=== PATIENT | male | born 1965 | race Caucasian/White ===

== ENCOUNTER → 2018-09-27 09:39 | Outpatient (CLI) | payer MEDICAID, SELFPAY ==
--- NOTE | 2018-09-27 | DI.MRI.S_ITS ---
PROCEDURE: MR LUMBAR SPINE WO CON INDICATIONS: Radiculopathy, cervical region lumbar region TECHNIQUE: Noncontrast sagittal T1 spin echo and T2 fast echo, sagittal STIR, axial T1 and T2 fast spin echo through the lumbar spine. In cases with scoliosis, additional coronal T2 fast spin echo may be performed. COMPARISON: [facility], MR, MR CERVICAL SPINE WO CON, 09/27/2018, 10:03. FINDINGS: Image quality: Diagnostic, with note made of motion artifact. Alignment and Curvature: Mild dextroconvex scoliotic curvature is seen. No focal AP alignment abnormality is seen. Bone Marrow: Marrow is of normal overall signal. No acute vertebral body compression fractures. Spinal Cord: Conus medullaris terminates at the L1-L2 level. Visualized cord demonstrates normal signal and size. Paraspinous Soft Tissues: No paravertebral masses. T12-L1: Normal appearance. L1-L2: Normal appearance. L2-L3: The disc height and disk signal are well-preserved. Mild disc bulge is seen, which is eccentric to the right. There is mild right-sided and no left-sided neural foraminal narrowing seen. No central canal narrowing is seen. L3-L4: Moderate loss of disc height is seen. Loss of disc signal is seen. There is a nonacute Schmorl's node seen at the superior endplate of L4. Moderate disc bulge is seen, which is eccentric to the right. There is a superimposed left-sided disc extrusion seen. Moderate bilateral neural foraminal narrowing is seen, left worse than right. Moderate central canal narrowing is seen. L4-L5: The disc height is well-preserved. Loss of disc signal is seen at this level. Mild to moderate disc bulge is seen, which is eccentric to the left. There is mild central disc protrusion seen. [id number] facet hypertrophy is seen. Moderate to severe bilateral neural foraminal narrowing is seen. There is a minimal degree of compression seen upon the exiting L4 nerve roots. Mild central canal narrowing is seen. L5-S1: Moderate loss of disc height is seen. Loss of disc signal is seen. Moderate disc bulge is seen, which is eccentric to the right side. There is moderate right-sided and mild left-sided facet hypertrophy seen. There is moderate to severe left-sided and severe right-sided neural foraminal narrowing seen. Compression can be seen upon the exiting L5 nerve roots, right worse than left. No significant central canal narrowing is seen. IMPRESSION: At L3-L4, there is a left-sided disc extrusion seen, with moderate bilateral neural foraminal narrowing and moderate central canal narrowing. Moderate bilateral neural foraminal narrowing is seen at L4-L5, with minimal compression upon the exiting L4 nerve roots. At L5-S1, there is moderate to severe left-sided nerve narrowing and severe right-sided neural foraminal narrowing. There is associated bilateral L5 nerve root compression. Mild dextroconvex scoliotic curvature. Dictated by: Johny Rick M.D. on 09/27/2018 at 10:53 Approved by: Johny Rick M.D. on 09/27/2018 at 11:02
--- NOTE | 2018-09-27 | DI.MRI.S_ITS ---
PROCEDURE: MR CERVICAL SPINE WO CON INDICATIONS: Radiculopathy, cervical region lumbar region TECHNIQUE: Noncontrast sagittal T1 spin echo and T2 fast spin echo, sagittal STIR, foraminal oblique sagittal T2 fast spin echo, and axial gradient echo or T2 fast spin echo through the cervical spine. COMPARISON: [facility], MR, MR LUMBAR SPINE WO CON, 09/27/2018, 10:27. FINDINGS: Image quality: Diagnostic, with note made of motion artifact. Alignment and Curvature: There is straightening of the normal cervical lordosis. Bone Marrow: Marrow demonstrates normal overall signal. Spinal Cord: Visualized spinal cord has normal size and signal. No cerebellar tonsillar herniation. Paraspinous Soft Tissues: No paravertebral masses. Prevertebral soft tissues are normal in thickness. C2-C3: The disc height is well-preserved. Loss of disc signal is seen at this level. A mild degree of generalized disc osteophyte complex is seen. There is a central disc osteophyte protrusion. No significant neural foraminal or central canal narrowing can be seen. C3-C4: The disc height is well-preserved. Loss of disc signal is seen at this level. A mild degree of generalized disc osteophyte complex is seen. There is a mild central disc osteophyte protrusion present at this level. Mild facet joint hypertrophy is seen. Mild bilateral neural foraminal narrowing is seen. Mild to moderate central canal narrowing is seen, with a mild degree of mass effect upon the ventral spinal cord. C4-C5: Moderate loss of disc height is seen. Loss of disc signal is seen. Moderate disc osteophyte complex is seen, which is eccentric to the right. Uncovertebral joint hypertrophy is seen at this level. There is mild to moderate right-sided and mild left-sided neural foraminal narrowing seen. Moderate to severe bilateral neural foraminal narrowing is seen, right worse than left. Moderate to severe central canal narrowing is seen, associated mass effect upon the ventral spinal cord, as on series 5 image 24. C5-C6: Moderate loss of disc height is seen. Loss of disc signal is seen. Moderate to severe disc osteophyte complex is seen, which is slightly eccentric to the right. Uncovertebral joint hypertrophy is seen at this level. There is moderate to severe bilateral neural foraminal narrowing seen, right worse than left. Moderate to severe central canal narrowing is seen at this level, with mass effect upon the ventral spinal cord, as on series 5 image 29. C6-C7: Mild loss of disc height is seen. Loss of disc signal is seen. Mild to moderate disc osteophyte complex is seen at this level. Uncovertebral joint hypertrophy is seen, which is more prominent on the left than on the right. Mild facet joint hypertrophy is seen. There is moderate right-sided and moderate to severe left-sided neural foraminal narrowing seen. At least moderate central canal narrowing is seen, with associated mass effect upon the ventral spinal cord, as on series 5 image 33. C7-T1: The disc height is well-preserved. Loss of disc signal is seen at this level. Moderate disc osteophyte complex is seen, which is slightly eccentric to the right. Mild facet joint hypertrophy is seen. There is mild right-sided and no left-sided neural foraminal narrowing seen. Mild central canal narrowing is seen. IMPRESSION: Cervical spine degenerative changes are seen, which are most prominent at C4-C5 and C5-C6. At these levels, there is moderate to severe bilateral neural foraminal narrowing and moderate to severe central canal narrowing present. Dictated by: Johny Rick M.D. on 09/27/2018 at 10:48 Approved by: Johny Rick M.D. on 09/27/2018 at 10:53
== END ==
PROVIDERS: PCP Family Medicine; Visit Provider Family Medicine
DX: M47.22 Other spondylosis with radiculopathy, cervical region (principal); M48.02 Spinal stenosis, cervical region; M51.16 Intervertebral disc disorders with radiculopathy, lumbar region; M48.061 Spinal stenosis, lumbar region without neurogenic claudication; M48.07 Spinal stenosis, lumbosacral region; M41.9 Scoliosis, unspecified
CPT/HCPCS: 72141; 72148

== ENCOUNTER → 2020-08-17 14:08 | Outpatient (CLI) | payer MEDICAID, SELFPAY ==
--- NOTE | 2020-08-17 | DI.RAD.S_ITS ---
PROCEDURE: XR FOOT RT MIN 3V INDICATIONS: Stiffness On Rt Ankle Joint TECHNIQUE: 3 views of the foot were acquired. COMPARISON: [facility], CR, XR ANKLE RT MIN 3V, 08/17/2020, 14:17. FINDINGS: Bones: No definite acute fracture although limited sensitivity due to advanced arthritic changes. There is severe 1st MTP joint degeneration, and marginal lucencies projecting at the 1st MTP joint. Severe hindfoot degenerative changes better appreciated on the comparison right ankle radiographs dated same day. Soft tissues: Vascular calcifications noted. 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 Scattered juxta-articular lucencies at the 1st MTP joint raising the possibility of erosions. Severe hindfoot joint degeneration and deformity. Dictated by: Deshawn Sumner M.D. on 08/17/2020 at 15:49 Approved by: Deshawn Sumner M.D. on 08/17/2020 at 15:51
--- NOTE | 2020-08-17 | DI.RAD.S_ITS ---
PROCEDURE: XR ANKLE RT MIN 3V INDICATIONS: Stiffness On Rt Ankle Joint TECHNIQUE: 3 views of the ankle were acquired. COMPARISON: None. FINDINGS: Bones: No definite acute fracture. Chronic appearing fracture of the distal anterior tibia with corticated margins. There is severe tibiotalar joint degeneration with advanced, chronic deformity. Subtalar and diffuse midfoot joint degeneration is present. There is bulky osteophyte formation at the dorsal talonavicular joint. Soft tissues: Scattered vascular calcifications. 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 Linear lucency projecting in the anterior tibial plafond presumably remote fracture sequela given the chronic radiographic appearance. Recommend correlation to point tenderness. Dictated by: Deshawn Sumner M.D. on 08/17/2020 at 15:45 Approved by: Deshawn Sumner M.D. on 08/17/2020 at 15:48
== END ==
PROVIDERS: PCP Family Medicine; Referring Provider Family Medicine; Visit Provider Family Medicine
DX: M25.671 Stiffness of right ankle, not elsewhere classified (principal); M19.071 Primary osteoarthritis, right ankle and foot
CPT/HCPCS: 73610; 73630

== ENCOUNTER → 2020-08-27 09:42 | Outpatient (CLI) | payer MEDICAID, SELFPAY ==
--- NOTE | 2020-08-27 09:44 | DI.US.S_ITS ---
PROCEDURE: US ABDOMEN COMPLETE INDICATIONS: Right upper quadrant pain TECHNIQUE: Real-time scanning was performed of the abdominal and retroperitoneal organs, with image documentation. COMPARISON: None. FINDINGS: Liver: Liver is enlarged measuring 17.4 cm. There is diffuse increased echogenicity. Gallbladder: Gallbladder has been removed. Biliary ducts: Intrahepatic bile ducts are non-dilated. Extrahepatic bile duct caliber measures 2.5 mm. Normal is 6-7 mm or less in diameter, or 10 mm or less post-cholecystectomy. Pancreas: Visualized portions of the pancreas are sonographically normal. Spleen: Spleen is normal in size and homogeneous in echotexture. Kidneys: Kidneys are normal in size and echotexture. Right kidney measures 13.2 cm long. No hydronephrosis or nephrolithiasis. No solid masses. Aorta: Visualized aorta is normal in caliber at less than 3 cm. Iliacs: Proximal common iliac arteries are normal in caliber at less than 2.5 cm. IVC: Intrahepatic inferior vena cava is patent. IMPRESSION: Hepatomegaly with steatosis. Dictated by: Sonia Spivey M.D. on 08/27/2020 at 14:07 Approved by: Sonia Spivey M.D. on 08/27/2020 at 14:10
== END ==
PROVIDERS: PCP Family Medicine; Referring Provider Family Medicine; Visit Provider Family Medicine
DX: R10.11 Right upper quadrant pain (principal); K76.0 Fatty (change of) liver, not elsewhere classified; Z90.49 Acquired absence of other specified parts of digestive tract
CPT/HCPCS: 76700

== ENCOUNTER 2020-09-09 14:13 | Inpatient (IN) | payer MEDICAID, SELFPAY ==
[2020-09-09] VITALS (22 sets, daily range): BP systolic 87–137; BP diastolic 53–75; PULSE 104–126; RESP 10–19; TEMP 36.9–38.7; O2SAT 92–98; BMI 21.7; BMI 20.6
--- NOTE | 2020-09-09 14:24 | DI.RAD.S_ITS ---
PROCEDURE: XR CHEST 1V INDICATIONS: suspected sepsis TECHNIQUE: One view of the chest was acquired. COMPARISON: [facility], , CHEST 1VW (PORTABLE), 09/12/2013, 6:20. FINDINGS: Surgical changes and devices: None. Lungs and pleura: Lungs are clear. No pleural effusions or pneumothorax. Mediastinum: Mediastinal contours appear normal. Heart size is normal. Bones and chest wall: Old right clavicle fracture which is healed in deformity stable in appearance. No suspicious bony lesions. Overlying soft tissues appear unremarkable. IMPRESSION: No acute cardiopulmonary disease process. Dictated by: Trice Childress MD, PhD on 09/09/2020 at 14:48 Approved by: Trice Childress MD, PhD on 09/09/2020 at 14:48
--- NOTE | 2020-09-09 14:47 | ED.WOUNDLAC ---
HPI - Wound/Laceration General Chief Complaint: Wound/Laceration Stated Complaint: states ulcer on right foot, thinks infection,swell Time Seen by Provider: 09/09/20 14:24 Source: patient Mode of arrival: Wheelchair History of Present Illness HPI narrative: 55-year-old poorly-controlled type 2 diabetic presents with right small toe infection with erythema and redness spreading over the dorsum of the foot getting worse over the last 3 days. Complains of significant calf pain, chills, fevers general malaise. He notes that there has been some mild irritation to that foot for almost a month but it did not begin to truly get bad until 3 days ago. He describes no chest pain, shortness of breath or cough. He does note that he has had recurrent diarrhea/constipation since April. He also notes that he has had constant right upper quadrant pain with outpatient workup so far unremarkable including a normal ultrasound. Related Data Allergies Allergy/AdvReac Type Severity Reaction Status Date / Time No Known Drug Allergies Allergy Verified 09/09/20 14:23 Review of Systems Review of Systems Narrative: Positive chills but denies fevers Remainder review is negative other than that discussed in the HPI Patient History Medical History Diabetes Social History Smoking Status: Never smoker Smoking Status: Never smoker Substance Use Type: does not use Exam Narrative Exam Narrative: General: Very thin and pale but in no acute distress. Able to give a complete and coherent history. Well-nourished well-developed HEENT: Moist mucous membranes, normal sclera with reactive pupils, Neck: No JVD, supple Respiratory: Lungs are clear to auscultation, no wheezing no rales no rhonchi. Full and symmetrical air movement Cardiac: Mildly tachycardic but otherwise Regular rate and rhythm no murmurs no bruits Abdomen: Soft, mild tenderness in the right upper quadrant that seems to be more in the abdominal wall with no rebound or guarding, good bowel tones, no flank pain Skin: Pale, no rashes Neurologic: Globally weak but Grossly neurologically intact with no obvious asymmetries or abnormalities Extremities: right calf more swollen than the left minor skin breakdown over the anterior garcia that appears chronic. Right small toe erythematous with developing necrosis and erythema over the dorsum of the foot with significant swelling over the dorsum of the foot. Reasonable capillary refill but no palpable pulses. Tender mid gastroc muscle Hands with intraosseous muscle wasting bilaterally Psych: Cooperative, appropriate insight and affect Initial Vital Signs Initial Vital Signs: Vital Signs Temperature 99.2 F 09/09/20 14:20 Pulse Rate 118 H 09/09/20 14:20 Respiratory Rate 18 09/09/20 14:20 Blood Pressure 115/71 09/09/20 14:20 Pulse Oximetry 97 09/09/20 14:20 Course Orders Ordered: ED Orders 09/09/20 14:24 XR chest 1V Stat EKG-12 Lead Stat 09/09/20 14:40 Complete Blood Count AUTO DIFF Stat Comprehensive Metabolic Panel Stat Lactate (Lactic Acid) Stat Lipase Stat Partial Thromboplastin Time Stat Procalcitonin Stat Prothrombin Time INR Stat 09/09/20 15:10 XR foot RT min 3V Stat Blood Culture Stat 09/09/20 15:28 US periph venous low extrem rt Stat 09/09/20 15:40 COVID19 - ADMIT ([employer] swab/PCR) Stat 09/09/20 18:10 Urine Microscopic Stat Discontinued Medications Acetaminophen (Acetaminophen 325 Mg Tablet) 650 mg PO NOW ONE Stop: 09/09/20 15:13 Last Admin: 09/09/20 15:33 Dose: 650 mg Documented by: KELECHI Sodium Chloride (Normal Saline 0.9%) 1,000 mls @ 1,000 mls/hr IV BOLUS ONE Stop: 09/09/20 15:23 Last Infusion: 09/09/20 16:04 Dose: 0 mls/hr Documented by: Admin: 09/09/20 14:51 Dose: 1,000 mls/hr Documented by: KELECHI Vancomycin HCl/Dextrose (Vancomycin) 1,500 mg in 300 mls @ 200 mls/hr IV NOW ONE Stop: 09/09/20 16:39 Last Infusion: 09/09/20 17:57 Dose: 0 mls/hr Documented by: Admin: 09/09/20 16:25 Dose: 200 mls/hr Documented by: KELECHI Piperacillin Sod/Tazobactam (Sod 4.5 gm/ Sodium Chloride) 100 mls @ 200 mls/hr IV NOW ONE Stop: 09/09/20 15:11 Last Infusion: 09/09/20 16:04 Dose: 0 mls/hr Documented by: Admin: 09/09/20 15:33 Dose: 200 mls/hr Documented by: KELECHI Sodium Chloride (Normal Saline 0.9%) 1,000 mls @ 1,000 mls/hr IV BOLUS ONE Stop: 09/09/20 16:11 Last Infusion: 09/09/20 17:45 Dose: 0 mls/hr Documented by: Admin: 09/09/20 16:25 Dose: 1,000 mls/hr Documented by: KELECHI Vital Signs Vital signs: Vital Signs - 8 hr 09/09/20 14:20 09/09/20 14:32 09/09/20 15:00 Temperature 99.2 F Pulse Rate 118 H 112 H 119 H Respiratory Rate 18 Blood Pressure 115/71 Pulse Oximetry 97 98 95 09/09/20 15:24 09/09/20 15:30 09/09/20 16:00 Temperature Pulse Rate 116 H 116 H Respiratory Rate Blood Pressure 125/69 130/71 112/61 Pulse Oximetry 92 96 96 09/09/20 16:30 09/09/20 17:00 09/09/20 17:30 Temperature Pulse Rate 110 H 108 H 107 H Respiratory Rate Blood Pressure 110/60 115/62 123/64 Pulse Oximetry 95 95 95 MDM - Wound/Laceration Medical Records Attestation: I reviewed the patient's medical records. Lab Data Attestation: I reviewed the patient's lab results. Result diagrams: 09/09/20 14:40 09/09/20 14:40 Labs: Lab Results 09/09/20 09/09/20 09/09/20 Range/Units 14:40 14:40 14:40 WBC 20.8 H (4.5-11.0) X10^3/uL RBC 3.79 L (4.5-5.9) X10^6/uL Hgb 10.9 L (13.5-17.5) g/dL Hct 31.7 L (41-53) % MCV 83.5 (80-100) fL MCH 28.7 (26-34) PG MCHC 34.4 (30-36) % RDW 11.6 (11.6-14.8) % Plt Count 263 (150-400) X10^3/uL Neut % (Auto) 84.5 H (50-75) % Lymph % (Auto) 7.1 L (25-40) % [place] % (Auto) 7.8 (3-14) % Eos % (Auto) 0.1 L (2-4) % Baso % (Auto) 0.5 (0-2) % Neut # (Auto) 78642 H (8724-4606) /uL Lymph # (Auto) 1500 (7788-8882) /uL [place] # (Auto) 1600 H (0-900) /uL Eos # (Auto) 0 (0-450) /uL Baso # (Auto) 100 (0-100) /uL PT 14.6 H (10.1-12.7) SECONDS INR 1.3 (0.9-1.3) APTT 30 (26.4-36.2) SECONDS Sodium 125 L (137-145) mmol/L Potassium 4.1 (3.4-5.1) mmol/L Chloride 89 L (98-107) mmol/L Carbon Dioxide 26 (22-32) mmol/L BUN 25 H (9-20) mg/dL Creatinine 0.57 L (0.66-1.25) mg/dL Estimated GFR > 60.0 (>60) mL/min BUN/Creatinine Ratio 43.9 H (6-22) Glucose 396 H (70-100) mg/dL Lactate (0.7-2.1) mmol/L Calcium 9.4 (8.4-10.2) mg/dL Total Bilirubin 0.5 (0.2-1.3) mg/dL AST 23 (17-59) IU/L ALT 20 (<50) IU/L Alkaline Phosphatase 98 (38-126) U/L Total Protein 7.0 (6.3-8.2) g/dL Albumin 3.5 (3.5-5.0) g/dL Globulin 3.5 (1.7-4.1) g/dL Albumin/Globulin Ratio 1.0 (1.0-2.8) Lipase < 10 L (23-300) U/L Procalcitonin 0.50 (<0.5) ng/mL SARS-CoV-2 (PCR) (Negative) 09/09/20 09/09/20 Range/Units 14:40 15:40 WBC (4.5-11.0) X10^3/uL RBC (4.5-5.9) X10^6/uL Hgb (13.5-17.5) g/dL Hct (41-53) % MCV (80-100) fL MCH (26-34) PG MCHC (30-36) % RDW (11.6-14.8) % Plt Count (150-400) X10^3/uL Neut % (Auto) (50-75) % Lymph % (Auto) (25-40) % [place] % (Auto) (3-14) % Eos % (Auto) (2-4) % Baso % (Auto) (0-2) % Neut # (Auto) (8222-1726) /uL Lymph # (Auto) (3978-4393) /uL [place] # (Auto) (0-900) /uL Eos # (Auto) (0-450) /uL Baso # (Auto) (0-100) /uL PT (10.1-12.7) SECONDS INR (0.9-1.3) APTT (26.4-36.2) SECONDS Sodium (137-145) mmol/L Potassium (3.4-5.1) mmol/L Chloride (98-107) mmol/L Carbon Dioxide (22-32) mmol/L BUN (9-20) mg/dL Creatinine (0.66-1.25) mg/dL Estimated GFR (>60) mL/min BUN/Creatinine Ratio (6-22) Glucose (70-100) mg/dL Lactate 1.1 (0.7-2.1) mmol/L Calcium (8.4-10.2) mg/dL Total Bilirubin (0.2-1.3) mg/dL AST (17-59) IU/L ALT (<50) IU/L Alkaline Phosphatase (38-126) U/L Total Protein (6.3-8.2) g/dL Albumin (3.5-5.0) g/dL Globulin (1.7-4.1) g/dL Albumin/Globulin Ratio (1.0-2.8) Lipase (23-300) U/L Procalcitonin (<0.5) ng/mL SARS-CoV-2 (PCR) Negative (Negative) Imaging Data XR foot: Radiologist's Impression: FINDINGS: Bones: No acute fractures or dislocations. No suspicious bony lesions. Degenerative changes are seen at the 1st metatarsophalangeal joint, medial tarsometatarsal joints, and dorsal talonavicular joint. Severe degenerative changes are seen at the mortise joint. There is generalized osteopenia. No definite cortical destruction is seen. Soft tissues: Soft tissue gas is seen in the lateral and dorsal aspect of the foot, which may be secondary to communication with the skin surface through a soft tissue ulcer versus secondary to infection with a gas-forming organism. IMPRESSION: 1. Prominent soft tissue gas is seen at the lateral and dorsal aspect of the forefoot, which may be secondary to communication with the skin surface through a soft tissue ulcer and/or infection with a gas-forming organism. 2. No definite signs of osteomyelitis, although radiographs are relatively insensitive and may lag behind clinical findings. MRI may be obtained for further evaluation if clinically indicated. Dictated by: Fab Bennett M.D. on 09/09/2020 at 14:43 Chest x-ray: Radiologist's Impression: FINDINGS: Surgical changes and devices: None. Lungs and pleura: Lungs are clear. No pleural effusions or pneumothorax. Mediastinum: Mediastinal contours appear normal. Heart size is normal. Bones and chest wall: Old right clavicle fracture which is healed in deformity stable in appearance. No suspicious bony lesions. Overlying soft tissues appear unremarkable. IMPRESSION: No acute cardiopulmonary disease process. Dictated by: Trice Childress MD, PhD on 09/09/2020 at 14:48 Ultrasound right calf: Radiologist's Impression: FINDINGS: The common femoral, femoral and popliteal veins are normally compressible, and free of intraluminal thrombus. Color and pulse Doppler demonstrate normal phasic intraluminal flow. There is normal augmentation response to distal compression maneuver. Subcutaneous soft tissue edema is seen at the right ankle through the right calf. Multiple mildly enlarged lymph nodes are seen in the right inguinal region, the largest of which measures up to 1.6 cm in short axis diameter. IMPRESSION: 1. No sonographic evidence of deep venous thrombosis in the right lower extremity. 2. Mildly enlarged right inguinal lymph nodes are nonspecific and may be reactive. Dictated by: Fab Bennett M.D. on 09/09/2020 at 15:29 ECG Data Attestation: I personally reviewed and interpreted this ECG as follows: Interpretation: Sinus tachycardia at 118 PVCs noted Normal intervals and normal axis No acute ischemic changes MDM Narrative Medical decision making narrative: 55-year-old gentleman with diabetic foot infection involving the 5th digit at least. Concern for developing sepsis with tachycardia however lactic acid is unremarkable as is blood pressure. Vancomycin and Zosyn her started fluids are started. X-ray is obtained. Will obtain Podiatry consult. Will anticipate need for hospital admission and possible debridement if not complete amputation. 545pm Dr De Los Santos in an apartment to examine the patient. X-rays are exam and he does have quite a bit of subcutaneous air. Her recommendation was small toe amputation and distal 5th metatarsal. Patient would prefer to keep as much as possible and understands that a multistep complex process with probably very poor healing is likely. His last meal was 1:00 p.m. today He will be admitted to the hospitalist service for diabetic foot wound with cellulitis and podiatry consult with Dr. De Los Santos with surgery anticipated later this evening. 615pm Reviewed with Dr Amado. Will admit. The all findings and concerns are reviewed with patient. Discharge Plan Departure Patient Disposition: Admitted As Inpatient Clinical Impression: Diabetic foot ulcer Qualifiers: Diabetic foot ulcer location: toe Diabetes mellitus type: type 2 Laterality: right Non-pressure ulcer stage: unspecified non-pressure ulcer stage Qualified Code(s): E11.621 - Type 2 diabetes mellitus with foot ulcer Cellulitis Qualifiers: Site of cellulitis: extremity Site of cellulitis of extremity: toe Laterality: right Qualified Code(s): L03.031 - Cellulitis of right toe
[2020-09-09 14:48] LABS: Add Manual Diff / Slide Review NO; Basophils Absolute Auto 100 /uL (0-100); Basophils Percent Auto 0.5 % (0-2); Eosinophils Absolute Auto 0 /uL (0-450); Eosinophils Percent Auto 0.1 % (2-4); Hematocrit 31.7 % (41-53); Hemoglobin 10.9 g/dL (13.5-17.5); Lymphocytes Absolute Auto 1500 /uL (1100-4500); Lymphocytes Percent Auto 7.1 % (25-40); Mean Corpuscular HGB Conc 34.4 % (30-36); Mean Corpuscular Hemoglobin 28.7 PG (26-34); Mean Corpuscular Volume 83.5 fL (80-100); Monocytes Absolute Auto 1600 /uL (0-900); Monocytes Percent Auto 7.8 % (3-14); Neutrophils Absolute Auto 17600 /uL (1500-7000); Neutrophils Percent Auto 84.5 % (50-75); Platelet Count 263 X10^3/uL (150-400); Red Blood Cell Count 3.79 X10^6/uL (4.5-5.9); Red Cell Distribution Width 11.6 % (11.6-14.8); White Blood Cell Count 20.8 X10^3/uL (4.5-11.0)
[2020-09-09] MEDS: SODIUM CHLORIDE 0.9% 1,000 ML 1000 ML IV ×2 (14:51→16:25)
[2020-09-09 14:58] LABS: INR 1.3 (0.9-1.3); Prothrombin Time 14.6 SECONDS (10.1-12.7)
[2020-09-09 15:01] LABS: PTT Partial Thromboplastin Tim 30 SECONDS (26.4-36.2)
[2020-09-09 15:07] LABS: Lactate (Lactic Acid) 1.1 mmol/L (0.7-2.1)
[2020-09-09 15:08] LABS: Alanine Aminotransferase 20 IU/L (<50); Albumin 3.5 g/dL (3.5-5.0); Alkaline Phosphatase 98 U/L (38-126); Aspartate Aminotransferase 23 IU/L (17-59); BUN Creatinine Ratio 43.9 (6-22); Bilirubin Total 0.5 mg/dL (0.2-1.3); Blood Urea Nitrogen 25 mg/dL (9-20); Calcium 9.4 mg/dL (8.4-10.2); Carbon Dioxide 26 mmol/L (22-32); Chloride 89 mmol/L (98-107); Estimated Glomerular Filt Rate > 60.0 mL/min (>60); Globulin 3.5 g/dL (1.7-4.1); Glucose 396 mg/dL (70-100); HEMOLYSIS < 15 (0-50); Potassium 4.1 mmol/L (3.4-5.1); Sodium 125 mmol/L (137-145)
--- NOTE | 2020-09-09 15:10 | DI.RAD.S_ITS ---
PROCEDURE: XR FOOT RT MIN 3V INDICATIONS: small toe infection, diabetic TECHNIQUE: 3 views of the foot were acquired. COMPARISON: [facility], CR, XR FOOT RT MIN 3V, 08/17/2020, 14:17. FINDINGS: Bones: No acute fractures or dislocations. No suspicious bony lesions. Degenerative changes are seen at the 1st metatarsophalangeal joint, medial tarsometatarsal joints, and dorsal talonavicular joint. Severe degenerative changes are seen at the mortise joint. There is generalized osteopenia. No definite cortical destruction is seen. Soft tissues: Soft tissue gas is seen in the lateral and dorsal aspect of the foot, which may be secondary to communication with the skin surface through a soft tissue ulcer versus secondary to infection with a gas-forming organism. IMPRESSION: 1. Prominent soft tissue gas is seen at the lateral and dorsal aspect of the forefoot, which may be secondary to communication with the skin surface through a soft tissue ulcer and/or infection with a gas-forming organism. 2. No definite signs of osteomyelitis, although radiographs are relatively insensitive and may lag behind clinical findings. MRI may be obtained for further evaluation if clinically indicated. Dictated by: Fab Bennett M.D. on 09/09/2020 at 14:43 Approved by: Fab Bennett M.D. on 09/09/2020 at 14:47
[2020-09-09 15:20] LABS: Lipase < 10 U/L (23-300)
--- NOTE | 2020-09-09 15:28 | DI.US.S_ITS ---
PROCEDURE: US PERIPH VENOUS LOW EXTREM RT INDICATIONS: RIGHT CALF PAIN WITH EDEMA TECHNIQUE: Real-time imaging, as well as color and pulse Doppler interrogation, were performed of the lower extremity deep veins from the inguinal ligament to the popliteal fossa. COMPARISON: None. FINDINGS: The common femoral, femoral and popliteal veins are normally compressible, and free of intraluminal thrombus. Color and pulse Doppler demonstrate normal phasic intraluminal flow. There is normal augmentation response to distal compression maneuver. Subcutaneous soft tissue edema is seen at the right ankle through the right calf. Multiple mildly enlarged lymph nodes are seen in the right inguinal region, the largest of which measures up to 1.6 cm in short axis diameter. IMPRESSION: 1. No sonographic evidence of deep venous thrombosis in the right lower extremity. 2. Mildly enlarged right inguinal lymph nodes are nonspecific and may be reactive. Dictated by: Fab Bennett M.D. on 09/09/2020 at 15:29 Approved by: Fab Bennett M.D. on 09/09/2020 at 15:31
[2020-09-09] MEDS: PIPERACILLIN/TAZO 4.5 GM in SODIUM CHLORIDE 0.9% 100 ML 200 ML IV (15:33)
[2020-09-09] MEDS: ACETAMINOPHEN 325 MG TABLET 650 MG PO (15:33)
[2020-09-09] MEDS: VANCOMYCIN 1,500 MG/300 ML PIGGYBACK 200 MG IV (16:25)
[2020-09-09 16:57] LABS: COVID19 - ADMIT (NP swab/PCR) Negative (Negative)
[2020-09-09 18:16] LABS: Bacteria Urine None Seen
[2020-09-09 18:26] LABS: Culture Indicated Urine Cult Not Indicated; RBC Urine 0-1/HPF (0-5/HPF); WBC Urine 0-1/HPF (0-5/HPF)
--- NOTE | 2020-09-09 18:30 | PM.CN ---
History of Present Illness Consult details Date Patient Seen: 09/09/20 Time Patient Seen: 17:00 Chief complaint: states ulcer on right foot, thinks infection,swell Reason for consult: Right foot wound, cellulitis, possible toe/foot infection Requesting provider: Anai Crawley Narrative: 55-year-old poorly controlled diabetic presented to the emergency room this morning with concerning redness and increased swelling to the foot and calf. I was contacted when he was at the emergency room by Dr. Crawley as there was increasing concern that there may be a need for surgical intervention on the right fifth toe and ball of foot. He relates no feeling in the foot but a tightness and some calf pain. He also relates some chills and possible fever over the last few days. He has seen a callus on the bottom of the foot and usually it just comes off but got worse when he was bending down repeatedly to help his cat who was ill and in a carrier. He relates otherwise no injury to the foot. 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 Meds Home Medications and Allergies Allergies Allergy/AdvReac Type Severity Reaction Status Date / Time No Known Drug Allergies Allergy Verified 09/09/20 14:23 Review of Systems Constitutional Constitutional: Reports chills Integumentary/Breasts Skin/Breast: Reports wounds (On right foot as reported.) Exam Vital Signs (past 8 hours): - 09/09/20 14:20 09/09/20 14:32 09/09/20 15:00 Temperature 99.2 F Pulse Rate 118 H 112 H 119 H Respiratory Rate 18 Blood Pressure 115/71 Pulse Oximetry 97 98 95 09/09/20 15:24 09/09/20 15:30 09/09/20 16:00 Temperature Pulse Rate 116 H 116 H Respiratory Rate Blood Pressure 125/69 130/71 112/61 Pulse Oximetry 92 96 96 09/09/20 16:30 09/09/20 17:00 09/09/20 17:30 Temperature Pulse Rate 110 H 108 H 107 H Respiratory Rate Blood Pressure 110/60 115/62 123/64 Pulse Oximetry 95 95 95 Oxygen Delivery Method Room Air Const General: cooperative Orientation: alert, awake and oriented x3 Resp Effort & Inspection: normal respiratory effort Cardio Pulses: posterior tibial pulses present on the right (Edema to the foot/ankle.) diminished and dorsalis pedis present (Weakly palpable, however there is much edema.) on the right Extrem Right lower extremity: foot Details: normal capillary refill, warmth, edema (1+ pitting foot/ankle, reduced edema at the calf. ), crepitus (None to the foot) and motor-sensory exam Details: light-touch abnormal Location: in all toes (and foot are insensate on light touch.) Other: Wound plantar fifth metatarsal head has dark eschar over it and is about the size of a quarter. There is no exposed bone or tendon, no purulence, but the skin changes around the wound show chronicity of pressure. Fifth toe is enlarged with edema, redness, and some wetness c/w recent edema and cellulitus. There is redness dorsolateral distal foot and skin is a little tight with underlying edema, no crepitus on gentle pressure. Some areas of possible serous weeping are noted on the skin in this area. He is able to DF and PF the foot on the ankle. Objective Imaging foot x-ray: Radiologist's impression: 3V Right foot NWB taken 09/09/20: IMPRESSION: 1. Prominent soft tissue gas is seen at the lateral and dorsal aspect of the forefoot, which may be secondary to communication with the skin surface through a soft tissue ulcer and/or infection with a gas-forming organism. 2. No definite signs of osteomyelitis, although radiographs are relatively insensitive and may lag behind clinical findings. MRI may be obtained for further evaluation if clinically indicated. Venous US: Radiologist's impression: Right lower ext venous U/S 09/09/2020: IMPRESSION: 1. No sonographic evidence of deep venous thrombosis in the right lower extremity. 2. Mildly enlarged right inguinal lymph nodes are nonspecific and may be reactive. Labs Result Diagrams: 09/09/20 14:40 09/09/20 14:40 Labs: Laboratory Results - last 24 hr 09/09/20 09/09/20 09/09/20 14:40 14:40 14:40 WBC 20.8 H RBC 3.79 L Hgb 10.9 L Hct 31.7 L MCV 83.5 MCH 28.7 MCHC 34.4 RDW 11.6 Plt Count 263 Neut % (Auto) 84.5 H Lymph % (Auto) 7.1 L [place] % (Auto) 7.8 Eos % (Auto) 0.1 L Baso % (Auto) 0.5 Neut # (Auto) 39748 H Lymph # (Auto) 1500 [place] # (Auto) 1600 H Eos # (Auto) 0 Baso # (Auto) 100 PT 14.6 H INR 1.3 APTT 30 Sodium 125 L Potassium 4.1 Chloride 89 L Carbon Dioxide 26 BUN 25 H Creatinine 0.57 L Estimated GFR > 60.0 BUN/Creatinine Ratio 43.9 H Glucose 396 H Lactate Calcium 9.4 Total Bilirubin 0.5 AST 23 ALT 20 Alkaline Phosphatase 98 Total Protein 7.0 Albumin 3.5 Globulin 3.5 Albumin/Globulin Ratio 1.0 Lipase < 10 L Procalcitonin 0.50 Urine RBC Urine WBC Urine Bacteria Ur Culture Indicated? SARS-CoV-2 (PCR) 09/09/20 09/09/20 09/09/20 14:40 15:40 17:57 WBC RBC Hgb Hct MCV MCH MCHC RDW Plt Count Neut % (Auto) Lymph % (Auto) [place] % (Auto) Eos % (Auto) Baso % (Auto) Neut # (Auto) Lymph # (Auto) [place] # (Auto) Eos # (Auto) Baso # (Auto) PT INR APTT Sodium Potassium Chloride Carbon Dioxide BUN Creatinine Estimated GFR BUN/Creatinine Ratio Glucose Lactate 1.1 Calcium Total Bilirubin AST ALT Alkaline Phosphatase Total Protein Albumin Globulin Albumin/Globulin Ratio Lipase Procalcitonin Urine RBC 0-1/hpf Urine WBC 0-1/hpf Urine Bacteria None seen Ur Culture Indicated? Cult not indicated SARS-CoV-2 (PCR) Negative Assessment & Plan Assessment & Plan narrative: 55-year-old diabetic male with cellulitis and diabetic neuropathic ulcer on the 5th metatarsal head with question of possible gas in the tissues and underlying osteomyelitis on the foot. He and I discussed the concern I have in regards to the possible gas in his tissues which could be significantly a problem if left unattended without surgical intervention. He voiced understanding and is in a mind set to undergo an incision with irrigation and debrided in as well as draining on the foot tonight. Also, we discussed the potential fitness for viability on his 5th toe and skin as well as bone along the 5th metatarsal. My suspicion is that there is potentially a going to be a significant difficulty in recovering that skin and did discuss with him the possibility that it may be an improvement and quicker healing time to perform a partial 5th ray amputation. He does not want to undergo any removal of the toe or portion of the foot excepting in a circumstance where it is a little further down the road in terms of his recovery or if it is an absolute necessity. My suggestion is that we perform the irrigation with cultures of the soft tissues as well as bone if possible tonight and then allow him to begin to stabilize with the possible infection as well as undergoing further medical management of his diabetes while an inpatient. We can observe how the foot attempts healing following the I and D, and he may be recovering via wound care with the wound care team or a return to the operating room as necessary. He is going to be admitted on the hospitalist medicine team and I will provide consultation. While we continue to observe for updated cultures, I spoke with his attending in the emergency room and she is going to keep him on the IV vancomycin and Zosyn until further information is known. Thank you for the referral and consultation. COVID-19 COVID-19 status: Negative Result date/Date tested (Pos, Neg/Pending): 09/09/20 Time Spent With Patient Time with patient: 25 - 35 minutes
[2020-09-09] MEDS: SODIUM CHLORIDE 0.9% 1,000 ML 100 ML IV (19:25)
[2020-09-09] MEDS: METOCLOPRAMIDE 10 MG in SODIUM CHLORIDE 0.9% 50 ML 208 ML IV (19:25)
--- NOTE | 2020-09-09 19:28 | PC.NURSE ---
Home med list: Does not know dosing or timing of these meds Lisinopril Simvastatin Famotadine Lantus - 45u at bedtime - not currently taking Humalog - base is 20U - not currently taking Carbamazapine Cialis Multivitamin Fiber Aspirin Tylenol Tumeric
--- NOTE | 2020-09-09 19:44 | PC.NURSE ---
Addendum entered by Caitlyn Ferrer R.N. 09/09/20 22:50: Pt returned to floor at 2227. Bulky dressing to right foot. 5th toe is dusky but warm, all other toes with good color and cap refill. Original Note: Admission/shift note: Patient off floor at 1940. Arrived via wheelchair, AxOx3, hx of multiple recent falls. Does not use insulins at home and stated he resides in [place] and further explained hx of denial about health. confidently let this RN know patient isn't always of sound mind and decision making and will not always let staff known his needs. Only home med patient knew dosing and schedule was gabapentin, all other meds documented in a nursing note. Weeping wound to right foot, small toe to bottom of foot. Going down for surgery for amputation. High fall risk, call light education given. Will need reinforcement.
--- NOTE | 2020-09-09 20:01 | PM.PREOP ---
Pre-operative Note COVID-19 COVID-19 status: Negative Result date/Date tested (Pos, Neg/Pending): 09/09/20 Interval Note History & Physical reviewed/Exam performed by Physician: Yes Changes to H&P: No
--- NOTE | 2020-09-09 20:02 | PM.OP.1 ---
Operative Date/Time/Diagnoses Date of procedure: 09/09/20 Time of procedure: 20:02 Pre-op diagnosis: Right foot cellulitus with diabetic foot ulceration, possible abscess, osteomyelitis Post-op diagnosis: same Procedure & Clinicians Procedure: Right foot incision and drainage, debridement, biopsy bone, tissue cultures Same procedure as scheduled: Yes Indications: Wound with cellulitis and suspected abscess right foot. Gas in tissues on x-ray gave noticeable concern and urgent incision and drainage indicated. Patient consented to this but did not want me to remove any toe or major portion of bone with this procedure today. No contraindication to the procedure at this time. Surgeon: Laura De Los Santos Click Yes if Unassisted: Yes Anesthesia Type: General Operative Notes Closure Type: not applicable Specimen(s): other (1) Deep fourth interspace culture swab, 2) Fifth metatarsal lateral head bone culture) Estimated Blood Loss (mL): 75 Blood products transfused: none Procedure in detail: Patient was brought to the operating room and placed on the operating table in the supine position. After induction of general anesthesia the foot and ankle were prepped and draped in the usual aseptic manner. Local anesthesia was obtained to the foot. After a check of anesthesia, an incision was made over the dorsal 4th interspace from distal to proximal. This immediately smelled of gas and purulent discharge was noted. This was able to be traced in a tissue plane over to the 3rd and almost into the 2nd interspace distally. Proximally this mostly followed the 4th interspace and then just along the plane dorsally of the midfoot but did not show purulence in that direction. The next incision was made on the lateral 5th metatarsal head and metatarsophalangeal joint. This was brought down under the ulceration which was removed from the 5th metatarsal head and once again purulent discharge was noted. This also had a plane going medially to around the 3rd metatarsal neck and this did not show purulence. There was a communication between the 4th interspace plantarly and dorsally. Pressure was placed into the instep and no purulent discharge was noted plantarly. There was significant necrosis of the tissues along the 5th metatarsophalangeal joint although the metatarsal head was soft but intact. Deep tissue cultures were performed from the 4th interspace and the bone biopsy was taken from the lateral 5th metatarsal head. Proximal extension along 5th metatarsal and 4th interspace was checked and after further debridement of necrotic tissues no further purulent discharge was noted. The area was irrigated with extensive amount of normal saline in each of the locations. Bleeders were cauterized and ligated as necessary. Vascularity remained to the 5th toe and the other digits as well. Half-inch Nu Gauze packing was placed in each of the areas and then a lightly compressive dressing of Adaptic 4x4s ABD pad Kerlix and Jaime wrap were placed on the foot. He was transferred to the PACU with vital signs stable and vascular status intact. Complications: none Post-operative Condition: stable Disposition: Acute Care Plan for aftercare: He is transferred following his stay in PACU to the acute care floor for admission to the hospitalist medical service and I will continue to support as consult. Dressing to be changed tomorrow and packing as well. We will review the details of the surgery and watch for declaration of the skin and hopefully some reduction of the cellulitic appearance. We will review more declared of options together and determine further surgical and local care once we have a little better understanding of the response that his foot will be able to make from this initial procedure. He is to be nonweightbearing on the right foot at this time.
[2020-09-09] MEDS: LIDOCAINE 2% INJ MDV 20 ML INJ (20:49)
[2020-09-09] MEDS: BUPIVACAINE 0.5% (PF) VIAL 30 ML INJ (20:51)
[2020-09-09 21:05] LABS: Magnesium 1.8 mg/dL (1.6-2.3)
[2020-09-09 21:10] LABS: Hemoglobin A1C% w Est Avg Glu 12.1 % (4.0-6.0)
[2020-09-09] MEDS: OXYCODONE/ACETAMINOPHEN 5/325 TABLET 1 TAB PO (21:52)
[2020-09-09] MEDS: ACETAMINOPHEN 325 MG TABLET 975 MG PO (22:10)
--- NOTE | 2020-09-09 22:36 | SUR.PHASEI ---
Late entry: Pt arrived with oral airway, nasal cannula 02 added, airway out, nasal cannula continued. CBG checked 2138 resulted at 241, 2units regular insulin IV given by Dr. Shaikh. Neuro check to l foot revealed poor sensation- pt stated he had this preop as he has neuropathy to both feet. Capillary refill good on all digets except for 5th diget- which is slightly blue in color. Pt medicated with percocet and 350mg of tylenol
[2020-09-09] MEDS: SODIUM CHLORIDE 0.45% 1,000 ML 100 ML IV (22:38)
[2020-09-09] MEDS: CEFEPIME 2 GM in SODIUM CHLORIDE 0.9% 100 ML 200 ML IV (22:38)
[2020-09-09] MEDS: FAMOTIDINE 20 MG TABLET PO (22:39)
[2020-09-09] MEDS: SIMVASTATIN 20 MG TABLET PO (22:39)
--- NOTE | 2020-09-09 22:47 | SUR.PHASEI ---
Pt transported up to rrom 223 and left in stable condition. Bed down, locked and call [facility] in had, pt aware to use.
[2020-09-09] MEDS: INSULIN ASPART 100 UNIT/ML INSULN PEN SUBCUT (23:28)
[2020-09-09] MEDS: INSULIN GLARGINE 100 UNIT/ML 3ML PEN 20 UNIT SUBCUT (23:28)
[2020-09-10] VITALS (17 sets, daily range): BP systolic 91–111; BP diastolic 56–63; PULSE 90–103; RESP 16–18; TEMP 36.3–37.9; O2SAT 93–100
[2020-09-10] MEDS: VANCOMYCIN 1,000 MG/200 ML PIGGYBACK 200 MG IV ×4 (00:11→23:07)
--- NOTE | 2020-09-10 01:13 | PM.HP.1 ---
History of Present Illness History of Present Illness Date Patient Seen: 09/09/20 Time Patient Seen: 23:41 Chief complaint: states ulcer on right foot, thinks infection,angela Narrative: Mr. Cyrus Sierra is a 55-year-old male patient who appears older than his stated age with a past medical history poorly controlled diabetes, hypertension and hyperlipidemia who presents to the ER with complaints of foot ulcer for 1 month. The patient states he had an ulcer on the outside is foot which has become progressively worse over the last month. He was treated at the [facility] where the wound was debrided 1 week ago. Patient states since that time he has had increasing pain and swelling and drainage. He distally reports he has had callus on the ball of his foot which she manipulated and removed. States over the last 3 days pain became much worse with swelling extending into the dorsum of the foot with associated calf pain and malaise. He reports having having systemic symptoms of shaking chills for 1 week. The patient states that he ?[place]? and has not been taking his insulin for some time. He additionally reports taking lisinopril, simvastatin famotidine and carbamazepine of which he cannot recall the dosages as well as aspirin on a ?hit and miss basis?. The patient denies fevers or headaches, has not experienced vision changes, nasal congestion or sore throat. Denies complaints of chest pain or palpitations, shortness of breath cough or wheezing. He endorses right upper quadrant abdominal pain which has been investigated on outpatient evaluation with ultrasound finding hepatomegaly with hepatic steatosis. He reports no nausea vomiting and has had intermittent diarrhea. Reports no difficulty with urination, no urgency frequency or burning. Upon arrival to the ER the patient has a temperature 99.2?, tachycardic at 118, blood pressure 115/71, respirations of 18 and saturating 97% on room air. A chest x-ray is obtained which finds no acute cardiopulmonary abnormalities. A venous ultrasound of the right lower extremity finds no sonographic evidence for DVT and a mildly enlarged right inguinal lymph node. X-ray of the right foot identifies prominent soft tissue gas at the lateral and dorsal aspect of the forefoot, no definitive signs of osteomyelitis. Twelve lead EKG is obtained finding sinus tachycardia at 118 with occasional PVCs, no evidence of ST or T-wave changes. On laboratory analysis the patient has white count of 20.8 with neutrophilia of 17,600 and elevated monocytes of 1600, hemoglobin of 10.9, hematocrit of 31.7 and platelets of 263. He has a PT of 14.6 and INR of 1.3 and a PTT of 30. He is hyponatremic with a sodium of 125 and a BUN of 25 with a creatinine 0.57. His bilirubin is 0.5, AST 23, ALT 20 and alkaline phosphatase of 98. His lactic acid of 1.1 and procalcitonin 0.5. His COVID screening is negative. is contacted through the ED and agrees to consult. Following her evaluation the patient is taken to the OR for incision and drainage. Discussion was held with the patient regarding possible amputation which the patient states his wish to preserve his foot as much as possible avoiding amputation. In the ER the patient is started on vancomycin 1500 mg as well as Zosyn 4.5 g IV and received 2 L of normal saline. The patient is admitted to the hospitalist service with podiatry consult for infected right lateral foot with cellulitis. Patient History Medical History Diabetes Hyperlipidemia Hypertension Surgical History History of cholecystectomy Family & Social History Family History (Updated 09/10/20 @ 06:43 by ERIN Narvaez) Father Diabetes mellitus Cancer Mother Cancer Social History: household members spouse Prior Living Arrangements House Safety & Behavioral: Feels Safe in Current Yes Environment Been Physically Hurt or No Threatened By a Person Suicidal Ideation Description None Suicide Plan Description No Plan Tobacco & Substance use: Smoking Status Never smoker alcohol intake current alcohol intake frequency holiday/special occasion Substance Use Type does not use Meds Home Medications and Allergies Home Medications Medication Instructions Recorded Confirmed Type gabapentin 1,200 mg PO TID 09/09/20 09/09/20 History Allergies Allergy/AdvReac Type Severity Reaction Status Date / Time No Known Drug Allergies Allergy Verified 09/09/20 14:23 Review of Systems Review of Systems ROS: Yes All systems reviewed with the patient and are negative except as otherwise documented Exam Vital Signs (past 8 hours): - 09/09/20 17:30 09/09/20 18:00 09/09/20 18:30 Temperature Pulse Rate 107 H 104 H 104 H Respiratory Rate Blood Pressure 123/64 110/64 111/58 L Pulse Oximetry 95 96 95 09/09/20 18:58 09/09/20 21:35 09/09/20 21:37 Temperature 98.7 F 98.5 F Pulse Rate 109 H 105 H 108 H Respiratory Rate 18 16 10 L Blood Pressure 126/70 87/53 L 104/64 Pulse Oximetry 96 95 95 09/09/20 21:40 09/09/20 21:45 09/09/20 22:00 Temperature 99.1 F Pulse Rate 109 H 110 H 120 H Respiratory Rate 16 17 16 Blood Pressure 105/65 127/75 137/75 Pulse Oximetry 96 98 95 09/09/20 22:10 09/09/20 22:15 09/09/20 22:27 Temperature 99.6 F 101.6 F H Pulse Rate 117 H 126 H Respiratory Rate 19 18 Blood Pressure 126/69 120/68 Pulse Oximetry 95 96 09/09/20 22:40 09/09/20 22:54 Temperature 100.3 F H Pulse Rate 115 H Respiratory Rate 16 Blood Pressure 103/59 L Pulse Oximetry 97 97 Oxygen Delivery Method Nasal Cannula Oxygen Flow Rate 2 Narrative Exam Narrative: GENERAL APPEARANCE: well developed, protein malnourished male with a BMI of 20.7, in no acute distress. HEENT: Normocephalic, PERRLA, conjunctiva clear, EOMs intact without nystagmus, no sinus tenderness to percussion, no rhinorrhea, mucous membranes are pink and dry. NECK/THYROID: neck supple, no JVD, no thyromegaly, trachea midline. LYMPH NODES: no cervical or supraclavicular lymphadenopathy. SKIN: [place], warm and dry, no visible rashes. HEART: regular rate and rhythm, S1-S2, no murmur, no rubs or gallops, brisk capillary refill, no edema LUNGS: clear to auscultation bilaterally, no coarseness crackles or wheezing, no cough present CHEST: Symmetrical movement, no accessory muscle use, good tidal volume no pain to AP and lateral compression. ABDOMEN: Scaphoid, palpable liver right upper, tender to palpation, no guarding or peritoneal signs, no flank or suprapubic tenderness, active bowel tones. EXTREMITIES: Bulky postoperative dressing to right foot, wounds not visualized, moves all extremities, strength is 5/5 and symmetrical, no clubbing or cyanosis NEUROLOGIC: AAO x4, no focal neurologic deficits, cranial nerves II-XII grossly intact, neuropathy to mid lower leg, bilateral feet insensate, hearing grossly normal to speech. PSYCH: Quiet spoken, acknowledges denial of illness, cooperative, stable behavior Objective Labs Result Diagrams: 09/09/20 14:40 09/09/20 14:40 Labs: Laboratory Results - last 24 hr 09/09/20 09/09/20 09/09/20 14:40 14:40 14:40 WBC 20.8 H RBC 3.79 L Hgb 10.9 L Hct 31.7 L MCV 83.5 MCH 28.7 MCHC 34.4 RDW 11.6 Plt Count 263 Neut % (Auto) 84.5 H Lymph % (Auto) 7.1 L Menard % (Auto) 7.8 Eos % (Auto) 0.1 L Baso % (Auto) 0.5 Neut # (Auto) 73231 H Lymph # (Auto) 1500 Menard # (Auto) 1600 H Eos # (Auto) 0 Baso # (Auto) 100 PT 14.6 H INR 1.3 APTT 30 Sodium 125 L Potassium 4.1 Chloride 89 L Carbon Dioxide 26 BUN 25 H Creatinine 0.57 L Estimated GFR > 60.0 BUN/Creatinine Ratio 43.9 H Glucose 396 H Hemoglobin A1c Lactate Calcium 9.4 Magnesium Total Bilirubin 0.5 AST 23 ALT 20 Alkaline Phosphatase 98 Total Protein 7.0 Albumin 3.5 Globulin 3.5 Albumin/Globulin Ratio 1.0 Lipase < 10 L Procalcitonin 0.50 Urine RBC Urine WBC Urine Bacteria Ur Culture Indicated? SARS-CoV-2 (PCR) 09/09/20 09/09/20 09/09/20 14:40 14:40 14:40 WBC RBC Hgb Hct MCV MCH MCHC RDW Plt Count Neut % (Auto) Lymph % (Auto) [place] % (Auto) Eos % (Auto) Baso % (Auto) Neut # (Auto) Lymph # (Auto) [place] # (Auto) Eos # (Auto) Baso # (Auto) PT INR APTT Sodium Potassium Chloride Carbon Dioxide BUN Creatinine Estimated GFR BUN/Creatinine Ratio Glucose Hemoglobin A1c 12.1 H Lactate 1.1 Calcium Magnesium 1.8 Total Bilirubin AST ALT Alkaline Phosphatase Total Protein Albumin Globulin Albumin/Globulin Ratio Lipase Procalcitonin Urine RBC Urine WBC Urine Bacteria Ur Culture Indicated? SARS-CoV-2 (PCR) 09/09/20 09/09/20 15:40 17:57 WBC RBC Hgb Hct MCV MCH MCHC RDW Plt Count Neut % (Auto) Lymph % (Auto) [place] % (Auto) Eos % (Auto) Baso % (Auto) Neut # (Auto) Lymph # (Auto) Menard # (Auto) Eos # (Auto) Baso # (Auto) PT INR APTT Sodium Potassium Chloride Carbon Dioxide BUN Creatinine Estimated GFR BUN/Creatinine Ratio Glucose Hemoglobin A1c Lactate Calcium Magnesium Total Bilirubin AST ALT Alkaline Phosphatase Total Protein Albumin Globulin Albumin/Globulin Ratio Lipase Procalcitonin Urine RBC 0-1/hpf Urine WBC 0-1/hpf Urine Bacteria None seen Ur Culture Indicated? Cult not indicated SARS-CoV-2 (PCR) Negative Assessment & Plan Assessment & Plan narrative: This is a 55-year-old male patient who appears older than his stated age with poorly controlled diabetes hypertension hyperlipidemia who presents to the ER with an infected diabetic foot ulcer with cellulitis. 1. Nonhealing diabetic foot ulcer right lateral foot, with cellulitis, present on admission, active. -complaints of ulcer x1 month debrided 1 week ago with worsening pain swelling and redness in the last 3 days. -imaging of the right foot finds prominent soft tissue gas surrounding the lateral and dorsal foot, no definitive evidence of osteomyelitis. WBCs are 20.8 with neutrophils of 17,600 and monocytes 1600, lactic acid is 1.1, procalcitonin is 0.5. -the patient is taken from the ER to the OR for incision and drainage with wound debridement by Dr. De Los Santos for urgent inches urine drainage, please refer to Dr. De Los Santos's notes. -post postoperative care per Dr. De Los Santos. -ordered vancomycin per pharmacy received initial dose of vancomycin 1500 mg IV in the emergency department. -ordered cefepime 2 g IV every 8 hours receiving 1st dose in the emergency department. -recheck CBC in the morning. 2. Uncontrolled diabetes type 2 with hyperglycemia, present on admission, active. -the patient endorses not using his insulin and on initial labs drawn in the ER the patient has a blood sugar of 396. -ordered hemoglobin A1c which returns at 12.1. -patient reports taking insulin on a ?hit or miss basis, reports should be taking Lantus 45 mg and checking his blood sugars before meals with Humalog correctional insulin. -the patient received 5 units of insulin in the ER and 2 units in the OR. -ordered Lantus 20 units subQ x1 tonight, will recheck glucose upon return to the floor for cover with daytime sliding scale insulin. Will recheck insulin at 1:00 a.m. -ordered fingerstick blood sugars a.c. and HS, coverage with low-dose correctional insulin. -requested dietitian consult. 3. Hyponatremia, presumed acute, present on admission, active. -hyponatremia believed to be related to dehydration secondary to hyperglycemia -initial labs reveal serum sodium of 125. Patient received 2 L of normal saline in the ER will continue rehydration with normal saline at 100 cc/hour. -recheck chemistries in the morning. 4. Hypertension, chronic, stable. -patient reports taking lisinopril daily though he cannot remember the dose. Upon arrival to the ER the patient's blood pressure is 115/71. -hold antihypertensives and follow blood pressure trends and add lisinopril as indicated. 5. Hyperlipidemia, chronic, stable -patient takes simvastatin but does not recall the dosage. -ordered simvastatin 20 mg daily. -will obtain a lipid panel and adjust dosage accordingly. VTE prophylaxis: SCD left leg IV fluid: Normal saline 100 cc/hour. Diet: Small consistent carbohydrate, heart healthy Code status: Full code, the patient designates his to be his surrogate decision maker. The patient is admitted to the hospital due to the severity of his infection requiring urgent surgery, IV antibiotics and management of his comorbid conditions. The patient is admitted as an inpatient with expected length of stay to be greater than 2 midnights. COVID-19 COVID-19 status: Negative Result date/Date tested (Pos, Neg/Pending): 09/09/20 Scores GCS [place] coma scale eye opening: Spontaneous [place] coma scale verbal response: Orientated [place] coma scale motor response: Obey commands [place] coma scale total score: 15 Quality VTE Deep Vein Thrombosis/Pulmonary Embolism Present on Admission: No
[2020-09-10] MEDS: ACETAMINOPHEN 325 MG TABLET 975 MG PO ×3 (04:18→20:22)
[2020-09-10] MEDS: SODIUM CHLORIDE 0.9% 1,000 ML 100 ML IV (05:15)
[2020-09-10] MEDS: OXYCODONE IR 5 MG TABLET PO ×2 (05:53→16:41)
[2020-09-10] MEDS: CEFEPIME 2 GM in SODIUM CHLORIDE 0.9% 100 ML 200 ML IV ×2 (05:54→22:18)
[2020-09-10 05:56] LABS: Add Manual Diff / Slide Review NO; Basophils Absolute Auto 0 /uL (0-100); Basophils Percent Auto 0.2 % (0-2); Eosinophils Absolute Auto 100 /uL (0-450); Eosinophils Percent Auto 0.5 % (2-4); Hematocrit 28.3 % (41-53); Hemoglobin 9.5 g/dL (13.5-17.5); Lymphocytes Absolute Auto 1300 /uL (1100-4500); Lymphocytes Percent Auto 7.7 % (25-40); Mean Corpuscular HGB Conc 33.6 % (30-36); Mean Corpuscular Hemoglobin 28.3 PG (26-34); Mean Corpuscular Volume 84.1 fL (80-100); Monocytes Absolute Auto 1400 /uL (0-900); Monocytes Percent Auto 8.4 % (3-14); Neutrophils Absolute Auto 14100 /uL (1500-7000); Neutrophils Percent Auto 83.2 % (50-75); Platelet Count 222 X10^3/uL (150-400); Red Blood Cell Count 3.36 X10^6/uL (4.5-5.9); Red Cell Distribution Width 11.6 % (11.6-14.8)
[2020-09-10 06:01] LABS: BUN Creatinine Ratio 26.8 (6-22); Blood Urea Nitrogen 15 mg/dL (9-20); Calcium 8.4 mg/dL (8.4-10.2); Carbon Dioxide 28 mmol/L (22-32); Chloride 95 mmol/L (98-107); Cholesterol 71 mg/dL (140-199); Estimated Glomerular Filt Rate > 60.0 mL/min (>60); Glucose 194 mg/dL (70-100); HDL Cholesterol 17 mg/dL (40-60); HEMOLYSIS < 15 (0-50); LDL Cholesterol Calculated 38 mg/dL (<100); Potassium 3.8 mmol/L (3.4-5.1); Sodium 129 mmol/L (137-145); Triglycerides 80 mg/dL (35-150)
--- NOTE | 2020-09-10 06:51 | PC.NURSE ---
Pt running 1/2NS, order changed to NS @ 0515. Pt urinated x1, bladder scanned, retaining ~800 mL. Provider made aware, provider discussed options with pt, pt agreed to attempt to urinate again before being cath'd. Provider ordered bladder scan and straight cath PRN. Pt voided another 250 mL at 0650 and is making another attempt.
[2020-09-10] MEDS: INSULIN ASPART 100 UNIT/ML INSULN PEN SUBCUT ×4 (09:09→20:28)
[2020-09-10] MEDS: SODIUM CHLORIDE 0.9% FLUSH 10 ML IV ×2 (09:11→20:22)
[2020-09-10] MEDS: GABAPENTIN 600 MG TABLET 1200 MG PO ×3 (09:11→20:22)
--- NOTE | 2020-09-10 12:04 | CM.IDA ---
Initial DCP Assessment Note Pt is a 55 yo male, resident of [place], arrives stating he had an ulcer on his right foot, thinking it was infected, swelling. Patient w/ PMH to include poorly controlled diabetes, hypertension and hyperlipidemia PCP: Irasema Frias Payer: [facility] Patient now POD#1 from I+D of infected foot ulcer (by [employer]), bone biopsy pending, question of oseto (?). According to Dr Amado in rounds, Patient will likely require at least 6 weeks of IV abx, culture results, bone biopsy results are pending. Met w/patient, introduced role. Dr Amado had just reviewed above so patient aware that ongoing IV abx are likely upon DC. Patient lives with his and 23 yo son, patient drives since spouse does not. Patient indp at baseline. Son works, has his own vehicle. Patient would like to drive his car home upon DC, this EXAM PROCTOR suggested someone drive him home and patient resistant. Patient requests that facilities staff be aware his 2008 Pontiac is parked in the [employer] parking spot; [employer] has kindly let engineering staff know Patient's medical care is established through the [facility]; patient is [place] so [place]. Patient admits to a long standing h/o being in denial and if it is out of sight it is definitely out of mind. Patient denies alcohol or drug abuse. 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 Patient intends to take his insulin as prescribed upon DC. Patient agreeable to home w/ home infusion (if [facility] covers) or coming into get his infusion daily if it is two doses or less. 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 Will discuss DCP options more thoroughly w/patient when medical POC is clearer. Patient appreciative, EXAM PROCTOR contact left on white board. MIGUEL Navarro Discharge Planning/Care Management CM Discharge Assessment Start: 09/10/20 11:50 Freq: Status: Active Protocol: Document 09/10/20 11:50 REKHA (Rec: 09/10/20 12:03 REKHA [id number]) Discharge Planning Assessment Assigned Supervisor Sawmill MIGUEL German DPOA/Assigned Designee Name Bernadette Sierra, spouse Contact Information [phone] Advance Directives? No History Provided By Patient Prior Living Arrangements House Household Members spouse,children Type of transporation used prior to Drives own vehicle admit Independent with ADL's Yes Is patient alert and oriented? Yes Patient/Family Preference Home with Home Health Barriers to Discharge Yes Comment Likely needs ongoing IV abx, states he might be able to come in for daily infusion depending on how many times daily (?) Discharge Plan Home Transportation Arrangement Self Additional Comment Pending Whiteboard Updated in Patient Room with Yes name and ext. # of Supervisor Sawmill
[2020-09-10] MEDS: CEFEPIME 2 GM in SODIUM CHLORIDE 0.9% 100 ML 150 ML IV (13:02)
--- NOTE | 2020-09-10 15:24 | DIET.PN ---
Dietary Progress Note Assessment: 55y M admitted for probable osteomyelitis in R foot s/p I&D c cultures pending referred to nutrition for poorly managed DM2. HT: 185.4cm WT: 71kg UBW: 86kg 6y ago BMI: 20.7 Labs: A1c 12.1 H, admit BG 396 H, HDL 17 L MNA: 7 malnourished Jaskaran: 20 Pt reports DM management non-compliance and would like to change this to avoid amputation. Pt has not seen his doctor at [facility] for 5-6y, does see PCP at [facility]. During conversation, we explored possible barriers to good DM management and found: food insecurity, his tendencies to snack throughout the day and not knowing how to dose insulin for that, and avoidance of BG checks because he is upset he cannot get the number low enough. Food Insecurity: Pt gets between $99 and $299 in EBT benefits per month for his household. He lives between [place] and [place] so does not find it easy to attend either Food [employer] and doesn't feel the food would support his health condition. We discussed [facility] in [place] as possible addition and he is amenable. Grazing Habits: Pt is willing to adjust this to a more routine structure. Encouraged pt to f/u c his DM doctor to adjust insulin or help him work out better strategy to ensure insulin is being delivered in appropriate amount and timing. BG check avoidance: Pt doesn't like checking BG and seeing big numbers. Pt reported to RD his routine was 45U long acting at night and humalog 20U plus 1U for every 50-100 over goal. Pt stated this is what he thinks he remembers but has a card in his glucometer c directions. Pt reports having test strips, lancets, and a working battery in glucometer (last time he checked). Pt reports only drinking water. He avoids etoh because it makes him mean, avoids soda because it makes him gassy, and avoids juice because it raises his BG. Pt has low intake F/V secondary to cost, he likes all fruit. Usual Day: B: 2 granola bars and a beef stick (currently RxBars, does look at sugar content of granola bars, avoids chewy) D: big meal right before bed Pt was set to get partial from dentist prior to covid but this is on hold for now, might need more teeth pulled. Pt prefers not to eat soft diet because he likes chewing on food. Nutrition Diagnosis: altered nutrition related laboratory values (A1c, BG) r/t poor management of DM2 aeb pt A1c 12 c admit BG 396, pt is s/p I&D for cellulitis and probable osteomyelitis of R foot, pt reports not checking BG or taking insulin secondary to being in denial, pt is food insecure. Interventions: 1. Counseled pt on chronic disease management fatigue and importance of re-establishing with supportive care providers to retain all digits and avoid future complications. 2. Problem solved c pt more structured meal plan and ways to procure supportive foods c fixed income. Diet Order: CCD3 Monitoring/Evaluations: recc pt f/u c PCP for close monitoring of DM status to get A1c 7-8 range as quickly as safely possible.
[2020-09-10 16:19] LABS: Vancomycin Trough 8.9 ug/mL (10-20)
--- NOTE | 2020-09-10 16:38 | P.PN_ITS ---
Subjective Subjective Date Patient Seen: 09/10/20 Time Patient Seen: 16:39 Interval history: 55-year-old male diabetic seen bedside status post 1 day right foot incision and drainage. He is not feeling any significant pain to the foot although he has some soreness on the heel. He has been eating and drinking and voiding. His came to visit with him and they discussed his current situation. Exam Vital Signs (past 8 hours): - 09/10/20 10:15 09/10/20 11:45 09/10/20 13:40 Temperature 97.3 F L Pulse Rate 102 H Respiratory Rate 18 Blood Pressure 111/63 Pulse Oximetry 98 97 98 09/10/20 15:35 Temperature 99.7 F H Pulse Rate 100 H Respiratory Rate 17 Blood Pressure 98/60 Pulse Oximetry 94 Oxygen Delivery Method Nasal Cannula Oxygen Flow Rate 1.5 Const Orientation: alert, awake and oriented x3 Resp Effort & Inspection: normal respiratory effort (Nasal cannula present.) Tactile Fremitus: other Extrem Other: Right foot: Packing is removed from the multiple incisional areas on the right foot dorsal lateral and plantar. There is no purulent discharge noted and no significant malodor. The 5th toe is somewhat cyanotic compared to the others but does have delayed capillary refill. There is no pain on palpation to the fo ot or the ankle. There is only a small amount of strike through on the bandages on the foot and no new crepitus is noted to the foot on pressure. No pain on calf squeeze. Tissue from the tendons over the 4th and 5th metatarsal areas show atrophy and some discoloration with mild necrosis with what is still present. No new erythema is noted and in fact appears to be reduced from prior. Objective Labs Result Diagrams: 09/10/20 05:17 09/10/20 05:17 Labs: Laboratory Results - last 24 hr 09/09/20 09/09/20 09/09/20 14:40 14:40 15:40 WBC RBC Hgb Hct MCV MCH MCHC RDW Plt Count Neut % (Auto) Lymph % (Auto) [place] % (Auto) Eos % (Auto) Baso % (Auto) Neut # (Auto) Lymph # (Auto) [place] # (Auto) Eos # (Auto) Baso # (Auto) Sodium Potassium Chloride Carbon Dioxide BUN Creatinine Estimated GFR BUN/Creatinine Ratio Glucose Hemoglobin A1c 12.1 H Calcium Magnesium 1.8 Triglycerides Cholesterol LDL Cholesterol, Calc HDL Cholesterol Urine RBC Urine WBC Urine Bacteria Ur Culture Indicated? Vancomycin Trough SARS-CoV-2 (PCR) Negative 09/09/20 09/10/20 09/10/20 17:57 05:17 05:17 WBC 17.0 H RBC 3.36 L Hgb 9.5 L Hct 28.3 L MCV 84.1 MCH 28.3 MCHC 33.6 RDW 11.6 Plt Count 222 Neut % (Auto) 83.2 H Lymph % (Auto) 7.7 L [place] % (Auto) 8.4 Eos % (Auto) 0.5 L Baso % (Auto) 0.2 Neut # (Auto) 53795 H Lymph # (Auto) 1300 [place] # (Auto) 1400 H Eos # (Auto) 100 Baso # (Auto) 0 Sodium 129 L Potassium 3.8 Chloride 95 L Carbon Dioxide 28 BUN 15 Creatinine 0.56 L Estimated GFR > 60.0 BUN/Creatinine Ratio 26.8 H Glucose 194 H D Hemoglobin A1c Calcium 8.4 Magnesium Triglycerides 80 Cholesterol 71 L LDL Cholesterol, Calc 38 HDL Cholesterol 17 L Urine RBC 0-1/hpf Urine WBC 0-1/hpf Urine Bacteria None seen Ur Culture Indicated? Cult not indicated Vancomycin Trough SARS-CoV-2 (PCR) 09/10/20 15:45 WBC RBC Hgb Hct MCV MCH MCHC RDW Plt Count Neut % (Auto) Lymph % (Auto) [place] % (Auto) Eos % (Auto) Baso % (Auto) Neut # (Auto) Lymph # (Auto) [place] # (Auto) Eos # (Auto) Baso # (Auto) Sodium Potassium Chloride Carbon Dioxide BUN Creatinine Estimated GFR BUN/Creatinine Ratio Glucose Hemoglobin A1c Calcium Magnesium Triglycerides Cholesterol LDL Cholesterol, Calc HDL Cholesterol Urine RBC Urine WBC Urine Bacteria Ur Culture Indicated? Vancomycin Trough 8.9 L SARS-CoV-2 (PCR) Surgical culture: Right 5th metatarsal bone biopsy for C&S,gram stain Procedure Result Verified Site Gram Stain Final 09/09/202241 White blood cells Occasional WBC seen Gram Positive Cocci Scant Aerobic Culture for wounds Preliminary 09/10/20- 926 Very Early Growth Very Early Growth: Culture too young for work-up reincubated Anaerobic Culture Pending COMMENTS: Comment fourth interspace, C&S,gram stain,aerobic/anaerobic Procedure Result Verified Site Gram Stain Final 09/09/20- 2239 White blood cells Moderate WBCs Gram Positive Cocci 3+ Gram Negative Rods 1+ Gram Neg Coccobacilli 1+ Aerobic Culture for wounds Preliminary 09/10/20- 925 Very Early Growth Very Early Growth: Culture too young for work-up reincubated Anaerobic Culture Pending [facility] Medical History Diabetes Hyperlipidemia Hypertension Surgical History History of cholecystectomy Family History (Updated 09/10/20 @ 06:43 by ERIN Narvaez) Father Diabetes mellitus Cancer Mother Cancer Social History marital status: household members: spouse and children pets and animals: Yes Smoking Status: Never smoker alcohol intake: current Assessment & Plan Post-op Postoperative Procedures: Procedures Operation Date: 09/09/20 20:30 Actual Procedures Side Surgeon p right foot incision and drainage, extensive debridement, bone biopsy Right Laura De Los Santos DPM Operation Date: 09/11/20 10:45 <No data on this case meets the specified criteria> Postoperative day: 1 Postoperative status: doing well Postoperative status narrative: Poorly controlled diabetic male with right foot fifth metatarsal ulcer, cellulitis, and abscesses of foot possible osteomyelitis recovering well, improving from last night, and awaiting next step in recovery on foot. Postoperative plan narrative: Discussed findings of surgery with patient with nurse present. [place] of the situation regarding his multiple sites of infection found last night surgically is reviewed, as is the culture initial results for the bone biopsy. Due to this and the dysvascularity of the fifth toe, suggest we move ahead tomorrow with at minimum a partial fifth ray resection and then possible bone biopsy of 4th metatarsal. He discussed this with his by phone and he had ample time to ask questions. Medicine gave consent for procedure as well and will continue to manage his other medical concerns, including perioperative diabetic management as he will be NPO at midnight tonight. Longer term, it's possible we will go direction of further resection such as TMA but at the moment too early to tell if this is necessary, or if wound care may be a good resource, but at the moment we don't have viable tissue coverage to use for the lateral foot as I anticipate our options. I also discussed the potential for an MRI of the foot to determine additional metatarsal or space involvement if needed, and also ABIs/arterial study if find he is demonstrating difficulty healing. Will rx for NWB right foot, or at maximum, a walker for flat foot touchdown to transfer. Will order egg crate heel protector. Based on his surgical situation we do not have him on enoxaparin at this time and instead are using mechanical means. Continue use of Vancomycin and Cefipime until further culture information is known. Dressing changed after saline rinse, packing placed. Time Spent With Patient Time with patient: 25 - 35 minutes Quality VTE Deep Vein Thrombosis/Pulmonary Embolism Present on Admission: No
--- NOTE | 2020-09-10 18:01 | PM.PN.1 ---
Subjective Subjective Date Patient Seen: 09/10/20 Time Patient Seen: 18:01 Interval history: This is a 55-year-old male patient with poorly controlled diabetes, hypertension, hyperlipidemia who is admitted with a diabetic foot ulcer found to have osteomyelitis. Initially the patient was refusing partial amputation, however he agreed to this at bedside today after Bone cultures Are starting to Grow gram-positive cocci. His wound cultures are growing many organisms. No species has yet been identified. Patient denies any chest pain, shortness of breath, nausea, vomiting. He has no pain from his ulcer but does have some calf tenderness on the right. Ultrasound was performed yesterday which did not reveal a DVT. Current plan with Podiatry is to perform partial amputation of the 5th toe tomorrow morning, with other possible bone biopsies or procedures needed. Exam Vital Signs (past 8 hours): - 09/10/20 10:15 09/10/20 11:45 09/10/20 13:40 Temperature 97.3 F L Pulse Rate 102 H Respiratory Rate 18 Blood Pressure 111/63 Pulse Oximetry 98 97 98 09/10/20 15:35 09/10/20 17:00 Temperature 99.7 F H Pulse Rate 100 H Respiratory Rate 17 Blood Pressure 98/60 Pulse Oximetry 94 94 Oxygen Delivery Method Nasal Cannula Oxygen Flow Rate 1.5 Narrative Exam Narrative: GENERAL APPEARANCE: well developed, protein malnourished male with a BMI of 20.7, in no acute distress. HEENT: Normocephalic, PERRLA, conjunctiva clear, EOMs intact without nystagmus, no sinus tenderness to percussion, no rhinorrhea, mucous membranes are pink and dry. NECK/THYROID: neck supple, no JVD, no thyromegaly, trachea midline. LYMPH NODES: no cervical or supraclavicular lymphadenopathy. SKIN: [place], warm and dry, no visible rashes. HEART: regular rate and rhythm, S1-S2, no murmur, no rubs or gallops, brisk capillary refill, no edema LUNGS: clear to auscultation bilaterally, no coarseness crackles or wheezing, no cough present CHEST: Symmetrical movement, no accessory muscle use, good tidal volume no pain to AP and lateral compression. ABDOMEN: Scaphoid, palpable liver right upper, tender to palpation, no guarding or peritoneal signs, no flank or suprapubic tenderness, active bowel tones. EXTREMITIES: Bulky postoperative dressing to right foot, wounds not visualized, moves all extremities, strength is 5/5 and symmetrical, no clubbing or cyanosis NEUROLOGIC: AAO x4, no focal neurologic deficits, cranial nerves II-XII grossly intact, neuropathy to mid lower leg, bilateral feet insensate, hearing grossly normal to speech. PSYCH: Quiet spoken, cooperative, stable behavior Objective Labs Result Diagrams: 09/10/20 05:17 09/10/20 05:17 Labs: Laboratory Results - last 24 hr 09/09/20 09/09/20 09/09/20 14:40 14:40 15:40 WBC RBC Hgb Hct MCV MCH MCHC RDW Plt Count Neut % (Auto) Lymph % (Auto) [place] % (Auto) Eos % (Auto) Baso % (Auto) Neut # (Auto) Lymph # (Auto) [place] # (Auto) Eos # (Auto) Baso # (Auto) Sodium Potassium Chloride Carbon Dioxide BUN Creatinine Estimated GFR BUN/Creatinine Ratio Glucose Hemoglobin A1c 12.1 H Calcium Magnesium 1.8 Triglycerides Cholesterol LDL Cholesterol, Calc HDL Cholesterol Urine RBC Urine WBC Urine Bacteria Ur Culture Indicated? Vancomycin Trough SARS-CoV-2 (PCR) Negative 09/09/20 09/10/20 09/10/20 17:57 05:17 05:17 WBC 17.0 H RBC 3.36 L Hgb 9.5 L Hct 28.3 L MCV 84.1 MCH 28.3 MCHC 33.6 RDW 11.6 Plt Count 222 Neut % (Auto) 83.2 H Lymph % (Auto) 7.7 L [place] % (Auto) 8.4 Eos % (Auto) 0.5 L Baso % (Auto) 0.2 Neut # (Auto) 51796 H Lymph # (Auto) 1300 [place] # (Auto) 1400 H Eos # (Auto) 100 Baso # (Auto) 0 Sodium 129 L Potassium 3.8 Chloride 95 L Carbon Dioxide 28 BUN 15 Creatinine 0.56 L Estimated GFR > 60.0 BUN/Creatinine Ratio 26.8 H Glucose 194 H D Hemoglobin A1c Calcium 8.4 Magnesium Triglycerides 80 Cholesterol 71 L LDL Cholesterol, Calc 38 HDL Cholesterol 17 L Urine RBC 0-1/hpf Urine WBC 0-1/hpf Urine Bacteria None seen Ur Culture Indicated? Cult not indicated Vancomycin Trough SARS-CoV-2 (PCR) 09/10/20 15:45 WBC RBC Hgb Hct MCV MCH MCHC RDW Plt Count Neut % (Auto) Lymph % (Auto) [place] % (Auto) Eos % (Auto) Baso % (Auto) Neut # (Auto) Lymph # (Auto) [place] # (Auto) Eos # (Auto) Baso # (Auto) Sodium Potassium Chloride Carbon Dioxide BUN Creatinine Estimated GFR BUN/Creatinine Ratio Glucose Hemoglobin A1c Calcium Magnesium Triglycerides Cholesterol LDL Cholesterol, Calc HDL Cholesterol Urine RBC Urine WBC Urine Bacteria Ur Culture Indicated? Vancomycin Trough 8.9 L SARS-CoV-2 (PCR) [facility] Medical History Diabetes Hyperlipidemia Hypertension Surgical History History of cholecystectomy Family History (Updated 09/10/20 @ 06:43 by ERIN Narvaez) Father Diabetes mellitus Cancer Mother Cancer Social History marital status: household members: spouse and children pets and animals: Yes Smoking Status: Never smoker alcohol intake: current Assessment & Plan Assessment & Plan narrative: This is a 55-year-old male patient with poorly controlled diabetes hypertension hyperlipidemia who is admitted with a diabetic foot ulcer found to have osteomyelitis. 1. Nonhealing diabetic foot ulcer right lateral foot, with cellulitis and 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 -the patient was taken from the ER to the OR for incision and drainage with wound debridement by Dr. De Los Santos on 09/09 and bone biopsy of the 5th metatarsal, culture with GPC from bone biopsy. Planned for partial resection tomorrow with anticipation of possible additional debridement in the days following. -continue cefepime 2g q8 hours for anti-pseudomonal activity and vancomycin per pharmacy. Leukocytosis improved this AM from 20 to 17. Febrile after the OR improved so far today. -appreciate management by podiatry. 2. Uncontrolled diabetes type 2 with hyperglycemia, present on admission, active. -the patient endorses not using his insulin and on initial labs drawn in the ER the patient has a blood sugar of 396. -A1c 12.1%. -patient reports taking insulin on a ?hit or miss basis, reports should be taking Lantus 45 mg and checking his blood sugars before meals with Humalog correctional insulin. -continue lantus 20 U BID, given one dose yesterday evening, with adequate control this AM but fading with meal intake today. -ordered fingerstick blood sugars a.c. and HS, coverage with high-dose correctional scale. -requested dietitian consult. 3. Hyponatremia, presumed acute, present on admission, active, improving -hyponatremia believed to be related to dehydration secondary to hyperglycemia -initial labs reveal serum sodium of 125. Patient received 2 L of normal saline in the ER continued rehydration with normal saline at 100 cc/hour with improvement to 129. He is asmpyomtatic at this time. Will hold fluids while eating. Given NPO status resume normal saline preferentially for fluids. 4. Hypertension, chronic, stable. -patient reports taking lisinopril daily though he cannot remember the dose. Upon arrival to the ER the patient's blood pressure is 115/71. -hold antihypertensives and follow blood pressure trends and add lisinopril as indicated. Although ideally would hold this or select alternative agent given need for possibly multiple proceudres in the coming days. 5. Hyperlipidemia, chronic, stable -patient takes simvastatin but does not recall the dosage. -ordered simvastatin 20 mg daily, will continue. LDL is controlled at 38 on admission. VTE prophylaxis: SCD left leg, continue to hold pharmacological prophylaxis given need for possible multiple surgical interventions. Diet: Small consistent carbohydrate, heart healthy Code status: Full code, the patient designates his to be his surrogate decision maker. The patient is admitted as an inpatient with expected length of stay to be greater than 2 midnights. Disposition and timing is not clear at this time. Quality VTE Deep Vein Thrombosis/Pulmonary Embolism Present on Admission: No
[2020-09-10] MEDS: FAMOTIDINE 20 MG TABLET PO (20:22)
[2020-09-10] MEDS: SIMVASTATIN 20 MG TABLET PO (20:22)
[2020-09-10] MEDS: INSULIN GLARGINE 100 UNIT/ML 3ML PEN 20 UNIT SUBCUT (20:28)
[2020-09-11] VITALS (23 sets, daily range): BP systolic 99–137; BP diastolic 51–79; PULSE 94–112; RESP 12–18; TEMP 35.8–38.5; O2SAT 90–98; BMI 20.5
--- NOTE | 2020-09-11 | PATH_ITS ---
[facility] Accession Number: [id number] . 01 Material submitted: . foot - RIGHT 5TH METATARSAL SHAFT . 01 Diagnosis: Right Fifth Metatarsal Shaft, Excision: Osteocartilaginous tissue with evidence of bony remodeling, marrow fibrosis, and mixed chronic and neutrophilic inflammation with hemorrhage, suggestive of acute osteomyelitis. Surrounding fibroconnective tissue with fibrosis and mixed neutrophilic and chronic inflammation. Inflammatory findings are focally present within the en face bone margin. . Note: Clinical and radiographic correlation is recommended. MRV 09/16/2020 1031 Local . 01 Electronically signed: . Kyle Holbrook MD, Dermatopathologist NPI- [id number] . 01 Gross description: . The specimen is received in formalin, labeled right fifth metatarsal shaft and consists of a 4.0 x 2.0 x 1.5 cm clemons portion of bone with one smooth resection margin and one convex smooth clemons articular surface. There is minimal attached clemons-pink soft tissue. The soft tissue is inked blue. The specimen is sectioned to reveal clemons trabeculated cut surfaces. Tracer Lathe Set Up Operator sections are submitted. . A1: margin, en face (following decalcification). A2: cross-section, following decalcification. ([id number]) /MRV 09/15/2020 1403 Local . 01 Pathologist provided ICD-10: M86.10 . 01 CPT . 318648, [id number] Performed at: [address] [id number] MD Gab Garcia MD Phone: [phone]
[2020-09-11] MEDS: INSULIN ASPART 100 UNIT/ML INSULN PEN SUBCUT ×5 (00:24→20:49)
[2020-09-11] MEDS: ACETAMINOPHEN 325 MG TABLET 975 MG PO ×3 (04:27→20:31)
[2020-09-11] MEDS: VANCOMYCIN 1,000 MG/200 ML PIGGYBACK 200 MG IV ×3 (04:27→20:32)
[2020-09-11] MEDS: CEFEPIME 2 GM in SODIUM CHLORIDE 0.9% 100 ML 200 ML IV (05:50)
[2020-09-11] MEDS: SODIUM CHLORIDE 0.9% FLUSH 10 ML IV ×3 (05:58→20:34)
--- NOTE | 2020-09-11 09:52 | PC.NURSE ---
Day shift: Pt off unit for procedure at approx ([id number]). Primary RN Mae is aware.
[2020-09-11] MEDS: LACTATED RINGERS 1,000 ML 42 ML IV (10:18)
--- NOTE | 2020-09-11 10:39 | PM.PREOP ---
Pre-operative Note COVID-19 COVID-19 status: Negative Interval Note History & Physical reviewed/Exam performed by Physician: Yes Changes to H&P: No
--- NOTE | 2020-09-11 10:40 | PM.PNPO.1 ---
Subjective Subjective Date Patient Seen: 09/11/20 Time Patient Seen: 10:43 Interval history: Patient seen at bedside in preoperative holding area, anticiapting right foot surgery. States he's been doing ok, no new concerns, just minor nerve twinges between the toes 4,5 and some calf tightness. He has been able to eat and void, has experienced a little diarrhea. Exam Vital Signs (past 8 hours): - 09/11/20 03:00 09/11/20 03:57 09/11/20 04:51 Temperature 99.0 F 99.0 F Pulse Rate 104 H 104 H Respiratory Rate 16 16 Blood Pressure 103/59 L 103/59 L Pulse Oximetry 98 98 97 09/11/20 07:43 09/11/20 08:00 09/11/20 10:13 Temperature 98.1 F 99.1 F Pulse Rate 94 H 94 H Respiratory Rate 16 12 Blood Pressure 110/66 112/61 Pulse Oximetry 94 94 95 Oxygen Delivery Method Room Air Oxygen Flow Rate 0 Const Orientation: alert, awake and oriented x3 Resp Effort & Inspection: normal respiratory effort Extrem Other: Right fifth toe still some cft but worsening cyanosis and associated local skin around the 5th MTPJ becoming further demarcated with pink vascularity proximal and local area less so. No purulence and no strikethough on the gazue. No crepitus. Faintly palpable DP. Objective Labs Result Diagrams: 09/10/20 05:17 09/10/20 05:17 Labs: Laboratory Results - last 24 hr 09/10/20 15:45 Vancomycin Trough 8.9 L PFSH Medical History Diabetes Hyperlipidemia Hypertension Surgical History History of cholecystectomy Family History (Updated 09/10/20 @ 06:43 by ERIN Narvaez) Father Diabetes mellitus Cancer Mother Cancer Social History marital status: household members: spouse and children pets and animals: Yes Smoking Status: Never smoker alcohol intake: current Assessment & Plan Post-op Postoperative Procedures: Procedures Operation Date: 09/09/20 20:30 Actual Procedures Side Surgeon p right foot incision and drainage, extensive debridement, bone biopsy Right Laura De Los Santos DPM Operation Date: 09/11/20 10:45 <No data on this case meets the specified criteria> Postoperative day: 3 Postoperative status narrative: s/p right foot I&D, pending second surgery today for further bone and tissue debridement/excision. Postoperative plan narrative: We discussed his care up to this point on the foot and then after observation of the foot today, I suggested we proceed with the fifth toe amputation and partial fifth ray resection, with fourth metatarsal bone biopsy culture and to include further excision of necrotic tissues. Risks, potential complications, alternatives, and expected outcomes are reviewed. Consent was signed and there are no contraindications to the procedure at this time. We discussed that this would probably still be a step toward a more declared of procedure, but in order to get to that point we need to be able to do this. He voiced understanding. I will see him tomorrow for a postoperative follow-up when he returns to the hospital floor for management. Time Spent With Patient Time with patient: 15-24 minutes Quality VTE Deep Vein Thrombosis/Pulmonary Embolism Present on Admission: No
--- NOTE | 2020-09-11 10:50 | PM.OP.1 ---
Operative Date/Time/Diagnoses Date of procedure: 09/11/20 Time of procedure: 10:50 Pre-op diagnosis: Right foot wound with dysvascular fifth toe and suspected osteomyelitis Post-op diagnosis: same Procedure & Clinicians Procedure: Right fifth toe amputation and partial fifth ray resection Right fourth metatarsal head bone biopsy Same procedure as scheduled: Yes Indications: Right foot abscesses with diabetic foot wound, cellulitis, and suspected osteomyelitis to the fifth toe, metatarsal. Further surgical excision of bone and tissue necrosis needed as well as biopsy for further treatment modalities warrented. Consent signed, no contraindication to the procedure at this time. Surgeon: Laura De Los Santos Click Yes if Unassisted: Yes Anesthesia Type: General Operative Notes Closure Type: not applicable Specimen(s): other (1) Culture right 5th metatarsal remaining edge of shaft, 2) Culture lateral 4th metatarsal head bone, 3) Fifth metatarsal head and midshaft to pathology) Applied: other (Iodonated Nu-Gauze) Estimated Blood Loss (mL): 60 Blood products transfused: none Procedure in detail: The patient was brought to the operating room and placed on the operating table in the supine position. After induction of general anesthesia the foot and ankle were prepped and draped in the usual aseptic manner. After a check of anesthesia a saw full-thickness circumferential incision was made around the 5th toe which was disarticulated and passed from the field. Next the 5th metatarsal was isolated and using a saw, it was transected and a slightly angulated manner just at the edge of the proximal shaft. This bone was passed off the field and sent to pathology for review of possible osteomyelitis. Next the leading edge of the remaining shaft was sampled of bone which was sent for culture. The 4th metatarsal head was dissected free of its soft tissue on the lateral aspect and at this point a bony biopsy was taken of it using a rongeur; this was then sent to culture. Further reduction of necrotic deep tissue as well as skin was excised, including tendon and other subcutaneous tissues. The area still showed some tracking toward the 1st metatarsal head dorsally and some lingering malodor was noted here. The extensor retinaculum was released at its most distal point on the bridge of the foot and this allowed for further ability to mobilize and excise additional necrotic soft tissue. Plantarly, the incision was also cleared of further necrotic tissues and I did not see any purulence here. The openings of the foot were irrigated with copious amounts of normal sterile saline. Bleeders were cauterized and ligated as necessary. Half-inch Nu Gauze, iodinated, was placed on the open areas of the foot gently as packing. Adaptic 4x4s ABD pad Kerlix and an Jaime wrap were placed on the foot along with stockinette. Complications: none Post-operative Condition: stable Disposition: Acute Care Plan for aftercare: Following a period of postoperative monitoring, the patient will be discharged from the operating room and transferred to the surgical floor for continued postoperative monitoring as well as medical management.
--- NOTE | 2020-09-11 10:56 | PT-IP ANOTE ---
Received PT eval order. Reviewed EMR and pt is scheduled to have surgery today. will hold PT and f/u after sx.
--- NOTE | 2020-09-11 11:14 | SUR.OPER ---
Supine on padded OR bed, head on pillow, arms secured on padded arm boards at <90 degrees abduction, legs uncrossed, safety belt at thigh, tape over blanket over lower left leg , gel bump under right hip, right leg draped free.
[2020-09-11] MEDS: BUPIVACAINE 0.5% (PF) VIAL 30 ML INJ (11:19)
[2020-09-11] MEDS: LIDOCAINE 2% INJ SDV 5 ML INJ (11:23)
--- NOTE | 2020-09-11 11:37 | P.PN_ITS ---
Subjective Subjective Date Patient Seen: 09/11/20 Time Patient Seen: 11:38 Interval history: This is a 55-year-old male patient with poorly controlled diabetes, hypertension, hyperlipidemia who is admitted with a diabetic foot ulcer found to have osteomyelitis. He is undergoing partial amputation of his 5th toe today. Other procedures in the near future are certainly possible. He was afebrile overnight. Still complains of R calf pain and achilles pain. Denies fever, chills, nausea, vomiting, abdominal pain. Reports diarrhea however overnight stool charted as soft and brown. If diarrhea is noted will check C. diff PCR. Exam Vital Signs (past 8 hours): - 09/11/20 03:57 09/11/20 04:51 09/11/20 07:43 Temperature 99.0 F 98.1 F Pulse Rate 104 H 94 H Respiratory Rate 16 16 Blood Pressure 103/59 L 110/66 Pulse Oximetry 98 97 94 09/11/20 08:00 09/11/20 10:13 Temperature 99.1 F Pulse Rate 94 H Respiratory Rate 12 Blood Pressure 112/61 Pulse Oximetry 94 95 Oxygen Delivery Method Room Air Oxygen Flow Rate 0 Narrative Exam Narrative: GENERAL APPEARANCE: well developed male appears slightly older than stated age, in no acute distress. HEENT: Normocephalic, PERRL, conjunctiva clear, EOMs intact without nystagmus, no rhinorrhea, mucous membranes are pink and moist. SKIN: [place], warm and dry, no visible rashes. HEART: regular rate and rhythm, S1-S2, no murmur, no rubs or gallops, brisk capillary refill, no edema LUNGS: clear to auscultation bilaterally, no coarseness crackles or wheezing, no cough present CHEST: Symmetrical movement, no accessory muscle use, good tidal volume no pain to AP and lateral compression. ABDOMEN: Soft, non-tender, non-distended with hepatomegaly. EXTREMITIES: Bulky postoperative dressing to right foot, wounds not visualized, moves all extremities, strength is 5/5 and symmetrical, no clubbing or cyanosis NEUROLOGIC: AAO x4, no focal neurologic deficits, cranial nerves II-XII grossly intact, neuropathy to mid lower leg, bilateral feet insensate, hearing grossly normal to speech. PSYCH: Quiet spoken, cooperative, stable behavior Objective Labs Result Diagrams: 09/10/20 05:17 09/10/20 05:17 Labs: Laboratory Results - last 24 hr 09/10/20 15:45 Vancomycin Trough 8.9 L PFSH Medical History Diabetes Hyperlipidemia Hypertension Surgical History History of cholecystectomy Family History (Updated 09/10/20 @ 06:43 by ERIN Narvaez) Father Diabetes mellitus Cancer Mother Cancer Social History marital status: household members: spouse and children pets and animals: Yes Smoking Status: Never smoker alcohol intake: current Assessment & Plan Assessment & Plan narrative: This is a 55-year-old male patient with poorly controlled diabetes hypertension hyperlipidemia who is admitted with a diabetic foot ulcer found to have osteomyelitis. 1. Nonhealing diabetic foot ulcer right lateral foot, with cellulitis and 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 -the patient was taken from the ER to the OR for incision and drainage with wound debridement by Dr. De Los Santos on 09/09 and bone biopsy of the 5th metatarsal, cultures currently growing staph aureus (sens. pending) and strep viridans. Planned for partial resection today with anticipation of possible additional debridement in the days following. -continued cefepime 2g q8 hours for anti-pseudomonal activity initally and vancomycin per pharmacy. Leukocytosis improved this AM from 20 to 17 yesterday. Will narrow to ceftriaxone from cefepime given cultures today, remain on vancomycin pending staph sensitivites. -appreciate management by podiatry. 2. Uncontrolled diabetes type 2 with hyperglycemia, present on admission, active. -the patient endorses not using his insulin and on initial labs drawn in the ER the patient has a blood sugar of 396. -A1c 12.1%. -patient reports taking insulin on a ?hit or miss basis, reports should be taking Lantus 45 mg and checking his blood sugars before meals with Humalog correctional insulin. -continue lantus 20 U BID. Sugars are improving, however he has been NPO off and on for procedures. Will need to continue to adjust depending on his diet. -ordered fingerstick blood sugars a.c. and HS, coverage with high-dose cor rectional scale. -requested dietitian consult. 3. Hyponatremia, presumed acute, present on admission, active, improving -hyponatremia believed to be related to dehydration secondary to hyperglycemia -initial labs reveal serum sodium of 125. Patient received 2 L of normal saline in the ER continued rehydration with normal saline at 100 cc/hour with improvement to 129. He is asmpyomtatic at this time. Will hold fluids while eating. Given NPO status resume normal saline preferentially for fluids. Will repeat BMP tomorrow. 4. Hypertension, chronic, stable. -patient reports taking lisinopril daily though he cannot remember the dose. Upon arrival to the ER the patient's blood pressure is 115/71. -hold antihypertensives and follow blood pressure trends and add lisinopril as indicated. Although ideally would hold this or select alternative agent given need for possibly multiple proceudres in the coming days. 5. Hyperlipidemia, chronic, stable -patient takes simvastatin but does not recall the dosage. -ordered simvastatin 20 mg daily, will continue. LDL is controlled at 38 on admission. VTE prophylaxis: SCD left leg, continue to hold pharmacological prophylaxis given need for possible multiple surgical interventions. Diet: Small consistent carbohydrate, heart healthy Code status: Full code, the patient designates his to be his surrogate decision maker. The patient is admitted as an inpatient with expected length of stay to be greater than 2 midnights. Disposition and timing is not clear at this time. Quality VTE Deep Vein Thrombosis/Pulmonary Embolism Present on Admission: No
--- NOTE | 2020-09-11 12:37 | CM.DPNOTE ---
DCP Cont Dr De Los Santos has taken patient back to the OR today for amputation of his right 5th toe. Dr Amado anticipates patient will be here over the weekend and might need additional surgery. Will continue to follow closely as medical POC unfolds. JW
[2020-09-11] MEDS: INSULIN GLARGINE 100 UNIT/ML 3ML PEN 20 UNIT SUBCUT ×2 (13:20→20:51)
[2020-09-11] MEDS: CEFTRIAXONE 2 GM/50 ML FROZ.PIGGY IV (13:42)
[2020-09-11] MEDS: GABAPENTIN 600 MG TABLET 1200 MG PO ×2 (14:01→20:33)
--- NOTE | 2020-09-11 14:57 | PC.NURSE ---
Patient back from PACU at approximately 1225. BG 168, eating lunch ok to give A.m. Glargine 20 units. LS CTA, abdomen SNT<+BS.Multiple x4 soft small stools this shift. Reports due to IBS. Tolerating IV antibiotics well. A&Ox4. Dressing to R lower extremity C/D/I. Positive CMS, to garcia above dressing. reports pain 3/10 and tolerable.
[2020-09-11] MEDS: FAMOTIDINE 20 MG TABLET PO (20:33)
[2020-09-11] MEDS: SIMVASTATIN 20 MG TABLET PO (20:34)
[2020-09-11] MEDS: OXYCODONE IR 5 MG TABLET PO (20:49)
--- NOTE | 2020-09-11 22:29 | PC.NURSE ---
Addendum entered by Savanah Leong R.N. 09/11/20 22:54: called and stated concerns for after discharge. States pt is non-compliant with insulin and other healthcare needs. Trans to CM office to discuss d/c planning. Original Note: Assumed care of pt at 1500. Pt sleeping during bedside hand-off. R. Foot wrapped in Jaime wrap and stockinette. Able to wiggle toes. T-max 101.3. Provider notified. Tylenol and blood culture order placed by provider. Temp decreased to 99.8 post administration. Pt calling appropriately for needs. Bed alarm on. Contact Iso remains in effect.
[2020-09-12] VITALS (9 sets, daily range): BP systolic 104–148; BP diastolic 55–77; PULSE 85–103; RESP 16–19; TEMP 36.8–37.4; O2SAT 91–98
[2020-09-12] MEDS: SODIUM CHLORIDE 0.9% FLUSH 10 ML IV ×4 (02:07→23:37)
[2020-09-12] MEDS: VANCOMYCIN 1,000 MG/200 ML PIGGYBACK 200 MG IV (02:08)
[2020-09-12] MEDS: ACETAMINOPHEN 325 MG TABLET 975 MG PO ×3 (04:50→21:11)
[2020-09-12 05:43] LABS: Add Manual Diff / Slide Review NO; Basophils Absolute Auto 100 /uL (0-100); Basophils Percent Auto 0.5 % (0-2); Eosinophils Absolute Auto 200 /uL (0-450); Eosinophils Percent Auto 1.1 % (2-4); Hematocrit 29.2 % (41-53); Hemoglobin 10.1 g/dL (13.5-17.5); Lymphocytes Absolute Auto 1500 /uL (1100-4500); Lymphocytes Percent Auto 10.7 % (25-40); Mean Corpuscular HGB Conc 34.5 % (30-36); Monocytes Absolute Auto 1400 /uL (0-900); Neutrophils Absolute Auto 11000 /uL (1500-7000); Neutrophils Percent Auto 77.7 % (50-75); Platelet Count 285 X10^3/uL (150-400); Red Blood Cell Count 3.48 X10^6/uL (4.5-5.9); Red Cell Distribution Width 12.1 % (11.6-14.8); White Blood Cell Count 14.1 X10^3/uL (4.5-11.0)
[2020-09-12 05:54] LABS: BUN Creatinine Ratio 23.1 (6-22); Blood Urea Nitrogen 12 mg/dL (9-20); Calcium 8.4 mg/dL (8.4-10.2); Carbon Dioxide 28 mmol/L (22-32); Chloride 99 mmol/L (98-107); Estimated Glomerular Filt Rate > 60.0 mL/min (>60); Glucose 212 mg/dL (70-100); HEMOLYSIS < 15 (0-50); Magnesium 1.8 mg/dL (1.6-2.3); Potassium 3.2 mmol/L (3.4-5.1); Sodium 133 mmol/L (137-145)
[2020-09-12] MEDS: POTASSIUM CHLORIDE 20 MEQ TAB 40 MEQ PO ×2 (06:31→15:53)
[2020-09-12] MEDS: VANCOMYCIN TROUGH 1 REQUEST MISC (08:45)
[2020-09-12] MEDS: GABAPENTIN 600 MG TABLET 1200 MG PO ×3 (08:46→21:12)
[2020-09-12] MEDS: INSULIN ASPART 100 UNIT/ML INSULN PEN SUBCUT ×4 (08:47→21:09)
[2020-09-12] MEDS: INSULIN GLARGINE 100 UNIT/ML 3ML PEN 25 UNIT SUBCUT ×2 (08:49→21:10)
--- NOTE | 2020-09-12 09:08 | P.PN_ITS ---
Subjective Subjective Date Patient Seen: 09/12/20 Time Patient Seen: 09:09 Interval history: 55 yo DM male s/p partial fifth ray amputation yesterday right foot. He had an incident where he felt very warm last night but otherwise felt pretty good. Still some soreness right calf and outside of right ankle, and feels like a healing ache. He has been able to eat and void. Still feeling some twinges in his space between the fourth and former fifth toe. Exam Vital Signs (past 8 hours): - 09/12/20 05:00 09/12/20 08:00 Temperature 98.4 F 98.6 F Pulse Rate 103 H 88 Respiratory Rate 16 19 Blood Pressure 143/77 H 109/58 L Pulse Oximetry 93 93 Oxygen Delivery Method Room Air Oxygen Flow Rate 0 Const Orientation: alert, awake and oriented x3 Resp Effort & Inspection: normal respiratory effort Extrem Left lower extremity: foot Details: normal capillary refill, no edema (to the toes or calf) and crepitus (none to the ankle or foot) Other: right toes pink and perfused well, insensate. No strike through on the dressing to the foot which is in place. No pain on calf squeeze. Objective Labs Result Diagrams: 09/12/20 05:15 09/12/20 05:15 Labs: Laboratory Results - last 24 hr 09/12/20 09/12/20 05:15 05:15 WBC 14.1 H RBC 3.48 L Hgb 10.1 L Hct 29.2 L MCV 84.0 MCH 29.0 MCHC 34.5 RDW 12.1 Plt Count 285 Neut % (Auto) 77.7 H Lymph % (Auto) 10.7 L [place] % (Auto) 10.0 Eos % (Auto) 1.1 L Baso % (Auto) 0.5 Neut # (Auto) 79832 H Lymph # (Auto) 1500 [place] # (Auto) 1400 H Eos # (Auto) 200 Baso # (Auto) 100 Sodium 133 L Potassium 3.2 L Chloride 99 Carbon Dioxide 28 BUN 12 Creatinine 0.52 L Estimated GFR > 60.0 BUN/Creatinine Ratio 23.1 H Glucose 212 H Calcium 8.4 Magnesium 1.8 1. Right fifth metatarsal bone biopsy 09/09/20 Gram Stain Final 09/09/20-2241 White blood cells Occasional WBC seen Gram Positive Cocci Scant Aerobic Culture for wounds Final 09/12/20- 15 Organism 1 Staphylococcus aureus Growth MODERATE Organism 2 Streptococcus viridans group Growth HEAVY Action to follow Refer to Previous Culture for Susceptibility Report 1. Staphylococcus aureus M.I.C. RX --------- --- * Daptomycin 0.25 S * Vancomycin 1 S * Ciprofloxacin <=0.5 S * Clindamycin 0.25 S * Doxycycline <=0.5 S * Erythromycin 0.5 S * Gentamicin <=0.5 S * Levofloxacin <=0.12 S * Linezolid 2 S * Moxifloxacin <=0.25 S * Oxacillin Cedric <=0.25 S * Rifampin <=0.5 S * Tetracycline <=1 S * Trimethoprim/Sulfamethoxazole <=10 S Anaerobic Culture Preliminary 09/11/20- 841 2. COMMENTS: right fourth interspace, C&S,gram stain,aerobic/anaerobic 09/09/20 Procedure Result Verified Site Gram Stain Final 09/09/20- 2239 White blood cells Moderate WBCs Gram Positive Cocci 3+ Gram Negative Rods 1+ Gram Neg Coccobacilli 1+ Aerobic Culture for wounds Preliminary 09/11/20- 838 Organism 1 Staphylococcus aureus Growth MODERATE Action to follow Sensitivity to Follow Organism 2 Streptococcus viridans group Growth HEAVY Action to follow Identification and Sensitivity to Follow Anaerobic Culture Preliminary 09/11/20- 839 <No reportable results for this procedure> Still awaiting 09/11/20 cultures from remaining MT5 shaft, fourth metatarsal head (prelim gram stain neg for orgs). [facility] Medical History Diabetes Hyperlipidemia Hypertension Surgical History History of cholecystectomy Family History (Updated 09/10/20 @ 06:43 by ERIN Narvaez) Father Diabetes mellitus Cancer Mother Cancer Social History marital status: household members: spouse and children pets and animals: Yes Smoking Status: Never smoker alcohol intake: current Assessment & Plan Post-op Postoperative Procedures: Procedures Operation Date: 09/09/20 20:30 Actual Procedures Side Surgeon p right foot incision and drainage, extensive debridement, bone biopsy Right Laura De Los Santos DPM Operation Date: 09/11/20 10:45 Actual Procedures Side Surgeon p Toe Amputation partial right fifth toe Laura De Los Santos DPM Postoperative day: 1 Postoperative status: doing well Postoperative status narrative: s/p right partial fifth ray amputation with necrotic tissue excision, further debridement of the foot wound, and fourth metatarsal head biopsy. Postoperative plan narrative: -Improving on WBC and in general he's feeling better -Until further cultures determined from last night, Vancomycin was d/c'd and cephalosporin continues via iv -Dressing not changed today, will change tomorrow and repack. Looks clean and toes perfused well. -Reviewed the surgery yesterday and that at this point the information back so far from the fragments taken yesterday for culture have not shown organisms, which will be helpful for longer term surgical planning. It's still possible we will go direction of further resection such as TMA especially if skin coverage allows for it but at the moment too early to tell if this is necessary, or if wound care may be a good resource, but at the moment we still don't have viable tissue coverage to use for the lateral foot as I anticipate our options. -I have not yet ordered an MRI as I'd like to see further what the intervention from yesterday brings to the healing tissues along the lateral foot. Also same with ABIs/arterial study if find he is demonstrating difficulty healing. -Continue NWB right foot, or maximum a walker for flat foot touchdown to transfer (walker in room for his use). -Now using egg crate heel protectors. -Based on his surgical situation we do not have him on enoxaparin at this time and instead are using mechanical means. -Medicine mgmt of his diabetic control has been appreciated and continues. Disposition in expected continued stay as inpatient until further control of infection of foot, medical optimization, and in or outpatient further surgical intervention of the foot/ankle. Time Spent With Patient Time with patient: 15-24 minutes Quality VTE Deep Vein Thrombosis/Pulmonary Embolism Present on Admission: No
[2020-09-12 09:31] LABS: Vancomycin Trough 12.9 ug/mL (10-20)
--- NOTE | 2020-09-12 13:19 | PC.NURSE ---
Addendum entered by Rashmi Blandon R.N. 09/12/20 14:54: Patient had some complaints of pain after being up with physical therapy and patient said that pain was 7/10. 10mg of Oxycodone given, pain 4/10 achieved. Original Note: Patient has BLE neuropathy as baseline, but does report pain in right foot 5/10 aching. Scheduled tylenol given, patient declines narcotic pain medication. Lung sounds are clear, VSS, CMS intact, pulses are palpable, cap refill >2. Patient will have dressing change tomorrow by Dr. De Los Santos. Incentive spiromenter has been encouraged and SCD's are placed on both legs.
--- NOTE | 2020-09-12 13:30 | PT.IIE ---
Current Diagnoses Type 2 diabetes mellitus with foot ulcer (09/09/20) Surgery Performed Operation Date: 09/09/20 20:30 Actual Procedures p right foot incision and drainage, extensive debridement, bone biopsy(Right) - Laura De Los Santos DPM Operation Date: 09/11/20 10:45 Actual Procedures p Toe Amputation partial right fifth toe - Laura De Los Santos DPM Surgical History (Last Reviewed 09/10/20 @ 16:44 by Laura De Los Santos DPM) History of cholecystectomy Medical History (Last Reviewed 09/10/20 @ 16:44 by Laura De Los Santos DPM) Diabetes Hyperlipidemia Hypertension Physical Therapy Inpatient Evaluation/Re-Eval M1 PT/OT-IP Prior Functional Status Start: 09/12/20 14:51 Freq: NEEDED Status: Active Protocol: Document 09/12/20 13:30 AB (Rec: 09/12/20 15:17 AB [email or web address]) Medical Review Prior Functional Status Medical History Reviewed Yes Communication able to make needs known Mobility and Gait pt stated that he is independent with all mobilities and ambulation without AD Social History Household Members spouse,children Living Arrangements House Number of Floors (Floors) One Floor Number of Stairs To Enter/Railing? 7 steps to enter with B rails Home Environment Standard Height Toilet,Tub/ Shower Home Equipment Hand Held Shower Additional Social History Comment pt stated that he sleeps on a cot pt stated that spouse works 8 hours a day and he is mostly by himself M2 PT-IP Current Condition Start: 09/12/20 14:51 Freq: NEEDED Status: Active Protocol: Document 09/12/20 13:30 AB (Rec: 09/12/20 15:17 AB [email or web address]) Physical Therapy Current Condition Current Condition Evaluation Date 09/12/20 Treatment Diagnosis R foot abscess s/p 5th toe amput/partial 5th ray resection; diff in walking Onset Date 09/09/20 Weight Bearing Status Weight Bearing Status Non-Weight Bearing Allowed Weight Bearing Amount (enter % per doctor's order: RLE NWB; or #) (%) ok walker and TDWB for transfers M3 PT-IP Subjective Start: 09/12/20 14:51 Freq: NEEDED Status: Active Protocol: Document 09/12/20 13:30 AB (Rec: 09/12/20 15:17 AB [email or web address]) Subjective Physical Therapy Visit Type Type Initial Evaluation Visit Start Time 13:30 Visit Stop Time 14:06 Total Visit Minutes 36 Number of CUSTOMER SERVICE DRIVER Visits 0 Physical Therapy Visit Comments Patient Comments pt is agreeable to do PT Therapy Pain Assessment Pain When Pain Assessed At Rest Pain Present Pain Present Pain Reported Location Right Calf Scale Used pain scale not stated Pain Management Techniques Distraction,Elevation, Modification of Treatment,Re- positioning,Timing of Activity with Medications right foot Intensity 5 Scale Used Numeric (0 - 10) Pain Management Techniques Distraction,Modification of Treatment,Re-positioning, Timing of Activity with Medications M4 PT-IP Mobility and Gait Start: 09/12/20 14:51 Freq: NEEDED Status: Active Protocol: Document 09/12/20 13:30 AB (Rec: 09/12/20 15:17 AB [id number]) PT-Bed Mobility Assessment Supine to Sit Supine to Sit Contact Guard Assistance, Bedrails Sit to Supine Sit to Supine Contact Guard Assistance, Bedrails PT-Transfer Assessment Sit to and From Stand Sit to and from Stand Maximum Assistance,1 Person Assistance,2 Person Assistance ,Use of Upper Extremities Equipment Transfer Assistive Device Gait Belt,Front Wheeled Walker Orthotic/Prosthetic Devices or Brace: Yes Comments Mobility Comments educated pt on weight bearing restriction and on techniques on how to get up and maintain standing while maintain NWB on RLE. pt completed supine to sit CGA and cues. pt used bed rail to assist. required increase time to move. completed sit to stand from EOB max A x 1-2 and max cues. pt with increase lateral side lean to the R. attempted ambulation using FWW but unable. instructed to sit back and required max A for controlled descent. educated pt on sit to stand technique and how to stand and decrease lateral leaning to the L. pt also needs a brief change. NAC in room. assisted with brief change. pt does not want to transfer on to the chair but agreed to get up again from the bed. completed sit to stand max A x 1-2. was able to maintain standing mod A and NAc assisted with brief management. instructed pt to do side stepping towards HOB and completed ~ 3 ft max A x 1-2 and cues. pt requires cues to maintain NWB on RLE pt completed sit to supine CGA. positioned pt in bed. call light and table placed within reach. BP at end of tx session: 163/83 Gait Assessment Gait Gait Assistance Required: Maximum Assistance,1 Person Assist,2 Person Assist Distance (Feet) 3 Able to Maintain Weight Bearing Status No During Gait Assistive Devices Assistive Device Gait Belt,Front Wheeled Walker Orthotic/Prosthetic Devices or Brace: Yes Gait Deviations General Gait Pattern Decreased Stride Length, Decreased Feet Clearance Comments Gait Comments able to take side steps towards HOB using FWW max A and max x 1-2 cues PT-Balance Assessment Sitting Balance and Reactions Static Sitting Balance Ability Good Dynamic Sitting Balance Ability Good Standing Balance and Reactions Static Standing Balance Ability Poor Dynamic Standing Balance Ability Poor Device Used FWW M5 PT-IP Objective Assessments Start: 09/12/20 14:51 Freq: NEEDED Status: Active Protocol: Document 09/12/20 13:30 AB (Rec: 09/12/20 15:17 AB [id number]) Orientation Orientation/Cognition Level of Alertness Alert Orientation Name,Place,Situation Language Function Ability No Deficits Noted Safety Awareness Decreased Safety Awareness Gross Range of Motion Lower Extremity ROM Assessment Within Functional Limits Strength Lower Extremity Strength Assessment Right Impaired Hip 4-/5 Knee 3+/5 Ankle n/t Sensation Assessment Sensation Gross Sensation Right LE Impaired,Left LE Impaired Sensation Description Numbness Comments Sensation Comments chronic bilateral lower leg/ feet numbness Muscle Tone Muscle Tone WNL Yes M6 PT-IP Treatment Start: 09/12/20 14:51 Freq: NEEDED Status: Active Protocol: Document 09/12/20 13:30 AB (Rec: 09/12/20 15:[email or web address] Therapy Treatment Education Education Provided Precautions,Weight Bearing Status,Safety M7 PT-IP Assessment and Plan Start: 09/12/20 14:51 Freq: NEEDED Status: Active Protocol: Document 09/12/20 13:30 AB (Rec: 09/12/20 15:17 AB [email or web address]) PT Summary Assessment and Plan Potential Rehabilitation Potential Fair Status of Condition at Evaluation Evolving Summary Impairments Pain,ROM,Strength,Balance, Coordination,Sensation,Tone, Cognition,Bed Mobility, Transfers,Gait,Activity Tolerance Assessment Summary pt requiring max A x 1-2 with mobility and unable to ambulate much with pain and weight bearing restriction limiting mobility. pt has limited assistance at home with spouse working 8 hours a day. pt is NWB on RLE and is not appropriate to do stairs at this time. informed pt regarding equipement need ( FWW and w/c). At this time, pt will need SNF rehab. will continue to assess progress. Goals Bed Mobility Goal Independent Transfer Goal Standby Assistance,Front Wheeled Walker Gait Goal Standby Assistance,Front Wheel Walker Gait Distance 25 Other Goals up/down 7 steps R rails min a Days to Meet Goals 10 Frequency of Treatment Frequency Of Treatment Once a Day Treatment Plan Physical Therapy Treatment Plan Bed Mobility Training,Transfer Training,Gait Training, Therapeutic Exercise,Balance Retraining,Post Op Education, Discharge Planning,Hot or Cold Pack,Neuromuscular Re-ed, Coordination Retraining,Manual Therapy Precautions Other Precautions RLE NWB; ok walker and TDWB for transfers Recommendations To Nursing Amount of Assist Needed 2 Person Assist Discharge Recommendations PT Discharge Recommendations SNF Rehab Transportation Needs at Discharge Wheelchair/Cabulance,Stretcher /Ambulance
[2020-09-12] MEDS: OXYCODONE IR 10 MG TABLET PO (14:08)
[2020-09-12] MEDS: CEFTRIAXONE 2 GM/50 ML FROZ.PIGGY IV (14:08)
--- NOTE | 2020-09-12 14:57 | PM.PN.1 ---
Subjective Subjective Date Patient Seen: 09/12/20 Time Patient Seen: 09:00 Interval history: He went to the OR yesterday. Today he feels good, he has some mild pain in his foot, but thinks it is well controlled. Otherwise no other complaints. Exam Vital Signs (past 8 hours): - 09/12/20 07:00 09/12/20 08:00 09/12/20 11:00 Temperature 98.6 F Pulse Rate 88 Respiratory Rate 19 Blood Pressure 109/58 L Pulse Oximetry 93 93 98 09/12/20 12:00 Temperature 99.1 F Pulse Rate 91 H Respiratory Rate 17 Blood Pressure 104/55 L Pulse Oximetry 93 Oxygen Delivery Method Room Air Oxygen Flow Rate 0 Narrative Exam Narrative: GENERAL APPEARANCE: well developed male appears slightly older than stated age, in no acute distress. HEENT: Normocephalic, PERRL, conjunctiva clear, EOMs intact without nystagmus, no rhinorrhea, mucous membranes are pink and moist. SKIN: [place], warm and dry, no visible rashes. HEART: regular rate and rhythm, S1-S2, no murmur, no rubs or gallops, brisk capillary refill, no edema LUNGS: clear to auscultation bilaterally, no coarseness crackles or wheezing, no cough present CHEST: Symmetrical movement, no accessory muscle use, good tidal volume no pain to AP and lateral compression. ABDOMEN: Soft, non-tender, non-distended with hepatomegaly. EXTREMITIES: Bulky postoperative dressing to right foot, wounds not visualized, moves all extremities, strength is 5/5 and symmetrical, no clubbing or cyanosis NEUROLOGIC: AAO x4, no focal neurologic deficits, cranial nerves II-XII grossly intact, neuropathy to mid lower leg, bilateral feet insensate, hearing grossly normal to speech. PSYCH: Quiet spoken, cooperative, stable behavior Objective Labs Result Diagrams: 09/12/20 05:15 09/12/20 05:15 Labs: Laboratory Results - last 24 hr 09/12/20 09/12/20 09/12/20 05:15 05:15 08:25 WBC 14.1 H RBC 3.48 L Hgb 10.1 L Hct 29.2 L MCV 84.0 MCH 29.0 MCHC 34.5 RDW 12.1 Plt Count 285 Neut % (Auto) 77.7 H Lymph % (Auto) 10.7 L [place] % (Auto) 10.0 Eos % (Auto) 1.1 L Baso % (Auto) 0.5 Neut # (Auto) 83869 H Lymph # (Auto) 1500 [place] # (Auto) 1400 H Eos # (Auto) 200 Baso # (Auto) 100 Sodium 133 L Potassium 3.2 L Chloride 99 Carbon Dioxide 28 BUN 12 Creatinine 0.52 L Estimated GFR > 60.0 BUN/Creatinine Ratio 23.1 H Glucose 212 H Calcium 8.4 Magnesium 1.8 Vancomycin Trough 12.9 PFSH Medical History Diabetes Hyperlipidemia Hypertension Surgical History History of cholecystectomy Family History (Updated 09/10/20 @ 06:43 by ERIN Narvaez) Father Diabetes mellitus Cancer Mother Cancer Social History marital status: household members: spouse and children pets and animals: Yes Smoking Status: Never smoker alcohol intake: current Assessment & Plan Assessment & Plan narrative: 55-year-old male patient with poorly controlled diabetes hypertension hyperlipidemia who is admitted with a diabetic foot ulcer found to have osteomyelitis. 1. Nonhealing diabetic foot ulcer right lateral foot, with cellulitis and 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 -the patient was taken from the ER to the OR for incision and drainage with wound debridement by Dr. De Los Santos on 09/09 and bone biopsy of the 5th metatarsal, cultures currently growing staph aureus with pansensitivity resulting, and also strep viridans. Went to OR 09/11 as well for right partial fifth ray amputation, further debridement of foot, and fourth metatarsal head biopsy -given MSSA and strep viridans will narrow antibiotics to ceftriaxone 2gm q24, dc vancomycin -appreciate management by podiatry, will be NWB on R foot, may need a return to OR or MRI of foot pending response to surgery. 2. Uncontrolled diabetes type 2 with hyperglycemia, present on admission, active. -the patient endorses not using his insulin and on initial labs drawn in the ER the patient has a blood sugar of 396. -A1c 12.1%. -patient reports taking insulin on a ?hit or miss basis, reports should be taking Lantus 45 mg and checking his blood sugars before meals with Humalog correctional insulin. -was on lantus 20 U BID, but now increased to 25U BID for hyperglycemia. Sugars are improving, however he has been NPO off and on for procedures. Will need to continue to adjust depending on his diet. -ordered fingerstick blood sugars a.c. and HS, coverage with high-dose correctional scale. -requested dietitian consult. 3. Hyponatremia, presumed acute, present on admission, active, improving -hyponatremia believed to be related to dehydration secondary to hyperglycemia -initial labs reveal serum sodium of 125. Patient received 2 L of normal saline in the ER continued rehydration with normal saline at 100 cc/hour with improvement to 133. He is asmpyomtatic at this time. Will hold fluids while eating. 4. Hypertension, chronic, stable. -patient reports taking lisinopril daily though he cannot remember the dose. Upon arrival to the ER the patient's blood pressure is 115/71. -hold antihypertensives and follow blood pressure trends and add lisinopril as indicated. Although ideally would hold this or select alternative agent given need for possibly multiple proceudres in the coming days. 5. Hyperlipidemia, chronic, stable -patient takes simvastatin but does not recall the dosage. -ordered simvastatin 20 mg daily, will continue. LDL is controlled at 38 on admission. VTE prophylaxis: SCD left leg, continue to hold pharmacological prophylaxis given need for possible multiple surgical interventions. Diet: Small consistent carbohydrate, heart healthy Code status: Full code, the patient designates his to be his surrogate decision maker. The patient is admitted as an inpatient with expected length of stay to be greater than 2 midnights. Disposition and timing is not clear at this time. Quality VTE Deep Vein Thrombosis/Pulmonary Embolism Present on Admission: No
--- NOTE | 2020-09-12 15:56 | CM.DPNOTE ---
DCP Cont Medical POC still unfolding as need for additional surgery remains unknown. Received VM from patient's spouse Bernadette who states I have some concerns P# [phone]. Reviewed VM w/patient and he said he would call his , then states you can tell her anything This [employer] unable to place this call today d/t other caseload demands. Reviewed chart, SNF recommended by PT. This might be a good outcome for patient depending on if patient agreeable and a SNF bed can be secured w/patient's ABDULAZIZ coverage (this is not a managed ABDULAZIZ plan). Printed Provider One card and insurance verification from admitting in case needed for SNF referral. Following closely, need to f/u w/patient (and spouse?) re: JOSHUA JW
[2020-09-12] MEDS: SIMVASTATIN 20 MG TABLET PO (21:12)
[2020-09-12] MEDS: FAMOTIDINE 20 MG TABLET PO (21:12)
[2020-09-12] MEDS: metroNIDAZOLE 500 MG/100 ML PIGGYBACK 100 MG IV (23:38)
[2020-09-13] VITALS (11 sets, daily range): BP systolic 97–138; BP diastolic 57–77; PULSE 80–108; RESP 17–18; TEMP 36.5–37.3; O2SAT 92–96
[2020-09-13] MEDS: ACETAMINOPHEN 325 MG TABLET 975 MG PO ×3 (04:30→20:36)
[2020-09-13] MEDS: metroNIDAZOLE 500 MG/100 ML PIGGYBACK 100 MG IV ×4 (05:17→23:47)
[2020-09-13] MEDS: SODIUM CHLORIDE 0.9% FLUSH 10 ML IV ×4 (05:20→23:47)
[2020-09-13 05:27] LABS: Add Manual Diff / Slide Review NO; Basophils Absolute Auto 0 /uL (0-100); Basophils Percent Auto 0.2 % (0-2); Eosinophils Absolute Auto 200 /uL (0-450); Eosinophils Percent Auto 2.3 % (2-4); Hematocrit 29.2 % (41-53); Hemoglobin 9.8 g/dL (13.5-17.5); Lymphocytes Absolute Auto 1700 /uL (1100-4500); Lymphocytes Percent Auto 16.1 % (25-40); Mean Corpuscular HGB Conc 33.6 % (30-36); Mean Corpuscular Hemoglobin 28.2 PG (26-34); Mean Corpuscular Volume 83.8 fL (80-100); Monocytes Absolute Auto 1500 /uL (0-900); Monocytes Percent Auto 14.5 % (3-14); Neutrophils Absolute Auto 7000 /uL (1500-7000); Neutrophils Percent Auto 66.9 % (50-75); Platelet Count 320 X10^3/uL (150-400); Red Blood Cell Count 3.48 X10^6/uL (4.5-5.9); Red Cell Distribution Width 11.8 % (11.6-14.8); White Blood Cell Count 10.4 X10^3/uL (4.5-11.0)
[2020-09-13 05:38] LABS: BUN Creatinine Ratio 15.7 (6-22); Blood Urea Nitrogen 8 mg/dL (9-20); Calcium 8.7 mg/dL (8.4-10.2); Carbon Dioxide 32 mmol/L (22-32); Chloride 101 mmol/L (98-107); Estimated Glomerular Filt Rate > 60.0 mL/min (>60); Glucose 174 mg/dL (70-100); HEMOLYSIS < 15 (0-50); Potassium 4.6 mmol/L (3.4-5.1); Sodium 137 mmol/L (137-145)
--- NOTE | 2020-09-13 08:45 | PM.PNPO.1 ---
Subjective Subjective Date Patient Seen: 09/13/20 Time Patient Seen: 08:45 Interval history: s/p 2 days right fifth metatarsal partial ray resection. Feeling improved again, taken a little tylenol for aching in foot, and still periodic twinges near toes 4/(5). He is eating and urinating but states he hasn't had a bowel movement since the diarrhea 2 days ago, so he asked for a higher fiber diet. He is concerned as he began to think of how he will have many problems getting into his house due to the number of steps he has. He was pleased with being able to work with his physical therapist yesterday, who will be back today. Exam Vital Signs (past 8 hours): - 09/13/20 04:37 09/13/20 04:41 09/13/20 07:30 Temperature 98.1 F 97.7 F Pulse Rate 84 80 Respiratory Rate 18 17 Blood Pressure 123/74 107/71 Pulse Oximetry 92 92 94 Oxygen Delivery Method Room Air Oxygen Flow Rate 0 Extrem Other: Right lower extremity: foot Details: normal capillary refill, trace edema to the toes, none to the calf and no crepitus (none to the ankle or foot) Insensate except a little paresthesia periodically dorsolateral 4th toe. Mild strike through on the dressing to the foot. Dressing and packing removed showing increasing declaration of the edges of the dorso lateral foot wound, and no purulence or malodor. Exposed tendon/subuctaneous tissues along the fourth ray area. Lobe of skin along lateral side appears to be receding into eschar, but surrounding tissues appearing perfused without proximal or medial extension of necrosis. A little redness at the sulcus where there is a little minor edema, but not feeling erythematous. Objective Labs Result Diagrams: 09/13/20 04:55 09/13/20 04:55 Labs: Laboratory Results - last 24 hr 09/12/20 09/13/20 09/13/20 08:25 04:55 04:55 WBC 10.4 RBC 3.48 L Hgb 9.8 L Hct 29.2 L MCV 83.8 MCH 28.2 MCHC 33.6 RDW 11.8 Plt Count 320 Neut % (Auto) 66.9 Lymph % (Auto) 16.1 L [place] % (Auto) 14.5 H Eos % (Auto) 2.3 Baso % (Auto) 0.2 Neut # (Auto) 7000 Lymph # (Auto) 1700 [place] # (Auto) 1500 H Eos # (Auto) 200 Baso # (Auto) 0 Sodium 137 Potassium 4.6 D Chloride 101 Carbon Dioxide 32 BUN 8 L Creatinine 0.51 L Estimated GFR > 60.0 BUN/Creatinine Ratio 15.7 Glucose 174 H Calcium 8.7 Magnesium 2.0 Vancomycin Trough 12.9 PFSH Medical History Diabetes Hyperlipidemia Hypertension Surgical History History of cholecystectomy Family History (Updated 09/10/20 @ 06:43 by ERIN Narvaez) Father Diabetes mellitus Cancer Mother Cancer Social History marital status: household members: spouse and children pets and animals: Yes Smoking Status: Never smoker alcohol intake: current Assessment & Plan Post-op Postoperative Procedures: Procedures Operation Date: 09/09/20 20:30 Actual Procedures Side Surgeon p right foot incision and drainage, extensive debridement, bone biopsy Right Laura De Los Santos DPM Operation Date: 09/11/20 10:45 Actual Procedures Side Surgeon p Toe Amputation partial right fifth toe Laura De Los Santos DPM Postoperative day: 2 Postoperative plan narrative: -WBC down into normal range this AM and in general he's feeling ok -Until further cultures determined from Monday's surgery, cephalosporin continues. Anticipate he will likely need at least another week's worth of iv abx, so likely will convert to picc line today. -Dressing changed today following gentle sterlie saline irrigation, will hold on change tomorrow and then check Monday to determine extent further of possible surgery with skin viability at that point. Looks clean and toes perfused well. Watching newer red area at the plantar sulcus, but think this may be from possible new use of SCD with just some pressure. Will monitor. -Reviewed the skin coverage situation with him today and also getting an idea of what further bone needs to be reduced to allow for safety for curbing longer term healing of expansive dorsolateral foot wound but also functionality. With the viability of some of the edges of tissue today, it's still possible we would need at minimum a partial fourth ray amputation or transmetatarsal amputation but at the moment too early to tell if this is necessary. He asked about autogenous skin grafting but I am also thinking functionally at this point too. Will bring in Wound consult after MRI info reviewed. Will order MRI for tomorrow. -Healing slowly but showing improvement, still option of ABIs/arterial study if find he is demonstrating difficulty healing. -Continue NWB right foot, or maximum a walker for flat foot touchdown to transfer (walker in room for his use). -Continue egg crate heel protectors. -Based on his surgical situation we do not have him on enoxaparin at this time and instead are using mechanical means. He is on b/l calf SCDs and is getting up more with PT. -Medicine mgmt of his diabetic control has been appreciated and continues. Disposition in expected continued stay as inpatient until further control of infection of foot, medical optimization, and in or outpatient further surgical intervention of the foot/ankle. With his concern regarding his home stairs situation, nursing and I discussed having him get opportunity to discuss this with discharge planning/case mgmt. Time Spent With Patient Time with patient: 15-24 minutes Quality VTE Deep Vein Thrombosis/Pulmonary Embolism Present on Admission: No
--- NOTE | 2020-09-13 09:09 | DI.MRI.S_ITS ---
PROCEDURE: MR FOOT RT WO/W CON INDICATIONS: R foot s/p partial 5th amp, MT4 head bx. Osteomyelitis? TECHNIQUE: Noncontrast coronal T1 spin echo and STIR, sagittal T1 spin echo with fat saturation and STIR, axial T1 spin echo and T2 fast spin echo with fat saturation. After the administration of contrast, axial/sagittal/coronal T1 spin echo with fat saturation through the right foot . COMPARISON: None. FINDINGS: Image quality: Excellent. Bones: No definite acute fracture identified. Postsurgical changes related to 5th ray amputation at the level of the proximal-mid 5th metatarsal. In the 4th metatarsal head, there is a possible cortical defect/biopsy site although technically indeterminate etiology. There is mild marrow edema. No definite replacement of the normal fat signal intensity on T1 weighted images. There is adjacent soft tissue edema and cellulitis, versus postsurgical sequela. Tenosynovitis involving the flexor digitorum superficialis and profundus. Hallux sesamoid marrow signal intensity unremarkable. Scattered degenerative subchondral sclerosis and spurring. No discrete abscess seen. IMPRESSION: Postsurgical changes related to 5th toe amputation as above. Mild marrow signal changes involving the lateral aspect of the 4th metatarsal head which could reflect postoperative changes or reactive edema. No specific marrow signal change or enhancement to suggest osteomyelitis seen at this time. If there is persistent clinical diagnostic uncertainty, continued surveillance with short interval radiographs after treatment is recommended. No discrete abscess identified. Dictated by: Deshawn Sumner M.D. on 09/13/2020 at 10:59 Approved by: Deshawn Sumner M.D. on 09/13/2020 at 11:09
[2020-09-13] MEDS: GABAPENTIN 600 MG TABLET 1200 MG PO ×3 (09:22→20:38)
[2020-09-13] MEDS: INSULIN GLARGINE 100 UNIT/ML 3ML PEN 25 UNIT SUBCUT ×2 (09:22→20:39)
[2020-09-13] MEDS: INSULIN ASPART 100 UNIT/ML INSULN PEN SUBCUT ×3 (09:23→16:58)
[2020-09-13] MEDS: OXYCODONE IR 5 MG TABLET PO (09:43)
[2020-09-13] MEDS: OXYCODONE IR 10 MG TABLET PO (12:32)
[2020-09-13] MEDS: CEFTRIAXONE 2 GM/50 ML FROZ.PIGGY IV (14:16)
--- NOTE | 2020-09-13 14:17 | PT.IPTN ---
Current Diagnoses Type 2 diabetes mellitus with foot ulcer (09/09/20) Surgery Performed Operation Date: 09/09/20 20:30 Actual Procedures p right foot incision and drainage, extensive debridement, bone biopsy(Right) - Laura De Los Santos DPM Operation Date: 09/11/20 10:45 Actual Procedures p Toe Amputation partial right fifth toe - Laura De Los Santos DPM Physical Therapy Treatment Note M2 PT-IP Current Condition Start: 09/12/20 14:51 Freq: NEEDED Status: Active Protocol: Document 09/12/20 13:30 AB (Rec: 09/12/20 15:17 AB [id number]) Physical Therapy Current Condition Current Condition Evaluation Date 09/12/20 Treatment Diagnosis R foot abscess s/p 5th toe amput/partial 5th ray resection; diff in walking Onset Date 09/09/20 Weight Bearing Status Weight Bearing Status Non-Weight Bearing Allowed Weight Bearing Amount (enter % per doctor's order: RLE NWB; or #) (%) ok walker and TDWB for transfers M3 PT-IP Subjective Start: 09/12/20 14:51 Freq: NEEDED Status: Active Protocol: Document 09/13/20 14:17 AW (Rec: 09/13/20 15:30 AW [id number]) Subjective Physical Therapy Visit Type Type Treatment Note Visit Start Time 13:48 Visit Stop Time 14:17 Total Visit Minutes 29 Number of MDS RN Visits 0 Physical Therapy Visit Comments Patient Comments I wore myself out going to MRI. Pt requires some encouragement but is ultimately willing to participate with PT Therapy Pain Assessment Pain When Pain Assessed At Rest Pain Present Pain Present Pain Reported Location right foot Intensity 3 Scale Used Numeric (0 - 10) Pain Management Techniques Distraction,Modification of Treatment,Re-positioning, Timing of Activity with Medications M4 PT-IP Mobility and Gait Start: 09/12/20 14:51 Freq: NEEDED Status: Active Protocol: Document 09/13/20 14:17 AW (Rec: 09/13/20 15:30 AW [id number]) PT-Bed Mobility Assessment Supine to Sit Supine to Sit Contact Guard Assistance, Bedrails Sit to Supine Sit to Supine Contact Guard Assistance, Bedrails PT-Transfer Assessment Sit to and From Stand Sit to and from Stand Moderate Assistance,Maximum Assistance,1 Person Assistance ,Use of Upper Extremities Equipment Transfer Assistive Device Gait Belt,Front Wheeled Walker Orthotic/Prosthetic Devices or Brace: Yes Transfers Transfer Destination Bed,Chair Transfer Technique Stand Step Pivot Transfer Ability Level of Assist Moderate Assistance,1 Person Assistance,Use of Upper Extremities Comments Mobility Comments Pt completed supine to sit using bedrails although he denies having rails at home. Pt sat EOB and required mod assist to stand from the bed in its lowest position. He used the FWW and pivoted on his left foot, maintaining TDWB at most on the RLE, to transfer to the bedside chair set up two feet away. Pt sat and needed a rest break. He refused to stay up in the chair. Sit to stand from the chair (lower than bed surface) required max A x 1. He transferred back to the bed in similar fashion and completed sit to supine CGA with heavy use of the bedrails. Pt was positioned with call light and all needs in reach. Gait Assessment Gait Gait Assistance Required: Maximum Assistance,1 Person Assist Distance (Feet) 3 Able to Maintain Weight Bearing Status No During Gait Assistive Devices Assistive Device Gait Belt,Front Wheeled Walker Orthotic/Prosthetic Devices or Brace: No Gait Deviations General Gait Pattern Decreased Stride Length, Decreased Feet Clearance Comments Gait Comments Able to take steps/pivot on left foot during transfer using FWW PT-Balance Assessment Sitting Balance and Reactions Static Sitting Balance Ability Good Dynamic Sitting Balance Ability Good Standing Balance and Reactions Static Standing Balance Ability Poor Dynamic Standing Balance Ability Poor Device Used FWW M5 PT-IP Objective Assessments Start: 09/12/20 14:51 Freq: NEEDED Status: Active Protocol: Document 09/12/20 13:30 AB (Rec: 09/12/20 15:17 AB [id number]) Orientation Orientation/Cognition Level of Alertness Alert Orientation Name,Place,Situation Language Function Ability No Deficits Noted Safety Awareness Decreased Safety Awareness Gross Range of Motion Lower Extremity ROM Assessment Within Functional Limits Strength Lower Extremity Strength Assessment Right Impaired Hip 4-/5 Knee 3+/5 Ankle n/t Sensation Assessment Sensation Gross Sensation Right LE Impaired,Left LE Impaired Sensation Description Numbness Comments Sensation Comments chronic bilateral lower leg/ feet numbness Muscle Tone Muscle Tone WNL Yes M6 PT-IP Treatment Start: 09/12/20 14:51 Freq: NEEDED Status: Active Protocol: Document 09/13/20 14:17 AW (Rec: 09/13/20 15:30 AW [id number]) Physical Therapy Treatment Education Education Provided Weight Bearing Status,Safety M7 PT-IP Assessment and Plan Start: 09/12/20 14:51 Freq: NEEDED Status: Active Protocol: Document 09/13/20 14:17 AW (Rec: 09/13/20 15:30 AW [id number]) PT Summary Assessment and Plan Potential Rehabilitation Potential Fair Status of Condition at Evaluation Evolving Summary Impairments Pain,ROM,Strength,Balance, Coordination,Sensation,Tone, Cognition,Bed Mobility, Transfers,Gait,Activity Tolerance Progress Towards Goals Slow Progress due to Medical Issues,Slow Progress due to Activity Tolerance Assessment Summary Pt required mod to max A x 1 with mobility using FWW at this session. He inquired about using axillary crutches for mobility but pt is not steady enough for crutches. Pain and weight bearing restriction limiting mobility. Pt has limited assistance at home with spouse working 8 hours a day. He is NWB on RLE and is not appropriate to do stairs at this time. Pt will need SNF rehab. Will continue to assess progress. Goals Bed Mobility Goal Independent Transfer Goal Standby Assistance,Front Wheeled Walker Gait Goal Standby Assistance,Front Wheel Walker Gait Distance 25 Other Goals up/down 7 steps R rails min a Days to Meet Goals 10 Frequency of Treatment Frequency Of Treatment Once a Day Treatment Plan Physical Therapy Treatment Plan Bed Mobility Training,Transfer Training,Gait Training, Therapeutic Exercise,Balance Retraining,Post Op Education, Discharge Planning,Hot or Cold Pack,Neuromuscular Re-ed, Coordination Retraining,Manual Therapy Precautions Other Precautions RLE NWB; ok walker and TDWB for transfers Recommendations To Nursing Amount of Assist Needed 2 Person Assist Discharge Recommendations PT Discharge Recommendations SNF Rehab Transportation Needs at Discharge Wheelchair/Cabulance
--- NOTE | 2020-09-13 15:19 | P.PN_ITS ---
Subjective Subjective Date Patient Seen: 09/13/20 Time Patient Seen: 10:19 Interval history: Today he feels his pain is well controlled. He has no complaints currently. Exam Vital Signs (past 8 hours): - 09/13/20 07:30 09/13/20 08:00 09/13/20 11:30 Temperature 97.7 F 99.2 F Pulse Rate 80 87 Respiratory Rate 17 17 Blood Pressure 107/71 97/72 Pulse Oximetry 94 96 94 09/13/20 12:00 Temperature Pulse Rate Respiratory Rate Blood Pressure Pulse Oximetry 96 Oxygen Delivery Method Room Air Oxygen Flow Rate 0 Narrative Exam Narrative: GENERAL APPEARANCE: well developed male appears slightly older than stated age, in no acute distress. HEENT: Normocephalic, PERRL, conjunctiva clear, EOMs intact without nystagmus, no rhinorrhea, mucous membranes are pink and moist. SKIN: [place], warm and dry, no visible rashes. HEART: regular rate and rhythm, S1-S2, no murmur, no rubs or gallops, brisk capillary refill, no edema LUNGS: clear to auscultation bilaterally, no coarseness crackles or wheezing, no cough present CHEST: Symmetrical movement, no accessory muscle use, good tidal volume no pain to AP and lateral compression. ABDOMEN: Soft, non-tender, non-distended with hepatomegaly. EXTREMITIES: Bulky postoperative dressing to right foot, wounds not visualized, moves all extremities, strength is 5/5 and symmetrical, no clubbing or cyanosis NEUROLOGIC: AAO x4, no focal neurologic deficits, cranial nerves II-XII grossly intact, neuropathy to mid lower leg, bilateral feet insensate, hearing grossly normal to speech. PSYCH: Quiet spoken, cooperative, stable behavior Objective Labs Result Diagrams: 09/13/20 04:55 09/13/20 04:55 Labs: Laboratory Results - last 24 hr 09/13/20 09/13/20 04:55 04:55 WBC 10.4 RBC 3.48 L Hgb 9.8 L Hct 29.2 L MCV 83.8 MCH 28.2 MCHC 33.6 RDW 11.8 Plt Count 320 Neut % (Auto) 66.9 Lymph % (Auto) 16.1 L Collier % (Auto) 14.5 H Eos % (Auto) 2.3 Baso % (Auto) 0.2 Neut # (Auto) 7000 Lymph # (Auto) 1700 Collier # (Auto) 1500 H Eos # (Auto) 200 Baso # (Auto) 0 Sodium 137 Potassium 4.6 D Chloride 101 Carbon Dioxide 32 BUN 8 L Creatinine 0.51 L Estimated GFR > 60.0 BUN/Creatinine Ratio 15.7 Glucose 174 H Calcium 8.7 Magnesium 2.0 PFSH Medical History Diabetes Hyperlipidemia Hypertension Surgical History History of cholecystectomy Family History (Updated 09/10/20 @ 06:43 by ERIN Narvaez) Father Diabetes mellitus Cancer Mother Cancer Social History marital status: household members: spouse and children pets and animals: Yes Smoking Status: Never smoker alcohol intake: current Assessment & Plan Assessment & Plan narrative: 55-year-old male patient with poorly controlled diabetes hypertension hyperlipidemia who is admitted with a diabetic foot ulcer found to have osteomyelitis. 1. Nonhealing diabetic foot ulcer right lateral foot, with cellulitis and 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 -the patient was taken from the ER to the OR for incision and drainage with wound debridement by Dr. De Los Santos on 09/09 and bone biopsy of the 5th metatarsal, cultures currently growing staph aureus with pansensitivity resulting, and also strep viridans. Went to OR 09/11 as well for right partial fifth ray amputation, further debridement of foot, and fourth metatarsal head biopsy -given MSSA and strep viridans will narrow antibiotics to ceftriaxone 2gm q24, dc vancomycin -given prevotella will continue with flagyl -appreciate management by podiatry, will be NWB on R foot, planning for MRI to further eval for residual osteomyelitis -will likely need to return to the OR pending response to first surgery -PICC ordered for likely long term acute care registered nurse abx 2. Uncontrolled diabetes type 2 with hyperglycemia, present on admission, active. -the patient endorses not using his insulin and on initial labs drawn in the ER the patient has a blood sugar of 396. -A1c 12.1%. -patient reports taking insulin on a ?hit or miss basis, reports should be taking Lantus 45 mg and checking his blood sugars before meals with Humalog correctional insulin. -was on lantus 20 U BID, but now increased to 25U BID for hyperglycemia. Sugars are improving, however he has been NPO off and on for procedures. Will need to continue to adjust depending on his diet. -ordered fingerstick blood sugars a.c. and HS, coverage with high-dose correctional scale. -requested dietitian consult. 3. Hyponatremia, presumed acute, present on admission, active, improving -hyponatremia believed to be related to dehydration secondary to hyperglycemia -initial labs reveal serum sodium of 125. Patient received 2 L of normal saline in the ER continued rehydration with normal saline at 100 cc/hour with improvement to 137. He is asmpyomtatic at this time. Will hold fluids while eating. 4. Hypertension, chronic, stable. -patient reports taking lisinopril daily though he cannot remember the dose. Upon arrival to the ER the patient's blood pressure is 115/71. -hold antihypertensives and follow blood pressure trends and add lisinopril as indicated. Although ideally would hold this or select alternative agent given need for possibly multiple proceudres in the coming days. 5. Hyperlipidemia, chronic, stable -patient takes simvastatin but does not recall the dosage. -ordered simvastatin 20 mg daily, will continue. LDL is controlled at 38 on admission. VTE prophylaxis: SCD left leg, continue to hold pharmacological prophylaxis given need for possible multiple surgical interventions. Diet: Small consistent carbohydrate, heart healthy Code status: Full code, the patient designates his to be his surrogate decision maker. The patient is admitted as an inpatient with expected length of stay to be greater than 2 midnights. Disposition and timing is not clear at this time. Quality VTE Deep Vein Thrombosis/Pulmonary Embolism Present on Admission: No
--- NOTE | 2020-09-13 16:16 | CM.DANOTE ---
DCP ASSESSMENT: MANAGER RETAIL SALES and MANAGER RETAIL SALES student met with patient at beside this date to explore D/C options. Education was provided about the need for IV medications at time of D/C. At this time patient is requesting to have a short-term SNF stay and declined the facility near [place] in [place]. He was open to [facility] vs home. He was open to going to a SNF for management. He reported he has a difficult time managing both his diet and diabetic medications his reason for lack of compliance is ?Out of sight of mind.? He did report an interest in learning more about a diet. Patient also, enquired about crutches if he returns home he feels he will be able to navigate the stairs. Encouraged him to speak with physical therapy. Conferred with nursing who will place a consult for dietary. Called and spoke with Jennifer at [facility] who will initiate the authorization. PLAN: Initiated contact with [facility] for authorization to manage his IV antibiotics. CM Team to continue to closely follow. MIGUEL Murrell MSW Student
[2020-09-13] MEDS: FAMOTIDINE 20 MG TABLET PO (20:38)
[2020-09-13] MEDS: SIMVASTATIN 20 MG TABLET PO (20:38)
[2020-09-14] VITALS (13 sets, daily range): BP systolic 93–137; BP diastolic 54–86; PULSE 85–102; RESP 16–20; TEMP 36.9–38.1; O2SAT 92–97
[2020-09-14] MEDS: metroNIDAZOLE 500 MG/100 ML PIGGYBACK 100 MG IV ×2 (04:50→11:40)
[2020-09-14] MEDS: ACETAMINOPHEN 325 MG TABLET 975 MG PO ×3 (04:50→21:14)
[2020-09-14 05:08] LABS: Add Manual Diff / Slide Review NO; Basophils Absolute Auto 100 /uL (0-100); Eosinophils Absolute Auto 300 /uL (0-450); Eosinophils Percent Auto 1.8 % (2-4); Hematocrit 28.8 % (41-53); Hemoglobin 9.6 g/dL (13.5-17.5); Lymphocytes Absolute Auto 1800 /uL (1100-4500); Mean Corpuscular HGB Conc 33.5 % (30-36); Mean Corpuscular Hemoglobin 28.1 PG (26-34); Monocytes Absolute Auto 1800 /uL (0-900); Neutrophils Absolute Auto 9900 /uL (1500-7000); Neutrophils Percent Auto 71.2 % (50-75); Platelet Count 361 X10^3/uL (150-400); Red Blood Cell Count 3.43 X10^6/uL (4.5-5.9); Red Cell Distribution Width 12.1 % (11.6-14.8); White Blood Cell Count 13.8 X10^3/uL (4.5-11.0)
[2020-09-14 05:13] LABS: BUN Creatinine Ratio 17.5 (6-22); Blood Urea Nitrogen 11 mg/dL (9-20); Calcium 8.6 mg/dL (8.4-10.2); Carbon Dioxide 34 mmol/L (22-32); Chloride 97 mmol/L (98-107); Estimated Glomerular Filt Rate > 60.0 mL/min (>60); Glucose 126 mg/dL (70-100); HEMOLYSIS < 15 (0-50); Magnesium 1.9 mg/dL (1.6-2.3); Potassium 3.9 mmol/L (3.4-5.1); Sodium 135 mmol/L (137-145)
--- NOTE | 2020-09-14 08:40 | DI.RAD.S_ITS ---
PROCEDURE: XR CHEST FOR PICC 1V INDICATIONS: verify placement COMPARISON: None. FINDINGS: PICC was placed by the intravenous therapy team from the right side. Fluoroscopic spot film demonstrates the tip of PICC projecting to the area of distal SVC IMPRESSION: Tip of PICC projects to the area of distal SVC Dictated by: Trice Childress MD, PhD on 09/14/2020 at 9:29 Approved by: Trice Chilrdess MD, PhD on 09/14/2020 at 9:30
[2020-09-14] MEDS: INSULIN ASPART 100 UNIT/ML INSULN PEN SUBCUT ×4 (09:28→21:01)
[2020-09-14] MEDS: INSULIN GLARGINE 100 UNIT/ML 3ML PEN 25 UNIT SUBCUT ×2 (09:28→21:00)
[2020-09-14] MEDS: GABAPENTIN 600 MG TABLET 1200 MG PO ×3 (09:28→21:15)
[2020-09-14] MEDS: SODIUM CHLORIDE 0.9% FLUSH 10 ML IV ×2 (09:51→21:16)
--- NOTE | 2020-09-14 10:33 | PT.IPTN ---
Current Diagnoses Type 2 diabetes mellitus with foot ulcer (09/09/20) Surgery Performed Operation Date: 09/09/20 20:30 Actual Procedures p right foot incision and drainage, extensive debridement, bone biopsy(Right) - Laura De Los Santos DPM Operation Date: 09/11/20 10:45 Actual Procedures p Toe Amputation partial right fifth toe - Laura De Los Santos DPM Physical Therapy Treatment Note M2 PT-IP Current Condition Start: 09/12/20 14:51 Freq: NEEDED Status: Active Protocol: Document 09/12/20 13:30 AB (Rec: 09/12/20 15:17 AB [id number]) Physical Therapy Current Condition Current Condition Evaluation Date 09/12/20 Treatment Diagnosis R foot abscess s/p 5th toe amput/partial 5th ray resection; diff in walking Onset Date 09/09/20 Weight Bearing Status Weight Bearing Status Non-Weight Bearing Allowed Weight Bearing Amount (enter % per doctor's order: RLE NWB; or #) (%) ok walker and TDWB for transfers M3 PT-IP Subjective Start: 09/12/20 14:51 Freq: NEEDED Status: Active Protocol: Document 09/14/20 10:33 AW (Rec: 09/14/20 11:04 AW [id number]) Subjective Physical Therapy Visit Type Type Treatment Note Visit Start Time 10:15 Visit Stop Time 10:33 Total Visit Minutes 18 Notes MILITARY NURSE in room providing assist Number of WELDER SETTER ELECTRON BEAM MACHINE Visits 0 Physical Therapy Visit Comments Patient Comments Pt would like to trial axillary crutches. Therapy Pain Assessment Pain When Pain Assessed During Mobility Pain Present Pain Present Pain Reported Location right foot Scale Used not quantified Description Aching M4 PT-IP Mobility and Gait Start: 09/12/20 14:51 Freq: NEEDED Status: Active Protocol: Document 09/14/20 10:33 AW (Rec: 09/14/20 11:04 AW [id number]) PT-Bed Mobility Assessment Sit to Supine Sit to Supine Contact Guard Assistance PT-Transfer Assessment Sit to and From Stand Sit to and from Stand Moderate Assistance,1 Person Assistance,Use of Upper Extremities Equipment Transfer Assistive Device Gait Belt,Front Wheeled Walker Orthotic/Prosthetic Devices or Brace: No Transfers Transfer Destination Bed Transfer Technique Stand Step Pivot Transfer Ability Level of Assist Minimal Assistance,1 Person Assistance,Use of Upper Extremities Comments Mobility Comments Pt was sitting up on the commode with MILITARY NURSE as PT arrived . He stood from the [facility] mod A x 1 and used the FWW for steadiness as MILITARY NURSE completed pericare. Pt then used the FWW to ambulate around the foot of the bed with good attention to NWB RLE. He was able to push the walker an appropriate distance in front of him, use BUE to swing through with his left foot. Pt ended up on the left EOB and transferred min A x 1. He completed sit to supine CGA without use of the bedrails. He then participated in supine exercises. Pt was positioned with call light and all needs in reach. Gait Assessment Gait Gait Assistance Required: Moderate Assistance,1 Person Assist Distance (Feet) 15 Able to Maintain Weight Bearing Status No During Gait Assistive Devices Assistive Device Gait Belt,Front Wheeled Walker Orthotic/Prosthetic Devices or Brace: No Gait Deviations General Gait Pattern Decreased Stride Length, Decreased Feet Clearance Comments Gait Comments Improved with FWW to ambulate 15 feet around the foot of the bed at this session. See mobility comments for details. PT-Balance Assessment Sitting Balance and Reactions Static Sitting Balance Ability Good Dynamic Sitting Balance Ability Good Standing Balance and Reactions Static Standing Balance Ability Fair Dynamic Standing Balance Ability Fair Device Used FWW M5 PT-IP Objective Assessments Start: 09/12/20 14:51 Freq: NEEDED Status: Active Protocol: Document 09/12/20 13:30 AB (Rec: 09/12/20 15:17 AB [id number]) Orientation Orientation/Cognition Level of Alertness Alert Orientation Name,Place,Situation Language Function Ability No Deficits Noted Safety Awareness Decreased Safety Awareness Gross Range of Motion Lower Extremity ROM Assessment Within Functional Limits Strength Lower Extremity Strength Assessment Right Impaired Hip 4-/5 Knee 3+/5 Ankle n/t Sensation Assessment Sensation Gross Sensation Right LE Impaired,Left LE Impaired Sensation Description Numbness Comments Sensation Comments chronic bilateral lower leg/ feet numbness Muscle Tone Muscle Tone WNL Yes M6 PT-IP Treatment Start: 09/12/20 14:51 Freq: NEEDED Status: Active Protocol: Document 09/14/20 10:33 AW (Rec: 09/14/20 11:04 AW [id number]) Physical Therapy Treatment Exercises Exercises Ankle Pumps,Gluteal Sets,Quad Sets,Heel Slides,Straight Leg Raises Education Education Provided Weight Bearing Status,Safety M7 PT-IP Assessment and Plan Start: 09/12/20 14:51 Freq: NEEDED Status: Active Protocol: Document 09/14/20 10:33 AW (Rec: 09/14/20 11:04 AW [id number]) PT Summary Assessment and Plan Summary Impairments Pain,ROM,Strength,Balance, Coordination,Sensation,Tone, Cognition,Bed Mobility, Transfers,Gait,Activity Tolerance Progress Towards Goals Slow Progress due to Medical Issues,Slow Progress due to Activity Tolerance Assessment Summary Pt is slowly improving with moblity, requiring mod A x 1 to walk around the foot of the bed using FWW and good attention to weightbearing status. Pt continued to inquire about crutches but agreed with PT that crutches would be unsafe at this point as he is requiring the full support of FWW for maintenance of NWB RLE. Pt requires SNF rehab to improve strength and mobility. Goals Bed Mobility Goal Independent Transfer Goal Standby Assistance,Front Wheeled Walker Gait Goal Standby Assistance,Front Wheel Walker Gait Distance 25 Other Goals up/down 7 steps R rails min a Days to Meet Goals 10 Frequency of Treatment Frequency Of Treatment Once a Day Treatment Plan Physical Therapy Treatment Plan Bed Mobility Training,Transfer Training,Gait Training, Therapeutic Exercise,Balance Retraining,Post Op Education, Discharge Planning,Hot or Cold Pack,Neuromuscular Re-ed, Coordination Retraining,Manual Therapy Precautions Other Precautions RLE NWB; ok walker and TDWB for transfers Recommendations To Nursing Amount of Assist Needed 2 Person Assist Discharge Recommendations PT Discharge Recommendations SNF Rehab Transportation Needs at Discharge Wheelchair/Cabulance
--- NOTE | 2020-09-14 10:58 | PT-IP ANOTE ---
Pt unavailable. Undergoing surgical procedure
--- NOTE | 2020-09-14 11:15 | DIET.PN ---
Dietary Progress Note Assessment: 55y M admitted referred nonhealing diabetic foot ulcer right lateral foot, with cellulitis and R 5th metatarsal osteomyelitis , present on admission to nutrition for poorly managed DM2. HT: 185.4cm WT: 71kg UBW: 86kg 6y ago BMI: 20.7 Labs: A1c 12.1 H, admit BG 396 H, HDL 17 L MNA: 7 malnourished Jaskaran: 20 Pt admits DM management non-compliance. Per previous conversation RD, barriers include food insecurity, mindless snacking, and non-compliance with monitoring. Pt gets between $99 and $299 in EBT benefits per month for his household. He admits to eating large snack portions (2-3 granola bars, whole bag of popcorn, several beef sticks. Dinner usually consists of pasta and chicken or beef. He [place] drink much [place]. He does not typically consume any other type of beverage. He reports he know exactly where his glucometer is and plans to start monitoring (discussed new goals for care). Usual Day: B: 2 granola bars and a beef stick D: big meal right before bed Pt was set to get partial from dentist prior to covid but this is on hold for now, might need more teeth pulled. Nutrition Diagnosis: altered nutrition related laboratory values (A1c, BG) r/t poor management of DM2 aeb pt A1c 12 c admit BG 396, pt is s/p I&D for cellulitis and osteomyelitis of R foot, pt reports not checking BG or taking insulin secondary to being in denial, pt is food insecure. Interventions: 1. Discussed pathophysiology of diabetes. Reviewed A1c and its correlation to blood glucose numbers. Discussed recommended BG ranges. 2. Discussed importance of self-monitoring, how often, and when to check. Reviewed appropriate glucose ranges. 3. Discussed impact of nutrition/diet on blood sugar control.? Discussed fed versus non-fed state.? 4. Discussed the effect of carbohydrates/protein/fat on blood sugar control.? Stressed importance of consistent carbohydrate intake at each meal and provided instructions for recommended servings/portions of carbohydrates/protein per meal. Provided pt with educational material. 5.?Reviewed carbohydrate counting and measuring carbohydrate content via serving sizes and reading nutrition labels.? Provided handouts.?? 6. Stressed importance of meal timing and not going >4-5 hours between meals. Encouraged adding protein to each meal to support glucose control. Provided list of protein foods. Discussed best protein options for heart health and to alleviate hunger. Patient agreeable. 7. Discussed healthy weight loss through diet and exercise to increase lean muscle mass.? Pt agreeable to walking daily. Diet Order: CCD3; HH Monitoring/Evaluations: recc pt f/u c PCP for close monitoring of DM status to get A1c 7-8 range as quickly as safely possible. Provided information on diabetes education program.
[2020-09-14] MEDS: OXYCODONE IR 10 MG TABLET PO ×2 (11:39→21:25)
[2020-09-14] MEDS: CEFTRIAXONE 2 GM/50 ML FROZ.PIGGY IV (14:50)
--- NOTE | 2020-09-14 16:04 | CM.DPC ---
DCP continued: Received phone call this AM from November at [facility], she reports that they are unable to accept this patient because of insurance. Therefore, BURRER MACHINE clinical nursing intern met with patient this afternoon re: SNF choice and patient now agreeable for CM team to check facilities in [facility]. This BURRER MACHINE left message with Ann-Marie at [facility] and clinical faxed. In addtion, faxed clinical for review to [facility] and Noni Murphy. Other possibilities include swing bed at [facility]. Due to time constraints unable to reach out to them today. P: Pending. Podiatry scheduled to see patient tomorrow to do dressing change and determine further POC. Patient agreeable to SNF but unable to secure one today. Several facilities (listed above) have been faxed to review. MIGUEL Murrell
--- NOTE | 2020-09-14 18:13 | PM.PNPO.1 ---
Subjective Subjective Date Patient Seen: 09/14/20 Time Patient Seen: 18:13 Interval history: s/p 3 days right fifth metatarsal partial ray resection. Feeling good, not much pain. He is eating and voiding. He is concerned further today as he has been working with discharge planning about step down rehab facility and he is having a hard time finding one available with his insurance locally. If he goes home, he thinks of how he will have many problems getting into his house due to the number of steps he has. Exam Vital Signs (past 8 hours): - 09/14/20 11:00 09/14/20 11:49 09/14/20 15:40 Temperature 98.6 F 98.7 F Pulse Rate 92 H 88 Respiratory Rate 16 20 Blood Pressure 137/81 104/60 Pulse Oximetry 97 95 95 Oxygen Delivery Method Room Air Oxygen Flow Rate 0 Const Orientation: alert, awake and oriented x3 Extrem Other: Right lower extremity: foot has normal capillary refill, but 4th toe is looking a little bruised and may be slower on refill. There is still trace edema to the toes. Insensate except a little paresthesia periodically dorsolateral 4th toe. Mild strike through on the dressing to the foot. Dressing and packing removed showing increasing declaration of the edges of the dorso lateral foot wound, and no purulence or malodor. Fourth toe sulcus is a little wet and shows a sloughing of the skin from the underlying subcut tissues almost like a blister. Exposed tendon/subcutaneous tissues along the fourth ray area. Lobe of skin along lateral side further converting into eschar while other surrounding tissues appearing perfused and gaining beefy granulation tissue without proximal or medial extension of necrosis. A little redness at the sulcus still present and appears to include the 4th toe/bruised look where there is a little minor edema, but not feeling erythematous. Objective Imaging MRI RIGHT foot: Radiologist's impression: 09/13/20 Right foot MRI w/ and w/o contrast: Postsurgical changes related to 5th toe amputation as above. Mild marrow signal changes involving the lateral aspect of the 4th metatarsal head which could reflect postoperative changes or reactive edema. No specific marrow signal change or enhancement to suggest osteomyelitis seen at this time. If there is persistent clinical diagnostic uncertainty, continued surveillance with short interval radiographs after treatment is recommended. No discrete abscess identified. Labs Result Diagrams: 09/14/20 04:35 09/14/20 04:35 Labs: Laboratory Results - last 24 hr 09/14/20 09/14/20 04:35 04:35 WBC 13.8 H RBC 3.43 L Hgb 9.6 L Hct 28.8 L MCV 84.0 MCH 28.1 MCHC 33.5 RDW 12.1 Plt Count 361 Neut % (Auto) 71.2 Lymph % (Auto) 13.0 L [place] % (Auto) 13.0 Eos % (Auto) 1.8 L Baso % (Auto) 1.0 Neut # (Auto) 9900 H Lymph # (Auto) 1800 [place] # (Auto) 1800 H Eos # (Auto) 300 Baso # (Auto) 100 Sodium 135 L Potassium 3.9 Chloride 97 L Carbon Dioxide 34 H BUN 11 Creatinine 0.63 L Estimated GFR > 60.0 BUN/Creatinine Ratio 17.5 Glucose 126 H Calcium 8.6 Magnesium 1.9 1) Surgical culture fifth metatarsal leading edge shaft in foot: Gram Stain Final 09/11/20-1258 White blood cells No WBC seen Gram Positive Cocci Scant Aerobic Culture for wounds Final 09/14/20 Organism 1 Streptococcus mitis/oralis Growth SCANT Organism 2 Staphylococcus simulans Growth SCANT Action to follow Refer to Previous Culture for Susceptibility Report 1. Streptococcus mitis/oralis M.I.C. RX --------- --- * Ampicillin S * Vancomycin S * Ceftriaxone S * Clindamycin S * Levofloxacin S * Linezolid S * Penicillin S * Tetracycline S Anaerobic Culture Final 09/14/20-905 No growth. 2) Comment right 4th metatarsal head lateral biopsy bone: Procedure Result Verified Site Gram Stain Final 09/11/20-1257 No cells/ Organisms seen No cells or organisms seen Aerobic Culture for wounds Final 09/14/20-729 Organism 1 Staphylococcus simulans Growth SCANT Organism 2 Streptococcus viridans group Growth SCANT Action to follow Refer to Previous Culture for Susceptibility Report 1. Staphylococcus simulans M.I.C. RX --------- --- * Daptomycin <=0.12 S * Vancomycin <=0.5 S * Ciprofloxacin <=0.5 S * Clindamycin R * Doxycycline <=0.5 S * Erythromycin >=8 R * Gentamicin <=0.5 S * Levofloxacin <=0.12 S * Linezolid 2 S * Moxifloxacin <=0.25 S * Oxacillin Cedric >=4 R * Rifampin <=0.5 S * Tetracycline <=1 S * Trimethoprim/Sulfamethoxazole <=10 S Anaerobic Culture Final 09/14/20-905 Organism 1 Prevotella nanceiensis Growth SCANT Action to follow No Further Workup [facility] Medical History Diabetes Hyperlipidemia Hypertension Surgical History History of cholecystectomy Family History (Updated 09/10/20 @ 06:43 by ERIN Narvaez) Father Diabetes mellitus Cancer Mother Cancer Social History marital status: household members: spouse and children pets and animals: Yes Smoking Status: Never smoker alcohol intake: current Assessment & Plan Post-op Postoperative Procedures: Procedures Operation Date: 09/09/20 20:30 Actual Procedures Side Surgeon p right foot incision and drainage, extensive debridement, bone biopsy Right Laura De Los Santos DPM Operation Date: 09/11/20 10:45 Actual Procedures Side Surgeon p Toe Amputation partial right fifth toe Laura De Los Santos DPM Postoperative day: 3 Postoperative status: doing well Postoperative status narrative: s/p right partial fifth ray amputation with necrotic tissue excision, further debridement of the foot wound, and fourth metatarsal head biopsy. Postoperative plan narrative: -WBC a little drift up today but in general he's feeling better with the foot -Cultures back from MT5 shaft and lateral MT4 head and appear to be appropriately treating with current antibiotic regiment; cetriaxone and flagyl iv via picc. -Dressing changed today; originally was going to hold on change until tomorrow but was concerned about increased discoloration of sulcus and 4th toe. Fourth toe may be losing a little vascularity and also skin loss may be just too much for the fourth toe viability. Possible he could be inching up a little on WBC with the toe in that way, but still no malodor and actually the remaining tissues appear to show more granulation tissue in general. -Reviewed MRI findings today and in general, was pleased with the lack of additional abscesses noted or further bony involvement i.e. rosenda osteomyelitis. So then discussed the skin coverage situation with him today. I am concerned with the fourth toe and exposure of the fourth ray, especially as it relates to the closure of the foot wounds and potential for infection. I am seeing better progress on the plantar foot skin, but laterally it is pretty exposed still. Discussed a partial fourth ray and fourth toe removal but then reviewed still the concern of enough tissue coverage. He and his (on the phone) questioned autograft of skin, but with the lack of coverage of any real subcutaneous tissues, I am concerned that it may not take with just skin graft. That could be a question for Plastics. If I was able to perform a TMA and use some skin that way, he would still have a lateral defect but it may not be as much. I am going to reach out to Wound Care and see if that is of interest to have Dr. Young review, or if he feels the patient's situation is better served with necessitating Plastics beyond the contributions we both can make here. -Showing signs of granulation tissue and healing in bordering areas lateral foot, and plantarly but following discussion with wound care tomorrow, may see if option of at minimum an arterial runoff study for further surgical planning unless transfer. -Continue NWB right foot, or maximum a walker for flat foot touchdown to transfer (walker in room for his use). -Continue egg crate heel protectors. -Based on his surgical situation we do not have him on enoxaparin at this time and instead are using mechanical means. He is on b/l calf SCDs and is getting up more with PT. -Medicine mgmt of his diabetic control has been appreciated and continues. Disposition in expected continued stay as inpatient until further control of infection of foot, medical optimization, and in or outpatient further surgical intervention of the foot/ankle. With his concern regarding his home stairs situation, he is continuing the conversation with his landscape architect and planner/case mgmt. -I or someone on my team will check on patient tomorrow in the later part of the day as I am going to be outreaching to Wound Care. Quality VTE Deep Vein Thrombosis/Pulmonary Embolism Present on Admission: No
--- NOTE | 2020-09-14 18:28 | PM.PN.1 ---
Subjective Subjective Date Patient Seen: 09/14/20 Interval history: Patient is resting comfortably in no obvious distress. He denies any pain. Exam Vital Signs (past 8 hours): - 09/14/20 11:00 09/14/20 11:49 09/14/20 15:40 Temperature 98.6 F 98.7 F Pulse Rate 92 H 88 Respiratory Rate 16 20 Blood Pressure 137/81 104/60 Pulse Oximetry 97 95 95 Oxygen Delivery Method Room Air Oxygen Flow Rate 0 Narrative Exam Narrative: Pale ill-appearing male lying in bed Lungs: Clear to auscultation Cardiac exam: Regular rate and rhythm normal S1-S2 Abdomen: Soft nontender nondistended Extremities: Right lower extremity with dressing in place Objective Labs Result Diagrams: 09/14/20 04:35 09/14/20 04:35 Labs: Laboratory Results - last 24 hr 09/14/20 09/14/20 04:35 04:35 WBC 13.8 H RBC 3.43 L Hgb 9.6 L Hct 28.8 L MCV 84.0 MCH 28.1 MCHC 33.5 RDW 12.1 Plt Count 361 Neut % (Auto) 71.2 Lymph % (Auto) 13.[address] % (Auto) 13.0 Eos % (Auto) 1.8 L Baso % (Auto) 1.0 Neut # (Auto) 9900 H Lymph # (Auto) 1800 [place] # (Auto) 1800 H Eos # (Auto) 300 Baso # (Auto) 100 Sodium 135 L Potassium 3.9 Chloride 97 L Carbon Dioxide 34 H BUN 11 Creatinine 0.63 L Estimated GFR > 60.0 BUN/Creatinine Ratio 17.5 Glucose 126 H Calcium 8.6 Magnesium 1.9 PFSH Medical History Diabetes Hyperlipidemia Hypertension Surgical History History of cholecystectomy Family History (Updated 09/10/20 @ 06:43 by ERIN Narvaez) Father Diabetes mellitus Cancer Mother Cancer Social History marital status: household members: spouse and children pets and animals: Yes Smoking Status: Never smoker alcohol intake: current Assessment & Plan Assessment & Plan narrative: Nonhealing diabetic foot ulcer right lateral foot, with cellulitis and 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 -the patient was taken from the ER to the OR for incision and drainage with wound debridement by Dr. De Los Santos on 09/09 and bone biopsy of the 5th metatarsal, cultures currently growing staph aureus with pansensitivity resulting, and also strep viridans. Went to OR 09/11 as well fo r right partial fifth ray amputation, further debridement of foot, and fourth metatarsal head biopsy -given MSSA and strep viridans will narrow antibiotics to ceftriaxone 2gm q24, dc vancomycin -cultures also growing strep Simulans which is resistant to nafcillin -given prevotella will continue with flagyl will switch to p.o. 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 Uncontrolled diabetes type 2 with hyperglycemia, present on admission, active. -the patient endorses not using his insulin and on initial labs drawn in the ER the patient has a blood sugar of 396. -A1c 12.1%. -patient reports taking insulin on a ?hit or miss basis, reports should be taking Lantus 45 mg and checking his blood sugars before meals with Humalog correctional insulin. -was on lantus 20 U BID, but now increased to 25U BID for hyperglycemia. Sugars are improving, however he has been NPO off and on for procedures. Will need to continue to adjust depending on his diet. -ordered fingerstick blood sugars a.c. and HS, coverage with high-dose correctional scale. -requested dietitian consult. 3. Hyponatremia, presumed acute, present on admission, active, improving -hyponatremia believed to be related to dehydration secondary to hyperglycemia -initial labs reveal serum sodium of 125. Patient received 2 L of normal saline in the ER continued rehydration with normal saline at 100 cc/hour with improvement to 137. He is asmpyomtatic at this time. Will hold fluids while eating. 4. Hypertension, chronic, stable. -patient reports taking lisinopril daily though he cannot remember the dose. Upon arrival to the ER the patient's blood pressure is 115/71. -hold antihypertensives and follow blood pressure trends and add lisinopril as indicated. Although ideally would hold this or select alternative agent given need for possibly multiple proceudres in the coming days. 5. Hyperlipidemia, chronic, stable -patient takes simvastatin but does not recall the dosage. -ordered simvastatin 20 mg daily, will continue. LDL is controlled at 38 on admission. Quality VTE Deep Vein Thrombosis/Pulmonary Embolism Present on Admission: No
[2020-09-14] MEDS: metroNIDAZOLE 500 MG TABLET PO (20:59)
[2020-09-14] MEDS: FAMOTIDINE 20 MG TABLET PO (21:15)
[2020-09-14] MEDS: SIMVASTATIN 20 MG TABLET PO (21:15)
[2020-09-15] VITALS (13 sets, daily range): BP systolic 86–131; BP diastolic 50–78; PULSE 75–94; RESP 16–19; TEMP 36.6–37.5; O2SAT 92–97
--- NOTE | 2020-09-15 02:55 | PC.NURSE ---
summary- A/Ox4, pt with some hypotension at shift change 2300 95/56 asymptomatic. 95% RA LS clear. BT + denies nausea, Right foot drsg/priti stocking/foam boot. Dr De Los Santos changed drsg today, Dr. De Los Santos is awaiting consultation and review with Dr Spivey 09/15/20 in AM as to planning. No weight bearing to right foot. Pt able to hop on left leg. RADHA PICC flushing well, HL. using urinal indep, BG; 213 4 units and 191 2 units plus 25units lantus at HS. Call light in reach.
[2020-09-15] MEDS: ACETAMINOPHEN 325 MG TABLET 975 MG PO ×3 (04:43→21:18)
[2020-09-15] MEDS: LACTATED RINGERS 1,000 ML 1000 ML IV (05:41)
[2020-09-15 05:49] LABS: Add Manual Diff / Slide Review NO; Basophils Absolute Auto 100 /uL (0-100); Basophils Percent Auto 0.8 % (0-2); Eosinophils Absolute Auto 200 /uL (0-450); Eosinophils Percent Auto 1.6 % (2-4); Hematocrit 28.7 % (41-53); Hemoglobin 9.5 g/dL (13.5-17.5); Lymphocytes Absolute Auto 1900 /uL (1100-4500); Lymphocytes Percent Auto 14.5 % (25-40); Mean Corpuscular HGB Conc 33.2 % (30-36); Mean Corpuscular Hemoglobin 27.8 PG (26-34); Mean Corpuscular Volume 83.6 fL (80-100); Monocytes Absolute Auto 1500 /uL (0-900); Neutrophils Absolute Auto 9100 /uL (1500-7000); Neutrophils Percent Auto 71.1 % (50-75); Platelet Count 388 X10^3/uL (150-400); Red Blood Cell Count 3.43 X10^6/uL (4.5-5.9); Red Cell Distribution Width 12.1 % (11.6-14.8); White Blood Cell Count 12.8 X10^3/uL (4.5-11.0)
[2020-09-15 06:04] LABS: Lactate (Lactic Acid) 0.6 mmol/L (0.7-2.1)
[2020-09-15 06:05] LABS: Alanine Aminotransferase 25 IU/L (<50); Albumin 2.8 g/dL (3.5-5.0); Albumin Globulin Ratio 0.8 (1.0-2.8); Alkaline Phosphatase 104 U/L (38-126); Aspartate Aminotransferase 39 IU/L (17-59); BUN Creatinine Ratio 31.7 (6-22); Bilirubin Total 0.1 mg/dL (0.2-1.3); Blood Urea Nitrogen 13 mg/dL (9-20); Calcium 8.4 mg/dL (8.4-10.2); Carbon Dioxide 33 mmol/L (22-32); Chloride 98 mmol/L (98-107); Estimated Glomerular Filt Rate > 60.0 mL/min (>60); Globulin 3.6 g/dL (1.7-4.1); Glucose 129 mg/dL (70-100); HEMOLYSIS < 15 (0-50); Potassium 3.6 mmol/L (3.4-5.1); Sodium 133 mmol/L (137-145); Total Protein 6.4 g/dL (6.3-8.2)
[2020-09-15 06:21] LABS: Procalcitonin 0.16 ng/mL (<0.5)
[2020-09-15] MEDS: GABAPENTIN 600 MG TABLET 1200 MG PO ×3 (09:23→21:18)
[2020-09-15] MEDS: INSULIN GLARGINE 100 UNIT/ML 3ML PEN 25 UNIT SUBCUT ×2 (09:23→21:20)
[2020-09-15] MEDS: metroNIDAZOLE 500 MG TABLET PO ×3 (09:23→21:19)
[2020-09-15] MEDS: SODIUM CHLORIDE 0.9% FLUSH 10 ML IV ×2 (09:50→21:32)
--- NOTE | 2020-09-15 12:51 | PT.IPTN ---
Current Diagnoses Type 2 diabetes mellitus with foot ulcer (09/09/20) Surgery Performed Operation Date: 09/09/20 20:30 Actual Procedures p right foot incision and drainage, extensive debridement, bone biopsy(Right) - Laura De Los Santos DPM Operation Date: 09/11/20 10:45 Actual Procedures p Toe Amputation partial right fifth toe - Laura De Los Santos DPM Physical Therapy Treatment Note M2 PT-IP Current Condition Start: 09/12/20 14:51 Freq: NEEDED Status: Active Protocol: Document 09/12/20 13:30 AB (Rec: 09/12/20 15:17 AB [id number]) Physical Therapy Current Condition Current Condition Evaluation Date 09/12/20 Treatment Diagnosis R foot abscess s/p 5th toe amput/partial 5th ray resection; diff in walking Onset Date 09/09/20 Weight Bearing Status Weight Bearing Status Non-Weight Bearing Allowed Weight Bearing Amount (enter % per doctor's order: RLE NWB; or #) (%) ok walker and TDWB for transfers M3 PT-IP Subjective Start: 09/12/20 14:51 Freq: NEEDED Status: Active Protocol: Document 09/15/20 12:20 MB (Rec: 09/15/20 12:51 MB [id number]) Subjective Physical Therapy Visit Type Type Treatment Note Visit Start Time 12:20 Visit Stop Time 12:37 Total Visit Minutes 17 Number of PROJECT ACCOUNT MANAGER Visits 0 Physical Therapy Visit Comments Patient Comments Pt reports that he has been up already to the BS today. Therapy Pain Assessment Pain When Pain Assessed During Mobility Pain Present Pain Present Pain Reported Location Right Calf Intensity 9 Description Aching,Cramping Pain Management Techniques Distraction,Modification of Treatment,Timing of Activity with Medications M4 PT-IP Mobility and Gait Start: 09/12/20 14:51 Freq: NEEDED Status: Active Protocol: Document 09/14/20 10:33 AW (Rec: 09/14/20 11:04 AW [id number]) PT-Bed Mobility Assessment Sit to Supine Sit to Supine Contact Guard Assistance PT-Transfer Assessment Sit to and From Stand Sit to and from Stand Moderate Assistance,1 Person Assistance,Use of Upper Extremities Equipment Transfer Assistive Device Gait Belt,Front Wheeled Walker Orthotic/Prosthetic Devices or Brace: No Transfers Transfer Destination Bed Transfer Technique Stand Step Pivot Transfer Ability Level of Assist Minimal Assistance,1 Person Assistance,Use of Upper Extremities Comments Mobility Comments Pt was sitting up on the commode with SUPERVISOR QUILTING as PT arrived . He stood from the [facility] mod A x 1 and used the FWW for steadiness as SUPERVISOR QUILTING completed pericare. Pt then used the FWW to ambulate around the foot of the bed with good attention to NWB RLE. He was able to push the walker an appropriate distance in front of him, use BUE to swing through with his left foot. Pt ended up on the left EOB and transferred min A x 1. He completed sit to supine CGA without use of the bedrails. He then participated in supine exercises. Pt was positioned with call light and all needs in reach. Gait Assessment Gait Gait Assistance Required: Moderate Assistance,1 Person Assist Distance (Feet) 15 Able to Maintain Weight Bearing Status No During Gait Assistive Devices Assistive Device Gait Belt,Front Wheeled Walker Orthotic/Prosthetic Devices or Brace: No Gait Deviations General Gait Pattern Decreased Stride Length, Decreased Feet Clearance Comments Gait Comments Improved with FWW to ambulate 15 feet around the foot of the bed at this session. See mobility comments for details. PT-Balance Assessment Sitting Balance and Reactions Static Sitting Balance Ability Good Dynamic Sitting Balance Ability Good Standing Balance and Reactions Static Standing Balance Ability Fair Dynamic Standing Balance Ability Fair Device Used FWW M5 PT-IP Objective Assessments Start: 09/12/20 14:51 Freq: NEEDED Status: Active Protocol: Document 09/12/20 13:30 AB (Rec: 09/12/20 15:17 AB [id number]) Orientation Orientation/Cognition Level of Alertness Alert Orientation Name,Place,Situation Language Function Ability No Deficits Noted Safety Awareness Decreased Safety Awareness Gross Range of Motion Lower Extremity ROM Assessment Within Functional Limits Strength Lower Extremity Strength Assessment Right Impaired Hip 4-/5 Knee 3+/5 Ankle n/t Sensation Assessment Sensation Gross Sensation Right LE Impaired,Left LE Impaired Sensation Description Numbness Comments Sensation Comments chronic bilateral lower leg/ feet numbness Muscle Tone Muscle Tone WNL Yes M6 PT-IP Treatment Start: 09/12/20 14:51 Freq: NEEDED Status: Active Protocol: Document 09/15/20 12:20 MB (Rec: 09/15/20 12:51 MB [id number]) Physical Therapy Treatment Education Education Provided Weight Bearing Status,Safety Other Treatments Other Treatment Performed Transfer training, gait training and orthostatic assessment: Pt is mod I with HPB increased and rails ( including side rail) to move hook lying to sit and cues and use of bed rail and RW sit to stand, cues not to WB through right foot and pt does put weight through it. He is CGA to perform slow hop gait to BR 12' and cues for safety for sitting on commode. Left with call cord in his left hand and PT cleared with nsg and SUPERVISOR QUILTING for him to stay on commode until he calls them for assist to get to chair and lunch. Positive orthostatics with BP and HR in LUE: hook lying 132/ 77, 87; sitting 119/67, 91; standing 30 sec 104/56, 94; standing 1' 104/64, 94. Pt reports his right calf pain is neuropathic in nature. M7 PT-IP Assessment and Plan Start: 09/12/20 14:51 Freq: NEEDED Status: Active Protocol: Document 09/15/20 12:20 MB (Rec: 09/15/20 12:51 MB [id number]) PT Summary Assessment and Plan Potential Rehabilitation Potential Fair Status of Condition at Evaluation Evolving Summary Impairments Pain,ROM,Strength,Balance, Coordination,Sensation,Tone, Cognition,Bed Mobility, Transfers,Gait,Activity Tolerance Progress Towards Goals Slow Progress due to Medical Issues,Slow Progress due to Activity Tolerance Assessment Summary Pt requires CGA and cues for tranfers and left foot hop gait to bathroom with RW today . He requires some encouragement for PT participation. Nsg and pt state that pt may have to have 4th digit amputation right foot. He presents with positive orthostatics and PT communicates findings with nsg . Goals Bed Mobility Goal Independent Transfer Goal Standby Assistance,Front Wheeled Walker Gait Goal Standby Assistance,Front Wheel Walker Gait Distance 25 Other Goals up/down 7 steps R rails min a Days to Meet Goals 10 Frequency of Treatment Frequency Of Treatment Once a Day Treatment Plan Physical Therapy Treatment Plan Bed Mobility Training,Transfer Training,Gait Training, Therapeutic Exercise,Balance Retraining,Post Op Education, Discharge Planning,Hot or Cold Pack,Neuromuscular Re-ed, Coordination Retraining,Manual Therapy Precautions Other Precautions Per nsg note today, NWB RLE. Given that he may need another toe amputated on the right, this PT recommends not teaching TD for transfers as he tends to do more than TD and he is at increased risk for further problems with his right foot Recommendations To Nursing Amount of Assist Needed 1 Person Assist Discharge Recommendations PT Discharge Recommendations SNF Rehab Transportation Needs at Discharge Wheelchair/Cabulance
[2020-09-15] MEDS: INSULIN ASPART 100 UNIT/ML INSULN PEN SUBCUT ×2 (12:56→17:34)
--- NOTE | 2020-09-15 13:25 | CM.DPC ---
DCP SNF Planning: Per MD, currently the plan is pt will likely need to d/c on oral abx and IV-Abx for at least 2 weeks pending pathology/cultures and wound. MISTY followed up with SNF's below: [facility]ines [facility], could accept Wed if pt stable for d/c. SW called [facility] and updated that waiting for Dr. De Los Santos to round sometime after 1500 to review pt's wound and determine if further surgical intervention needed prior to d/c and unclear if pt will be ready for d/c yet tomorrow. MISTY received a call from June at [facility] inquiring if they should attempt to schedule pt in their clinic for tomorrow and inquiring if pt will d/c home or to SNF. SW discussed that unclear if home or SNF as pt is hopeful for home with once a day daily IV-Abx but that pt is non-weight baring on his right. They currently will not attempt to squeeze pt into their schedule for tomorrow as pt will be discharged at earliest tomorrow. SW will keep [facility] updated on d/c plan. If SNF or Home [facility] will need to likely set up wound vac for patient due to the wound care needs. MISTY met bedside with pt and explained role and updated on acceptance at [facility]. Pt initially would prefer another SNF closer in location to [place] but aware that currently no other accepting SNF facility. Pt states his preference would be home with once a day outpt infusion clinic and wound care and he can drive myself with my left foot. MISTY encouraged SNF for IV-Abx, wound care, and RN/PT/OT needs and pt willing if needed. Awaiting Dr. De Los Santos to determine any further surgery needs. Plan: SW to follow closely after Dr. De Los Santos rounds late afternoon and ongoing coordination with [facility] and [facility] Wound Care. MIGUEL Huston
[2020-09-15] MEDS: CEFTRIAXONE 2 GM/50 ML FROZ.PIGGY IV (14:00)
--- NOTE | 2020-09-15 14:25 | DI.US.S_ITS ---
PROCEDURE: US PERIP VENOUS LOW EXTREM RT INDICATIONS: R Calf pain TECHNIQUE: Real-time imaging, as well as color and pulse Doppler interrogation, were performed of the lower extremity deep veins from the inguinal ligament to the popliteal fossa. COMPARISON: [facility], , [facility] VENOUS LOW EXTREM RT, 09/09/2020, 15:43. FINDINGS: The common femoral, femoral and popliteal veins are normally compressible, and free of intraluminal thrombus. Color and pulse Doppler demonstrate normal phasic intraluminal flow. There is normal augmentation response to distal compression maneuver. Prominent right groin lymph nodes can be seen. IMPRESSION: Negative for deep venous thrombosis. Dictated by: Johny Rick M.D. on 09/15/2020 at 14:51 Approved by: Johny Rick M.D. on 09/15/2020 at 14:51
--- NOTE | 2020-09-15 14:26 | PC.NURSE ---
Patient is complaining of right sided Calf pain today. Dr. De Los Santos notified, Doppler/US ordered for calf. Patient has stated that his pain is 7/10 today in his calf.
--- NOTE | 2020-09-15 18:17 | P.PN_ITS ---
Subjective Subjective Date Patient Seen: 09/15/20 Time Patient Seen: 18:17 Interval history: s/p 4 days right fifth metatarsal partial ray resection. Feeling good, not much pain. He is eating and voiding. He had some calf pain again right calf and had a venous u/s this afternoon and was negative for DVT. Exam Vital Signs (past 8 hours): - 09/15/20 11:00 09/15/20 12:00 09/15/20 15:35 Temperature 98.2 F Pulse Rate 78 Respiratory Rate 17 Blood Pressure 114/64 Pulse Oximetry 96 97 97 09/15/20 15:45 Temperature 98.1 F Pulse Rate 83 Respiratory Rate 19 Blood Pressure Pulse Oximetry 95 Oxygen Delivery Method Room Air Oxygen Flow Rate 0 Const Orientation: alert, awake and oriented x3 Resp Effort & Inspection: normal respiratory effort Extrem Other: Right lower extremity: Fourth toe still the same color showing some redness and minor bruised look, but no clear cyanosis or gangrenous appearance. CFT on it is about 5 sec and blanches with delayed return. Sl cooler than hallux and second toe, about same warmth as 3rd toe. Remaining toes have normal capillary refill. Insensate to the foot/toes. A little more serous strike through on the dressing to the foot laterally under the CHERYL. Dressing removed but packing in place showing same edge of the wound lateral foot declaring edge of necrosis. The dorsal medial edge of the foot wound is firming up, but not seeing granular tissue as much there as I see from the lateral foot and plantar foot edge. No purulence or malodor. However, the fourth toe sulcus is more wet and shows an undermining and sloughing of the skin from the underlying subcut tissues almost like a blister into the third int ertriginous area. Skin sloughs off there but no abscess noted, no crepitus. Exposed tendon/subcutaneous tissues along the fourth ray area laterally distally showing a little clemons to hinson necrosis of the fat at the base of the fourth toe. The redness at the sulcus is a little more extended toward the base of the second toe plantarly, but no proximal extension and only the sulcus, not the toes. No additional warmth with the redness. Objective Labs Result Diagrams: 09/15/20 05:30 09/15/20 05:30 Labs: Laboratory Results - last 24 hr 09/15/20 09/15/20 09/15/20 05:30 05:30 05:30 WBC 12.8 H RBC 3.43 L Hgb 9.5 L Hct 28.7 L MCV 83.6 MCH 27.8 MCHC 33.2 RDW 12.1 Plt Count 388 Neut % (Auto) 71.1 Lymph % (Auto) 14.5 L [place] % (Auto) 12.0 Eos % (Auto) 1.6 L Baso % (Auto) 0.8 Neut # (Auto) 9100 H Lymph # (Auto) 1900 [place] # (Auto) 1500 H Eos # (Auto) 200 Baso # (Auto) 100 Sodium 133 L Potassium 3.6 Chloride 98 Carbon Dioxide 33 H BUN 13 Creatinine 0.41 L Estimated GFR > 60.0 BUN/Creatinine Ratio 31.7 H Glucose 129 H Lactate Calcium 8.4 Total Bilirubin 0.1 L AST 39 ALT 25 Alkaline Phosphatase 104 Total Protein 6.4 Albumin 2.8 L Globulin 3.6 Albumin/Globulin Ratio 0.8 L Procalcitonin 0.16 09/15/20 05:30 WBC RBC Hgb Hct MCV MCH MCHC RDW Plt Count Neut % (Auto) Lymph % (Auto) [place] % (Auto) Eos % (Auto) Baso % (Auto) Neut # (Auto) Lymph # (Auto) [place] # (Auto) Eos # (Auto) Baso # (Auto) Sodium Potassium Chloride Carbon Dioxide BUN Creatinine Estimated GFR BUN/Creatinine Ratio Glucose Lactate 0.6 L Calcium Total Bilirubin AST ALT Alkaline Phosphatase Total Protein Albumin Globulin Albumin/Globulin Ratio Procalcitonin U/S right LE performed today was negative for DVT. Surgical cultures unchanged. [facility] Medical History Diabetes Hyperlipidemia Hypertension Surgical History History of cholecystectomy Family History (Updated 09/10/20 @ 06:43 by ERIN Narvaez) Father Diabetes mellitus Cancer Mother Cancer Social History marital status: household members: spouse and children pets and animals: Yes Smoking Status: Never smoker alcohol intake: current Assessment & Plan Post-op Postoperative Procedures: Procedures Operation Date: 09/09/20 20:30 Actual Procedures Side Surgeon p right foot incision and drainage, extensive debridement, bone biopsy Right Laura De Los Santos, MYESHA Operation Date: 09/11/20 10:45 Actual Procedures Side Surgeon p Toe Amputation partial right fifth toe Laura De Los Santos DPM Postoperative day: 6/4 Postoperative status narrative: s/p right partial fifth ray amputation with necrotic tissue excision, further debridement of the foot wound, and fourth metatarsal head biopsy. Postoperative plan narrative: -WBC a little drift down today but in general he's feeling unchanged systemically, no problems eating or voiding, and no f/c/n/v, and no significant pain to foot (insensate). -Current antibiotic regiment; ceftriaxone iv via picc and flagyl po. -Dressing changed today: Fourth toe and plantar sulcus skin slough with some increased redness across plantar distal sulcus is concerning for cellulitis but also potential that he may be losing a little vascularity and also skin loss may be just too much for the fourth toe viability. I don't believe he has a new abs cess as we just have not seen purulence nor findings on MRI suggesting that, and abx should be c/w what he has been growing via surgical culture. He doesn't think he's been stepping on it much and the dressing does not appear to be too tight. No noticeable hematoma. -Reviewed my phone consultation with Dr. Young today regarding his case, and with the patietnt's permission, had shared the photo taken in the interest of the consultation. Dr. Young would be able to accept him as an outpatient next week as an outpatient if he was ready for that stage, although he would need to get himself to the office for that care, which may include iv abx, wound debridement, wound VAC, and potentially further surgery. However, based on the findings I see today and putting this together with his other needs, I spoke with the patient as well as Dr. Lee (Medicine) and there now appear to be too many associated disciplines that we do not have at this facility to be able to promote more complete care for him. I desire arterial study of the right foot/ankle with runoff to determine healing potential of the foot, which has an impact on level of further surgical intervention. Also due to the defect, it's possible he would require not only wound care with VAC but also possibly Plastics consult for the skin defect. Possible also that if the plantar forefoot redness is further expanding without a vascular etiology, he likely will require Infectious Disease consult. For those reasons, request transfer option to facility that has those members of the team available. Patient and Medicine both agree, and Dr. Lee will kindly look into this transfer potential tomorrow AM. -Continue NWB right foot, or maximum a walker for flat foot touchdown to transfer (walker in room for his use). -Continue egg crate heel protectors. -Based on his surgical situation we do not have him on enoxaparin at this time and instead are using mechanical means. He is on b/l calf SCDs and is getting up more with PT. -Medicine mgmt of his diabetic control has been appreciated and continues. -I will be available via phone tomorrow while I am in my clinic for any aid in this and appreciate efforts. It has been a pleasure to be part of Mr. Sierra' care team. Quality VTE Deep Vein Thrombosis/Pulmonary Embolism Present on Admission: No
--- NOTE | 2020-09-15 19:31 | PM.PN.1 ---
Subjective Subjective Date Patient Seen: 09/15/20 Interval history: Patient reports significant pain in the foot. He describes a stabbing type pain. In addition he continues to have intermittent diarrhea which he states is chronic. Patient is agreeable to transfer to another facility for multidisciplinary care if excepted. Exam Vital Signs (past 8 hours): - 09/15/20 12:00 09/15/20 15:35 09/15/20 15:45 Temperature 98.2 F 98.1 F Pulse Rate 78 83 Respiratory Rate 17 19 Blood Pressure 114/64 Pulse Oximetry 97 97 95 Oxygen Delivery Method Room Air Oxygen Flow Rate 0 Narrative Exam Narrative: Pleasant gentleman in no obvious distress Lungs: Clear to auscultation Cardiac exam: Regular rate and rhythm normal S1-S2 Abdomen: Soft and nontender Extremities: Right foot with dressing in place Objective Labs Result Diagrams: 09/15/20 05:30 09/15/20 05:30 Labs: Laboratory Results - last 24 hr 09/15/20 09/15/20 09/15/20 05:30 05:30 05:30 WBC 12.8 H RBC 3.43 L Hgb 9.5 L Hct 28.7 L MCV 83.6 MCH 27.8 MCHC 33.2 RDW 12.1 Plt Count 388 Neut % (Auto) 71.1 Lymph % (Auto) 14.5 L [place] % (Auto) 12.0 Eos % (Auto) 1.6 L Baso % (Auto) 0.8 Neut # (Auto) 9100 H Lymph # (Auto) 1900 [place] # (Auto) 1500 H Eos # (Auto) 200 Baso # (Auto) 100 Sodium 133 L Potassium 3.6 Chloride 98 Carbon Dioxide 33 H BUN 13 Creatinine 0.41 L Estimated GFR > 60.0 BUN/Creatinine Ratio 31.7 H Glucose 129 H Lactate Calcium 8.4 Total Bilirubin 0.1 L AST 39 ALT 25 Alkaline Phosphatase 104 Total Protein 6.4 Albumin 2.8 L Globulin 3.6 Albumin/Globulin Ratio 0.8 L Procalcitonin 0.16 09/15/20 05:30 WBC RBC Hgb Hct MCV MCH MCHC RDW Plt Count Neut % (Auto) Lymph % (Auto) [place] % (Auto) Eos % (Auto) Baso % (Auto) Neut # (Auto) Lymph # (Auto) [place] # (Auto) Eos # (Auto) Baso # (Auto) Sodium Potassium Chloride Carbon Dioxide BUN Creatinine Estimated GFR BUN/Creatinine Ratio Glucose Lactate 0.6 L Calcium Total Bilirubin AST ALT Alkaline Phosphatase Total Protein Albumin Globulin Albumin/Globulin Ratio Procalcitonin PFSH Medical History Diabetes Hyperlipidemia Hypertension Surgical History History of cholecystectomy Family History (Updated 09/10/20 @ 06:43 by ERIN Narvaez) Father Diabetes mellitus Cancer Mother Cancer Social History marital status: household members: spouse and children pets and animals: Yes Smoking Status: Never smoker alcohol intake: current Assessment & Plan Assessment & Plan narrative: Nonhealing diabetic foot ulcer right lateral foot, with cellulitis and 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 -the patient was taken from the ER to the OR for incision and drainage with wound debridement by Dr. De Los Santos on 09/09 and bone biopsy of the 5th metatarsal, cultures currently growing staph aureus with pansensitivity resulting, and also strep viridans. Went to OR 09/11 as well fo r right partial fifth ray amputation, further debridement of foot, and fourth metatarsal head biopsy -given MSSA and strep viridans will narrow antibiotics to ceftriaxone 2gm q24, dc vancomycin -cultures also growing strep Simulans which is resistant to nafcillin -given prevotella will continue with flagyl will switch to p.o. -appreciate management by podiatry, will be NWB on R foot, planning for MRI to further eval for residual osteomyelitis -will likely need to return to the OR pending response to first surgery -PICC ordered for [facility] abx antibiotic -patient will likely need 6 weeks of antibiotic, continue ceftriaxone IV and oral Flagyl for now -as the wound does not appear to be healing as anticipated patient will likely require transfer to a higher level of care -patient will need arteriogram with runoff, inpatient wound care, rehabilitation, Infectious Disease, anticipate transfer to [facility] ever tomorrow if they are able to accept the patient 2. Uncontrolled diabetes type 2 with hyperglycemia, present on admission, active. -the patient endorses not using his insulin and on initial labs drawn in the ER the patient has a blood sugar of 396. -A1c 12.1%. -patient reports taking insulin on a ?hit or miss basis, reports should be taking Lantus 45 mg and checking his blood sugars before meals with Humalog correctional insulin. -was on lantus 20 U BID, but now increased to 25U BID for hyperglycemia. Sugars are improving, however he has been NPO off and on for procedures. Will need to continue to adjust depending on his diet. -ordered fingerstick blood sugars a.c. and HS, coverage with high-dose correctional scale. -requested dietitian consult. 3. Hyponatremia, presumed acute, present on admission, active, improving -hyponatremia believed to be related to dehydration secondary to hyperglycemia -initial labs reveal serum sodium of 125. Patient received 2 L of normal saline in the ER continued rehydration with normal saline at 100 cc/hour with improvement to 137. He is asmpyomtatic at this time. Will hold fluids while eating. -patient remains hyponatremic, will continue to monitor 4. Hypertension, chronic, stable. -patient reports taking lisinopril daily though he cannot remember the dose. Upon arrival to the ER the patient's blood pressure is 115/71. -hold antihypertensives and follow blood pressure trends and add lisinopril as indicated. Although ideally would hold this or select alternative agent given need for possibly multiple proceudres in the coming days. 5. Hyperlipidemia, chronic, stable -patient takes simvastatin but does not recall the dosage. -ordered simvastatin 20 mg daily, will continue. LDL is controlled at 38 on admission. Quality VTE Deep Vein Thrombosis/Pulmonary Embolism Present on Admission: No
[2020-09-15] MEDS: OXYCODONE IR 10 MG TABLET PO (21:19)
[2020-09-15] MEDS: FAMOTIDINE 20 MG TABLET PO (21:19)
[2020-09-15] MEDS: SIMVASTATIN 20 MG TABLET PO (21:33)
[2020-09-16 00:05] VITALS: O2SAT 95
[2020-09-16 04:00] VITALS: O2SAT 95
[2020-09-16 04:26] VITALS: BP 117/65; PULSE 83; RESP 14; TEMP 36.5; O2SAT 95
[2020-09-16] MEDS: ACETAMINOPHEN 325 MG TABLET 975 MG PO ×2 (04:26→14:55)
[2020-09-16 08:00] VITALS: BP 109/67; PULSE 75; RESP 17; TEMP 37; O2SAT 98
[2020-09-16] MEDS: GABAPENTIN 600 MG TABLET 1200 MG PO ×2 (08:25→15:29)
[2020-09-16] MEDS: metroNIDAZOLE 500 MG TABLET PO ×2 (08:25→15:29)
[2020-09-16] MEDS: FAMOTIDINE 20 MG TABLET PO (08:25)
[2020-09-16] MEDS: SODIUM CHLORIDE 0.9% FLUSH 10 ML IV (08:26)
--- NOTE | 2020-09-16 09:20 | PT.IPTN ---
Current Diagnoses Type 2 diabetes mellitus with foot ulcer (09/09/20) Surgery Performed Operation Date: 09/09/20 20:30 Actual Procedures p right foot incision and drainage, extensive debridement, bone biopsy(Right) - Laura De Los Santos DPM Operation Date: 09/11/20 10:45 Actual Procedures p Toe Amputation partial right fifth toe - Laura De Los Santos DPM Physical Therapy Treatment Note M2 PT-IP Current Condition Start: 09/12/20 14:51 Freq: NEEDED Status: Active Protocol: Document 09/12/20 13:30 AB (Rec: 09/12/20 15:17 AB [id number]) Physical Therapy Current Condition Current Condition Evaluation Date 09/12/20 Treatment Diagnosis R foot abscess s/p 5th toe amput/partial 5th ray resection; diff in walking Onset Date 09/09/20 Weight Bearing Status Weight Bearing Status Non-Weight Bearing Allowed Weight Bearing Amount (enter % per doctor's order: RLE NWB; or #) (%) ok walker and TDWB for transfers M3 PT-IP Subjective Start: 09/12/20 14:51 Freq: NEEDED Status: Active Protocol: Document 09/16/20 08:57 SP (Rec: 09/16/20 09:32 SP [id number]) Subjective Physical Therapy Visit Type Type Treatment Note Visit Start Time 08:57 Visit Stop Time 09:20 Total Visit Minutes 23 Notes Orthostatic vitals taken pre activity: supine BP 116/65, HR 81 bpm, [id number]% on RA seated BP 106/60 HR 87 bpm post mobility in standing BP 96/59 HR 95 bpm Number of SAP TECHNICAL ARCHITECT Visits 1 Physical Therapy Visit Comments Patient Comments Pt willing to work with therapy. Therapy Pain Assessment Pain When Pain Assessed During Mobility Pain Present Pain Present Pain Reported Location right foot Scale Used not quantified Description Aching,With Movement Pain Management Techniques Re-positioning,Timing of Activity with Medications M4 PT-IP Mobility and Gait Start: 09/12/20 14:51 Freq: NEEDED Status: Active Protocol: Document 09/16/20 08:57 SP (Rec: 09/16/20 09:32 SP [id number]) PT-Bed Mobility Assessment Supine to Sit Supine to Sit Standby Assistance Scooting Scooting to Edge of Bed Independent PT-Transfer Assessment Sit to and From Stand Sit to and from Stand Contact Guard Assistance,1 Person Assistance,Use of Upper Extremities Equipment Transfer Assistive Device Gait Belt,Front Wheeled Walker Orthotic/Prosthetic Devices or Brace: No Transfers Transfer Destination Chair Transfer Technique Pt ambulated using FWW Transfer Ability Level of Assist Contact Guard Assistance,1 Person Assistance,Use of Upper Extremities Comments Mobility Comments Pt upright supine in bed when arrived . HOB flattened supine >sitting SBA, scoot to EOB I. Sit>stand CGA pushing L UE on bed RUE on FWW. Pt stable standing on LLE small hop patterning with BUE WB on FWW R side and around to chair w/ 1 stop stand rest near sink with heel contact TTWB for balance rest on floor, continued to chair, hop pivot turn and back up with cue x1 for awareness of centering in front, stand>sit with B UE support good slow descent into chair while maintaining NWB throughout mobility, required CGA. Pt requested letting foot rest on floor while in chair for little while. Reviewed LE ex supine and seated. Pt had call light and all needs in reach. SAP TECHNICAL ARCHITECT notified nursing pt was up in chair, updated communication board. Gait Assessment Gait Gait Assistance Required: Contact Guard Assist,1 Person Assist Distance (Feet) 15 Able to Maintain Weight Bearing Status No During Gait Assistive Devices Assistive Device Gait Belt,Front Wheeled Walker Orthotic/Prosthetic Devices or Brace: No Gait Deviations General Gait Pattern Decreased Stride Length, Decreased Feet Clearance Factors Limiting Gait Function Factors Limiting Gait Function Decreased Activity Tolerance, Decreased Strength,Pain Comments Gait Comments Pt hop to gait on LLE using BUE on and with good control pacing/positioning of FWW, CGA . Pt was able to maintain NWB during standing mobilitiy, brief contact heel rest on floor during stance stopped rest. Stair Climbing Assessment Comments Stair Climbing Comments Unable to complete stair mgt at this time. Will need to assess prior to DC home. PT-Balance Assessment Sitting Balance and Reactions Static Sitting Balance Ability Normal Dynamic Sitting Balance Ability Normal Standing Balance and Reactions Static Standing Balance Ability Good Dynamic Standing Balance Ability Fair Device Used FWW M5 PT-IP Objective Assessments Start: 09/12/20 14:51 Freq: NEEDED Status: Active Protocol: Document 09/12/20 13:30 AB (Rec: 09/12/20 15:17 AB [id number]) Orientation Orientation/Cognition Level of Alertness Alert Orientation Name,Place,Situation Language Function Ability No Deficits Noted Safety Awareness Decreased Safety Awareness Gross Range of Motion Lower Extremity ROM Assessment Within Functional Limits Strength Lower Extremity Strength Assessment Right Impaired Hip 4-/5 Knee 3+/5 Ankle n/t Sensation Assessment Sensation Gross Sensation Right LE Impaired,Left LE Impaired Sensation Description Numbness Comments Sensation Comments chronic bilateral lower leg/ feet numbness Muscle Tone Muscle Tone WNL Yes M6 PT-IP Treatment Start: 09/12/20 14:51 Freq: NEEDED Status: Active Protocol: Document 09/16/20 08:57 SP (Rec: 09/16/20 09:32 SP [id number]) Physical Therapy Treatment Exercises Exercises Ankle Pumps,Gluteal Sets,Quad Sets,Heel Slides,Straight Leg Raises,Supine Hip Abduction, Seated Knee Flexion/Extension Knee ROM Measurement WNL Education Education Provided Weight Bearing Status,Safety M7 PT-IP Assessment and Plan Start: 09/12/20 14:51 Freq: NEEDED Status: Active Protocol: Document 09/16/20 08:57 SP (Rec: 09/16/20 09:32 SP [id number]) PT Summary Assessment and Plan Potential Rehabilitation Potential Fair Status of Condition at Evaluation Evolving Summary Impairments Pain,ROM,Strength,Balance, Coordination,Sensation,Tone, Cognition,Bed Mobility, Transfers,Gait,Activity Tolerance Progress Towards Goals Slow Progress due to Pain,Slow Progress due to Medical Issues,Slow Progress due to Activity Tolerance Assessment Summary Pt requires SBA during bed mobility, CGA during transfer and gait using FWW small hop to patterning. Pt maintained NWB on RLE throughout tx. Pt requires SNF rehab to improve strength and mobility when medically cleared for DC. Goals Bed Mobility Goal Independent Transfer Goal Standby Assistance,Front Wheeled Walker Gait Goal Standby Assistance,Front Wheel Walker Gait Distance 25 Other Goals up/down 7 steps R rails min a Days to Meet Goals 10 Frequency of Treatment Frequency Of Treatment Once a Day Treatment Plan Physical Therapy Treatment Plan Bed Mobility Training,Transfer Training,Gait Training, Therapeutic Exercise,Balance Retraining,Post Op Education, Discharge Planning,Hot or Cold Pack,Neuromuscular Re-ed, Coordination Retraining,Manual Therapy Other Recommendations and Next Treatment Distance gait hop on LLE, Focus stair mgt if safe and can tolerate using BHR. Recommendations To Nursing Amount of Assist Needed 1 Person Assist Discharge Recommendations PT Discharge Recommendations SNF Rehab Transportation Needs at Discharge Wheelchair/Cabulance
--- NOTE | 2020-09-16 10:38 | CM.DPC ---
Addendum entered by MIGUEL Huston 09/16/20 15:09: ADD: Per MD and RN, pt has been accepted at [facility] for higher level of care and will transfer today around 1600. SW met briefly bedside with pt and he is thankful to be getting more specialized care even though he was hopeful to d/c home soon. SW called and updated [facility] on pt transfer and they will follow for possible need of SNF when d/c from [place]. MIGUEL Huston Original Note: DCP Cont: Per Surgeon Dr. De Los Santos met bedside last night with pt and reviewed his wound/healing and packing and after discussion with Wound MD Dr. Spivey and Hospitalist MD decision made to attempt hospital transfer for higher level of care where Vascular Surgeon, inpt wound care, and podiatry could be involved in his inpt care. MD attempting transfer to [facility] today. SW called and updated accepting SNF [facility] on possible transfer and pt not being medically stable for discharge to SNF yet either. MISTY received a call from [facility] inquiring about pt status as they were still reviewing him and SW updated [facility] on possible hospital transfer. Plan: SW to follow closely to determine if pt will be accepted for hospital transfer today to [facility] and updating accepting [facility] on d/c plan today. MIGUEL Huston
[2020-09-16 12:00] VITALS: BP 133/78; PULSE 93; RESP 18; TEMP 36.4; O2SAT 99
[2020-09-16] MEDS: INSULIN GLARGINE 100 UNIT/ML 3ML PEN 25 UNIT SUBCUT (12:08)
[2020-09-16] MEDS: INSULIN ASPART 100 UNIT/ML INSULN PEN SUBCUT (12:18)
--- NOTE | 2020-09-16 13:13 | P.DS_ITS ---
History of Present Illness History of Present Illness Date Patient Seen: 09/16/20 Chief complaint: states ulcer on right foot, thinks infection,charlesliya Narrative: Mr. Cyrus Sierra is a 55-year-old male patient who appears older than his stated age with a past medical history poorly controlled diabetes, hypertension and hyperlipidemia who presents to the ER with complaints of foot ulcer for 1 month. The patient states he had an ulcer on the outside is foot which has become progressively worse over the last month. He was treated at the [facility] where the wound was debrided 1 week ago. Patient states since that time he has had increasing pain and swelling and drainage. He distally reports he has had callus on the ball of his foot which she manipulated and removed. States over the last 3 days pain became much worse with swelling extending into the dorsum of the foot with associated calf pain and malaise. He reports having having systemic symptoms of shaking chills for 1 week. The patient states that [place] and has not been taking his insulin for some time. He additionally reports taking lisinopril, simvastatin famotidine and carbamazepine of which he cannot recall the dosages as well as aspirin on a ?hit and miss basis?. The patient denies fevers or headaches, has not experienced vision changes, nasal congestion or sore throat. Denies complaints of chest pain or palpitations, shortness of breath cough or wheezing. He endorses right upper quadrant abdominal pain which has been investigated on outpatient evaluation with ultrasound finding hepatomegaly with hepatic steatosis. He reports no nausea vomiting and has had intermittent diarrhea. Reports no difficulty with urination, no urgency frequency or burning. Upon arrival to the ER the patient has a temperature 99.2?, tachycardic at 118, blood pressure 115/71, respirations of 18 and saturating 97% on room air. A chest x-ray is obtained which finds no acute cardiopulmonary abnormalities. A venous ultrasound of the right lower extremity finds no sonographic evidence for DVT and a mildly enlarged right inguinal lymph node. X-ray of the right foot id entifies prominent soft tissue gas at the lateral and dorsal aspect of the forefoot, no definitive signs of osteomyelitis. Twelve lead EKG is obtained finding sinus tachycardia at 118 with occasional PVCs, no evidence of ST or T- wave changes. On laboratory analysis the patient has white count of 20.8 with neutrophilia of 17,600 and elevated monocytes of 1600, hemoglobin of 10.9, hematocrit of 31.7 and platelets of 263. He has a PT of 14.6 and INR of 1.3 and a PTT of 30. He is hyponatremic with a sodium of 125 and a BUN of 25 with a creatinine 0.57. His bilirubin is 0.5, AST 23, ALT 20 and alkaline phosphatase of 98. His lactic acid of 1.1 and procalcitonin 0.5. His COVID screening is neg ative. is contacted through the ED and agrees to consult. Following her evaluation the patient is taken to the OR for incision and drainage. Discussion was held with the patient regarding possible amputation which the patient states his wish to preserve his foot as much as possible avoiding amputation. In the ER the patient is started on vancomycin 1500 mg as well as Zosyn 4.5 g IV and received 2 L of normal saline. The patient is admitted to the hospitalist service with podiatry consult for infected right lateral foot with cellulitis. Discharge Providers Provider Date of admission: 09/09/20 18:15 Discharge Date: 09/16/20 Primary care physician: Irasema Frias MD Consults: 09/09/20 19:15 Consult to Dietitian, Adult Routine Comment: Reason For Exam: Reflexed from admission 09/09/20 20:51 Consult to Discharge Planning Routine Comment: 09/10/20 16:59 Consult to Physical Therapy Evaluate & Treat Comment: NWB right foot, ok walker and touchdown for transf Physician Instructions: Evaluate and Treat 09/13/20 13:29 Consult to Dietitian, Adult Routine Comment: Reason For Exam: Diabetic teaching Discharge provider: Waleska Lee MD Summary Hospital Course Discharge Diagnosis: 1. Osteomyelitis of the right foot 2. 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 Debridement of the right foot with 4th metatarsal head biopsy 4. Wound growing strep viridans, strep mitis, proventella, and Strep Simulans- sensitive 5. Patient currently being treated with Ceftriaxone 2 grams, and flagyl 500 mg po tid 6. Hypertension 7. Hyperlipidemia 8. Poorly controlled Diabetes 9. Anemia 10 Hyponatremia Hospital Course: Patient was admitted to the hospital for treatment of a diabetic foot infection. He was seen by Dr. De Los Santos ( Podiatry) and underwent I/D with bone biposy for probable osteomyelitis. the patient was initially treated with Cefepime and Vancomycin. He was ultimately taken back to the OR on September 112020 and underwent right fifth toe amputation and partial fifth ray resection along with a biopsy of the fourth metatarsal head. Patients cultures were growing Strep simulans, strep virdians, Strep Mitis, and proventella. His antibiotics were changed to Ceftriaxone and Flagyl. The patient continued with dressing changes. Despite that the wound was not healing well and a blister over the surgical incision developed. The patient had 2 dopplers of the right lower extremity which was negative for DVT. Podiatry requested an arteriogram with runoff to determine the level of amputation that would heal We do not have this service available at this facility. In addition she was attempting to arrange wound care consultation which is not available on the inpatient team. As the patient had a very complex wound, needed additional surgical treatment, arteriogram, and wound care services, a decision was made to transfer the patient to a facility with a multidisciplinary team to treat this. His WBC is 12.8 H/ H 9.5\28.7/ blood pressure 133/78 P 93 RR 18. He has no complaints except for pain at the incision site. Patient has been graciously accepted by Dr. Song of [facility] for transfer to a higher level of care. Status at Discharge Cognitive/behavioral status at discharge: oriented Functional status at discharge: wheelchair bound Overall status at discharge: patient is not back to baseline Time Spent with Patient Time spent: Less than 30 minutes Exam Vital Signs (past 8 hours): - 09/16/20 08:00 09/16/20 12:00 Temperature 98.6 F 97.5 F L Pulse Rate 75 93 H Respiratory Rate 17 18 Blood Pressure 109/67 133/78 Pulse Oximetry 98 99 Oxygen Delivery Method Room Air Oxygen Flow Rate 0 Objective Labs Result Diagrams: 09/15/20 05:30 09/15/20 05:30 [facility] Medical History Diabetes Hyperlipidemia Hypertension Surgical History History of cholecystectomy Family History (Updated 09/10/20 @ 06:43 by ERIN Narvaez) Father Diabetes mellitus Cancer Mother Cancer Social History marital status: household members: spouse and children pets and animals: Yes Smoking Status: Never smoker alcohol intake: current Discharge Assessment & Plan Assessment and Plan Assessment: 1. Osteomyelitis of the right foot 2. Status post 5th toe amputation, partial 5th ray amputation, 4th metatarsal head biopsy, debridement of a foot ulcer 3. Wound infection with strep viridans, strep mitis, strip new lens, and peritoneal a 4. Type 2 diabetes poorly controlled 5. Hypertension 6. Hyperlipidemia Plan of Treatment: Continue antibiotic Transfer to [facility] for vascular surgery consultation in wound care evaluation Discharge Plan Discharge Plan Patient Disposition: [facility] Other facility: [facility] Discharge Health Status Multidrug resistant organism: No MDRO Diet/Activity/Treatments Diet: Carb-consistent/Diabetic and Low-sodium Liquid consistency: Normal/Thin Food texture: Regular Cold/Heat Therapy: No ice to leg/foot Discharge Data Primary Care Provider: Irasema Frias VTE Deep Vein Thrombosis/Pulmonary Embolism Present on Admission: No
[2020-09-16] MEDS: CEFTRIAXONE 2 GM/50 ML FROZ.PIGGY IV (14:56)
--- NOTE | 2020-09-16 15:22 | PC.NURSE ---
VSS. Pain 2-3/10 in low back and right foot. Given scheduled tylenol for pain. Dressing cdi. Patient mentioned having pain in his scrotum during his shower and white stuff coming off the red area on his groin. On exam the patients testicles are bright red and there is maceration with slough to bilateral testicles and the upper left thigh area, provider notified. B, 131. Given 2 units of Novolog with lunch. PICC line dressing changed, flushed with heparin. Discharging to [place] today at 1600, called to give report and they will call back when available.
--- NOTE | 2020-09-16 16:08 | PC.NURSE ---
report given to Terra at [place].
== END 2020-09-16 15:45 | disposition short-term general hospital (02) | DRG 240 ==
LOC: ED 18:14 → AC 18:18
PROVIDERS: Nurse Practitioner Adult Health; Nurse Practitioner Family; Podiatrist; Admitting Provider Internal Medicine; Emergency Provider Emergency Medicine; Family Provider Family Medicine; PCP Family Medicine; Referring Provider Emergency Medicine; Visit Provider Internal Medicine
PROC: 0QBN0ZZ Excision of Right Metatarsal, Open Approach (ICD-10-PCS; principal; 2020-09-09 20:30)
PROC: 0Y6M0ZF Detachment at Right Foot, Partial 5th Ray, Open Approach (ICD-10-PCS; principal; 2020-09-11 10:45)
DX: E11.52 Type 2 diabetes mellitus with diabetic peripheral angiopathy with gangrene (principal); L97.414 Non-pressure chronic ulcer of right heel and midfoot with necrosis of bone; L03.115 Cellulitis of right lower limb; E87.1 Hypo-osmolality and hyponatremia; I96 Gangrene, not elsewhere classified; M86.8X7 Other osteomyelitis, ankle and foot; E11.69 Type 2 diabetes mellitus with other specified complication; E11.621 Type 2 diabetes mellitus with foot ulcer; E11.65 Type 2 diabetes mellitus with hyperglycemia; Z79.899 Other long term (current) drug therapy; T38.3X6A Underdosing of insulin and oral hypoglycemic [antidiabetic] drugs, initial encounter; Z91.128 Patient's intentional underdosing of medication regimen for other reason; B95.61 Methicillin susceptible Staphylococcus aureus infection as the cause of diseases classified elsewhere; B95.4 Other streptococcus as the cause of diseases classified elsewhere; I10 Essential (primary) hypertension; Z71.3 Dietary counseling and surveillance; E78.5 Hyperlipidemia, unspecified; Z20.822 Contact with and (suspected) exposure to COVID-19
CPT/HCPCS: 36415; 36569; 71045; 73630; 73720; 80048; 80053; 80061; 80202; 81003; 81015; 82962; 83036; 83605; 83690; 83735; 84145; 85025; 85610; 85730; 87040; 87070; 87075; 87076; 87077; 87147; 87176; 87186; 87205; 87635; 93005; 93010; 93971; 96361; 96365; 96366; 96367; 97110; 97116; 97162; 97530; 99284; A9270; J0330; J0692; J0696; J1642; J2405; J2543; J2704; J2765; J3010; J7050

== ENCOUNTER → 2022-04-01 10:03 | Outpatient (CLI) | payer MEDICAID, SELFPAY ==
[2020-09-09 18:58] VITALS: BMI 20.6
--- NOTE | 2022-04-01 | DI.RAD.S_ITS ---
PROCEDURE: XR TIBIA FUBULA RT 2V INDICATIONS: Unspecified complications of amputation stump TECHNIQUE: 2 views of the tibia and fibula were acquired. COMPARISON: None. FINDINGS: Bones: Prior [id number] amputation. No acute fracture visualized. No definite knee effusion. Soft tissues: Vascular calcifications are present. IMPRESSION: Prior below the knee amputation. No acute fracture visualized. No definite or obvious radiographic evidence of osteomyelitis. If there is clinical suspicion for osteomyelitis repeat radiographs or MRI could be obtained as clinically indicated. Dictated by: Fab Mcclain M.D. on 04/01/2022 at 13:27 Approved by: Fab Mcclain M.D. on 04/01/2022 at 13:30
== END ==
PROVIDERS: Family Provider Family Medicine; PCP Family Medicine; Referring Provider Family Medicine; Visit Provider Family Medicine
DX: T87.9 Unspecified complications of amputation stump (principal); Z89.511 Acquired absence of right leg below knee
CPT/HCPCS: 73590

== ENCOUNTER 2022-05-07 16:58 | Inpatient (IN) | payer MEDICAID, SELFPAY ==
[2020-09-09 18:58] VITALS: BMI 20.6
[2022-05-07] VITALS (12 sets, daily range): BP systolic 121–141; BP diastolic 67–77; PULSE 104–129; RESP 9–20; TEMP 36.4–37; O2SAT 92–97; BMI 36.1; BMI 24.4
--- NOTE | 2022-05-07 17:21 | DI.RAD.S_ITS ---
PROCEDURE: XR KNEE RT 1TO2V INDICATIONS: right knee pain, hx BKA TECHNIQUE: 3 views of the knee were acquired. COMPARISON: None. FINDINGS: Bones: Generalized decrease in osseous mineralization noted. Below the knee amputation noted with surgical clips. Soft tissues: No joint effusion. No suspicious soft tissue calcifications. Diffuse atherosclerotic vascular calcification noted. IMPRESSION: Below the knee amputation without lytic or blastic lesion. Approved by: Yakov Garsia M.D. on 05/07/2022 at 17:06
--- NOTE | 2022-05-07 17:21 | DI.RAD.S_ITS ---
PROCEDURE: XR HIP W PEL IF DONE RT 2V INDICATIONS: right hip/pelvic pain TECHNIQUE: Single AP view of the pelvis and two views of the right hip were obtained COMPARISON: None. FINDINGS: Bones: Impacted right femoral neck fracture noted without displacement. Right humeral head is appropriate contour. Joint spaces maintained Soft tissues: Diffuse atherosclerotic vascular calcification noted. IMPRESSION: Impacted right femoral neck fracture Approved by: Yakov Garsia M.D. on 05/07/2022 at 17:09
--- NOTE | 2022-05-07 17:22 | DI.RAD.S_ITS ---
PROCEDURE: XR CHEST 1V INDICATIONS: pelvic/hip pain, fall TECHNIQUE: One view of the chest was acquired. COMPARISON: [facility], , XR CHEST FOR PICC 1V, 09/14/2020, 8:45. FINDINGS: Surgical changes and devices: None. Lungs and pleura: Lungs are clear. No pleural effusions or pneumothorax. Mediastinum: Mediastinal contours appear normal. Heart size is normal. Bones and chest wall: No suspicious bony lesions. Overlying soft tissues appear unremarkable. IMPRESSION: No acute cardiopulmonary findings Approved by: Yakov Garsia M.D. on 05/07/2022 at 17:09
--- NOTE | 2022-05-07 18:17 | ED.FALL ---
HPI - Fall General Chief Complaint: Fall Stated Complaint: GLF Time Seen by Provider: 05/07/22 17:13 Source: patient Mode of arrival: EMS History of Present Illness HPI Narrative: Patient is a 57-year-old male history of insulin-dependent diabetes DKA in 2000, hypertension on aspirin presenting today after ground level fall. He says his prosthetic for whatever reason is quite fitting right. He thinks it slipped and he fell onto his right side. He did not hit his head he did not lose consciousness. Complaining of right hip and back pain. He denies any chest pain palpitations or shortness or breath. Related Data Home Medications Medication Instructions Recorded Confirmed gabapentin 600 mg tablet 1,200 mg PO TID 09/09/20 05/07/22 famotidine 20 mg tablet 20 mg PO BID PRN Acid Reflux 09/10/20 05/07/22 simvastatin 80 mg tablet 250 mg PO BEDTIME 09/10/20 05/07/22 insulin glargine 100 unit/mL 20 unit SUBCUT BID 05/07/22 05/07/22 subcutaneous cartridge insulin lispro 100 unit/mL 1 sliding scale dose SUBCUT 05/07/22 05/07/22 subcutaneous pen USEASDIRECTD Allergies Allergy/AdvReac Type Severity Reaction Status Date / Time diphenhydramine Allergy Verified 05/07/22 17:11 [From Benadryl] morphine Allergy Verified 05/07/22 17:11 Sulfa (Sulfonamide Allergy Verified 05/07/22 17:11 Antibiotics) Review of Systems Review of Systems Narrative: GENERAL: Denies chills,fever HEENT: Denies throat pain RESPIRATORY: Denies dyspnea, cough, wheezing CARDIOVASCULAR: Denies chest pain, palpitations GASTROINTESTINAL: Denies nausea, vomiting MUSCULOSKELETAL: Denies extremity pain, injury SKIN: No rash, no laceration, no pruritus NEUROLOGIC: Denies weakness, dizziness, headache, numbness 8 point review of systems is negative except for those stated above and HPI Patient History Medical History Diabetes Hyperlipidemia Hypertension Surgical History History of cholecystectomy Family History Father Diabetes mellitus Cancer Mother Cancer Social History (Reviewed 05/07/22 @ 18:29 by BRANDON Amezcua marital status: household members: spouse and children pets and animals: Yes Smoking Status: Never smoker alcohol intake: current Smoking Status: Never smoker alcohol intake frequency: holidays/special occasions only Substance Use Type: does not use Exam Initial Vital Signs Initial Vital Signs: Vital Signs Pulse Rate 129 H 05/07/22 17:02 Pulse Oximetry 95 05/07/22 17:02 Oxygen Delivery Method 05/07/22 17:02 GENERAL: Alert pleasant 57-year-old male appears in pain HEENT: Head atraumatic,EOMI, pupils reactive, face symmetric, moist mucous membranes CARDIOVASCULAR: Tachycardic regular no murmur RESPIRATORY: Breath sounds equal bilaterally, no wheezes rales or rhonchi. ABDOMEN: Soft, nontender. Normoactive bowel sounds all 4 quadrants. No guarding or rebound. EXTREMITIES: Normal range of motion, no clubbing or edema. Neurovascularly intact. No upper extremity pain or deformity Right BKA noted right hip pain NEUROLOGICAL: Alert and oriented x4. SKIN: Warm, dry, no laceration, no petechiae, no rashes or lesions. Course Orders Ordered: ED Orders 05/07/22 20:07 Consult to Physician Stat 05/08/22 02:53 Urine Drug Screen, Rapid Stat Acetaminophen (Acetaminophen 325 Mg Tablet) 650 mg PO Q6H PRN PRN Reason: Fever/Mild Pain (1-3) Dextrose (Dextrose 50 % In Water 25 Gm/50 Ml Syringe) 25 gm IV PRN PRN PRN Reason: Hypoglycemia Hydromorphone HCl (Hydromorphone 1 Mg Inj) 0.5 mg IV Q4H PRN PRN Reason: Pain, Severe (7-10) Sodium Chloride (Normal Saline 0.9%) 1,000 mls @ 100 mls/hr IV CONT DULCE Last Admin: 05/07/22 21:32 Dose: 100 mls/hr Documented By: ANGEL Insulin Glargine (Insulin Glargine 100 Unit/Ml 3ml Pen) 20 unit SUBCUT BID DULCE Insulin Human Lispro (Insulin Lispro 100 Unit/Ml 3ml Vial) 0 unit SUBCUT ACHS DULCE; Protocol Last Admin: 05/07/22 21:42 Dose: 2 unit Documented By: ANGEL Co-signed By: PEGGY Naloxone HCl (Naloxone 0.4 Mg/Ml Vial) 0.2 mg IV Q2MIN PRN PRN Reason: Opiate Reversal Ondansetron HCl (Ondansetron 4 Mg/2 Ml Inj) 4 mg IV Q8HR PRN PRN Reason: Nausea And Vomiting Oxycodone HCl (Oxycodone Ir 5 Mg Tablet) 5 mg PO Q3H PRN PRN Reason: Pain, Moderate (4-6) Discontinued Medications Hydromorphone HCl (Hydromorphone 0.5 Mg Inj) 0.5 mg IV NOW ONE Stop: 05/07/22 18:23 Last Admin: 05/07/22 19:35 Dose: 0.5 mg Documented By: JESSIKA Sodium Chloride (Normal Saline 0.9%) 1,000 mls @ 150 mls/hr IV CONT DULCE Last Infusion: 05/07/22 20:55 Dose: 0 mls/hr Documented By: Admin: 05/07/22 19:36 Dose: 150 mls/hr Documented By: JESSIKA Vital Signs Vital signs: Vital Signs - 8 hr 05/07/22 17:03 05/07/22 17:02 05/07/22 17:06 Temperature 97.6 F Pulse Rate 123 H 129 H 122 H Respiratory Rate 20 9 L Blood Pressure 141/77 H Pulse Oximetry 95 95 96 Oxygen Delivery Method Room Air Room Air 05/07/22 17:06 05/07/22 17:30 05/07/22 17:30 Temperature Pulse Rate 115 H Respiratory Rate 19 Blood Pressure 141/77 H 135/77 Pulse Oximetry 96 Oxygen Delivery Method Room Air 05/07/22 18:00 05/07/22 18:30 05/07/22 19:09 Temperature Pulse Rate 116 H 113 H 112 H Respiratory Rate 15 16 Blood Pressure Pulse Oximetry 97 93 Oxygen Delivery Method Room Air Room Air 05/07/22 19:30 Temperature Pulse Rate 108 H Respiratory Rate 17 Blood Pressure Pulse Oximetry 93 Oxygen Delivery Method Room Air - Fall Lab Data Result diagrams: 05/07/22 18:00 05/07/22 18:00 Labs: Lab Results 05/07/22 05/07/22 05/07/22 Range/Units 18:00 18:00 18:00 WBC 13.5 H (4.5-11.0) X10^3/uL RBC 4.36 L (4.5-5.9) X10^6/uL Hgb 12.4 L (13.5-17.5) g/dL Hct 36.6 L (41-53) % MCV 84.1 (80-100) fL MCH 28.5 (26-34) PG MCHC 33.9 (30-36) % RDW 12.6 (11.6-14.8) % Plt Count 183 (150-400) X10^3/uL Neut % (Auto) 80.4 H (50-75) % Lymph % (Auto) 10.7 L (25-40) % [place] % (Auto) 8.2 (3-14) % Eos % (Auto) 0.5 L (2-4) % Baso % (Auto) 0.2 (0-2) % Neut # (Auto) 43485 H (9642-9166) /uL Lymph # (Auto) 1400 (9574-2543) /uL [place] # (Auto) 1100 H (0-900) /uL Eos # (Auto) 100 (0-450) /uL Baso # (Auto) 0 (0-100) /uL PT 13.0 H (10.1-12.7) SECONDS INR 1.1 (0.9-1.3) APTT 31 (26-36) SECONDS Sodium 137 (137-145) mmol/L Potassium 3.8 (3.4-5.1) mmol/L Chloride 100 (98-107) mmol/L Carbon Dioxide 27 (22-32) mmol/L BUN 17 (9-20) mg/dL Creatinine 0.59 L (0.66-1.25) mg/dL Estimated GFR > 60 (>60) mL/min BUN/Creatinine Ratio 28.8 H (6-22) Glucose 236 H (70-100) mg/dL Lactate (0.7-2.1) mmol/L Calcium 9.0 (8.4-10.2) mg/dL Total Bilirubin 1.7 H (0.2-1.3) mg/dL AST 31 (17-59) IU/L ALT 41 (<50) IU/L Alkaline Phosphatase 71 (38-126) U/L Total Protein 7.7 (6.3-8.2) g/dL Albumin 4.1 (3.5-5.0) g/dL Globulin 3.6 (1.7-4.1) g/dL Albumin/Globulin Ratio 1.1 (1.0-2.8) Lipase 17 L (23-300) U/L Ethyl Alcohol < 10 ( - 10) mg/dL SARS-CoV-2 (PCR) (Negative) Influenza A (RT-PCR) (NEGATIVE) Influenza B (RT-PCR) (NEGATIVE) RSV (PCR) (Negative) Blood Type Antibody Screen 05/07/22 05/07/22 05/07/22 Range/Units 18:00 18:00 18:00 WBC (4.5-11.0) X10^3/uL RBC (4.5-5.9) X10^6/uL Hgb (13.5-17.5) g/dL Hct (41-53) % MCV (80-100) fL MCH (26-34) PG MCHC (30-36) % RDW (11.6-14.8) % Plt Count (150-400) X10^3/uL Neut % (Auto) (50-75) % Lymph % (Auto) (25-40) % [place] % (Auto) (3-14) % Eos % (Auto) (2-4) % Baso % (Auto) (0-2) % Neut # (Auto) (8520-5910) /uL Lymph # (Auto) (2352-4888) /uL [place] # (Auto) (0-900) /uL Eos # (Auto) (0-450) /uL Baso # (Auto) (0-100) /uL PT (10.1-12.7) SECONDS INR (0.9-1.3) APTT (26-36) SECONDS Sodium (137-145) mmol/L Potassium (3.4-5.1) mmol/L Chloride (98-107) mmol/L Carbon Dioxide (22-32) mmol/L BUN (9-20) mg/dL Creatinine (0.66-1.25) mg/dL Estimated GFR (>60) mL/min BUN/Creatinine Ratio (6-22) Glucose (70-100) mg/dL Lactate 1.1 (0.7-2.1) mmol/L Calcium (8.4-10.2) mg/dL Total Bilirubin (0.2-1.3) mg/dL AST (17-59) IU/L ALT (<50) IU/L Alkaline Phosphatase (38-126) U/L Total Protein (6.3-8.2) g/dL Albumin (3.5-5.0) g/dL Globulin (1.7-4.1) g/dL Albumin/Globulin Ratio (1.0-2.8) Lipase (23-300) U/L Ethyl Alcohol ( - 10) mg/dL SARS-CoV-2 (PCR) Negative (Negative) Influenza A (RT-PCR) Flu a negative (NEGATIVE) Influenza B (RT-PCR) Flu b negative (NEGATIVE) RSV (PCR) Negative (Negative) Blood Type O Positive Antibody Screen Negative Imaging Data Extremity x-ray #1: Radiologist's Impression: ent: Cyrus Sierra MR#: [id number] : 1965 Acct:[id number] Age/Sex: 57 / M Date of Service: 05/07/22 Loc: ED Accession Number: [id number] ?? Procedure: XR hip w pel if done RT 2V Ordering Provider: Adri Grijalva D.O. PROCEDURE:? XR HIP W PEL IF DONE RT 2V ? INDICATIONS:? right hip/pelvic pain ? TECHNIQUE:? Single AP view of the pelvis and two views of the right hip were obtained ? COMPARISON:? None. ? FINDINGS:? ? Bones:? Impacted right femoral neck fracture noted without displacement.? Right humeral head is appropriate contour.? Joint spaces maintained ? Soft tissues:? Diffuse atherosclerotic vascular calcification noted. ? IMPRESSION:? Impacted right femoral neck fracture ? ? ? Approved by: Yakov Garsia M.D. on 05/07/2022 at 17:09? Extremity x-ray #2: Radiologist's Impression: XRay Report Signed Patient: Cyrus Sierra MR#: [id number] : 1965 Acct:[id number] Age/Sex: 57 / M Date of Service: 05/07/22 Loc: ED Accession Number: [id number] ?? Procedure: XR knee RT 3V Ordering Provider: Adri Grijalva D.O. PROCEDURE:? XR KNEE RT 1TO2V ? INDICATIONS:? right knee pain, hx BKA ? TECHNIQUE:? 3 views of the knee were acquired.? ? COMPARISON:? None. ? FINDINGS:? ? Bones:? Generalized decrease in osseous mineralization noted.? Below the knee amputation noted with surgical clips. ? Soft tissues:? No joint effusion.? No suspicious soft tissue calcifications.? Diffuse atherosclerotic vascular calcification noted. ? ? IMPRESSION:? Below the knee amputation without lytic or blastic lesion. ? ? ? Approved by: Yakov Garsia M.D. on 05/07/2022 at 17:06? Chest x-ray: Radiologist's Impression: XRay Report Signed Patient: Cyrus Sierra MR#: [id number] : 1965 Acct:[id number] Age/Sex: 57 / M Date of Service: 05/07/22 Loc: ED Accession Number: [id number] ?? Procedure: XR chest 1V Ordering Provider: Adri Grijalva D.O. PROCEDURE:? XR CHEST 1V ? INDICATIONS:? pelvic/hip pain, fall ? TECHNIQUE:? One view of the chest was acquired.? ? COMPARISON:? [facility], JAS, XR CHEST FOR PICC 1V, 09/14/2020, 8:45. ? FINDINGS:? ? Surgical changes and devices:? None.? ? Lungs and pleura:? Lungs are clear.? No pleural effusions or pneumothorax.? ? Mediastinum:? Mediastinal contours appear normal.? Heart size is normal.? ? Bones and chest wall:? No suspicious bony lesions.? Overlying soft tissues appear unremarkable.? ? IMPRESSION:? No acute cardiopulmonary findings ? ? ? Approved by: Yakov Garsia M.D. on 05/07/2022 at 17:09? CT Pelvis: Radiologist's Impression: ent: Cyrus Sierra MR#: [id number] : 1965 Acct:[id number] Age/Sex: 57 / M Date of Service: 05/07/22 Loc: ED Accession Number: [id number] ?? Procedure: CT pelvis wo con Ordering Provider: Corine Liriano D.O. PROCEDURE:? CT PEL WO CON ? INDICATIONS:? right femur fx, sacral pain ? TECHNIQUE:? Noncontrast 3 mm axial sections acquired through the bony pelvis, with coronal and sagittal reformatting.? ? COMPARISON:? [facility], CR, XR HIP W PEL IF DONE RT 2V, 05/07/2022, 17:35. ? FINDINGS:? Image quality:? Excellent.? ? Bones:? There is a mildly angulated slightly impacted right femoral neck fracture.? No dislocation at the joint space. ? Soft tissues:? Bowel gas pattern is nonobstructive.? Colonic diverticular present.? Bladder is distended. ? ? IMPRESSION:? ? Unchanged appearance of slightly angulated, impacted right femoral neck fracture. ? Dictated by: Sonia Spivey M.D. on 05/07/2022 at 19:46 ? CT PELVIS: Radiologist's Impression: Signed Patient: Cyrus Sierra MR#: [id number] : 1965 Acct:[id number] Age/Sex: 57 / M Date of Service: 05/07/22 Loc: ED Accession Number: [id number] ?? Procedure: CT pelvis wo con Ordering Provider: Corine Liriano D.O. PROCEDURE:? CT PEL WO CON ? INDICATIONS:? right femur fx, sacral pain ? TECHNIQUE:? Noncontrast 3 mm axial sections acquired through the bony pelvis, with coronal and sagittal reformatting.? ? COMPARISON:? [facility], CR, XR HIP W PEL IF DONE RT 2V, 05/07/2022, 17:35. ? FINDINGS:? Image quality:? Excellent.? ? Bones:? There is a mildly angulated slightly impacted right femoral neck fracture.? No dislocation at the joint space. ? Soft tissues:? Bowel gas pattern is nonobstructive.? Colonic diverticular present.? Bladder is distended. ? ? IMPRESSION:? ? Unchanged appearance of slightly angulated, impacted right femoral neck fracture. ? Dictated by: Sonia Spivey M.D. on 05/07/2022 at 19:46 ? ? Approved by: Sonia Spivey M.D. on 05/07/2022 at 19:47 ? ECG Data Interpretation: Sinus tachycardia rate 115 p.r. interval 160 QRS 82 QTC 470 MDM Narrative Medical decision making narrative: Patient is found have impacted right femoral neck fracture. He is in quite a bit of pain likely causing his tachycardia. Pain in heart rate do improve with dilaudid he does not tolerate morphine. Discussion with Dr. Solis orthopedics who will see patient tomorrow and request NPO status. Dr. Abarca, in ED to seen evaluated patient Discharge Plan Departure Patient Disposition: Admitted As Inpatient Clinical Impression: Closed fracture of right hip Admit Date/Time: 05/07/22 20:07 Admit Provider: Henry Abarca
--- NOTE | 2022-05-07 18:22 | DI.CT.S_ITS ---
PROCEDURE: CT PEL WO CON INDICATIONS: right femur fx, sacral pain TECHNIQUE: Noncontrast 3 mm axial sections acquired through the bony pelvis, with coronal and sagittal reformatting. COMPARISON: [facility], CR, XR HIP W PEL IF DONE RT 2V, 05/07/2022, 17:35. FINDINGS: Image quality: Excellent. Bones: There is a mildly angulated slightly impacted right femoral neck fracture. No dislocation at the joint space. Soft tissues: Bowel gas pattern is nonobstructive. Colonic diverticular present. Bladder is distended. IMPRESSION: Unchanged appearance of slightly angulated, impacted right femoral neck fracture. Dictated by: Sonia Spivey M.D. on 05/07/2022 at 19:46 Approved by: Sonia Spivey M.D. on 05/07/2022 at 19:47
[2022-05-07 18:27] LABS: INR 1.1 (0.9-1.3)
[2022-05-07 18:29] LABS: PTT Partial Thromboplastin Tim 31 SECONDS (26-36)
[2022-05-07 18:31] LABS: Alanine Aminotransferase 41 IU/L (<50); Albumin 4.1 g/dL (3.5-5.0); Albumin Globulin Ratio 1.1 (1.0-2.8); Alkaline Phosphatase 71 U/L (38-126); Aspartate Aminotransferase 31 IU/L (17-59); BUN Creatinine Ratio 28.8 (6-22); Bilirubin Total 1.7 mg/dL (0.2-1.3); Blood Urea Nitrogen 17 mg/dL (9-20); Carbon Dioxide 27 mmol/L (22-32); Chloride 100 mmol/L (98-107); Estimated Glomerular Filt Rate > 60 mL/min (>60); Ethanol (ETOH) < 10 mg/dL; Globulin 3.6 g/dL (1.7-4.1); Glucose 236 mg/dL (70-100); HEMOLYSIS < 15 (0-50); Lactate (Lactic Acid) 1.1 mmol/L (0.7-2.1); Lipase 17 U/L (23-300); Potassium 3.8 mmol/L (3.4-5.1); Sodium 137 mmol/L (137-145); Total Protein 7.7 g/dL (6.3-8.2)
[2022-05-07 18:32] LABS: Add Manual Diff / Slide Review NO; Basophils Absolute Auto 0 /uL (0-100); Basophils Percent Auto 0.2 % (0-2); Eosinophils Absolute Auto 100 /uL (0-450); Eosinophils Percent Auto 0.5 % (2-4); Hematocrit 36.6 % (41-53); Hemoglobin 12.4 g/dL (13.5-17.5); Lymphocytes Absolute Auto 1400 /uL (1100-4500); Lymphocytes Percent Auto 10.7 % (25-40); Mean Corpuscular HGB Conc 33.9 % (30-36); Mean Corpuscular Hemoglobin 28.5 PG (26-34); Mean Corpuscular Volume 84.1 fL (80-100); Monocytes Absolute Auto 1100 /uL (0-900); Monocytes Percent Auto 8.2 % (3-14); Neutrophils Absolute Auto 10800 /uL (1500-7000); Neutrophils Percent Auto 80.4 % (50-75); Platelet Count 183 X10^3/uL (150-400); Red Blood Cell Count 4.36 X10^6/uL (4.5-5.9); Red Cell Distribution Width 12.6 % (11.6-14.8); White Blood Cell Count 13.5 X10^3/uL (4.5-11.0)
[2022-05-07 18:59] LABS: Influenza A - CEPHEID Flu A NEGATIVE (NEGATIVE); Influenza B - CEPHEID Flu B NEGATIVE (NEGATIVE); Respiratory Syncytial Virus Negative (Negative)
[2022-05-07 19:23] LABS: COVID-19 CEPHEID 4-PLEX PCR Negative (Negative)
[2022-05-07] MEDS: HYDROMORPHONE 0.5 MG INJ IV (19:35)
[2022-05-07] MEDS: SODIUM CHLORIDE 0.9% 1,000 ML 150 ML IV (19:36)
[2022-05-07] MEDS: SODIUM CHLORIDE 0.9% 1,000 ML 100 ML IV (21:32)
[2022-05-07] MEDS: INSULIN LISPRO 100 UNIT/ML 3ML VIAL SUBCUT (21:42)
--- NOTE | 2022-05-07 21:54 | PC.NURSE ---
Received patient from ED in no distress at 2029. Patient awake alert and able to participate in care. Saline lock in place in lt. AC. No complaints of pain at present time.
--- NOTE | 2022-05-07 23:19 | P.HP_ITS ---
History of Present Illness History of Present Illness Date Patient Seen: 05/07/22 Time Patient Seen: 22:30 Chief complaint: GLF Narrative: Mr. 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 He has noted that his prosthesis has been poorly fitting and slipping off his stump. He is in the p rocess of acquiring a new prosthetic. Unfortunately today he was attempting to ambulate and his stump slipped from the prosthetic and he lost his balance and fell on his right side. He had right hip pain and could not ambulate. He did not hit his head or lose consciouness. In the ED workup was done, vitals notable for afebrile and tachycardic to 120s. WBC 13.5, hgb 12.4, plts 183. Creatinine 0.59. Lactate negative. Xray of hip and CT pelvis shows impacted right femoral neck fracture. Right knee xray with no acute abnormality. Chest xray with no acute abnormality. He was given pain medications and admitted for further treatment. Patient History Medical History Diabetes Hyperlipidemia Hypertension Surgical History History of cholecystectomy Family & Social History Family History Father Diabetes mellitus Cancer Mother Cancer Social History: household members spouse,children Safety & Behavioral: Feels Safe in Current Yes Environment Been Physically Hurt or No Threatened By a Person Tobacco & Substance use: Smoking Status Never smoker alcohol intake current alcohol intake frequency holiday/special occasion Substance Use Type does not use Meds Home Medications and Allergies Home Medications Medication Instructions Recorded Confirmed Type gabapentin 600 mg tablet 1,200 mg PO TID 09/09/20 05/07/22 History famotidine 20 mg tablet 20 mg PO BID PRN Acid Reflux 09/10/20 05/07/22 History simvastatin 80 mg tablet 250 mg PO BEDTIME 09/10/20 05/07/22 History insulin glargine 100 unit/mL 20 unit SUBCUT BID 05/07/22 05/07/22 History subcutaneous cartridge insulin lispro 100 unit/mL 1 sliding scale dose SUBCUT 05/07/22 05/07/22 History subcutaneous pen USEASDIRECTD Allergies Allergy/AdvReac Type Severity Reaction Status Date / Time diphenhydramine Allergy Verified 05/07/22 17:11 [From Benadryl] morphine Allergy Verified 05/07/22 17:11 Sulfa (Sulfonamide Allergy Verified 05/07/22 17:11 Antibiotics) Review of Systems Review of Systems Narrative: 14 systems reviewed and negative aside from what is noted in HPI Exam Vital Signs (past 8 hours): - 05/07/22 17:03 05/07/22 17:02 05/07/22 17:06 Temperature 97.6 F Pulse Rate 123 H 129 H 122 H Respiratory Rate 20 9 L Blood Pressure 141/77 H Pulse Oximetry 95 95 96 Oxygen Delivery Method Room Air Room Air 05/07/22 17:06 05/07/22 17:30 05/07/22 17:30 Temperature Pulse Rate 115 H Respiratory Rate 19 Blood Pressure 141/77 H 135/77 Pulse Oximetry 96 Oxygen Delivery Method Room Air 05/07/22 18:00 05/07/22 18:30 05/07/22 19:09 Temperature Pulse Rate 116 H 113 H 112 H Respiratory Rate 15 16 Blood Pressure Pulse Oximetry 97 93 Oxygen Delivery Method Room Air Room Air 05/07/22 19:30 05/07/22 19:35 05/07/22 19:35 Temperature Pulse Rate 108 H 112 H Respiratory Rate 17 20 Blood Pressure 132/75 Pulse Oximetry 93 95 Oxygen Delivery Method Room Air 05/07/22 20:00 05/07/22 20:00 05/07/22 20:30 Temperature Pulse Rate 105 H Respiratory Rate 13 Blood Pressure 121/67 129/70 Pulse Oximetry 92 Oxygen Delivery Method Room Air 05/07/22 20:30 Temperature Pulse Rate 104 H Respiratory Rate Blood Pressure Pulse Oximetry 93 Oxygen Delivery Method Room Air Oxygen Delivery Method Room Air Narrative Exam Narrative: GEN: wincing in pain HEENT: moist mucous membranes, PERRL NECK: trachea midline, no JVD PULM: clear bilaterally CV: tachycardic, no murmurs ABD: soft, nontender, nondistended, no organomegaly EXT: warm and well perfused left leg, right leg bka, pain with palpation and minimal movement at right hip NEURO: awake, alert, oriented, no focal deficits noted Objective Labs Result Diagrams: 05/07/22 18:00 05/07/22 18:00 Labs: Laboratory Results - last 24 hr 05/07/22 05/07/22 05/07/22 18:00 18:00 18:00 WBC 13.5 H RBC 4.36 L Hgb 12.4 L Hct 36.6 L MCV 84.1 MCH 28.5 MCHC 33.9 RDW 12.6 Plt Count 183 Neut % (Auto) 80.4 H Lymph % (Auto) 10.7 L [place] % (Auto) 8.2 Eos % (Auto) 0.5 L Baso % (Auto) 0.2 Neut # (Auto) 44881 H Lymph # (Auto) 1400 [place] # (Auto) 1100 H Eos # (Auto) 100 Baso # (Auto) 0 PT 13.0 H INR 1.1 APTT 31 Sodium 137 Potassium 3.8 Chloride 100 Carbon Dioxide 27 BUN 17 Creatinine 0.59 L Estimated GFR > 60 BUN/Creatinine Ratio 28.8 H Glucose 236 H Lactate Calcium 9.0 Total Bilirubin 1.7 H AST 31 ALT 41 Alkaline Phosphatase 71 Total Protein 7.7 Albumin 4.1 Globulin 3.6 Albumin/Globulin Ratio 1.1 Lipase 17 L Ethyl Alcohol < 10 SARS-CoV-2 (PCR) Influenza A (RT-PCR) Influenza B (RT-PCR) RSV (PCR) Blood Type Antibody Screen 05/07/22 05/07/22 05/07/22 18:00 18:00 18:00 WBC RBC Hgb Hct MCV MCH MCHC RDW Plt Count Neut % (Auto) Lymph % (Auto) [place] % (Auto) Eos % (Auto) Baso % (Auto) Neut # (Auto) Lymph # (Auto) [place] # (Auto) Eos # (Auto) Baso # (Auto) PT INR APTT Sodium Potassium Chloride Carbon Dioxide BUN Creatinine Estimated GFR BUN/Creatinine Ratio Glucose Lactate 1.1 Calcium Total Bilirubin AST ALT Alkaline Phosphatase Total Protein Albumin Globulin Albumin/Globulin Ratio Lipase Ethyl Alcohol SARS-CoV-2 (PCR) Negative Influenza A (RT-PCR) Flu a negative Influenza B (RT-PCR) Flu b negative RSV (PCR) Negative Blood Type O Positive Antibody Screen Negative Assessment & Plan Assessment & Plan narrative: 1. R femoral neck fracture -secondary to mechanical fall -xray shows impacted femoral neck fracture -patient can proceed to surgery as indicated from a medicine perspective -ortho consulted -NPO at midnight 2. Leukocytosis -no infectious symptoms currently -UA pending, chest xray negative for acute process -suspect secondary to stress response -trend wbc, and monitor for infectious symptoms, no indication for abx currently 3. 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 Type 2 Diabetes, on insulin -on lantus 20u BID at home, continue here and reduce by 25% while npo -insulin sliding scale, and check glucose achs 5. Diabetic neuropathy -continue gabapentin 6. Hyperlipidemia -continue statin CODE: Full Proxy: Bernadette Sierra, I have utilized all available resources to reconcile the patient's home medications Time Spent With Patient Critical Care time: I spent a total of [] minutes of critical care time on this patient's care today; this time is exclusive of procedural time. Quality VTE Deep Vein Thrombosis/Pulmonary Embolism Present on Admission: No
[2022-05-08] VITALS (13 sets, daily range): BP systolic 127–153; BP diastolic 58–95; PULSE 99–121; RESP 14–20; TEMP 36.6–37.4; O2SAT 91–99
--- NOTE | 2022-05-08 | DI.RAD.S_ITS ---
PROCEDURE: XR PELVIS 1-2V INDICATIONS: OR TECHNIQUE: 1 view of the lower pelvis acquired. COMPARISON: [facility], CT, CT PEL WO CON, 05/07/2022, 18:48. FINDINGS: Bones: Patient is status post right hip arthroplasty, with hardware components in expected positions. The hip joint appears congruent. The visualized bony structures appear intact. Cerclage wires in the process positioning Soft tissues: Overlying postoperative changes are noted. No suspicious soft tissue densities. Atherosclerotic vascular calcification IMPRESSION: Right hip arthroplasty appropriate position Approved by: Yakov Garsia M.D. on 05/08/2022 at 14:54
[2022-05-08 03:02] LABS: UR Morphine/Opiate cutoff 300 Negative (Negative); Ur Creatinine 20 (Normal); Ur Specific Gravity 1.025 (Normal); Urine Amphetamines Negative (Negative); Urine Barbiturates Negative (Negative); Urine Benzodiazepines Negative (Negative); Urine Cocaine Negative (Negative); Urine MDMA Negative (Negative); Urine Methadone Negative (Negative); Urine Methamphetamines Negative (Negative); Urine Oxycodone Negative (Negative); Urine Phencyclidine Negative (Negative); Urine Tetrahydrocannabinol Negative (Negative); Urine Tricyclic Antidepressant Negative (Negative); Urine pH 5 (Normal)
[2022-05-08] MEDS: HYDROMORPHONE 1 MG INJ 0.5 MG IV ×2 (05:35→09:24)
[2022-05-08] MEDS: SODIUM CHLORIDE 0.9% 1,000 ML 100 ML IV ×2 (05:37→21:34)
[2022-05-08 07:33] LABS: Add Manual Diff / Slide Review NO; Basophils Absolute Auto 0 /uL (0-100); Basophils Percent Auto 0.1 % (0-2); Eosinophils Absolute Auto 100 /uL (0-450); Eosinophils Percent Auto 1.4 % (2-4); Hematocrit 35.8 % (41-53); Lymphocytes Absolute Auto 1500 /uL (1100-4500); Lymphocytes Percent Auto 15.7 % (25-40); Mean Corpuscular HGB Conc 33.6 % (30-36); Mean Corpuscular Hemoglobin 28.4 PG (26-34); Mean Corpuscular Volume 84.6 fL (80-100); Monocytes Absolute Auto 800 /uL (0-900); Monocytes Percent Auto 8.1 % (3-14); Neutrophils Absolute Auto 7300 /uL (1500-7000); Neutrophils Percent Auto 74.7 % (50-75); Platelet Count 177 X10^3/uL (150-400); Red Blood Cell Count 4.23 X10^6/uL (4.5-5.9); Red Cell Distribution Width 12.7 % (11.6-14.8); White Blood Cell Count 9.8 X10^3/uL (4.5-11.0)
[2022-05-08 07:42] LABS: BUN Creatinine Ratio 24.2 (6-22); Blood Urea Nitrogen 15 mg/dL (9-20); Calcium 8.4 mg/dL (8.4-10.2); Carbon Dioxide 29 mmol/L (22-32); Chloride 101 mmol/L (98-107); Estimated Glomerular Filt Rate > 60 mL/min (>60); Glucose 217 mg/dL (70-100); HEMOLYSIS < 15 (0-50); Potassium 3.9 mmol/L (3.4-5.1); Sodium 138 mmol/L (137-145)
--- NOTE | 2022-05-08 08:35 | PM.CN ---
History of Present Illness Consult details Date Patient Seen: 05/08/22 Time Patient Seen: 08:35 Chief complaint: GLF Reason for consult: right femoral neck fracture Requesting provider: Corine Liriano Narrative: The patient is a 57-year-old gentleman with diabetes and a right lower extremity below-knee amputation. He has been having trouble recently with his socket fit of his prosthetic. He attempted to move and his leg pistoned inside the prosthetic and the prosthetic did not lift off the floor. He stumbled and fell injuring his right hip. He was evaluated at [facility] Emergency room where radiographs and a CT scan showed a displaced femoral neck fracture. Meds Home Medications and Allergies Home Medications Medication Instructions Recorded Confirmed Type gabapentin 600 mg tablet 1,200 mg PO TID 09/09/20 05/07/22 History famotidine 20 mg tablet 20 mg PO BID PRN Acid Reflux 09/10/20 05/07/22 History simvastatin 80 mg tablet 250 mg PO BEDTIME 09/10/20 05/07/22 History insulin glargine 100 unit/mL 20 unit SUBCUT BID 05/07/22 05/07/22 History subcutaneous cartridge insulin lispro 100 unit/mL 1 sliding scale dose SUBCUT 05/07/22 05/07/22 History subcutaneous pen USEASDIRECTD Allergies Allergy/AdvReac Type Severity Reaction Status Date / Time diphenhydramine Allergy Verified 05/07/22 17:11 [From Benadryl] morphine Allergy Verified 05/07/22 17:11 Sulfa (Sulfonamide Allergy Verified 05/07/22 17:11 Antibiotics) Review of Systems Review of Systems Narrative: He reports he is in his usual state of health. He denies any recent signs of infection. Exam Vital Signs (past 8 hours): - 05/08/22 05:47 Temperature 99.1 F Pulse Rate 102 H Respiratory Rate 20 Blood Pressure 135/74 Pulse Oximetry 98 Oxygen Flow Rate 0 Oxygen Delivery Method Room Air Oxygen Flow Rate 0 Narrative Exam Narrative: The patient is examined while resting in his hospital bed. He is comfortable except for intermittent right hip muscle spasms. The area of the proposed incision on the right hip is without skin lesion. He is a below-knee amputee so neurologic examination of the foot is not possible. Objective Labs Result Diagrams: 05/08/22 06:50 05/08/22 06:50 Labs: Laboratory Results - last 24 hr 05/07/22 05/07/22 05/07/22 18:00 18:00 18:00 WBC 13.5 H RBC 4.36 L Hgb 12.4 L Hct 36.6 L MCV 84.1 MCH 28.5 MCHC 33.9 RDW 12.6 Plt Count 183 Neut % (Auto) 80.4 H Lymph % (Auto) 10.7 L [place] % (Auto) 8.2 Eos % (Auto) 0.5 L Baso % (Auto) 0.2 Neut # (Auto) 05260 H Lymph # (Auto) 1400 [place] # (Auto) 1100 H Eos # (Auto) 100 Baso # (Auto) 0 PT 13.0 H INR 1.1 APTT 31 Sodium 137 Potassium 3.8 Chloride 100 Carbon Dioxide 27 BUN 17 Creatinine 0.59 L Estimated GFR > 60 BUN/Creatinine Ratio 28.8 H Glucose 236 H Lactate Calcium 9.0 Total Bilirubin 1.7 H AST 31 ALT 41 Alkaline Phosphatase 71 Total Protein 7.7 Albumin 4.1 Globulin 3.6 Albumin/Globulin Ratio 1.1 Lipase 17 L U Opiates 300ng/mL cut Ur Oxycodone Screen Urine Methadone Screen Ur Barbiturates Screen U Tricyclic Antidepress Ur Phencyclidine Scrn Ur Amphetamines Screen U Methamphetamines Scrn Ur MDMA Scrn (Ecstasy) U Benzodiazepines Scrn Urine Cocaine Screen U Marijuana (THC) Screen Ethyl Alcohol < 10 SARS-CoV-2 (PCR) Influenza A (RT-PCR) Influenza B (RT-PCR) RSV (PCR) Blood Type Antibody Screen 05/07/22 05/07/22 05/07/22 18:00 18:00 18:00 WBC RBC Hgb Hct MCV MCH MCHC RDW Plt Count Neut % (Auto) Lymph % (Auto) [place] % (Auto) Eos % (Auto) Baso % (Auto) Neut # (Auto) Lymph # (Auto) [place] # (Auto) Eos # (Auto) Baso # (Auto) PT INR APTT Sodium Potassium Chloride Carbon Dioxide BUN Creatinine Estimated GFR BUN/Creatinine Ratio Glucose Lactate 1.1 Calcium Total Bilirubin AST ALT Alkaline Phosphatase Total Protein Albumin Globulin Albumin/Globulin Ratio Lipase U Opiates 300ng/mL cut Ur Oxycodone Screen Urine Methadone Screen Ur Barbiturates Screen U Tricyclic Antidepress Ur Phencyclidine Scrn Ur Amphetamines Screen U Methamphetamines Scrn Ur MDMA Scrn (Ecstasy) U Benzodiazepines Scrn Urine Cocaine Screen U Marijuana (THC) Screen Ethyl Alcohol SARS-CoV-2 (PCR) Negative Influenza A (RT-PCR) Flu a negative Influenza B (RT-PCR) Flu b negative RSV (PCR) Negative Blood Type O Positive Antibody Screen Negative 05/08/22 05/08/22 05/08/22 02:53 06:50 06:50 WBC 9.8 RBC 4.23 L Hgb 12.0 L Hct 35.8 L MCV 84.6 MCH 28.4 MCHC 33.6 RDW 12.7 Plt Count 177 Neut % (Auto) 74.7 Lymph % (Auto) 15.7 L [place] % (Auto) 8.1 Eos % (Auto) 1.4 L Baso % (Auto) 0.1 Neut # (Auto) 7300 H Lymph # (Auto) 1500 [place] # (Auto) 800 Eos # (Auto) 100 Baso # (Auto) 0 PT INR APTT Sodium 138 Potassium 3.9 Chloride 101 Carbon Dioxide 29 BUN 15 Creatinine 0.62 L Estimated GFR > 60 BUN/Creatinine Ratio 24.2 H Glucose 217 H Lactate Calcium 8.4 Total Bilirubin AST ALT Alkaline Phosphatase Total Protein Albumin Globulin Albumin/Globulin Ratio Lipase U Opiates 300ng/mL cut Negative Ur Oxycodone Screen Negative Urine Methadone Screen Negative Ur Barbiturates Screen Negative U Tricyclic Antidepress Negative Ur Phencyclidine Scrn Negative Ur Amphetamines Screen Negative U Methamphetamines Scrn Negative Ur MDMA Scrn (Ecstasy) Negative U Benzodiazepines Scrn Negative Urine Cocaine Screen Negative U Marijuana (THC) Screen Negative Ethyl Alcohol SARS-CoV-2 (PCR) Influenza A (RT-PCR) Influenza B (RT-PCR) RSV (PCR) Blood Type Antibody Screen Radiographs the right hip have been reviewed independently. These show an angulated fracture of the right femoral neck with substantial retroversion at the fracture site. There is a large gap at the femoral neck. This is not an ?impacted fracture?. It is likely he has damaged the blood vessels to the femoral head. [facility] Medical History Diabetes Hyperlipidemia Hypertension Surgical History History of cholecystectomy Family History Father Diabetes mellitus Cancer Mother Cancer Social History marital status: household members: spouse and children pets and animals: Yes Tobacco & Substance Use Smoking Status: Never smoker alcohol intake: current Assessment & Plan Assessment & Plan narrative: The patient is a 57-year-old diabetic gentleman with a below-knee amputation on the right. He has a mild anemia but not one that is severe enough he needs to be transfused before surgery. He has a displaced, closed, right femoral neck fracture. The displacement has likely damaged the blood vessels to the femoral head which puts him at risk for avascular necrosis. This is in fact not an ?impacted fracture?. Reduction of the displacement would involve traction on the leg which is applied through a foot lou. This is complicated by the fact he does not have a foot. Given the risk of avascular necrosis in the difficulties of applying traction, I think his best option is a hemiarthroplasty. I have discussed the risks benefits and alternatives of the surgery with the patient. Risks discussed included but were not limited to: Failure to improve, stiffness, infection, nerve damage, deep venous thrombosis, pulmonary embolism, stroke, myocardial infarction, permanent paralysis, , dislocation of the prosthetic, and potential leg length discrepancy which would require adjustment of his prosthesis. He understands these risks and agrees to proceed. He has been NPO overnight and I have discussed his care with the hospitalist, he is scheduled for surgery later today. COVID-19 COVID-19 status: Negative Result date/Date tested (Pos, Neg/Pending): 05/07/22 Time Spent With Patient Time with patient: 30 to 49 minutes with 50% spent counseling/coordinating care Critical Care time: I spent a total of [] minutes of critical care time on this patient's care today; this time is exclusive of procedural time.
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
[2022-05-08] MEDS: CEFAZOLIN 2 GM/100 ML PREMIX 100 ML IV ×2 (13:00→21:00)
[2022-05-08] MEDS: TRANEXAMIC ACID 1,000 MG in SODIUM CHLORIDE 0.9% 100 ML 200 MG IV ×2 (13:15→14:43)
--- NOTE | 2022-05-08 13:29 | SUR.OPER ---
Lateral on padded OR bed. Gel axillary roll. Arms secured on padded armboard with pillow supporting top arm. Padded hip positioner braces x4 - anterior and posterior chest and pelvis. Additional gel pad used anterior pelvis. Gel pad under bottom leg from knee to foot and secured with tape over sheet.
[2022-05-08] MEDS: BUPIVACAINE 0.25% (PF) 30 ML, EPINEPHrine 0.15 MG INJ (13:38)
[2022-05-08] MEDS: LACTATED RINGERS 1,000 ML 120 ML IV (14:04)
--- NOTE | 2022-05-08 15:06 | PM.OP.1 ---
Operative Date/Time/Diagnoses Date of procedure: 05/08/22 Time of procedure: 15:06 Pre-op diagnosis: 1. Right closed displaced femoral neck fracture. 2. Status post right below-knee amputation Post-op diagnosis: same (Also additional diagnosis of intraoperative nondisplaced greater trochanteric fracture) Procedure & Clinicians Procedure: 1. Right hip hemiarthroplasty for femoral neck fracture 2. Open reduction internal fixation of intraoperative greater trochanteric fracture Same procedure as scheduled: No (Additional internal fixation performed, hemiarthroplasty was scheduled.) Surgeon: Ish Solis Advanced Practice Provider: Delmy Lcoo Click Yes if Unassisted: No Anesthesia Type: General and Local Operative Notes Findings: Displaced femoral neck fracture and intraoperative nondisplaced transverse greater trochanteric fracture. Closure Type: primary Specimen(s): none sent Prosthetic devices, grafts, tissues, transplants, or devices: Implants used in this procedure manufactured by the [employer] and [employer] and included a size 14 synergy cemented femoral component with a 11 mm distal centralizer, a 52 mm tandem unipolar femoral head, a +0 neck adapter, a plastic bone plug for the canal and an 85 mm 3 cable standard trochanteric handbook writer with 2 cables of 2.0 mm diameter. Applied: implant(s) Estimated Blood Loss (mL): 250 Blood products transfused: none Procedure in detail: The patient was seen in the pre-operative area, where they identified the right hip as the operative site and this was marked with my initials. The patient received pre-operative antibiotics and was taken to the operating room and placed on the operative table in the left lateral decubitus position after satisfactory anesthesia. A aircraft time clerk out was performed. The right leg was prepared from the end of the amputation stump to the iliac crest with ChloroPrep in the usual fashion and draped through sterile drapes. The hip was approached through an approximately 18 cm incision centered over the greater trochanter and curving gently posteriorly as it went proximally. This was carried sharply to the fascia sravanthi, which was divided and retracted with a self-retaining retractor. The trochanteric bursa was excised with care being taken to avoid the sciatic nerve, which was identified and protected throughout the case. The short external rotators were incised and the capsulomuscular flap was raised and tagged for later repair. The femoral head was removed with a ?corkscrew?, and the femoral neck osteotomy performed approximately 15 mm above the lesser trochanter. Retractors were placed to expose the acetabulum and a trial femoral head placed to confirm the size of the ball. We then turned our attention to the femur. The canal was opened with a box cutting osteotome, followed by a T handled reamer and a lateralizing reamer. T-handled reamers were used until good cortical fit. The broaches were used, sequentially enlarging until a good fit was obtained. During broaching the broaches caught on an overhang on the greater trochanter and this caused a transverse, nondisplaced fracture. A trial head and neck were then placed and the hip relocated and checked for stability. The patient was stable in the position of sleep, of squatting, and could be put through a range of motion with 45 degrees internal rotation without dislocation. The appropriate components were opened, and the trials were removed. The canal was prepared by placing a distal cement plug. The pulsatile lavage was used followed by an epinephrine-soaked sponge for hemostasis. Cement was then retrograde injected and pressurized. The final stem was then impacted into the prepared femoral canal. Finally the femoral head was impacted onto the stem. The acetabulum was cleared of all material and the hip relocated one final time. At this point we applied the 85 mm standard trochanteric handbook writer to the greater trochanter. Two cables were placed 1 in the upper hole and 1 in the most distal hole. This provided satisfactory fixation of the transverse greater trochanteric fracture after impacting the handbook writer into place. The cables were tightened to 80-100 lb of tension. Radiographs were obtained intra-operatively confirming the position of all components and confirming that the greater trochanteric fracture was appropriately reduced. The capsulomuscular flap was examined and found to be too short to repair to the greater trochanter. The wound was extensively irrigated with pulsatile lavage. The fascia sravanthi was closed with running and interrupted 0 Vicryl. The subcutaneous layer was closed with interrupted 3-0 Vicryl, and the skin with a running 3-0 V-Lock suture and Dermabond. An Aquacel Ag dressing was applied and the patient was taken to recovery having tolerated the procedure well. The services of Ms. Loco were required for this surgery as a skilled back office medical assistant to provide traction, positioning and retraction to protect vital structures during the procedure. This procedure was made particularly difficult by the patient's status as a prior below-knee amputee as the leg was difficult to manipulate without the shank to provide traction and leverage. Without the assistance of a skilled back office medical assistant the procedure could not have been performed expediently and safely. Complications: other (Iatrogenic intraoperative transverse nondisplaced greater trochanteric fracture during broaching.) Post-operative Condition: stable Disposition: PACU Plan for aftercare: The patient will be allowed to weight bear as tolerated on his below-knee prosthesis. Will be discharged to home once he is stable. It is possible he will require a short stay at a group home facility.
[2022-05-08] MEDS: OXYCODONE IR 5 MG TABLET PO (16:04)
--- NOTE | 2022-05-08 16:36 | SUR.PHASEI ---
1550: HR remains high 119-124. sbp 140's. patient denies pain. Has urge to urinate, but not able to void at this time. Dr. Solis aware of high HR. Instructed to refer to hospitalist once on acute care floor. Notified receiving RN of these instructions. Transferring patient to floor.
[2022-05-08] MEDS: INSULIN LISPRO 100 UNIT/ML 3ML VIAL SUBCUT ×2 (17:05→21:22)
--- NOTE | 2022-05-08 18:00 | P.PN_ITS ---
Subjective Subjective Interval history: 57-year-old gentleman with diabetes mellitus type 2, insulin dependent, h yperlipidemia and previous right BKA last year for gangrene/osteomyelitis who was admitted last evening with a right hip fracture after a fall. Patient reports he is having pain in his right hip. He is also having some spasms. He is awaiting surgery this morning. No chest pain or shortness of br eath. Exam Vital Signs (past 8 hours): - 05/08/22 12:30 05/08/22 15:23 05/08/22 15:48 Temperature 99.3 F 97.8 F 97.9 F Pulse Rate 99 H 114 H 121 H Respiratory Rate 16 20 18 Blood Pressure 130/86 150/86 H 153/95 H Pulse Oximetry 93 97 93 Oxygen Delivery Method Room Air Simple Mask Room Air Oxygen Flow Rate 05/08/22 16:20 05/08/22 15:28 05/08/22 15:33 Temperature 98.3 F Pulse Rate 121 H 121 H 118 H Respiratory Rate 16 18 14 Blood Pressure 137/78 150/86 H 140/87 Pulse Oximetry 94 91 96 Oxygen Delivery Method Room Air Nasal Cannula Oxygen Flow Rate 4 4 05/08/22 16:00 05/08/22 16:55 Temperature 98.3 F Pulse Rate 121 H 120 H Respiratory Rate 18 16 Blood Pressure 142/87 H 142/70 H Pulse Oximetry 91 95 Oxygen Delivery Method Room Air Oxygen Flow Rate 2 Oxygen Delivery Method Room Air Oxygen Flow Rate 2 Narrative Exam Narrative: GEN: Pleasant middle-aged male, Alert and oriented x 3, NAD HEENT:NC, Face symmetric CHEST: Respiratory excursions symmetric, CTAB CV: RRR, no M/R/G ABD: Soft, NT/ND, BT present in all 4 quadrants, no organomegaly or masses EXTR: warm, well perfused, right lower extremity stump not visualized due to his hip pain SKIN: warm and dry, no rash NEURO: Alert and oriented x 3, nonfocal Objective Labs Result Diagrams: 05/08/22 06:50 05/08/22 06:50 Labs: Laboratory Results - last 24 hr 05/07/22 05/07/22 05/07/22 18:00 18:00 18:00 WBC 13.5 H RBC 4.36 L Hgb 12.4 L Hct 36.6 L MCV 84.1 MCH 28.5 MCHC 33.9 RDW 12.6 Plt Count 183 Neut % (Auto) 80.4 H Lymph % (Auto) 10.7 L Barren % (Auto) 8.2 Eos % (Auto) 0.5 L Baso % (Auto) 0.2 Neut # (Auto) 73122 H Lymph # (Auto) 1400 Barren # (Auto) 1100 H Eos # (Auto) 100 Baso # (Auto) 0 PT 13.0 H INR 1.1 APTT 31 Sodium 137 Potassium 3.8 Chloride 100 Carbon Dioxide 27 BUN 17 Creatinine 0.59 L Estimated GFR > 60 BUN/Creatinine Ratio 28.8 H Glucose 236 H Lactate Calcium 9.0 Total Bilirubin 1.7 H AST 31 ALT 41 Alkaline Phosphatase 71 Total Protein 7.7 Albumin 4.1 Globulin 3.6 Albumin/Globulin Ratio 1.1 Lipase 17 L U Opiates 300ng/mL cut Ur Oxycodone Screen Urine Methadone Screen Ur Barbiturates Screen U Tricyclic Antidepress Ur Phencyclidine Scrn Ur Amphetamines Screen U Methamphetamines Scrn Ur MDMA Scrn (Ecstasy) U Benzodiazepines Scrn Urine Cocaine Screen U Marijuana (THC) Screen Ethyl Alcohol < 10 SARS-CoV-2 (PCR) Influenza A (RT-PCR) Influenza B (RT-PCR) RSV (PCR) Blood Type Antibody Screen 05/07/22 05/07/22 05/07/22 18:00 18:00 18:00 WBC RBC Hgb Hct MCV MCH MCHC RDW Plt Count Neut % (Auto) Lymph % (Auto) Barren % (Auto) Eos % (Auto) Baso % (Auto) Neut # (Auto) Lymph # (Auto) Barren # (Auto) Eos # (Auto) Baso # (Auto) PT INR APTT Sodium Potassium Chloride Carbon Dioxide BUN Creatinine Estimated GFR BUN/Creatinine Ratio Glucose Lactate 1.1 Calcium Total Bilirubin AST ALT Alkaline Phosphatase Total Protein Albumin Globulin Albumin/Globulin Ratio Lipase U Opiates 300ng/mL cut Ur Oxycodone Screen Urine Methadone Screen Ur Barbiturates Screen U Tricyclic Antidepress Ur Phencyclidine Scrn Ur Amphetamines Screen U Methamphetamines Scrn Ur MDMA Scrn (Ecstasy) U Benzodiazepines Scrn Urine Cocaine Screen U Marijuana (THC) Screen Ethyl Alcohol SARS-CoV-2 (PCR) Negative Influenza A (RT-PCR) Flu a negative Influenza B (RT-PCR) Flu b negative RSV (PCR) Negative Blood Type O Positive Antibody Screen Negative 05/08/22 05/08/22 05/08/22 02:53 06:50 06:50 WBC 9.8 RBC 4.23 L Hgb 12.0 L Hct 35.8 L MCV 84.6 MCH 28.4 MCHC 33.6 RDW 12.7 Plt Count 177 Neut % (Auto) 74.7 Lymph % (Auto) 15.7 L Barren % (Auto) 8.1 Eos % (Auto) 1.4 L Baso % (Auto) 0.1 Neut # (Auto) 7300 H Lymph # (Auto) 1500 Barren # (Auto) 800 Eos # (Auto) 100 Baso # (Auto) 0 PT INR APTT Sodium 138 Potassium 3.9 Chloride 101 Carbon Dioxide 29 BUN 15 Creatinine 0.62 L Estimated GFR > 60 BUN/Creatinine Ratio 24.2 H Glucose 217 H Lactate Calcium 8.4 Total Bilirubin AST ALT Alkaline Phosphatase Total Protein Albumin Globulin Albumin/Globulin Ratio Lipase U Opiates 300ng/mL cut Negative Ur Oxycodone Screen Negative Urine Methadone Screen Negative Ur Barbiturates Screen Negative U Tricyclic Antidepress Negative Ur Phencyclidine Scrn Negative Ur Amphetamines Screen Negative U Methamphetamines Scrn Negative Ur MDMA Scrn (Ecstasy) Negative U Benzodiazepines Scrn Negative Urine Cocaine Screen Negative U Marijuana (THC) Screen Negative Ethyl Alcohol SARS-CoV-2 (PCR) Influenza A (RT-PCR) Influenza B (RT-PCR) RSV (PCR) Blood Type Antibody Screen [facility] Medical History Diabetes Hyperlipidemia Hypertension Surgical History History of cholecystectomy Family History Father Diabetes mellitus Cancer Mother Cancer Social History marital status: household members: spouse and children pets and animals: Yes Smoking Status: Never smoker alcohol intake: current Assessment & Plan Assessment & Plan narrative: 1. Right femoral neck fracture secondary to mechanical fall Patient will go to the OR today for right hemiarthroplasty per Dr. Solis. Po stoperatively will work on mobilization and pain control 2. Leukocytosis White count was 13.5 on admission. It has normalized today. This is likely a stress reaction. 3. Status post right BKA Certainly this will impact his postoperative mobility. He was working with prosthetics on getting a new prosthetic as his prior 1 was not fitting well. 4. Type 2 diabetes Patient typically takes Lantus 20 units twice daily as well as 1-8 units t.i.d. with meals. He is currently NPO. Resume usual insulin dosing postoperatively 5. Diabetic peripheral neuropathy Continue gabapentin 6. Hyperlipidemia Continue statin therapy Code status Full Prophylaxis initiate Lovenox postop Disposition Pending Time Spent With Patient Critical Care time: I spent a total of [] minutes of critical care time on this patient's care tod ay; this time is exclusive of procedural time. Quality VTE Deep Vein Thrombosis/Pulmonary Embolism Present on Admission: No
[2022-05-08] MEDS: ACETAMINOPHEN 325 MG TABLET 650 MG PO (18:28)
[2022-05-08] MEDS: IBUPROFEN 400 MG TABLET PO (18:28)
[2022-05-08] MEDS: OXYCODONE IR 10 MG TABLET PO (20:28)
[2022-05-08] MEDS: ASPIRIN EC 81 MG TABLET PO (21:00)
[2022-05-08] MEDS: INSULIN GLARGINE 100 UNIT/ML 3ML PEN 20 UNIT SUBCUT (21:21)
[2022-05-09] VITALS (8 sets, daily range): BP systolic 100–127; BP diastolic 46–65; PULSE 16–96; RESP 16–18; TEMP 36.4–37.1; O2SAT 93–98
[2022-05-09] MEDS: IBUPROFEN 400 MG TABLET PO ×5 (01:14→23:57)
[2022-05-09] MEDS: ACETAMINOPHEN 325 MG TABLET 650 MG PO ×5 (01:15→23:57)
[2022-05-09] MEDS: CEFAZOLIN 2 GM/100 ML PREMIX 100 ML IV (05:31)
[2022-05-09 06:51] LABS: BUN Creatinine Ratio 20.6 (6-22); Blood Urea Nitrogen 14 mg/dL (9-20); Calcium 7.4 mg/dL (8.4-10.2); Carbon Dioxide 26 mmol/L (22-32); Chloride 100 mmol/L (98-107); Estimated Glomerular Filt Rate > 60 mL/min (>60); Glucose 182 mg/dL (70-100); HEMOLYSIS < 15 (0-50); Potassium 3.6 mmol/L (3.4-5.1); Sodium 135 mmol/L (137-145)
[2022-05-09 06:56] LABS: Hematocrit 27.6 % (41-53); Hemoglobin 9.5 g/dL (13.5-17.5)
--- NOTE | 2022-05-09 07:34 | PM.PNPO.1 ---
Subjective Subjective Date Patient Seen: 05/09/22 Time Patient Seen: 07:34 Interval history: The patient reports he is still having muscle spasms. He also reports he has no plans of using his below-knee prosthesis until it is evaluated as it was part of the reason he fell. Exam Vital Signs (past 8 hours): - 05/09/22 00:00 05/09/22 06:00 Temperature 98.1 F 97.6 F Pulse Rate 92 H 16 L Respiratory Rate 18 16 Blood Pressure 100/47 L 116/65 Pulse Oximetry 95 96 Oxygen Flow Rate 1 1 Oxygen Delivery Method Nasal Cannula Oxygen Flow Rate 1 Narrative Exam Narrative: Right hip wound is dressed with no significant drainage on the bandage. Log roll of the lower extremity is only mildly uncomfortable. Objective Labs Result Diagrams: 05/09/22 06:16 05/09/22 06:16 Labs: Laboratory Results - last 24 hr 05/08/22 05/08/22 05/09/22 06:50 06:50 06:16 WBC 9.8 RBC 4.23 L Hgb 12.0 L 9.5 L Hct 35.8 L 27.6 L MCV 84.6 MCH 28.4 MCHC 33.6 RDW 12.7 Plt Count 177 Neut % (Auto) 74.7 Lymph % (Auto) 15.[address] [place] % (Auto) 8.1 Eos % (Auto) 1.4 L Baso % (Auto) 0.1 Neut # (Auto) 7300 H Lymph # (Auto) 1500 [place] # (Auto) 800 Eos # (Auto) 100 Baso # (Auto) 0 Sodium 138 Potassium 3.9 Chloride 101 Carbon Dioxide 29 BUN 15 Creatinine 0.62 L Estimated GFR > 60 BUN/Creatinine Ratio 24.2 H Glucose 217 H Calcium 8.4 05/09/22 06:16 WBC RBC Hgb Hct MCV MCH MCHC RDW Plt Count Neut % (Auto) Lymph % (Auto) [facility] % (Auto) Eos % (Auto) Baso % (Auto) Neut # (Auto) Lymph # (Auto) [facility] # (Auto) Eos # (Auto) Baso # (Auto) Sodium 135 L Potassium 3.6 Chloride 100 Carbon Dioxide 26 BUN 14 Creatinine 0.68 Estimated GFR > 60 BUN/Creatinine Ratio 20.6 Glucose 182 H Calcium 7.4 L [facility] Medical History Diabetes Hyperlipidemia Hypertension Surgical History History of cholecystectomy Family History Father Diabetes mellitus Cancer Mother Cancer Social History marital status: household members: spouse and children pets and animals: Yes Smoking Status: Never smoker alcohol intake: current Assessment & Plan Post-op Postoperative Procedures: Procedures Operation Date: 05/08/22 15:00 Actual Procedure Side Surgeon p Hip Hemiarthroplasty OPEN REDUCTION INTERNAL FIXATION OF RIGHT GREATER TROCHANTERIC FRACTURE Right Ish Solis MD Postoperative day: 1 Postoperative status: doing well, marginal pain control and anemia Postoperative status narrative: He is stable postoperatively with a post hemorrhagic anemia. He is having some ongoing muscle spasms which are less severe than they were preoperatively. He is set up at home with a wheelchair and a walker. He is well-versed in walking without his right leg as he has a below-knee amputation on this side. Postoperative plan: routine post-op care and ambulate Postoperative plan narrative: I will add Vistaril for his muscle spasms. He will continue the oxycodone for pain relief. Provided he makes satisfactory progress with physical therapy, he can be discharged to home when cleared by the medical service. I will need to see him in our office in 2 weeks. He can begin ambulating in his prosthetic once he has it revised by the traffic engineering director. Quality VTE Deep Vein Thrombosis/Pulmonary Embolism Present on Admission: No
[2022-05-09] MEDS: INSULIN LISPRO 100 UNIT/ML 3ML VIAL SUBCUT ×4 (08:30→21:50)
[2022-05-09] MEDS: INSULIN GLARGINE 100 UNIT/ML 3ML PEN 20 UNIT SUBCUT ×2 (08:37→21:50)
[2022-05-09] MEDS: hydrOXYzine pamoate 25 MG CAPSULE PO (08:38)
[2022-05-09] MEDS: ASPIRIN EC 81 MG TABLET PO ×2 (08:38→21:50)
[2022-05-09] MEDS: OXYCODONE IR 5 MG TABLET PO (08:38)
--- NOTE | 2022-05-09 10:42 | PT.IIE ---
Current Diagnoses Pathological fracture, right femur, initial encounter for fracture (05/07/22) Surgery Performed Operation Date: 05/08/22 15:00 Actual Procedures p Hip Hemiarthroplasty OPEN REDUCTION INTERNAL FIXATION OF RIGHT GREATER TROCHANTERIC FRACTURE(Right) - Ish Solis MD Surgical History (Last Reviewed 05/08/22 @ 08:36 by Ish Solis MD) History of cholecystectomy Medical History (Last Reviewed 05/08/22 @ 08:36 by Ish Solis MD) Diabetes Hyperlipidemia Hypertension Physical Therapy Inpatient Evaluation/Re-Eval M1 PT/OT-IP Prior Functional Status Start: 05/09/22 09:03 Freq: NEEDED Status: Active Protocol: Document 05/09/22 10:42 AW (Rec: 05/09/22 11:11 AW [email or web address]) Medical Review Prior Functional Status Medical History Reviewed Yes Communication Pt is able to make needs known Mobility and Gait 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 He went to SNF and ended up home with a prosthesis. He wears his prosthesis daily but notes it has been fitting poorly for the last several months. He walks without AD while wearing his prosthesis. Otherwise, he mobilizes in a wheelchair. He has fallen three times in the last year while wearing the prosthesis. He is currently working with the ESTABLISHMENT GUIDE at [employer] for a new one. Activities of Daily Living and IADL's Modified independent with ADL' s. Pt and his do not drive. He depends on friends or paratransit for transportation. Social History Household Members spouse,children Living Arrangements Mobile home Number of Floors (Floors) One Floor Number of Stairs To Enter/Railing? Ramped entry. Home Environment Standard Height Toilet,Tub/ Shower,Ramp Home Equipment Front Wheel Walker,Straight Cane,Manual Wheelchair,Bedside Commode,Shower Seat with Backrest,Hand Held Shower, Electrocardiograph Repairer Additional Social History Comment Pt lives with his spouse and 23 yo son. His works multimedia programmer outside the home and his son is not dependable per pt. M2 PT-IP Current Condition Start: 05/09/22 09:03 Freq: NEEDED Status: Active Protocol: Document 05/09/22 10:42 AW (Rec: 05/09/22 11:34 AW [email or web address]) Physical Therapy Current Condition Current Condition Evaluation Date 05/09/22 Treatment Diagnosis R femoral neck fx s/p hemiarthroplasty; BKA; impaired mobility and gait Onset Date 05/07/22 M3 PT-IP Subjective Start: 05/09/22 09:03 Freq: NEEDED Status: Active Protocol: Document 05/09/22 10:42 AW (Rec: 05/09/22 11:34 AW [email or web address]) Subjective Physical Therapy Visit Type Type Initial Evaluation Visit Start Time 09:52 Visit Stop Time 10:42 Total Visit Minutes 50 Notes POSTERIOR HIP PRECAUTIONS Pre mobility: BP 104/57 HR 90. Post mobility: BP 129/60 HR 101. Number of MEDIA CENTER ASSISTANT Visits 0 Physical Therapy Visit Comments Patient Comments Pt is hesitant but ultimately willing to participate with PT Patient Goals Pt is concerned he may not fare well at home, is open to rehab. Therapy Pain Assessment Pain When Pain Assessed During Mobility Pain Present Pain Present Pain Reported Location Right Hip Intensity 10 Scale Used 4/10 at rest; sharp 10/10 while moving Description Pulling,Sharp,Spasm Pain Behaviors Calling Out,Facial Grimacing, Guarding,Restlessness,Wincing Pain Management Techniques Modification of Treatment,Re- positioning,Timing of Activity with Medications M4 PT-IP Mobility and Gait Start: 05/09/22 09:03 Freq: NEEDED Status: Active Protocol: Document 05/09/22 10:42 AW (Rec: 05/09/22 11:34 AW [email or web address]) PT-Bed Mobility Assessment Rolling Type of Rolling Roll to Right Level of Assist Minimal Assistance Supine to Sit Supine to Sit Maximum Assistance,1 Person Assistance,2 Person Assistance ,Head of Bed Elevated,Bedrails Sit to Supine Sit to Supine Maximum Assistance,1 Person Assistance,Bedrails Scooting Scooting to Edge of Bed Maximum Assistance Scooting Up and Down in Bed Moderate Assistance,Maximum Assistance PT-Transfer Assessment Sit to and From Stand Sit to and from Stand Maximum Assistance,1 Person Assistance,2 Person Assistance ,Use of Upper Extremities Equipment Transfer Assistive Device Gait Belt,Front Wheeled Walker Orthotic/Prosthetic Devices or Brace: No Comments Mobility Comments Pt was lying in bed as PT arrived. Reviewed precautions with pt. He rolled to his right side min A. He agreed to sit up on left side of the bed. He needed max A and sequencing cues for supine to sit with HOB raised and heavy use of bed rails. In sitting, he needed extra time and cues for scooting forward while maintaining posterior hip precautions. Sitting balance at EOB was good. PT assisted pt to don sock and boot for LLE. Pt is very clear that he will not be using his prosthesis as it contributed to his fall. PT raised the bed several inches and pt stood max A x 1-2 but with poor quad activation on LLE. He needed to sit after ~5 seconds. He expressed fear of falling several times but agreed to try again. He stood max A x 1- 2 and responded fairly to cues for quads activation and hip extension. He attempted to pivot on his left foot but felt too weak and unstable. He sat EOB and needed max A to return to supine. Pt was left with call light in reach and bed alarm on for safety. Gait Assessment Comments Gait Comments Unable at this time. Stair Climbing Assessment Comments Stair Climbing Comments Pt has ramped entry at home. PT-Balance Assessment Sitting Balance and Reactions Static Sitting Balance Ability Good Dynamic Sitting Balance Ability Fair Standing Balance and Reactions Static Standing Balance Ability Poor Device Used FWW Comments Other Balance Tests/Deviations/Treatment Pt needs bed cane and rails at : all times in sitting for support. He is often attempting to offweight his right hip in sitting due to pain. M5 PT-IP Objective Assessments Start: 05/09/22 09:03 Freq: NEEDED Status: Active Protocol: Document 05/09/22 10:42 AW (Rec: 05/09/22 11:34 [email or web address]) Orientation Orientation/Cognition Level of Alertness Alert Orientation Name,Day of Week,Place, Situation Language Function Ability No Deficits Noted Safety Awareness Understands Safety Issues Memory Description No Deficits Noted Gross Range of Motion Upper Extremity ROM Assessment Within Functional Limits Strength Lower Extremity Strength Hip R 3/5; L 4-/5 Knee R 3+/5; L 4+/5 Ankle L 3/5 Sensation Assessment Sensation Gross Sensation Left LE Impaired Light Touch Impaired Proprioception (Position) Impaired Sensation Description Numbness Comments Sensation Comments Neuropathy affects sensation and strength of left foot and ankle. Muscle Tone Muscle Tone WNL Yes M6 PT-IP Treatment Start: 05/09/22 09:03 Freq: NEEDED Status: Active Protocol: Document 05/09/22 10:42 AW (Rec: 05/09/22 11:34 AW [email or web address]) Physical Therapy Treatment Education Education Provided Precautions,Weight Bearing Status,Post-Op Packet,Safety M7 PT-IP Assessment and Plan Start: 05/09/22 09:03 Freq: NEEDED Status: Active Protocol: Document 05/09/22 10:42 AW (Rec: 05/09/22 11:34 AW [email or web address]) PT Summary Assessment and Plan Potential Rehabilitation Potential Fair Status of Condition at Evaluation Evolving Summary Impairments Pain,ROM,Strength,Balance, Sensation,Bed Mobility, Transfers,Gait,Activity Tolerance Assessment Summary Cyrus is a 57 yo man with diabetes who underwent right trans-tibial amputation 1.5 years ago. He has been using a prosthesis to ambulate but reports it fits poorly. He has fallen at least three times in the past year. Most recent fall resulted in right femoraral neck fracture. He is now POD1 following hemiarthroplasty with posterior approach. On assessment today, pt required max assist of 1-2 people for bed mobility and sit to stand from elevated bed. He was limited by pain, weakness, and fear of falling. Recommending akhil lift for transfers with nursing. Pt has very little assist at home. He will require SNF rehab to provide 24/ assist with mobility and to work toward functional strengthening. Goals Bed Mobility Goal Contact Guard Assistance Transfer Goal Minimal Assistance,Front Wheeled Walker Gait Goal Minimal Assistance,Front Wheel Walker Gait Distance 20 Other Goals - progress transfers and gait to CGA with FWW Days to Meet Goals 10 Frequency of Treatment Frequency Of Treatment Once a Day Treatment Plan Physical Therapy Treatment Plan Bed Mobility Training,Transfer Training,Gait Training, Therapeutic Exercise,Balance Retraining,Post Op Education, Discharge Planning,Hot or Cold Pack,Neuromuscular Re-ed Other Recommendations and Next Treatment Bed mobility. Consider slide Focus board or squat pivot transfer. Precautions Posterior Hip Precautions No Hip Flexion > 90 degrees,No Hip Internal Rotation,No Hip Adduction Weight Bearing Status Weight Bearing Status Weight Bear as Tolerated Recommendations To Nursing Amount of Assist Needed Mechanical Lift Discharge Recommendations PT Discharge Recommendations SNF Rehab Transportation Needs at Discharge Wheelchair/Cabulance
[2022-05-09] MEDS: OXYCODONE IR 10 MG TABLET PO ×2 (11:48→22:08)
--- NOTE | 2022-05-09 12:40 | OT.IPNOTE ---
Attempted to see pt for OT services first in the AM and pt had just completed P.T. and states fatigue and discomfort. Attempted again later ~1240 and pt declined stating he thinks he will feel better tomorrow. Will hold and continue to follow.
--- NOTE | 2022-05-09 13:52 | CM.DPC ---
DCP SNF Planning: Per Ortho MD, pt tolerated surgery well and to work with PT/OT today to determine d/c needs. Per PT/OT, pt limited due to pain and currently recommending SNF before safe return home as pt has not been able to ambulate yet but will keep working with him. Pt agreeable with SNF and aware that his straight Medicaid could be a barrier to SNF and therefore broad SNF referrals made. [facility] and [facility] admissions state that they cannot currently accept straight Medicaid pt. [facility]- left detailed msg with admissions and faxed [facility]- left detailed msg with admissions and faxed [facility]- spoke to admissions with pt info and willing to review and faxed [facility]- left detailed msg with admissions and faxed [facility] completed in anticipation of SNF. SW called [facility] as pt has utilized their HH services before and confirmed they discharged him in Feb and do not anticipate any issues with accepting new referral again if needed and pt improves for home or cannot be placed at SNF. No referral sent yet. Plan: SW to follow closely for above SNFs review to determine if pt can be accepted at SNF under straight Medicaid again and [facility] as a back up if no SNF secured. Abril Hatfield, TUBE DISPATCHER
--- NOTE | 2022-05-09 14:24 | PM.PN.1 ---
Subjective Subjective Date Patient Seen: 05/09/22 Interval history: Reports muscle spasms and pain with movement today. Did work with PT this morning. No chest pain, shortness of breath, nausea, vomiting. Exam Vital Signs (past 8 hours): - 05/09/22 08:00 05/09/22 12:00 05/09/22 08:30 Temperature 98.0 F 98.8 F Pulse Rate 90 78 Respiratory Rate 18 17 Blood Pressure 107/46 L 114/60 Pulse Oximetry 98 98 98 Oxygen Delivery Method Room Air Oxygen Flow Rate 0 0 Oxygen Delivery Method Room Air Oxygen Flow Rate 0 Narrative Exam Narrative: GEN: Pleasant middle-aged male, Alert and oriented x 3, NAD HEENT:NC, Face symmetric CHEST: Respiratory excursions symmetric, CTAB CV: RRR, no M/R/G ABD: Soft, NT/ND, BT present in all 4 quadrants, no organomegaly or masses EXTR: warm, well perfused, RLE stump without erythema or induration, dressing R hip c/d/i. SKIN: warm and dry, no rash NEURO: Alert and oriented x 3, nonfocal Objective Labs Result Diagrams: 05/09/22 06:16 05/09/22 06:16 Labs: Laboratory Results - last 24 hr 05/09/22 05/09/22 06:16 06:16 Hgb 9.5 L Hct 27.6 L Sodium 135 L Potassium 3.6 Chloride 100 Carbon Dioxide 26 BUN 14 Creatinine 0.68 Estimated GFR > 60 BUN/Creatinine Ratio 20.6 Glucose 182 H Calcium 7.4 L PFSH Medical History Diabetes Hyperlipidemia Hypertension Surgical History History of cholecystectomy Family History Father Diabetes mellitus Cancer Mother Cancer Social History marital status: household members: spouse and children pets and animals: Yes Smoking Status: Never smoker alcohol intake: current Assessment & Plan Assessment & Plan narrative: 1. Right femoral neck fracture secondary to mechanical fall s/p hemiarthroplasty with orthopedic surgery -continue PT/OT/pain control 2. Leukocytosis White count was 13.5 on admission which normalized. This is likely a stress reaction. 3. Status post right BKA Certainly this will impact his postoperative mobility. He was working with prosthetics on getting a new prosthetic as his prior 1 was not fitting well. 4. Type 2 diabetes continue home insulin with lantus 20 BID and sliding scale. Glucose this AM 182 on morning labs. 5. Diabetic peripheral neuropathy Continue gabapentin 6. Hyperlipidemia Continue statin therapy 7. Acute blood loss anemia, postoperative - hg to 9.5 today, likely due to surgical interventions, no signs or symptoms of blood loss currently. - continue to follow daily. Code status Full Prophylaxis per orthopedics after surgery, currently on asa BID Disposition Pending PT OT progress Time Spent With Patient Critical Care time: I spent a total of [] minutes of critical care time on this patient's care today; this time is exclusive of procedural time. Quality VTE Deep Vein Thrombosis/Pulmonary Embolism Present on Admission: No
[2022-05-10] VITALS (7 sets, daily range): BP systolic 103–120; BP diastolic 49–62; PULSE 94–99; RESP 15–19; TEMP 36.9–37.3; O2SAT 91–95
[2022-05-10] MEDS: hydrOXYzine pamoate 25 MG CAPSULE PO ×5 (00:01→22:26)
--- NOTE | 2022-05-10 00:39 | PC.NURSE ---
Pt. refused turn, but pt. let me use bed to lean to the right to offset the weight off of bottom
[2022-05-10 06:35] LABS: Add Manual Diff / Slide Review NO; Basophils Absolute Auto 0 /uL (0-100); Basophils Percent Auto 0.3 % (0-2); Eosinophils Absolute Auto 200 /uL (0-450); Eosinophils Percent Auto 2.6 % (2-4); Hematocrit 27.3 % (41-53); Hemoglobin 9.5 g/dL (13.5-17.5); Lymphocytes Absolute Auto 1300 /uL (1100-4500); Lymphocytes Percent Auto 16.3 % (25-40); Mean Corpuscular HGB Conc 34.7 % (30-36); Mean Corpuscular Hemoglobin 29.3 PG (26-34); Mean Corpuscular Volume 84.4 fL (80-100); Monocytes Absolute Auto 1000 /uL (0-900); Monocytes Percent Auto 12.3 % (3-14); Neutrophils Absolute Auto 5500 /uL (1500-7000); Neutrophils Percent Auto 68.5 % (50-75); Platelet Count 123 X10^3/uL (150-400); Red Blood Cell Count 3.23 X10^6/uL (4.5-5.9); Red Cell Distribution Width 12.6 % (11.6-14.8); White Blood Cell Count 8.1 X10^3/uL (4.5-11.0)
[2022-05-10] MEDS: ACETAMINOPHEN 325 MG TABLET 650 MG PO ×3 (06:43→18:30)
[2022-05-10] MEDS: OXYCODONE IR 10 MG TABLET PO ×4 (06:43→21:21)
[2022-05-10] MEDS: IBUPROFEN 400 MG TABLET PO ×3 (06:43→18:30)
[2022-05-10 06:51] LABS: BUN Creatinine Ratio 21.5 (6-22); Blood Urea Nitrogen 14 mg/dL (9-20); Calcium 7.8 mg/dL (8.4-10.2); Carbon Dioxide 29 mmol/L (22-32); Chloride 101 mmol/L (98-107); Estimated Glomerular Filt Rate > 60 mL/min (>60); Glucose 201 mg/dL (70-100); HEMOLYSIS < 15 (0-50); Magnesium 1.9 mg/dL (1.6-2.3); Potassium 3.5 mmol/L (3.4-5.1); Sodium 136 mmol/L (137-145)
--- NOTE | 2022-05-10 07:45 | PM.PNPO.1 ---
Subjective Subjective Date Patient Seen: 05/10/22 Time Patient Seen: 07:45 Interval history: Patient states his pain is mild. Denies fever or chills. No nausea or vomiting. Exam Vital Signs (past 8 hours): - 05/10/22 00:38 05/10/22 04:43 Temperature 98.6 F 99.0 F Pulse Rate 97 H 97 H Respiratory Rate 18 18 Blood Pressure 103/54 L 120/60 Pulse Oximetry 93 92 Oxygen Flow Rate 0 0 Oxygen Delivery Method Room Air Oxygen Flow Rate 0 Narrative Exam Narrative: 57-year-old male resting comfortably in bed in no apparent distress right hip dressing is clean, dry and intact. Const General: cooperative and comfortable Resp Effort & Inspection: normal respiratory effort and able to speak in complete sentences Objective Labs Result Diagrams: 05/10/22 06:03 05/10/22 06:03 Labs: Laboratory Results - last 24 hr 05/10/22 05/10/22 06:03 06:03 WBC 8.1 RBC 3.23 L Hgb 9.5 L Hct 27.3 L MCV 84.4 MCH 29.3 MCHC 34.7 RDW 12.6 Plt Count 123 L Neut % (Auto) 68.5 Lymph % (Auto) 16.3 L [place] % (Auto) 12.3 Eos % (Auto) 2.6 Baso % (Auto) 0.3 Neut # (Auto) 5500 Lymph # (Auto) 1300 [place] # (Auto) 1000 H Eos # (Auto) 200 Baso # (Auto) 0 Sodium 136 L Potassium 3.5 Chloride 101 Carbon Dioxide 29 BUN 14 Creatinine 0.65 L Estimated GFR > 60 BUN/Creatinine Ratio 21.5 Glucose 201 H Calcium 7.8 L Magnesium 1.9 PFSH Medical History Diabetes Hyperlipidemia Hypertension Surgical History History of cholecystectomy Family History Father Diabetes mellitus Cancer Mother Cancer Social History marital status: household members: spouse and children pets and animals: Yes Smoking Status: Never smoker alcohol intake: current Assessment & Plan Post-op Postoperative Procedures: Procedures Operation Date: 05/08/22 15:00 Actual Procedure Side Surgeon p Hip Hemiarthroplasty OPEN REDUCTION INTERNAL FIXATION OF RIGHT GREATER TROCHANTERIC FRACTURE Right Ish Solis MD Postoperative day: 2 Postoperative status: doing well and anemia Postoperative status narrative: Stable postoperatively with a post hemorrhagic anemia. He is set up at home with a wheelchair and a walker. He is well-versed in walking without his right leg as he has a below-knee amputation on this side. Postoperative plan narrative: Vistaril for his muscle spasms. Oxycodone for pain relief. Provided he makes satisfactory progress with physical therapy, he can be discharged to home when cleared by the medical service. Follow up SN[facility] in 2 weeks. He can begin ambulating in his prosthetic once he has it revised by the smooth and burr worker composites. Quality VTE Deep Vein Thrombosis/Pulmonary Embolism Present on Admission: No
[2022-05-10] MEDS: DOCUSATE 100 MG CAPSULE PO ×2 (08:15→21:17)
[2022-05-10] MEDS: ASPIRIN EC 81 MG TABLET PO ×2 (08:15→21:17)
[2022-05-10] MEDS: INSULIN LISPRO 100 UNIT/ML 3ML VIAL SUBCUT ×2 (08:16→11:29)
[2022-05-10] MEDS: INSULIN GLARGINE 100 UNIT/ML 3ML PEN 20 UNIT SUBCUT ×2 (08:16→21:51)
[2022-05-10] MEDS: FAMOTIDINE 20 MG TABLET PO ×2 (11:11→21:18)
[2022-05-10] MEDS: POTASSIUM CHLORIDE 20 MEQ TAB 40 MEQ PO (11:14)
--- NOTE | 2022-05-10 12:16 | PT.IPTN ---
Current Diagnoses Pathological fracture, right femur, initial encounter for fracture (05/07/22) Surgery Performed Operation Date: 05/08/22 15:00 Actual Procedures p Hip Hemiarthroplasty OPEN REDUCTION INTERNAL FIXATION OF RIGHT GREATER TROCHANTERIC FRACTURE(Right) - Ish Solis MD Physical Therapy Treatment Note M2 PT-IP Current Condition Start: 05/09/22 09:03 Freq: NEEDED Status: Active Protocol: Document 05/10/22 10:02 SAK (Rec: 05/10/22 12:16 [facility] [id number]) Physical Therapy Current Condition Current Condition Evaluation Date 05/09/22 Treatment Diagnosis R femoral neck fx s/p hemiarthroplasty; BKA; impaired mobility and gait Onset Date 05/07/22 M3 PT-IP Subjective Start: 05/09/22 09:03 Freq: NEEDED Status: Active Protocol: Document 05/10/22 10:02 SAK (Rec: 05/10/22 12:16 [facility] [id number]) Subjective Physical Therapy Visit Type Type Treatment Note Visit Start Time 10:02 Visit Stop Time 10:25 Total Visit Minutes 23 Number of INSPECTOR CRYSTAL Visits 0 Physical Therapy Visit Comments Patient Comments Pt is hesitant but ultimately willing to participate with PT Patient Goals Willing to go to rehab Therapy Pain Assessment Location Right Hip Intensity 6 M4 PT-IP Mobility and Gait Start: 05/09/22 09:03 Freq: NEEDED Status: Active Protocol: Document 05/10/22 10:02 SAK (Rec: 05/10/22 12:16 [facility] [id number]) PT-Bed Mobility Assessment Supine to Sit Supine to Sit Maximum Assistance,1 Person Assistance,2 Person Assistance ,Head of Bed Elevated,Bedrails PT-Transfer Assessment Sit to and From Stand Sit to and from Stand Moderate Assistance,1 Person Assistance,Use of Upper Extremities Comments Mobility Comments sit to stand x 2, stood approx 30 sec each time. Unable to take steps, unwilling to transfer to chair to to low height. Gait Assessment Comments Gait Comments Unable at this time. Stair Climbing Assessment Comments Stair Climbing Comments Pt has ramped entry at home. PT-Balance Assessment Sitting Balance and Reactions Static Sitting Balance Ability Good Dynamic Sitting Balance Ability Fair Standing Balance and Reactions Static Standing Balance Ability Poor Device Used FWW M5 PT-IP Objective Assessments Start: 05/09/22 09:03 Freq: NEEDED Status: Active Protocol: Document 05/09/22 10:42 AW (Rec: 05/09/22 11:34 AW [id number]) Orientation Orientation/Cognition Level of Alertness Alert Orientation Name,Day of Week,Place, Situation Language Function Ability No Deficits Noted Safety Awareness Understands Safety Issues Memory Description No Deficits Noted Gross Range of Motion Upper Extremity ROM Assessment Within Functional Limits Strength Lower Extremity Strength Hip R 3/5; L 4-/5 Knee R 3+/5; L 4+/5 Ankle L 3/5 Sensation Assessment Sensation Gross Sensation Left LE Impaired Light Touch Impaired Proprioception (Position) Impaired Sensation Description Numbness Comments Sensation Comments Neuropathy affects sensation and strength of left foot and ankle. Muscle Tone Muscle Tone WNL Yes M6 PT-IP Treatment Start: 05/09/22 09:03 Freq: NEEDED Status: Active Protocol: Document 05/10/22 10:02 [facility] (Rec: 05/10/22 12:16 [facility] [id number]) Physical Therapy Treatment Education Education Provided Precautions,Safety Other Treatments Other Treatment Performed Patient left sitting up at edge of bed per his request, DIRECTOR TRANSPORTATION and RN notified. Call light and tray table within reach M7 PT-IP Assessment and Plan Start: 05/09/22 09:03 Freq: NEEDED Status: Active Protocol: Document 05/10/22 10:02 [facility] (Rec: 05/10/22 12:16 [facility] [id number]) PT Summary Assessment and Plan Summary Progress Towards Goals Slow Progress due to Medical Issues,Slow Progress due to Activity Tolerance Assessment Summary Patient required decreased assistance with bed mobility, unable to take steps at this time. May benefit from trial of sliding board transfer to wheelchair with cushion to raise height (patient reports hasn't ever done a sliding board transfer before). Will need rehab at discharge Goals Bed Mobility Goal Contact Guard Assistance Transfer Goal Minimal Assistance,Front Wheeled Walker Gait Goal Minimal Assistance,Front Wheel Walker Gait Distance 20 Other Goals - progress transfers and gait to CGA with FWW Days to Meet Goals 10 Treatment Plan Physical Therapy Treatment Plan Bed Mobility Training,Transfer Training,Gait Training, Therapeutic Exercise,Balance Retraining,Post Op Education, Discharge Planning,Hot or Cold Pack,Neuromuscular Re-ed Other Recommendations and Next Treatment Bed mobility. Consider slide Focus board or squat pivot transfer. Precautions Posterior Hip Precautions No Hip Flexion > 90 degrees,No Hip Internal Rotation,No Hip Adduction Weight Bearing Status Weight Bearing Status Weight Bear as Tolerated Discharge Recommendations PT Discharge Recommendations SNF Rehab Transportation Needs at Discharge Wheelchair/Cabulance
--- NOTE | 2022-05-10 14:38 | P.PN_ITS ---
Subjective Subjective Date Patient Seen: 05/10/22 Interval history: Reports improved hip pain today and further improved with pain medications. No chest pain, shortness of breath, nausea, vomiting. Exam Vital Signs (past 8 hours): - 05/10/22 07:00 05/10/22 12:00 Temperature 98.5 F Pulse Rate 94 H Respiratory Rate 19 Blood Pressure 104/49 L Pulse Oximetry 92 94 Oxygen Delivery Method Room Air Oxygen Flow Rate 0 Oxygen Delivery Method Room Air Oxygen Flow Rate 0 Narrative Exam Narrative: GEN: Pleasant middle-aged male, Alert and oriented x 3, NAD HEENT:NC, Face symmetric CHEST: Respiratory excursions symmetric, CTAB CV: RRR, no M/R/G ABD: Soft, NT/ND, BT present in all 4 quadrants, no organomegaly or masses EXTR: warm, well perfused, RLE stump without erythema or induration, dressing R hip c/d/i. SKIN: warm and dry, no rash NEURO: Alert and oriented x 3, nonfocal Objective Labs Result Diagrams: 05/10/22 06:03 05/10/22 06:03 Labs: Laboratory Results - last 24 hr 05/10/22 05/10/22 06:03 06:03 WBC 8.1 RBC 3.23 L Hgb 9.5 L Hct 27.3 L MCV 84.4 MCH 29.3 MCHC 34.7 RDW 12.6 Plt Count 123 L Neut % (Auto) 68.5 Lymph % (Auto) 16.3 L [place] % (Auto) 12.3 Eos % (Auto) 2.6 Baso % (Auto) 0.3 Neut # (Auto) 5500 Lymph # (Auto) 1300 [place] # (Auto) 1000 H Eos # (Auto) 200 Baso # (Auto) 0 Sodium 136 L Potassium 3.5 Chloride 101 Carbon Dioxide 29 BUN 14 Creatinine 0.65 L Estimated GFR > 60 BUN/Creatinine Ratio 21.5 Glucose 201 H Calcium 7.8 L Magnesium 1.9 PFSH Medical History Diabetes Hyperlipidemia Hypertension Surgical History History of cholecystectomy Family History Father Diabetes mellitus Cancer Mother Cancer Social History marital status: household members: spouse and children pets and animals: Yes Smoking Status: Never smoker alcohol intake: current Assessment & Plan Assessment & Plan narrative: 1. Right femoral neck fracture secondary to mechanical fall s/p hemiarthroplasty with orthopedic surgery -continue PT/OT/pain control 2. Leukocytosis, resolved White count was 13.5 on admission which normalized. This is likely a stress reaction. 3. Status post right BKA Certainly this will impact his postoperative mobility. He was working with prosthetics on getting a new prosthetic as his prior 1 was not fitting well. 4. Type 2 diabetes continue home insulin with lantus 20 BID and sliding scale. Glucose this AM 182 on morning labs. 5. Diabetic peripheral neuropathy Continue gabapentin 6. Hyperlipidemia Continue statin therapy 7. Acute blood loss anemia, postoperative and thrombocytopenia - hg stable at 9.5 today, likely due to surgical interventions, no signs or symptoms of blood loss currently. - continue to follow daily. - Plt to 123, continue to monitor. Code status Full Prophylaxis per orthopedics after surgery, currently on asa BID Disposition Pending PT OT progress Time Spent With Patient Critical Care time: I spent a total of [] minutes of critical care time on this patient's care today; this time is exclusive of procedural time. Quality VTE Deep Vein Thrombosis/Pulmonary Embolism Present on Admission: No
--- NOTE | 2022-05-10 15:42 | CM.DPC ---
DCP/continued: Reviewed chart. Spoke with Dr. Amado in AM rounds, he indicates that patient most likely medically cleared for discharge within the next 24hrs. NURSING SPECIALIST placed call to SNF's that were pending, spoke with Ann-Marie at [facility] and she reports that patient does not have rehabilitation benefit with Medicaid. Also left message with [facility] and [facility]. Met with patient to discuss plan. Patient aware and agreeable to home with HH resumed through [facility]. Patient resides with spouse and son. Patient reports that he will need assistance with transport. He has ramp at home and w/c. Patient believes his fall was due to his current prothesis? Patient hopeful he can get new prosthesis approved by [facility]? Contact for new prosthesis is Angeli ph# [phone]. CM team will call her prior to d/c to find out status. P: Patient agreeable to d/c home with home health through [facility]. RAMILA
--- NOTE | 2022-05-10 17:27 | OT.IP.EVAL ---
Current Diagnoses Pathological fracture, right femur, initial encounter for fracture (05/07/22) Surgery Performed Operation Date: 05/08/22 15:00 Actual Procedures p Hip Hemiarthroplasty OPEN REDUCTION INTERNAL FIXATION OF RIGHT GREATER TROCHANTERIC FRACTURE(Right) - Ish Solis MD Past Medical History (Last Reviewed 05/10/22 @ 07:46 by Edy Crow PA-C) Diabetes Hyperlipidemia Hypertension Surgical History (Last Reviewed 05/10/22 @ 07:46 by Edy Crow PA-C) History of cholecystectomy Occupational Therapy Inpatient Evaluation/Re-Eval M1 PT/OT-IP Prior Functional Status Start: 05/09/22 09:03 Freq: NEEDED Status: Active Protocol: Document 05/10/22 16:53 [facility] (Rec: 05/10/22 18:23 [facility] [id number]) Medical Review Prior Functional Status Medical History Reviewed Yes Communication Pt is able to make needs known Mobility and Gait 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 He went to SNF and ended up home with a prosthesis. He wears his prosthesis daily but notes it has been fitting poorly for the last several months. He walks without AD while wearing his prosthesis. Otherwise, he mobilizes in a wheelchair. He has fallen three times in the last year while wearing the prosthesis. He is currently working with the SHIP BOAT OR BARGE MATE at [employer] for a new one. Activities of Daily Living and IADL's Modified independent with ADL' s. Pt and his do not drive. He depends on friends or paratransit for transportation. Social History Household Members spouse,children Living Arrangements Mobile home Number of Floors (Floors) One Floor Number of Stairs To Enter/Railing? Ramped entry. Home Environment Standard Height Toilet,Tub/ Shower,Ramp Home Equipment Front Wheel Walker,Straight Cane,Manual Wheelchair,Bedside Commode,Tub Transfer Bench, Shower Seat with Backrest,Hand Held Shower,Internet Retailer Additional Social History Comment Pt lives with his spouse and 23 yo son. 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 M2 OT-IP Current Condition Start: 05/10/22 17:59 Freq: Status: Active Protocol: Document 05/10/22 16:53 [facility] (Rec: 05/10/22 18:23 [facility] [id number]) Occupational Therapy Current Condition Current Condition Evaluation Date 05/10/22 Treatment Diagnosis S/P R KRISTIAN ORIF Diagnosis Onset Date 05/07/22 Post Operative Precautions Posterior Hip Precautions No Hip Flexion > 90 degrees,No Hip Internal Rotation,No Hip Adduction M3 OT- IP Subjective and Pain Start: 05/10/22 17:59 Freq: Status: Active Protocol: Document 05/10/22 16:53 [facility] (Rec: 05/10/22 18:23 [facility] [id number]) OT- Subjective Occupational Therapy Visit Type Type Initial Evaluation Visit Start Time 16:53 Visit Stop Time 17:27 Total Visit Minutes 34 Occupational Therapy Visit Comments Patient Comments Pt agreed to get up to work with OT. Patient/Caregiver Goals To get better. OT Pain Assessment Pain When Pain Assessed At Rest Pain Present Pain Present Pain Reported M4 OT- IP ADL's Start: 05/10/22 17:59 Freq: Status: Active Protocol: Document 05/10/22 16:53 [facility] (Rec: 05/10/22 18:23 [facility] [id number]) OT [id number] Comments OT Self-Feeding Comments Not at meal time. NO concerns for self feeding. OT ADL-Grooming Comments OT Grooming Comments Not performed. OT ADL-Oral Care Comments Oral Care Comments Not performed. OT ADL-Dressing General Eval Lower Body Dressing Ability Maximum Assistance Comments OT Dressing Comments Pt will need assist for LB dressing needs OT ADL-Toileting Comments OT Toileting Comments Pt able to use the urinal on his own while in bed. OT ADL-Bathing Comments OT Bathing Comments Sponge bath more appropriate at this time. M5 OT- IP IADL's Start: 05/10/22 17:59 Freq: Status: Active Protocol: Document 05/10/22 16:53 [facility] (Rec: 05/10/22 18:23 [facility] [id number]) OT-Instrumental Activities of Daily Living Home Safety Awareness Awareness of Need for Assistance at Home Good Awareness Ability to Problem Solve Emergency Able to Problem Solve Situations Home Safety Comments Pt will need assist at home for ADl, mobility and IADL needs. Meal Preparation Meal Preparation Caregiver Provides Assist Auto Tire Recapper Auto Tire Recapper Caregiver Provides Assist M6 OT- IP Functional Cognition Start: 05/10/22 17:59 Freq: Status: Active Protocol: Document 05/10/22 16:53 [facility] (Rec: 05/10/22 18:23 [facility] [id number]) Cognitive Factors Limiting Selfcare Function Cognitive Ability Level of Alertness Alert Patient Orientation Name,Place,Situation Attention Span Ability Capable of Focused Attention, Capable of Sustained Attention Ability to Follow Commands Able to Follow One Step Commands Safety Awareness Decreased Recall of Precautions Cognitive Comments Cognitive Assessment Comments Pt needing reminders for his hip precautions. OT- Vision and Hearing OT- Vision Assessment Visual Acuity Glasses All The Time M7 OT- IP Mobility and Balance Start: 05/10/22 17:59 Freq: Status: Active Protocol: Document 05/10/22 16:53 [facility] (Rec: 05/10/22 18:23 [facility] [id number]) OT-Transfer Assessment Comments Mobility Comments Pt attempted to get to the edge of the bed and not able to do as in too much pain. Pt having to try to assist his right LE to slide over in the bed and unsuccessful. M8 OT- IP Objective Assessments Start: 05/10/22 17:59 Freq: Status: Active Protocol: Document 05/10/22 16:53 [facility] (Rec: 05/10/22 18:23 [facility] [id number]) OT Gross Range of Motion Upper Extremity Range of Motion Assessment Within Functional Limits OT Strength Upper Extremity Strength Assessment Within Functional Limits OT-Muscle Tone Assessment Muscle Tone WNL Yes M9 OT- IP Assessment and Plan Start: 05/10/22 17:59 Freq: Status: Active Protocol: Document 05/10/22 16:53 [facility] (Rec: 05/10/22 18:23 [facility] [id number]) OT Summary Assessment and Plan Potential Rehabilitation Potential Good Analytic Complexity at Evaluation Low Summary OT Impairments Pain,Balance,Functional Mobility,Dressing,Toileting, Bathing,Toilet Transfers, Shower Transfers,Activity Tolerance Progress Towards Goals Slow Progress due to Pain,Slow Progress due to Medical Issues Assessment Summary Pt Low complexity and s/p R KRISTIAN with history of R BKA 2020 . Pt not able to do bed mobility on his own at this time. Pt will need extensive assist for all ADl and mobility needs. Pt would benefit from skilled rehab at this time. Goals Grooming Goal Independent Dressing Goal Independent Toileting Goal Independent Bathing Goal Minimal Assistance Toilet Transfer Goal Independent Shower Transfer Goal Minimal Assistance Days to Meet Goals 30 Frequency of Treatment Frequency Of Treatment Once a Day Treatment Plan OT Treatment Plan ADL Training,Functional Mobility,Patient/Family Education,Discharge Planning Discharge Recommendations OT Discharge Recommendations SNF Rehab Transportation Needs at Discharge Wheelchair/Cabulance
[2022-05-10] MEDS: ATORVASTATIN 20 MG TABLET 80 MG PO (21:18)
[2022-05-11 00:53] VITALS: BP 105/61; PULSE 98; RESP 18; TEMP 37.5; O2SAT 91
[2022-05-11] MEDS: ACETAMINOPHEN 325 MG TABLET 650 MG PO ×3 (01:25→11:11)
[2022-05-11] MEDS: IBUPROFEN 400 MG TABLET PO ×3 (01:25→11:14)
[2022-05-11 04:30] VITALS: BP 107/61; PULSE 92; RESP 17; TEMP 37.1; O2SAT 93
[2022-05-11 06:51] LABS: Add Manual Diff / Slide Review NO; Basophils Absolute Auto 0 /uL (0-100); Basophils Percent Auto 0.5 % (0-2); Eosinophils Absolute Auto 200 /uL (0-450); Eosinophils Percent Auto 3.2 % (2-4); Hematocrit 26.3 % (41-53); Hemoglobin 9.2 g/dL (13.5-17.5); Lymphocytes Absolute Auto 1500 /uL (1100-4500); Lymphocytes Percent Auto 22.3 % (25-40); Mean Corpuscular HGB Conc 34.9 % (30-36); Mean Corpuscular Hemoglobin 29.3 PG (26-34); Mean Corpuscular Volume 84.1 fL (80-100); Monocytes Absolute Auto 800 /uL (0-900); Monocytes Percent Auto 11.6 % (3-14); Neutrophils Absolute Auto 4200 /uL (1500-7000); Neutrophils Percent Auto 62.4 % (50-75); Platelet Count 145 X10^3/uL (150-400); Red Blood Cell Count 3.12 X10^6/uL (4.5-5.9); Red Cell Distribution Width 12.7 % (11.6-14.8); White Blood Cell Count 6.7 X10^3/uL (4.5-11.0)
[2022-05-11 06:54] LABS: Blood Urea Nitrogen 12 mg/dL (9-20); Calcium 8.2 mg/dL (8.4-10.2); Carbon Dioxide 28 mmol/L (22-32); Chloride 102 mmol/L (98-107); Estimated Glomerular Filt Rate > 60 mL/min (>60); Glucose 122 mg/dL (70-100); HEMOLYSIS < 15 (0-50); Magnesium 1.9 mg/dL (1.6-2.3); Potassium 3.8 mmol/L (3.4-5.1); Sodium 137 mmol/L (137-145)
[2022-05-11 07:00] VITALS: O2SAT 95
[2022-05-11 08:41] VITALS: BP 124/67; PULSE 92; RESP 16; TEMP 37.2; O2SAT 94
--- NOTE | 2022-05-11 08:44 | PM.PN.1 ---
Exam Vital Signs (past 8 hours): - 05/11/22 00:53 05/11/22 04:30 05/11/22 08:41 Temperature 99.5 F 98.7 F 98.9 F Pulse Rate 98 H 92 H 92 H Respiratory Rate 18 17 16 Blood Pressure 105/61 107/61 124/67 Pulse Oximetry 91 93 94 Oxygen Flow Rate 0 0 0 Oxygen Delivery Method Room Air Oxygen Flow Rate 0 Narrative Exam Narrative: GEN: Pleasant middle-aged male, Alert and oriented x 3, NAD HEENT:NC, Face symmetric CHEST: Respiratory excursions symmetric, CTAB CV: RRR, no M/R/G ABD: Soft, NT/ND, BT present in all 4 quadrants, no organomegaly or masses EXTR: warm, well perfused, RLE stump without erythema or induration, dressing R hip c/d/i. SKIN: warm and dry, no rash NEURO: Alert and oriented x 3, nonfocal Objective Labs Result Diagrams: 05/11/22 05:50 05/11/22 05:50 Labs: Laboratory Results - last 24 hr 05/11/22 05/11/22 05:50 05:50 WBC 6.7 RBC 3.12 L Hgb 9.2 L Hct 26.3 L MCV 84.1 MCH 29.3 MCHC 34.9 RDW 12.7 Plt Count 145 L Neut % (Auto) 62.4 Lymph % (Auto) 22.3 L [place] % (Auto) 11.6 Eos % (Auto) 3.2 Baso % (Auto) 0.5 Neut # (Auto) 4200 Lymph # (Auto) 1500 [place] # (Auto) 800 Eos # (Auto) 200 Baso # (Auto) 0 Sodium 137 Potassium 3.8 Chloride 102 Carbon Dioxide 28 BUN 12 Creatinine 0.63 L Estimated GFR > 60 BUN/Creatinine Ratio 19.0 Glucose 122 H Calcium 8.2 L Magnesium 1.9 PFSH Medical History Diabetes Hyperlipidemia Hypertension Surgical History History of cholecystectomy Family History Father Diabetes mellitus Cancer Mother Cancer Social History marital status: household members: spouse and children pets and animals: Yes Smoking Status: Never smoker alcohol intake: current Assessment & Plan Assessment & Plan narrative: 1. Right femoral neck fracture secondary to mechanical fall s/p hemiarthroplasty with orthopedic surgery -continue PT/OT/pain control 2. Leukocytosis, resolved White count was 13.5 on admission which normalized. This is likely a stress reaction. 3. Status post right BKA Certainly this will impact his postoperative mobility. He was working with prosthetics on getting a new prosthetic as his prior 1 was not fitting well. 4. Type 2 diabetes continue home insulin with lantus 20 BID and sliding scale. Glucose this AM 182 on morning labs. 5. Diabetic peripheral neuropathy Continue gabapentin 6. Hyperlipidemia Continue statin therapy 7. Acute blood loss anemia, postoperative and thrombocytopenia - hg stable at 9.5 today, likely due to surgical interventions, no signs or symptoms of blood loss currently. - continue to follow daily. - Plt to 123, continue to monitor. Code status Full Prophylaxis per orthopedics after surgery, currently on asa BID Disposition: SNF Time Spent With Patient Critical Care time: I spent a total of [] minutes of critical care time on this patient's care today; this time is exclusive of procedural time. Quality VTE Deep Vein Thrombosis/Pulmonary Embolism Present on Admission: No
[2022-05-11] MEDS: INSULIN GLARGINE 100 UNIT/ML 3ML PEN 20 UNIT SUBCUT (09:06)
[2022-05-11] MEDS: FAMOTIDINE 20 MG TABLET PO (09:07)
[2022-05-11] MEDS: ASPIRIN EC 81 MG TABLET PO (09:07)
[2022-05-11] MEDS: hydrOXYzine pamoate 25 MG CAPSULE PO ×2 (09:07→14:02)
--- NOTE | 2022-05-11 10:05 | PM.PNPO.1 ---
Exam Vital Signs (past 8 hours): - 05/11/22 04:30 05/11/22 08:41 Temperature 98.7 F 98.9 F Pulse Rate 92 H 92 H Respiratory Rate 17 16 Blood Pressure 107/61 124/67 Pulse Oximetry 93 94 Oxygen Flow Rate 0 0 Oxygen Delivery Method Room Air Oxygen Flow Rate 0 Objective Labs Result Diagrams: 05/11/22 05:50 05/11/22 05:50 Labs: Laboratory Results - last 24 hr 05/11/22 05/11/22 05:50 05:50 WBC 6.7 RBC 3.12 L Hgb 9.2 L Hct 26.3 L MCV 84.1 MCH 29.3 MCHC 34.9 RDW 12.7 Plt Count 145 L Neut % (Auto) 62.4 Lymph % (Auto) 22.3 L [place] % (Auto) 11.6 Eos % (Auto) 3.2 Baso % (Auto) 0.5 Neut # (Auto) 4200 Lymph # (Auto) 1500 [place] # (Auto) 800 Eos # (Auto) 200 Baso # (Auto) 0 Sodium 137 Potassium 3.8 Chloride 102 Carbon Dioxide 28 BUN 12 Creatinine 0.63 L Estimated GFR > 60 BUN/Creatinine Ratio 19.0 Glucose 122 H Calcium 8.2 L Magnesium 1.9 PFSH Medical History Diabetes Hyperlipidemia Hypertension Surgical History History of cholecystectomy Family History Father Diabetes mellitus Cancer Mother Cancer Social History marital status: household members: spouse and children pets and animals: Yes Smoking Status: Never smoker alcohol intake: current Assessment & Plan Post-op Postoperative Procedures: Procedures Operation Date: 05/08/22 15:00 Actual Procedure Side Surgeon p Hip Hemiarthroplasty OPEN REDUCTION INTERNAL FIXATION OF RIGHT GREATER TROCHANTERIC FRACTURE Right Ish Solis MD Postoperative day: 3 Postoperative status: doing well Postoperative status narrative: Stable status post right hip hemiarthroplasty and ORIF of right greater trochanteric fracture -postoperative hemorrhagic anemia Postoperative plan narrative: -mobilize with PT. -maintain posterior hip precautions x6 weeks -weightbearing as tolerated with front wheel walker once he has his prosthetic after revision by his civil engineering drafter. He is set up at home with a wheelchair and a walker. He is well-versed in walking without his right leg as he has a below-knee amputation on this side. - Stable postoperatively with a post hemorrhagic anemia. -continue with multimodal pain management: Vistaril for his muscle spasms. Oxycodone for pain relief. -aspirin 81 mg b.i.d. x6 weeks for DVT prophylaxis - Provided he makes satisfactory progress with physical therapy, he can be discharged to home when cleared by the medical service. -Follow up SNO in 2 weeks. -orthopedics to sign off at this point, please not hesitate to re-consult with any further questions or concerns. Quality VTE Deep Vein Thrombosis/Pulmonary Embolism Present on Admission: No
[2022-05-11] MEDS: DOCUSATE 100 MG CAPSULE PO (11:12)
[2022-05-11] MEDS: INSULIN LISPRO 100 UNIT/ML 3ML VIAL SUBCUT (11:17)
[2022-05-11] MEDS: OXYCODONE IR 10 MG TABLET PO ×2 (11:21→14:02)
[2022-05-11 12:00] VITALS: BP 125/70; PULSE 94; RESP 16; TEMP 37.3; O2SAT 95
[2022-05-11] MEDS: GABAPENTIN 600 MG TABLET PO (12:13)
[2022-05-11 12:29] VITALS: PULSE 100; RESP 16; O2SAT 95
--- NOTE | 2022-05-11 14:31 | PT.IPTN ---
Current Diagnoses Pathological fracture, right femur, initial encounter for fracture (05/07/22) Surgery Performed Operation Date: 05/08/22 15:00 Actual Procedures p Hip Hemiarthroplasty OPEN REDUCTION INTERNAL FIXATION OF RIGHT GREATER TROCHANTERIC FRACTURE(Right) - Ish Solis MD Physical Therapy Treatment Note M2 PT-IP Current Condition Start: 05/09/22 09:03 Freq: NEEDED Status: Active Protocol: Document 05/11/22 14:24 SAK (Rec: 05/11/22 14:31 [facility] [id number]) Physical Therapy Current Condition Current Condition Evaluation Date 05/09/22 Treatment Diagnosis R femoral neck fx s/p hemiarthroplasty; BKA; impaired mobility and gait Onset Date 05/07/22 M3 PT-IP Subjective Start: 05/09/22 09:03 Freq: NEEDED Status: Active Protocol: Document 05/11/22 14:24 SAK (Rec: 05/11/22 14:31 [facility] [id number]) Subjective Physical Therapy Visit Comments Patient Comments Patient receptive to PT, reports hip hurts, they want me to go home, I'd like to do rehab but there isn't a place for me. Patient Goals Willing to go to rehab M4 PT-IP Mobility and Gait Start: 05/09/22 09:03 Freq: NEEDED Status: Active Protocol: Document 05/11/22 14:24 SAK (Rec: 05/11/22 14:31 [facility] [id number]) PT-Bed Mobility Assessment Supine to Sit Supine to Sit Standby Assistance,1 Person Assistance,Head of Bed Elevated,Bedrails Sit to Supine Sit to Supine Standby Assistance,Minimal Assistance,1 Person Assistance ,Bedrails Scooting Scooting to Edge of Bed Standby Assistance,Contact Guard Assistance Scooting Up and Down in Bed Moderate Assistance,Maximum Assistance PT-Transfer Assessment Sit to and From Stand Sit to and from Stand Moderate Assistance,1 Person Assistance,Use of Upper Extremities Transfers Transfer Destination Bedside Commode Transfer Technique stand pivot with walker, bed elevated Transfer Ability Level of Assist Contact Guard Assistance,1 Person Assistance,Use of Upper Extremities Comments Mobility Comments commode elevated as high as possible left in care of PLEATING SUPERVISOR's x 2 (one of PLEATING SUPERVISOR's was SBA with transfer to [facility]) Gait Assessment Comments Gait Comments Unable at this time. M5 PT-IP Objective Assessments Start: 05/09/22 09:03 Freq: NEEDED Status: Active Protocol: Document 05/09/22 10:42 AW (Rec: 05/09/22 11:34 AW [id number]) Orientation Orientation/Cognition Level of Alertness Alert Orientation Name,Day of Week,Place, Situation Language Function Ability No Deficits Noted Safety Awareness Understands Safety Issues Memory Description No Deficits Noted Gross Range of Motion Upper Extremity ROM Assessment Within Functional Limits Strength Lower Extremity Strength Hip R 3/5; L 4-/5 Knee R 3+/5; L 4+/5 Ankle L 3/5 Sensation Assessment Sensation Gross Sensation Left LE Impaired Light Touch Impaired Proprioception (Position) Impaired Sensation Description Numbness Comments Sensation Comments Neuropathy affects sensation and strength of left foot and ankle. Muscle Tone Muscle Tone WNL Yes M6 PT-IP Treatment Start: 05/09/22 09:03 Freq: NEEDED Status: Active Protocol: Document 05/11/22 14:24 SAK (Rec: 05/11/22 14:31 SAK [id number]) Physical Therapy Treatment Exercises Exercises Gluteal Sets,Quad Sets,Supine Hip Abduction,Short Arc Quads Education Education Provided Precautions,Safety M7 PT-IP Assessment and Plan Start: 05/09/22 09:03 Freq: NEEDED Status: Active Protocol: Document 05/11/22 14:24 SAK (Rec: 05/11/22 14:31 [facility] [id number]) PT Summary Assessment and Plan Summary Assessment Summary Less assist for bed mobility today. Sit to stand required bed elevated and moderate assistance. Patient unable to take step but pivoted on his left LE to achieve transfer to commode. Feel he would now tolerate PT 2x/day. Goals Bed Mobility Goal Contact Guard Assistance Transfer Goal Minimal Assistance,Front Wheeled Walker Gait Goal Minimal Assistance,Front Wheel Walker Gait Distance 20 Other Goals - progress transfers and gait to CGA with FWW Days to Meet Goals 10 Frequency of Treatment Frequency Of Treatment Twice a Day Treatment Plan Physical Therapy Treatment Plan Bed Mobility Training,Transfer Training,Gait Training, Therapeutic Exercise,Balance Retraining,Post Op Education, Discharge Planning,Hot or Cold Pack,Neuromuscular Re-ed Other Recommendations and Next Treatment Bed mobility. Consider slide Focus board or squat pivot transfer. Weight Bearing Status Weight Bearing Status Weight Bear as Tolerated Discharge Recommendations PT Discharge Recommendations Home with / Assist Available,SNF Rehab,Home vs SNF Transportation Needs at Discharge Wheelchair/Cabulance
--- NOTE | 2022-05-11 15:16 | CM.DPC ---
Addendum entered by Krissy Rader 05/11/22 15:35: Received message from Raheem at [facility] whom now reports that they cannot accept referral? HOME RESTORATION SERVICE CLEANER placed call back to Raheem indicating that referral was already accepted by [facility] this AM. Raheem reports that he will reach his Design Engineering Specialist to make exception for patient. P: Home today with HH arranged through [facility]. RAMILA Original Note: DCP/continued: Reviewed chart. Spoke with Dr. Stone this AM in rounds re: d/c planning. Dr. Stone made aware that Medicaid does not cover rehabilitation in SNF. Spoke with therapy whom indicate patient did much better today. Patient is able to transfer from bed to chair. Dr. Stone met with patient and it was determined that patient medically stable for discharge today with home health. HOME RESTORATION SERVICE CLEANER placed call to [facility] this AM, spoke with Betty whom confirms that they can accept referral and see patient on Monday05-13-22. Home health ordered for PT/OT/RN/NEWS CAMERAMAN/HOME RESTORATION SERVICE CLEANER/. Information faxed to [facility] with order and new F2F. [facility] reports that they need new order(s). Confirmation of fax received. HOME RESTORATION SERVICE CLEANER met with patient this AM to discuss planning. Patient agreeable to d/c home today. Patient resides with his son and spouse. Patient reports that his spouse will not likely be home until tomorrow. Patient adds to both HOME RESTORATION SERVICE CLEANER and provider that he is used to being alone and he does not have issue with discharging home today. Patient has w/c and ramp at residence. Patient does report that he does need assistance with transport home. HOME RESTORATION SERVICE CLEANER completed medicaid form for transport and faxed to office for review. Received call back indicating that [employer] can pick patient up around 2:30pm today via w/c van. Patient reports at time of d/c that he would like to waste picker his prescriptions on his way home? HOME RESTORATION SERVICE CLEANER asked [employer] long haul truck driver if that could be arranged. She made call and was told no because it was not pre-arranged. Patient reports that it's okay because he has pain medication at home. RN confirmed that new prescription(s) are mainly for pain and 1 baby aspirin which patient also has had home. P: Home with HH arranged and confirmed by [facility] this AM. Patient provided with brochure and transport arranged. HOME RESTORATION SERVICE CLEANER made attempt to call Angeli re: patient's prosthesis unable to reach or leave message. Patient notified prior to his departure. RAMILA
--- NOTE | 2022-05-11 15:43 | PC.NURSE ---
Pt is A&OX3, VSS, afebrile on RA. He has a good appetite and is able to work with PT to pivot to [facility].He reports some constipation, (however initially he refused stool softeners)he agrees to take colace and he is given education about constipation post anesthesia and narcotics.+CMS to BLE's. He reports neuropathy in all extremities. Aquacel to R hip c/d/i. BG well controlled today. He is medically cleared for discharge and discharge options reviewed wit patient. He is agreeable to home with home health and discharge arrangements are made with CM. Transporter arrives at 1415 to transport patient via / and he is able to pivot transfer to [facility] using FWW. He verbalizes understanding of discharge medication instructions, activity (hip precautions and WBAT) site care, as well as complications, s/sx of infection and follow up appointment on May 26. He is premedicated with prn pain medication for transfer and transported via transport company at 1430 this afternoon for discharge home
--- NOTE | 2022-05-11 17:26 | PM.DS.1 ---
History of Present Illness History of Present Illness Date Patient Seen: 05/11/22 Chief complaint: GLF Narrative: Mr. 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 He has noted that his prosthesis has been poorly fitting and slipping off his stump. He is in the process of acquiring a new prosthetic. Unfortunately today he was attempting to ambulate and his stump slipped from the prosthetic and he lost his balance and fell on his right side. He had right hip pain and could not ambulate. He did not hit his head or lose consciouness. In the ED workup was done, vitals notable for afebrile and tachycardic to 120s. WBC 13.5, hgb 12.4, plts 183. Creatinine 0.59. Lactate negative. Xray of hip and CT pelvis shows impacted right femoral neck fracture. Right knee xray with no acute abnormality. Chest xray with no acute abnormality. He was given pain medications and admitted for further treatment. Discharge Providers Provider Date of admission: 05/07/22 20:07 Discharge Date: 05/11/22 Primary care physician: Adalberto Mireles MD Consults: 05/07/22 20:07 Consult to Physician Stat Comment: Consulting Provider: Ish Solsi Reason for consultation: femoral neck fx Has provider been notified: Yes 05/08/22 16:22 Consult to Discharge Planning Routine Comment: Consult to Physical Therapy Evaluate & Treat Comment: Physician Instructions: post op KRISTIAN protocol 05/09/22 10:27 Consult to Occupational Therapy Evaluate & Treat Comment: Physician Instructions: Evaluate and treat 05/11/22 12:38 Consult to Home Health Routine Comment: DX: Right hip fracture from ground level fall. Reason For Exam: Home health for RN/PT/OT/RUBBER FLAP CUTTER/AIR BRAKE MECHANIC Discharge provider: Nir Stone DO Summary Hospital Course Discharge Diagnosis: 1. Right femoral neck fracture secondary to mechanical fall s/p hemiarthroplasty with orthopedic surgery 2. Leukocytosis, resolved 3. Status post right BKA 4. Type 2 diabetes 5. Diabetic peripheral neuropathy 6. Hyperlipidemia 7. Acute blood loss anemia, postoperative and thrombocytopenia Hospital Course: Admitted for right hip fracture after fall at home. Repaired by ortho and put on ASA 81mg BID for 6 weeks. PT rec SNF vs HH PT however patient's insurance did not have SNF benefit. Patient therefore discharged home with HH with po pain meds PRN and will f/u in ortho clinic in 2 weeks. Had leukocytosis and anemia following surgery but WBC resolved and Hgb stable in 9's. Time Spent with Patient Time spent: Greater than 30 minutes Exam Vital Signs (past 8 hours): - 05/11/22 12:00 05/11/22 12:29 Temperature 99.1 F Pulse Rate 94 H 100 H Respiratory Rate 16 16 Blood Pressure 125/70 Pulse Oximetry 95 95 Oxygen Delivery Method Room Air Oxygen Flow Rate 0 Oxygen Delivery Method Room Air Oxygen Flow Rate 0 Narrative Exam Narrative: GEN: Pleasant middle-aged male, Alert and oriented x 3, NAD HEENT:NC, Face symmetric CHEST: Respiratory excursions symmetric, CTAB CV: RRR, no M/R/G ABD: Soft, NT/ND, BT present in all 4 quadrants, no organomegaly or masses EXTR: warm, well perfused, RLE stump without erythema or induration, dressing R hip c/d/i. SKIN: warm and dry, no rash NEURO: Alert and oriented x 3, nonfocal Objective Labs Result Diagrams: 05/11/22 05:50 05/11/22 05:50 Labs: Laboratory Results - last 24 hr 05/11/22 05/11/22 05:50 05:50 WBC 6.7 RBC 3.12 L Hgb 9.2 L Hct 26.3 L MCV 84.1 MCH 29.3 MCHC 34.9 RDW 12.7 Plt Count 145 L Neut % (Auto) 62.4 Lymph % (Auto) 22.3 L [place] % (Auto) 11.6 Eos % (Auto) 3.2 Baso % (Auto) 0.5 Neut # (Auto) 4200 Lymph # (Auto) 1500 [place] # (Auto) 800 Eos # (Auto) 200 Baso # (Auto) 0 Sodium 137 Potassium 3.8 Chloride 102 Carbon Dioxide 28 BUN 12 Creatinine 0.63 L Estimated GFR > 60 BUN/Creatinine Ratio 19.0 Glucose 122 H Calcium 8.2 L Magnesium 1.9 PFSH Medical History Diabetes Hyperlipidemia Hypertension Surgical History History of cholecystectomy Family History Father Diabetes mellitus Cancer Mother Cancer Social History marital status: household members: spouse and children pets and animals: Yes Smoking Status: Never smoker alcohol intake: current Discharge Plan Discharge Plan Patient Disposition: Home Health Service Discharge orders & Medications Prescriptions: New aspirin 81 mg Tablet,Delayed Release (Dr/Ec) 81 mg PO BID 42 Days Qty: 84 0RF oxycodone-acetaminophen [Percocet] 5-325 mg tablet 1 tab PO Q4-6H PRN (Reason: pain) Qty: 30 0RF Continued gabapentin 600 mg Tablet 1,200 mg PO TID simvastatin 80 mg Tablet 80 mg PO BEDTIME famotidine 20 mg Tablet 20 mg PO BID PRN (Reason: Acid Reflux) insulin lispro 100 unit/mL Insulin Pen 1 sliding scale dose SUBCUT USEASDIRECTD insulin glargine 100 unit/mL Cartridge 20 unit SUBCUT BID Follow up/Referrals: Adalberto Mireles MD [Primary Care Provider] - 2 Weeks ([facility] closed for the [facility] please call on wednesday 05/16 to schedule a follow up appointment with you primary care doctore ) Ish Solis MD [Physician] - 05/26/22 9:40 am (Appt:05/26 @ 9:40 W/Dr Solis @ [employer] please arrive 15 min prior to scheduled appointment time (10-14 days for postoperative visit rt hip fx)) Diet/Activity/Treatments Other treatments: -weightbearing as tolerated with front wheel walker once you have your prosthetic revised with the dimensional engineer. -aspirin 81 mg twice daily x6 weeks to prevent blood clots Dressing/Wound care: -Keep Aquacell dressing in place until postoperative follow-up office visit. -Okay to shower. Keep wound out of direct water stream. No soaking or submerging until all the scabs fall off (approximately 6 weeks). -No lotions, ointments, or scar creams directly to the incision until the wound is healed (4-6 weeks), -Please call the office if dressing becomes wet, soiled, or saturated. Activities: -Maintain posterior hip precautions x6 weeks. -Weight-bearing as tolerated. Use front wheeled walker, and progress to cane when safe. -Continue with home exercises as directed by your physical therapist. -Elevate your leg if you have significant swelling. (A wedge pillow is easiest.) -Ice your incision as needed for pain/inflammation/swelling. Protect your skin with a folded pillowcase. Follow-up: -Follow-up with your surgeon or PA in the office in 10-14 days after surgery. -Follow-up with your surgeon 6 weeks postoperatively. Call the office if you have chest pain, shortness of breath, significant swelling that will not resolve with elevating, fever over 101?, significantly worsening pain, or are concerned you might need to go to the Emergency Room. [facility]: [phone] Skin/Wound/Dressing Care Report to your healthcare provider any signs of infection, such as:: chills, fever, night sweats, unusual drainage and unusual redness Visit Report/Discharge Packet Instructions: DI for Hip Replacement Stand Alone Forms: Surgery Discharge Discharge Data Primary Care Provider: Adalberto Mireles VTE Deep Vein Thrombosis/Pulmonary Embolism Present on Admission: No
== END 2022-05-11 14:30 | disposition home health service (06) | DRG 522 ==
LOC: ED 18:52 → AC 20:08
PROVIDERS: Emergency Medicine; Family Medicine; Internal Medicine; Orthopaedic Surgery; Admitting Provider Internal Medicine; Emergency Provider Emergency Medicine; Family Provider Family Medicine; PCP Family Medicine; Referring Provider Emergency Medicine; Visit Provider Internal Medicine
PROC: 0SRR0JZ Replacement of Right Hip Joint, Femoral Surface with Synthetic Substitute, Open Approach (ICD-10-PCS; CPT 27125; principal; 2022-05-08 15:00)
DX: S72.001A Fracture of unspecified part of neck of right femur, initial encounter for closed fracture (principal); D62 Acute posthemorrhagic anemia; E11.40 Type 2 diabetes mellitus with diabetic neuropathy, unspecified; E78.5 Hyperlipidemia, unspecified; D69.6 Thrombocytopenia, unspecified; W18.30XA Fall on same level, unspecified, initial encounter; Z89.511 Acquired absence of right leg below knee; Z79.4 Long term (current) use of insulin; Z20.822 Contact with and (suspected) exposure to COVID-19
CPT/HCPCS: 0241U; 36415; 71045; 72170; 72192; 73502; 73562; 80048; 80053; 80305; 80320; 82962; 83605; 83690; 83735; 85014; 85018; 85025; 85610; 85730; 86850; 86900; 86901; 93005; 93010; 96374; 97110; 97163; 97165; 97530; 99284; A9270; J0171; J0690; J1170; J1815; J2250; J2405; J2765; J3010

== ENCOUNTER 2022-05-13 16:06 | Emergency (ER) | payer MEDICAID, SELFPAY ==
[2022-05-07 20:47] VITALS: BMI 24.4
[2022-05-13 16:26] VITALS: BP 124/66; PULSE 104; RESP 19; TEMP 36.9; O2SAT 95
--- NOTE | 2022-05-13 18:52 | DI.RAD.S_ITS ---
PROCEDURE: XR HIP W PEL IF DONE RT 2V INDICATIONS: pain post op TECHNIQUE: AP pelvis with lateral view(s) of the right hip(s). COMPARISON: [facility], CR, XR HIP W PEL IF DONE RT 2V, 05/07/2022, 17:35. [facility], CT, CT PEL WO CON, 05/07/2022, 18:48. [facility], CR, XR PELVIS 1-2V, 05/08/2022, 14:32. FINDINGS: Bones: There is right hip arthroplasty. The prosthesis is in anatomic alignment. ORIF of proximal femoral fracture. No acute fracture. Pelvic ring appears intact. No suspicious bony lesions. Soft tissues: The visualized bowel gas pattern is normal. No suspicious soft tissue calcifications. Subcutaneous gas in proximal right thigh is likely postsurgical in nature. Vascular calcifications consistent with atherosclerosis. IMPRESSION: 1. Right hip arthroplasty with prosthesis in alignment. 2. ORIF of proximal right femoral fracture. 3. Subcutaneous gas is most likely related to recent surgery. Cannot rule out infection. 4. Extensive atherosclerosis. Dictated by: Carlo Smith M.D. on 05/13/2022 at 20:26 Approved by: Carlo Smith M.D. on 05/13/2022 at 20:28
--- NOTE | 2022-05-13 19:20 | ED.EXTPRO ---
HPI - Extremity Problem General Chief complaint: Extremity Problem,Nontraumatic Stated complaint: sp surgery Right hip swelling Time Seen by Provider: 05/13/22 19:17 Source: patient Mode of arrival: Wheelchair History of Present Illness HPI Narrative: Patient is a 57-year-old male history of diabetes right BKA a recent right femoral neck fracture with repair discharged on 05/11/2022 presenting today with increasing right leg pain and swelling. He has been home for a couple of days home health was supposed to come today but they did not. He has had increasing pain and swelling in his right leg. His bandage is also coming off he said he accidentally urinated on it worried it might be infected. He denies any fever or chills. No chest pain or shortness of breath. The incision site is not actually read or significantly painful. Related Data Home Medications Medication Instructions Recorded Confirmed gabapentin 600 mg tablet 1,200 mg PO TID 09/09/20 05/07/22 famotidine 20 mg tablet 20 mg PO BID PRN Acid Reflux 09/10/20 05/07/22 simvastatin 80 mg tablet 80 mg PO BEDTIME 09/10/20 05/10/22 insulin glargine 100 unit/mL 20 unit SUBCUT BID 05/07/22 05/07/22 subcutaneous cartridge insulin lispro 100 unit/mL 1 sliding scale dose SUBCUT 05/07/22 05/07/22 subcutaneous pen USEASDIRECTD Previous Rx's Medication Instructions Recorded aspirin 81 mg tablet,delayed 81 mg PO BID 6 weeks #84 tabs 05/11/22 release oxycodone-acetaminophen 5 mg-325 1 tab PO Q4-6H PRN pain #30 tabs 05/11/22 mg tablet (Percocet) Allergies Allergy/AdvReac Type Severity Reaction Status Date / Time diphenhydramine Allergy Verified 05/13/22 16:26 [From Benadryl] morphine Allergy Verified 05/13/22 16:26 Sulfa (Sulfonamide Allergy Verified 05/13/22 16:26 Antibiotics) Review of Systems Review of Systems Narrative: GENERAL: Denies chills, fatigue, malaise, fever, sweats, travel HEENT: Denies sinus pain, ear pain, sore throat, difficulty swallowing, neck pain RESPIRATORY: Denies dyspnea, cough, wheezing, hemoptysis, sputum. CARDIOVASCULAR: Denies chest pain, palpitations, orthopnea, edema GASTROINTESTINAL: Denies nausea, vomiting, abdominal pain, diarrhea, constipation, melena. : Denies dysuria, frequency, incontinence, hematuria, urinary retention, flank pain. MUSCULOSKELETAL: See HPI SKIN: No rash, no erythema, no pruritus NEUROLOGIC: Denies weakness, dizziness, headache, numbness, change in speech, confusion PSYCHIATRIC: No concerning psychosocial issues. 12 point review of systems is negative except for those stated above and HPI Patient History Medical History Diabetes Hyperlipidemia Hypertension Surgical History History of cholecystectomy Family History Father Diabetes mellitus Cancer Mother Cancer Social History marital status: household members: spouse and children pets and animals: Yes Smoking Status: Never smoker alcohol intake: current Smoking Status: Never smoker alcohol intake frequency: holidays/special occasions only Substance Use Type: does not use Exam Initial Vital Signs Initial Vital Signs: Vital Signs Temperature 98.5 F 05/13/22 16:26 Pulse Rate 104 H 05/13/22 16:26 Respiratory Rate 19 05/13/22 16:26 Blood Pressure 124/66 05/13/22 16:26 Pulse Oximetry 95 05/13/22 16:26 Oxygen Delivery Method 05/13/22 16:26 GENERAL: Alert very pleasant 57-year-old male in no acute distress HEENT: Head atraumatic,EOMI, pupils reactive, face symmetric, moist mucous membranes CARDIOVASCULAR: Regular rate and rhythm without murmurs, rubs or gallops. RESPIRATORY: Breath sounds equal bilaterally, no wheezes rales or rhonchi. ABDOMEN: Soft, nontender. Normoactive bowel sounds all 4 quadrants. No guarding or rebound. EXTREMITIES: Normal range of motion, no clubbing or edema. Neurovascularly intact Right lower extremity mild swelling and contusion noted right BKA strong femoral pulse soft NEUROLOGICAL: Alert and oriented x4. SKIN: Right-sided incision site clean and dry no erythema no dehiscence no significant tenderness or swelling Course Orders Ordered: Discontinued Medications Hydrocodone Bitart/Acetaminophen (Hydrocodone/Acet 5/325 Tablet) 1 tab PO NOW ONE Stop: 05/13/22 19:43 Last Admin: 05/13/22 19:58 Dose: 1 tab Documented By: RL Hydrocodone Bitart/Acetaminophen (Hydrocodone/Acet 5/325 Prepack) 1 bottle MISC SEEINSTR ONE Stop: 05/13/22 23:57 Last Admin: 05/14/22 00:00 Dose: 1 bottle Documented By: SB Vital Signs Vital signs: Vital Signs - 8 hr 05/13/22 22:38 05/13/22 23:48 Pulse Rate 95 H Blood Pressure 128/58 L Pulse Oximetry 97 Oxygen Delivery Method Room Air Room Air MDM - Extremity (Nontraumatic) Imaging Data Extremity x-ray #1: Radiologist's Impression: Signed Patient: Cyrus Sierra MR#: [id number] : 1965 Acct:[id number] Age/Sex: 57 / M Date of Service: 05/13/22 Loc: ED Accession Number: [id number] ?? Procedure: XR hip w pel if done RT 2V Ordering Provider: Corine Liriano D.O. PROCEDURE:? XR HIP W PEL IF DONE RT 2V ? INDICATIONS:? pain post op ? TECHNIQUE:? AP pelvis with lateral view(s) of the right hip(s).? ? COMPARISON:? [facility], CR, XR HIP W PEL IF DONE RT 2V, 05/07/2022, 17:35.? [facility], CT, CT PEL WO CON, 05/07/2022, 18:48.? [facility], CR, XR PELVIS 1-2V, 05/08/2022, 14:32. ? FINDINGS:? ? Bones:? There is right hip arthroplasty.? The prosthesis is in anatomic alignment.? ORIF of proximal femoral fracture.? No acute fracture.? Pelvic ring appears intact.? No suspicious bony lesions.? ? Soft tissues:? The visualized bowel gas pattern is normal.? No suspicious soft tissue calcifications.? Subcutaneous gas in proximal right thigh is likely postsurgical in nature.? Vascular calcifications consistent with atherosclerosis. ? ? IMPRESSION:? ? 1. Right hip arthroplasty with prosthesis in alignment. 2. ORIF of proximal right femoral fracture. 3. Subcutaneous gas is most likely related to recent surgery.? Cannot rule out infection. ?4. Extensive atherosclerosis.? Dictated by: Carlo Smith M.D. on 05/13/2022 at 20:26 ? ? US - DVT: Radiologist's Impression: Ultrasound Report Signed Patient: Cyrus Sierra MR#: [id number] : 1965 Acct:[id number] Age/Sex: 57 / M Date of Service: 05/13/22 Loc: ED Accession Number: [id number] ?? Procedure: US periph venous low extrem rt Ordering Provider: Coirne Liriano D.O. PROCEDURE:? US PERIPH VENOUS LOW EXTREM RT ? INDICATIONS:? SWELLING. POST HIP SURGERY. ? TECHNIQUE:? Real-time imaging, as well as color and pulse Doppler interrogation, were performed of the lower extremity deep veins from the inguinal ligament to the popliteal fossa.? ? COMPARISON:[facility], PERIPH VENOUS LOW EXTREM RT, 09/15/2020, 14:15. ? FINDINGS:? The common femoral, femoral and popliteal veins are normally compressible, and free of intraluminal thrombus.? Color and pulse Doppler demonstrate normal phasic intraluminal flow.? There is normal augmentation response to distal compression maneuver. ? ? IMPRESSION:? ? 1. No evidence of deep venous thrombosis in the right lower extremity. ? ? Dictated by: Gab Robbins M.D. on 05/13/2022 at 21:50 ? ? MDM Narrative Medical decision making narrative: Patient is having postoperative pain and swelling. Incision site actually looks clean and dry no sign of infection new bandage is placed. Ultrasound is negative for deep VT x-ray does not show any abnormality. This is likely postoperative pain and swelling. He is afebrile at this time I see no need for any further workup or imaging. Discharge Plan Departure Patient Disposition: Home Clinical Impression: Post-operative pain Instructions: DI for Postoperative Pain Activity Restrictions/Additional Instructions: *You have been diagnosed with postoperative *What to do: At this time your x-ray is negative and no evidence of a blood clot. Keep clean and dry. Home healthcare should show up please call them on Monday, if you are having issues please call social worker psychiatric at [phone] *Continue to take medications as directed *Follow up with your primary care provider in 2-3 days or call [phone] *Return to ER if you should have increasing pain swelling redness fever or any new, worsening or concerning symptoms Prescriptions: No Action gabapentin 600 mg Tablet 1,200 mg PO TID simvastatin 80 mg Tablet 80 mg PO BEDTIME famotidine 20 mg Tablet 20 mg PO BID PRN (Reason: Acid Reflux) insulin lispro 100 unit/mL Insulin Pen 1 sliding scale dose SUBCUT USEASDIRECTD insulin glargine 100 unit/mL Cartridge 20 unit SUBCUT BID aspirin 81 mg Tablet,Delayed Release (Dr/Ec) 81 mg PO BID 42 Days Qty: 84 0RF oxycodone-acetaminophen [Percocet] 5-325 mg tablet 1 tab PO Q4-6H PRN (Reason: pain) Qty: 30 0RF Referrals: Adalberto Mireles MD [Primary Care Provider] - Visit Report Forms: Patient Portal/API
--- NOTE | 2022-05-13 19:42 | DI.US.S_ITS ---
PROCEDURE: US [facility] VENOUS LOW EXTREM RT INDICATIONS: SWELLING. POST HIP SURGERY. TECHNIQUE: Real-time imaging, as well as color and pulse Doppler interrogation, were performed of the lower extremity deep veins from the inguinal ligament to the popliteal fossa. COMPARISON: [facility], [facility] VENOUS LOW EXTREM RT, 09/15/2020, 14:15. FINDINGS: The common femoral, femoral and popliteal veins are normally compressible, and free of intraluminal thrombus. Color and pulse Doppler demonstrate normal phasic intraluminal flow. There is normal augmentation response to distal compression maneuver. IMPRESSION: 1. No evidence of deep venous thrombosis in the right lower extremity. Dictated by: Gab Robbins M.D. on 05/13/2022 at 21:50 Approved by: Gab Robbins M.D. on 05/13/2022 at 21:51
--- NOTE | 2022-05-13 19:55 | PC.NURSE ---
Cleaned incision site with soap and water, dried off and applied new aquacell dressing per providers order.
[2022-05-13] MEDS: HYDROCODONE/ACET 5/325 TABLET 1 TAB PO (19:58)
[2022-05-13 21:15] VITALS: BP 124/67; PULSE 102; O2SAT 96
[2022-05-13 23:48] VITALS: BP 128/58; PULSE 95; O2SAT 97
[2022-05-14] MEDS: HYDROCODONE/ACET 5/325 PREPACK 1 BOTTLE MISC
== END 2022-05-14 00:15 | disposition home or self-care (01) ==
PROVIDERS: Emergency Provider Emergency Medicine; Family Provider Family Medicine; PCP Family Medicine
DX: G89.18 Other acute postprocedural pain (principal); M79.604 Pain in right leg
CPT/HCPCS: 73502; 93971; 99283; 99284

== ENCOUNTER → 2023-03-23 13:20 | Outpatient (CLI) | payer MEDICAID, SELFPAY ==
[2022-05-07 20:47] VITALS: BMI 24.4
== END ==
PROVIDERS: Family Provider Family Medicine; PCP Family Medicine; Referring Provider Family Medicine; Visit Provider Surgery
DX: E11.622 Type 2 diabetes mellitus with other skin ulcer (principal); L97.822 Non-pressure chronic ulcer of other part of left lower leg with fat layer exposed; E11.51 Type 2 diabetes mellitus with diabetic peripheral angiopathy without gangrene; E11.40 Type 2 diabetes mellitus with diabetic neuropathy, unspecified; M79.605 Pain in left leg
CPT/HCPCS: 11042; 87070; 87075; 87077; 87147; 87186; 87205; 99203; 99214

== ENCOUNTER → 2023-03-30 14:21 | Outpatient (CLI) | payer MEDICAID, SELFPAY ==
[2022-05-07 20:47] VITALS: BMI 24.4
== END ==
PROVIDERS: Family Provider Family Medicine; PCP Family Medicine; Referring Provider Family Medicine; Visit Provider Surgery
DX: E11.622 Type 2 diabetes mellitus with other skin ulcer (principal); L97.822 Non-pressure chronic ulcer of other part of left lower leg with fat layer exposed; E11.40 Type 2 diabetes mellitus with diabetic neuropathy, unspecified; Z89.511 Acquired absence of right leg below knee; E11.51 Type 2 diabetes mellitus with diabetic peripheral angiopathy without gangrene
CPT/HCPCS: 11042

== ENCOUNTER → 2023-04-06 13:34 | Outpatient (CLI) | payer MEDICAID, SELFPAY ==
[2022-05-07 20:47] VITALS: BMI 24.4
== END ==
PROVIDERS: Family Provider Family Medicine; PCP Family Medicine; Referring Provider Family Medicine; Visit Provider Surgery
DX: E11.622 Type 2 diabetes mellitus with other skin ulcer (principal); L97.822 Non-pressure chronic ulcer of other part of left lower leg with fat layer exposed; E11.40 Type 2 diabetes mellitus with diabetic neuropathy, unspecified; E11.51 Type 2 diabetes mellitus with diabetic peripheral angiopathy without gangrene
CPT/HCPCS: 11042

== ENCOUNTER → 2023-04-13 12:49 | Outpatient (CLI) | payer MEDICAID, SELFPAY ==
[2022-05-07 20:47] VITALS: BMI 24.4
== END ==
PROVIDERS: Family Provider Family Medicine; PCP Family Medicine; Referring Provider Family Medicine; Visit Provider Surgery
DX: E11.622 Type 2 diabetes mellitus with other skin ulcer (principal); L97.822 Non-pressure chronic ulcer of other part of left lower leg with fat layer exposed; E11.40 Type 2 diabetes mellitus with diabetic neuropathy, unspecified; E11.51 Type 2 diabetes mellitus with diabetic peripheral angiopathy without gangrene; L53.9 Erythematous condition, unspecified
CPT/HCPCS: 97602; 99213

== ENCOUNTER → 2023-04-21 13:29 | Outpatient (CLI) | payer MEDICAID, SELFPAY ==
[2022-05-07 20:47] VITALS: BMI 24.4
== END ==
PROVIDERS: Family Provider Family Medicine; PCP Family Medicine; Referring Provider Family Medicine; Visit Provider Physician Assistant
DX: E11.622 Type 2 diabetes mellitus with other skin ulcer (principal); L97.822 Non-pressure chronic ulcer of other part of left lower leg with fat layer exposed; E11.40 Type 2 diabetes mellitus with diabetic neuropathy, unspecified; E11.51 Type 2 diabetes mellitus with diabetic peripheral angiopathy without gangrene; R60.0 Localized edema; L53.9 Erythematous condition, unspecified
CPT/HCPCS: 11042; 93926; 99214

== ENCOUNTER → 2023-04-21 14:22 | Outpatient (CLI) | payer MEDICAID, SELFPAY ==
[2022-05-07 20:47] VITALS: BMI 24.4
--- NOTE | 2023-04-21 14:23 | DI.US.S_ITS ---
PROCEDURE: US ARTERIAL DUPLEX LE LT INDICATIONS: LLE WOUND TECHNIQUE: Color and pulse Doppler interrogation was performed of the left lower extremity arterial system, with image documentation. COMPARISON: None. FINDINGS: Common femoral artery: 93 cm/sec, with triphasic flow. Deep femoral artery: 58 cm/sec, with biphasic flow. Proximal superficial femoral artery: 59 cm/sec, with biphasic flow. Mid superficial femoral artery: 68 cm/sec, with triphasic flow. Distal superficial femoral artery: 82 cm/sec, with biphasic flow. Popliteal artery: 64 cm/sec, with triphasic flow. Posterior tibial artery: 82 cm/sec, with triphasic flow. Anterior tibial artery/dorsalis pedis: 28/51 cm/sec, with monophasic flow. Olivares-scale imaging description: There is mild plaque scattered throughout. There is no stenosis from the common femoral to the popliteal. Anterior tibial above the ankle has a high resistance monophasic waveform. Dorsalis pedis has a low resistance monophasic waveform. IMPRESSION: 1. No stenosis noted from the common femoral through the popliteal. No evidence of inflow stenosis. 2. All waveforms unremarkable except for anterior tibial/dorsalis pedis, the waveforms of which suggest either a hemodynamically significant stenosis or occlusion of the anterior tibial above the dorsalis pedis. Dictated by: Seth Lorenzo M.D. on 04/21/2023 at 17:30 Approved by: Seth Lorenzo M.D. on 04/21/2023 at 17:33
== END ==
PROVIDERS: Family Provider Family Medicine; PCP Family Medicine; Referring Provider Surgery; Visit Provider Surgery
DX: E11.9 Type 2 diabetes mellitus without complications (principal)
CPT/HCPCS: 93926

== ENCOUNTER → 2023-04-28 11:24 | Outpatient (CLI) | payer MEDICAID, SELFPAY ==
[2022-05-07 20:47] VITALS: BMI 24.4
== END ==
PROVIDERS: Family Provider Family Medicine; PCP Family Medicine; Referring Provider Family Medicine; Visit Provider Physician Assistant
DX: E11.622 Type 2 diabetes mellitus with other skin ulcer (principal); L97.822 Non-pressure chronic ulcer of other part of left lower leg with fat layer exposed; R60.0 Localized edema; L53.9 Erythematous condition, unspecified
CPT/HCPCS: 11042; 97597; 99214

== ENCOUNTER → 2023-05-05 14:43 | Outpatient (CLI) | payer MEDICAID, SELFPAY ==
[2022-05-07 20:47] VITALS: BMI 24.4
== END ==
PROVIDERS: Family Provider Family Medicine; PCP Family Medicine; Referring Provider Family Medicine; Visit Provider Surgery
DX: L97.222 Non-pressure chronic ulcer of left calf with fat layer exposed (principal); E11.622 Type 2 diabetes mellitus with other skin ulcer; I73.9 Peripheral vascular disease, unspecified
CPT/HCPCS: 99213

== ENCOUNTER → 2023-05-19 12:58 | Outpatient (CLI) | payer MEDICAID, SELFPAY ==
[2022-05-07 20:47] VITALS: BMI 24.4
== END ==
PROVIDERS: Family Provider Family Medicine; PCP Family Medicine; Referring Provider Family Medicine; Visit Provider Physician Assistant
DX: E11.628 Type 2 diabetes mellitus with other skin complications (principal); Z86.31 Personal history of diabetic foot ulcer; E11.40 Type 2 diabetes mellitus with diabetic neuropathy, unspecified; R60.0 Localized edema
CPT/HCPCS: 99212; 99213

== ENCOUNTER → 2023-05-19 13:32 | Outpatient (CLI) | payer MEDICAID, SELFPAY ==
[2022-05-07 20:47] VITALS: BMI 24.4
--- NOTE | 2023-05-19 | DI.RAD.S_ITS ---
PROCEDURE: XR KNEE RT 1TO2V INDICATIONS: Pain in right knee TECHNIQUE: 3 views of the knee were acquired. COMPARISON: [facility], , XR KNEE RT 1TO2V, 05/07/2022, 17:35. FINDINGS: Bones: There is below-knee amputation. There is a comminuted fracture involving the distal femur with displacement. The fracture lucency is seen extending to the femoral metastasis with possible intra-articular involvement. Question nondisplaced tibial plateau fracture. No suspicious bony lesions. Soft tissues: Small joint effusion. No suspicious soft tissue calcifications. IMPRESSION: 1. Distal femoral fracture with displacement. 2. Possible nondisplaced tibial plateau fracture. 3. Small knee joint effusion. The result was discussed with the patient. The patient agrees to go to the ER to be evaluated. Dictated by: Carlo Smith M.D. on 05/19/2023 at 14:02 Approved by: Carlo Smith M.D. on 05/19/2023 at 14:11
== END ==
PROVIDERS: Family Provider Family Medicine; PCP Family Medicine; Referring Provider Family Medicine; Visit Provider Family Medicine
DX: S72.401A Unspecified fracture of lower end of right femur, initial encounter for closed fracture (principal); M25.461 Effusion, right knee; M25.561 Pain in right knee; Z89.511 Acquired absence of right leg below knee
CPT/HCPCS: 73560

== ENCOUNTER 2023-05-19 14:04 | Inpatient (IN) | payer MEDICAID, SELFPAY ==
[2022-05-07 20:47] VITALS: BMI 24.4
[2023-05-19 14:09] VITALS: BP 116/71; PULSE 99; RESP 16; TEMP 36.6; O2SAT 95; BMI 25.7
--- NOTE | 2023-05-19 15:39 | PC.NURSE ---
Attempted to room pt but he went to cafeteria to eat. Had been told to be NPO
--- NOTE | 2023-05-19 17:11 | ED.LOWEXIN ---
HPI - Extremity Injury (Lower) General Chief Complaint: Extremity Injury, Lower Stated Complaint: Leg pain right Time Seen by Provider: 05/19/23 17:08 Source: patient Mode of arrival: Wheelchair History of Present Illness HPI Narrative: 58-year-old male. 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 He does ambulate at baseline with a prosthesis. He also uses his wheelchair. Two weeks ago he slipped and fell down some stairs while out walking his dog. Since that time he is had quite a bit of discomfort in his lower leg knee. Was not evaluated until earlier today. Had an arthrocentesis of his knee where he stated that the drain blood. He then had an x-ray performed. Was told to come to the emergency department because of a fracture. No other injuries from the fall. No change in any neurologic status. Related Data Home Medications Medication Instructions Recorded Confirmed gabapentin 600 mg tablet 1,200 mg PO TID 09/09/20 05/07/22 famotidine 20 mg tablet 20 mg PO BID PRN Acid Reflux 09/10/20 05/07/22 simvastatin 80 mg tablet 80 mg PO BEDTIME 09/10/20 05/10/22 insulin glargine 100 unit/mL 20 unit SUBCUT BID 05/07/22 05/07/22 subcutaneous cartridge insulin lispro 100 unit/mL 1 sliding scale dose SUBCUT 05/07/22 05/07/22 subcutaneous pen USEASDIRECTD Previous Rx's Medication Instructions Recorded oxycodone-acetaminophen 5 mg-325 1 tab PO Q4-6H PRN pain #30 tabs 05/11/22 mg tablet (Percocet) Allergies Allergy/AdvReac Type Severity Reaction Status Date / Time diphenhydramine Allergy Verified 05/19/23 14:15 [From Benadryl] morphine Allergy Verified 05/19/23 14:15 Sulfa (Sulfonamide Allergy Verified 05/19/23 14:15 Antibiotics) Review of Systems Constitutional Constitutional: Reports system reviewed and no additional complaints, except as documented Musculoskeletal Musculoskeletal: Reports system reviewed and no additional complaints, except as documented Integumentary/Breasts Skin/Breast: Reports system reviewed and no additional complaints, except as documented Neurologic Neurologic: Reports system reviewed and no additional complaints, except as documented Hematologic/Lymphatic On Anticoagulants: No Patient History Medical History Hyperlipidemia Hypertension Diabetes Surgical History History of cholecystectomy Family History Father Diabetes mellitus Cancer Mother Cancer Social History marital status: household members: spouse and children pets and animals: Yes Smoking Status: Never smoker alcohol intake: current Smoking Status: Never smoker alcohol intake frequency: holidays/special occasions only Substance Use Type: does not use Exam Initial Vital Signs Initial Vital Signs: Vital Signs Temperature 97.8 F 05/19/23 14:09 Pulse Rate 99 H 05/19/23 14:09 Respiratory Rate 16 05/19/23 14:09 Blood Pressure 116/71 05/19/23 14:09 Pulse Oximetry 95 05/19/23 14:09 Oxygen Delivery Method Room Air 05/19/23 14:09 Const General: cooperative HENMT Head: normal to inspection and normocephalic Skin General: no rashes or lesions noted Neuro Other: Still has sensation at the distal residual limb. Has extensive bruising in his medial and lateral thigh of his right leg. Extrem Other: Does have discomfort of the distal femur. Course Orders Ordered: ED Orders 05/19/23 17:17 CT LE RT wo con Stat 05/19/23 18:45 Consult to Internal Medicine Stat 05/19/23 18:46 Consult to Orthopedic Surgery Stat 05/19/23 18:48 Basic Metabolic Panel Stat Complete Blood Count AUTO DIFF Stat Dextrose (D10w) 100 mls @ 1,200 mls/hr IV PRN PRN PRN Reason: Hypoglycemia Insulin Glargine (Insulin Glargine 100 Unit/Ml 3ml Pen) 20 unit SUBCUT BID DULCE Insulin Human Lispro (Insulin Lispro 100 Unit/Ml 3ml Vial) 0 unit SUBCUT ACHS DULCE; Protocol Vital Signs Vital signs: Vital Signs - 8 hr 05/19/23 14:09 05/19/23 18:00 Temperature 97.8 F Pulse Rate 99 H 90 Respiratory Rate 16 16 Blood Pressure 116/71 146/69 H Pulse Oximetry 95 97 Oxygen Delivery Method Room Air Room Air MDM - Extremity Injury (Lower) Imaging Data CT LE: Radiologist's Impression: PROCEDURE: CT LE RT WO CON INDICATIONS: Eval for extent of femur fracture and tibial plateau fracture TECHNIQUE: Noncontrast 3 mm axial sections acquired of the right lower extremity , with coronal and sagittal reformats. COMPARISON: [facility] [place], CR, XR PELVIS WITH LATERAL HIP LEFT, 06/28/2022, 14:04. [facility], , XR KNEE RT 1TO2V, 05/19/2023, 13:38. FINDINGS: Image quality: Excellent. Bones: Remote right hip arthroplasty. No evidence of hardware failure or loosening. In the inferior shaft of the femur, there is an oblique displaced fracture with some overriding. Additionally, there is vertical fracture extending 2 involve the lateral femoral condyle and extend to the articular surface. There is no proximal tibial fracture or fibular fracture. Below the knee amputation is noted. Soft tissues: There is associated hematoma lateral to the femoral fracture. IMPRESSION: 1. Intact right hip arthroplasty. 2. Comminuted fracture involving the femur. There is a displaced oblique component involving the mid to distal shaft, as well as a vertical nondisplaced component which extends to the articular surface at the knee. 3. Remote below the knee amputation. 4. No proximal tibial or fibular fracture. Extremity x-ray #1: Radiologist's Impression: PROCEDURE: XR KNEE RT 1TO2V INDICATIONS: Pain in right knee TECHNIQUE: 3 views of the knee were acquired. COMPARISON: [facility], CR, XR KNEE RT 1TO2V, 05/07/2022, 17:35. FINDINGS: Bones: There is below-knee amputation. There is a comminuted fracture involving the distal femur with displacement. The fracture lucency is seen extending to the femoral metastasis with possible intra-articular involvement. Question nondisplaced tibial plateau fracture. No suspicious bony lesions. Soft tissues: Small joint effusion. No suspicious soft tissue calcifications. IMPRESSION: 1. Distal femoral fracture with displacement. 2. Possible nondisplaced tibial plateau fracture. 3. Small knee joint effusion. The result was discussed with the patient. The patient agrees to go to the ER to be evaluated. MDM Narrative Medical decision making narrative: The x-ray included in this note is for reference purposes only. It was done at this facility but ordered by an outside provider and done as an outpatient. The CT scan does show a distal femur fracture but no proximal tibia fracture. I did discuss the case with Dr. Feliz orthopedist on-call who will admit to the hospital. Discussed the need for admission with the patient. I also discussed the case with Dr. Abarca hospitalist on-call who will consult. Will attempt splinting with a knee immobilizer. Discharge Plan Departure Patient Disposition: Admitted As Inpatient Clinical Impression: Femur fracture, right Admit Date/Time: 05/19/23 18:52 Admit Provider: Tony Feliz
--- NOTE | 2023-05-19 17:17 | DI.CT.S_ITS ---
PROCEDURE: CT LE RT WO CON INDICATIONS: Eval for extent of femur fracture and tibial plateau fracture TECHNIQUE: Noncontrast 3 mm axial sections acquired of the right lower extremity , with coronal and sagittal reformats. COMPARISON: [facility] [place], CR, XR PELVIS WITH LATERAL HIP LEFT, 06/28/2022, 14:04. [facility], CR, XR KNEE RT 1TO2V, 05/19/2023, 13:38. FINDINGS: Image quality: Excellent. Bones: Remote right hip arthroplasty. No evidence of hardware failure or loosening. In the inferior shaft of the femur, there is an oblique displaced fracture with some overriding. Additionally, there is vertical fracture extending 2 involve the lateral femoral condyle and extend to the articular surface. There is no proximal tibial fracture or fibular fracture. Below the knee amputation is noted. Soft tissues: There is associated hematoma lateral to the femoral fracture. IMPRESSION: 1. Intact right hip arthroplasty. 2. Comminuted fracture involving the femur. There is a displaced oblique component involving the mid to distal shaft, as well as a vertical nondisplaced component which extends to the articular surface at the knee. 3. Remote below the knee amputation. 4. No proximal tibial or fibular fracture. Dictated by: Seth Lorenzo M.D. on 05/19/2023 at 18:13 Approved by: Seth Lorenzo M.D. on 05/19/2023 at 18:18
--- NOTE | 2023-05-19 17:59 | PC.NURSE ---
Patient stated that he takes 1500 mg APAP TID and is aware that is above the recommended daily amount. He also takes gabapentin. He is currently a 4/10 pain.
[2023-05-19 18:00] VITALS: BP 146/69; PULSE 90; RESP 16; O2SAT 97
[2023-05-19 19:13] LABS: Add Manual Diff / Slide Review NO; Basophils Absolute Auto 0 /uL (0-100); Basophils Percent Auto 0.6 % (0-2); Eosinophils Absolute Auto 200 /uL (0-450); Eosinophils Percent Auto 3.3 % (2-4); Hematocrit 29.7 % (41-53); Hemoglobin 10.2 g/dL (13.5-17.5); Lymphocytes Absolute Auto 2400 /uL (1100-4500); Lymphocytes Percent Auto 34.1 % (25-40); Mean Corpuscular HGB Conc 34.2 % (30-36); Mean Corpuscular Hemoglobin 28.8 PG (26-34); Mean Corpuscular Volume 84.4 fL (80-100); Monocytes Absolute Auto 500 /uL (0-900); Monocytes Percent Auto 7.1 % (3-14); Neutrophils Absolute Auto 3800 /uL (1500-7000); Neutrophils Percent Auto 54.9 % (50-75); Platelet Count 341 X10^3/uL (150-400); Red Blood Cell Count 3.52 X10^6/uL (4.5-5.9); Red Cell Distribution Width 13.2 % (11.6-14.8); White Blood Cell Count 6.9 X10^3/uL (4.5-11.0)
[2023-05-19 19:28] LABS: BUN Creatinine Ratio 27.8 (6-22); Blood Urea Nitrogen 15 mg/dL (9-20); Calcium 9.7 mg/dL (8.4-10.2); Carbon Dioxide 29 mmol/L (22-32); Chloride 103 mmol/L (98-107); Estimated Glomerular Filt Rate > 60 mL/min (>60); Glucose 112 mg/dL (70-100); HEMOLYSIS < 15 (0-50); Potassium 3.9 mmol/L (3.4-5.1); Sodium 138 mmol/L (137-145)
[2023-05-19 19:32] VITALS: BMI 25.7
[2023-05-19] MEDS: ACETAMINOPHEN 325 MG TABLET 975 MG PO (19:56)
[2023-05-19 20:30] VITALS: BP 120/72; PULSE 98; RESP 16; O2SAT 98
--- NOTE | 2023-05-19 20:44 | DI.RAD.S_ITS ---
PROCEDURE: XR HIP W PEL IF DONE RT 2V INDICATIONS: R femur fx. hx hip replacement TECHNIQUE: AP pelvis with lateral view(s) of the right hip(s). COMPARISON: [facility], CR, XR HIP W PEL IF DONE RT 2V, 05/13/2022, 19:00. [facility], CR, XR HIP W PEL IF DONE RT 2V, 05/07/2022, 17:35. FINDINGS: Bones: Right hip arthroplasty is unchanged. Prior cerclage wires are intact. No periprosthetic lucency to suggest loosening or infection. No fractures or dislocations. Pelvic ring appears intact. No suspicious bony lesions. Soft tissues: The visualized bowel gas pattern is normal. No suspicious soft tissue calcifications. Arterial vascular calcifications. IMPRESSION: No fracture demonstrated. Stable right hip arthroplasty. Dictated by: Petar Heard M.D. on 05/19/2023 at 21:36 Approved by: Petar Heard M.D. on 05/19/2023 at 21:37
--- NOTE | 2023-05-19 20:48 | PM.HP.1 ---
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 Has been unable to bear weight for the last 2 weeks and has been getting around in his wheelchair. He eventually went in to urgent care where x-rays were obtained showing signs of a distal femur fracture. There was some concerns of a possible tibial plateau fracture. And patient was sent to the emergency room. About a year ago patient had another fall resulting in a femoral neck fracture and underwent a hemiarthroplasty as well as fixation of a greater trochanter fracture. [facility] Medical History Hyperlipidemia Hypertension Diabetes Surgical History History of cholecystectomy Family History Father Diabetes mellitus Cancer Mother Cancer Social History marital status: household members: spouse and children pets and animals: Yes Smoking Status: Never smoker alcohol intake: current Meds Home Medications and Allergies Home Medications Medication Instructions Recorded Confirmed Type gabapentin 600 mg tablet 1,200 mg PO TID 09/09/20 05/07/22 History famotidine 20 mg tablet 20 mg PO BID PRN Acid Reflux 09/10/20 05/07/22 History simvastatin 80 mg tablet 80 mg PO BEDTIME 09/10/20 05/10/22 History insulin glargine 100 unit/mL 20 unit SUBCUT BID 05/07/22 05/07/22 History subcutaneous cartridge insulin lispro 100 unit/mL 1 sliding scale dose SUBCUT 05/07/22 05/07/22 History subcutaneous pen USEASDIRECTD oxycodone-acetaminophen 5 mg-325 1 tab PO Q4-6H PRN pain #30 tabs 05/11/22 Rx mg tablet (Percocet) Allergies Allergy/AdvReac Type Severity Reaction Status Date / Time diphenhydramine Allergy Verified 05/19/23 14:15 [From Benadryl] morphine Allergy Verified 05/19/23 14:15 Sulfa (Sulfonamide Allergy Verified 05/19/23 14:15 Antibiotics) Exam Vital Signs (past 8 hours): - 05/19/23 14:09 05/19/23 18:00 Temperature 97.8 F Pulse Rate 99 H 90 Respiratory Rate 16 16 Blood Pressure 116/71 146/69 H Pulse Oximetry 95 97 Oxygen Delivery Method Room Air Room Air Oxygen Delivery Method Room Air Narrative Exam Narrative: On physical exam, no sign of any open wounds around the knee or thigh. Compartments are soft. No sign of any injury involving his amputation site. No sign of any obvious injury involving his hip. Does complain of some pain to the hip but no sign of any dislocation or obvious fracture. No injury involving the left leg. Full range of motion of the left leg without any pain swelling or instability. Objective Labs 05/19/23 19:02 05/19/23 19:02 Labs: Laboratory Results - last 24 hr 05/19/23 19:02 WBC 6.9 RBC 3.52 L Hgb 10.2 L Hct 29.7 L MCV 84.4 MCH 28.8 MCHC 34.2 RDW 13.2 Plt Count 341 Neut % (Auto) 54.9 Lymph % (Auto) 34.1 [place] % (Auto) 7.1 Eos % (Auto) 3.3 Baso % (Auto) 0.6 Neut # (Auto) 3800 Lymph # (Auto) 2400 [place] # (Auto) 500 Eos # (Auto) 200 Baso # (Auto) 0 Sodium 138 Potassium 3.9 Chloride 103 Carbon Dioxide 29 BUN 15 Creatinine 0.54 L Estimated GFR > 60 BUN/Creatinine Ratio 27.8 H Glucose 112 H Calcium 9.7 Assessment & Plan Assessment & Plan narrative: Patient status post a fall 2 weeks ago resulting in a distal femur fracture. Due to the displacement at the fracture site this is something that would most likely require surgical intervention. This case is made more complicated due to his below the knee amputation on that side as well as the fact that he already has a stem going down into the proximal femur. Because of that stem from his hemiarthroplasty, a retrograde nail is not an option fix the fracture. Surgical fixation would require an extensive open approach to get to the fracture to plate it which due to his poorly controlled diabetes is concerning for postoperative infection.
[2023-05-19 21:37] VITALS: BP 123/67; PULSE 104; RESP 18; TEMP 36.3; O2SAT 97
[2023-05-19] MEDS: INSULIN GLARGINE 100 UNIT/ML 3ML PEN 20 UNIT SUBCUT ×2 (21:55→21:58)
[2023-05-19] MEDS: OXYCODONE IR 5 MG TABLET PO (22:10)
[2023-05-19] MEDS: LACTATED RINGERS 1,000 ML 100 ML IV (22:11)
[2023-05-19] MEDS: GABAPENTIN 600 MG TABLET 1200 MG PO (22:11)
[2023-05-19] MEDS: ATORVASTATIN 20 MG TABLET 10 MG PO (22:50)
--- NOTE | 2023-05-19 23:24 | PC.ADMIT ---
Addendum entered by Angeli Ratliff R.N. 05/20/23 02:10: Patient has consult to hospitalist. Marine Oiler Dr. Gore notified for consult and stated Day team hospitalist said he took care of patient- he will place a full consult tomorrow. If cross cover issue, I can address. Original Note: [id number] 15 Admission Note: Patient admitted to ACU from ED, transferred by wheelchair. A/O x 4, able to make his needs known. LR running @ 100/hr. BKA to right leg. Has 2 wounds covered with Allevyn, dressing CDI. Wounds managed by wound care. Oriented to room and call light. Bed in low and locked position, call light within reach. The patient,Cyrus Sierra,58 y/o, was given written information regarding hospital policies, unit procedures and contact persons. Patient's smoking status: Never smoker. Vital Signs - 8 hr 05/19/23 18:00 05/19/23 20:30 05/19/23 21:37 Temperature 97.4 F L Pulse Rate 90 98 H 104 H Respiratory Rate 16 16 18 Blood Pressure 146/69 H 120/72 123/67 Pulse Oximetry 97 98 97 Oxygen Delivery Method Room Air Room Air Oxygen Flow Rate 0
--- NOTE | 2023-05-20 01:44 | PC.WOUNDPHOT ---
Scratches to left leg, bruise to left inner leg, wounds to LLE (managed by wound care).
[2023-05-20] MEDS: OXYCODONE IR 5 MG TABLET PO ×4 (05:51→20:23)
[2023-05-20] MEDS: LACTATED RINGERS 1,000 ML 100 ML IV ×2 (05:54→15:49)
[2023-05-20 06:00] VITALS: BP 110/69; PULSE 91; RESP 16; TEMP 36.4; O2SAT 97
[2023-05-20] MEDS: GABAPENTIN 600 MG TABLET 1200 MG PO ×3 (08:37→19:44)
[2023-05-20] MEDS: INSULIN GLARGINE 100 UNIT/ML 3ML PEN 20 UNIT SUBCUT ×2 (08:40→20:25)
--- NOTE | 2023-05-20 11:47 | PM.CN ---
History of Present Illness Consult details Date Patient Seen: 05/20/23 Time Patient Seen: 11:40 Chief complaint: Leg pain right Reason for consult: Distal femur fracture Narrative: Patient is found awake and in good spirits. Blaine taking any medications for pain. Then utilizing a knee immobilizer for compression of the right leg. Still does has pain at the [id number] amputation. He is aware that he will be having surgery this coming Monday. Meds Home Medications and Allergies Home Medications Medication Instructions Recorded Confirmed Type gabapentin 600 mg tablet 1,200 mg PO TID 09/09/20 05/19/23 History famotidine 20 mg tablet 20 mg PO DAILY 09/10/20 05/19/23 History insulin glargine 100 unit/mL 20 unit SUBCUT BID 05/07/22 05/19/23 History subcutaneous cartridge insulin lispro 100 unit/mL 1 sliding scale dose SUBCUT 05/07/22 05/19/23 History subcutaneous pen USEASDIRECTD Allergies Allergy/AdvReac Type Severity Reaction Status Date / Time diphenhydramine Allergy Verified 05/19/23 14:15 [From Benadryl] morphine Allergy Verified 05/19/23 14:15 Sulfa (Sulfonamide Allergy Verified 05/19/23 14:15 Antibiotics) Exam Vital Signs (past 8 hours): - 05/20/23 06:00 Temperature 97.5 F L Pulse Rate 91 H Respiratory Rate 16 Blood Pressure 110/69 Pulse Oximetry 97 Oxygen Flow Rate 0 Oxygen Delivery Method Room Air Oxygen Flow Rate 0 Narrative Exam Narrative: No sign of any open wounds around the knee or thigh. Resolving ecchymosis along posterior thigh. Compartments are soft. At the amputation site effusion is noted and is tender to palpation. No injury involving the left leg. Full range of motion of the left leg without any pain swelling or instability. Const General: cooperative and comfortable Resp Effort & Inspection: normal respiratory effort and able to speak in complete sentences Objective Labs 05/19/23 19:02 05/19/23 19:02 Labs: Laboratory Results - last 24 hr 05/19/23 19:02 WBC 6.9 RBC 3.52 L Hgb 10.2 L Hct 29.7 L MCV 84.4 MCH 28.8 MCHC 34.2 RDW 13.2 Plt Count 341 Neut % (Auto) 54.9 Lymph % (Auto) 34.1 [place] % (Auto) 7.1 Eos % (Auto) 3.3 Baso % (Auto) 0.6 Neut # (Auto) 3800 Lymph # (Auto) 2400 [place] # (Auto) 500 Eos # (Auto) 200 Baso # (Auto) 0 Sodium 138 Potassium 3.9 Chloride 103 Carbon Dioxide 29 BUN 15 Creatinine 0.54 L Estimated GFR > 60 BUN/Creatinine Ratio 27.8 H Glucose 112 H Calcium 9.7 PFSH Medical History Hyperlipidemia Hypertension Diabetes Surgical History History of cholecystectomy Family History Father Diabetes mellitus Cancer Mother Cancer Social History marital status: household members: spouse and children pets and animals: Yes Tobacco & Substance Use Smoking Status: Never smoker alcohol intake: current Assessment & Plan Assessment & Plan narrative: Patient status post injury 2 weeks ago resulting in a distal femur fracture. Plan for surgery on Monday for open fixation. Continue with multi-modal pain control, as needed Time Spent With Patient Time with patient: less than 30 minutes
[2023-05-20 12:00] VITALS: BP 113/69; PULSE 84; RESP 20; TEMP 36.1; O2SAT 98
--- NOTE | 2023-05-20 13:07 | CM.DANOTE ---
Reviewed EMR and team rounds for pt's medical status and initial anticipated d/c needs. Met with pt at bedside to introduce self and role. He was found to be alert, oriented, able to discuss medical hx, safety concerns, and his desire for more information on accessing Medicaid LTC placement. Payor: Medicaid (susi) PCP: Irasema Graham Pt is a 58 year-old M who presented at the ED after worsening pain and inability to bear weight for the last 2-weeks after falling while walking his dog. 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 He usually ambulates with his prosthesis and wheelchair, however has been wheelchair bound since the fall. He also has a hx of falling about a year ago, fractured his right hip, and required a hemiarthroplasty. CT imaging was positive this time for a distal femur fracture. Pt was admitted, and consultation was done with Ortho. Surgery is planned for Tuesday 05/22. DCP will follow and assist w/further information re: process for initiating a LTC placement. He is interested in AL or Adult Family Home. Monitor for final plan for d/c to either SNF or home w/HH. He will be able to receive HH while staying at his ex-'s house for the winter. Discharge Planning/Care Management Advanced directive, confirm from FAMILY Start: 05/19/23 22:46 Freq: Q24H Status: Active Protocol: Document 05/19/23 22:46 (Rec: 05/20/23 00:17 [id number]) Advance Directive, confirm on record Time 21:30 Person contacted patient Copy received No CM Discharge Assessment Start: 05/20/23 13:01 Freq: Status: Active Protocol: Document 05/20/23 13:01 DPL (Rec: 05/20/23 13:07 DPL [id number]) Discharge Planning Assessment Assigned Newspaper Manager MIGUEL Quarles Advance Directives? No Advance Directives on File No History Provided By Patient,Medical Record Has Patient been admitted in last 30 Yes days? Comment 05/07/23 admitted for R-hip fracture. Prior Living Arrangements House Comment Pt is actually homeless. He is able to live with his ex- for a single period of several weeks during the winter, they needs to leave. At that point he either sleeps in his car or takes turn sleeping on friends' couches. He is interested in information re: long-term care placement options and process . Household Members spouse,children Type of transporation used prior to Drives own vehicle admit Independent with ADL's Yes Is patient alert and oriented? Yes Caregiver for Another No Comment has w/c and ramp at home Patient/Family Preference Assisted Facility,Home with Home Health Comment Monitor for pending PT/OT eval and d/c recommendatios. Barriers to Discharge Yes Comment Pt has straight Medicaid which could be a barrier to SNF and HH Discharge Plan Assisted Facility Transportation Arrangement Pending on final d/c disposition. Additional Comment Pending surgery Tuesday 05/22. If patient plan is home with home health No : Has signed face to face form been completed? If patient plan is SNF: Has PASSR been No completed? Medicare Choice List Provided No Whiteboard Updated in Patient Room with Yes name and ext. # of Newspaper Manager Review Status In Process Please Provide Date Initial DC 05/20/23 Assessment Was Performed
--- NOTE | 2023-05-20 14:38 | PC.NURSE ---
Pt having relatively uneventful day Med x 2 w/ oxycodone for discomfort w/ good relief. IVF infusing via pump as per MD orders. Brace ocntinues to right leg. Call light w/in reach, Pt calls appropriately for assistance. Continue w/ plan of care.
[2023-05-20 18:00] VITALS: BP 128/75; PULSE 83; RESP 22; TEMP 36.6; O2SAT 96
--- NOTE | 2023-05-20 18:26 | P.CONS_ITS ---
History of Present Illness Consult details Date Patient Seen: 05/20/23 Time Patient Seen: 08:00 Chief complaint: Leg pain right Narrative: Mr. 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 He uses a prosthetic to ambulate. Two weeks ago he had a fall and he has had pain in his right leg since then. He went to urgent care where xray noted femur fracture and was directed to the ED. In the ED workup was done and imaging confirmed he had a distal femur fracture. He was admitted with plan for operative repair by orthopedic service. Medicine consulted for management of diabetes. When I see him today his pain is well controlled. Meds Home Medications and Allergies Home Medications Medication Instructions Recorded Confirmed Type gabapentin 600 mg tablet 1,200 mg PO TID 09/09/20 05/19/23 History famotidine 20 mg tablet 20 mg PO DAILY 09/10/20 05/19/23 History insulin glargine 100 unit/mL 20 unit SUBCUT BID 05/07/22 05/19/23 History subcutaneous cartridge insulin lispro 100 unit/mL 1 sliding scale dose SUBCUT 05/07/22 05/19/23 History subcutaneous pen USEASDIRECTD Allergies Allergy/AdvReac Type Severity Reaction Status Date / Time diphenhydramine Allergy Verified 05/19/23 14:15 [From Benadryl] morphine Allergy Verified 05/19/23 14:15 Sulfa (Sulfonamide Allergy Verified 05/19/23 14:15 Antibiotics) Review of Systems Review of Systems Narrative: 14 systems reviewed and negative aside from what is noted in HPI Exam Vital Signs (past 8 hours): - 05/20/23 12:00 Temperature 97.0 F L Pulse Rate 84 Respiratory Rate 20 Blood Pressure 113/69 Pulse Oximetry 98 Oxygen Delivery Method Room Air Oxygen Flow Rate 0 Narrative Exam Narrative: GEN: no acute distress CV: regular rate and rhythm PULM: clear bilaterally ABD: soft, nontender EXT: right BKA Objective Labs 05/19/23 19:02 05/19/23 19:02 Labs: Laboratory Results - last 24 hr 05/19/23 19:02 WBC 6.9 RBC 3.52 L Hgb 10.2 L Hct 29.7 L MCV 84.4 MCH 28.8 MCHC 34.2 RDW 13.2 Plt Count 341 Neut % (Auto) 54.9 Lymph % (Auto) 34.1 [place] % (Auto) 7.1 Eos % (Auto) 3.3 Baso % (Auto) 0.6 Neut # (Auto) 3800 Lymph # (Auto) 2400 [place] # (Auto) 500 Eos # (Auto) 200 Baso # (Auto) 0 Sodium 138 Potassium 3.9 Chloride 103 Carbon Dioxide 29 BUN 15 Creatinine 0.54 L Estimated GFR > 60 BUN/Creatinine Ratio 27.8 H Glucose 112 H Calcium 9.7 PFSH Medical History Hyperlipidemia Hypertension Diabetes Surgical History History of cholecystectomy Family History Father Diabetes mellitus Cancer Mother Cancer Social History marital status: household members: spouse and children pets and animals: Yes Tobacco & Substance Use Smoking Status: Never smoker alcohol intake: current Assessment & Plan Assessment & Plan narrative: 1. Type 2 Diabetes on insulin -for now continue home dose of insulin at lantus 20U BID -continue insulin sliding scale 2. Femur fracture -pain controlled currently -plan for operative repair per surgery CODE: Full
[2023-05-20] MEDS: DOCUSATE 100 MG CAPSULE PO (19:44)
[2023-05-20] MEDS: ATORVASTATIN 20 MG TABLET 10 MG PO (19:44)
[2023-05-20] MEDS: SENNOSIDES 8.6 MG TABLET 17.2 MG PO (19:44)
[2023-05-20 21:00] VITALS: BP 115/63; PULSE 99; RESP 17; TEMP 37.2; O2SAT 96
[2023-05-21] VITALS (18 sets, daily range): BP systolic 96–154; BP diastolic 52–70; PULSE 81–127; RESP 12–20; TEMP 36.1–36.9; O2SAT 92–99; BMI 25.7
--- NOTE | 2023-05-21 | DI.RAD.S_ITS ---
PROCEDURE: XR FEMUR RT MIN 2V INDICATIONS: ORIF OF RT DISTAL FEMUR TECHNIQUE: Multiple fluoroscopic intraoperative views of the femur were acquired. COMPARISON: None. FINDINGS: Bones: Multiple fluoroscopic intraoperative views demonstrate fixation of the distal right femur. IMPRESSION: Fluoroscopic intraoperative views of ORIF of the distal right femur. Dictated by: Gillian Aguillon M.D. on 05/21/2023 at 19:11 Approved by: Gillian Aguillon M.D. on 05/21/2023 at 19:12
[2023-05-21] MEDS: LACTATED RINGERS 1,000 ML 100 ML IV ×4 (00:54→23:52)
[2023-05-21] MEDS: OXYCODONE IR 5 MG TABLET PO ×4 (01:45→18:01)
--- NOTE | 2023-05-21 07:57 | PM.PREOP ---
Pre-operative Note Interval Note History & Physical reviewed/Exam performed by Physician: Yes Changes to H&P: No
[2023-05-21] MEDS: LACTATED RINGERS 1,000 ML 42 ML IV (08:16)
--- NOTE | 2023-05-21 08:21 | PC.NURSE ---
Patient is slightly confused at times. He is pleasant with care and just left to go down for his r.femur fx surgery. Patient was wearing a brace to his leg at this time.
[2023-05-21] MEDS: CEFAZOLIN 2 GM/100 ML PREMIX 100 ML IV ×2 (08:35→18:01)
[2023-05-21] MEDS: LIDOCAINE 1% W/EPI 20 ML INJ (08:53)
--- NOTE | 2023-05-21 08:58 | SUR.OPER ---
Supine on padded OR fracture table, head on pillow, arms secured on padded arm boards at <90 degrees abduction, nonoperative leg uncrossed, operative leg propped on padded, sterile, OR triangle, tape over blanket over abdomen and left lower leg.
[2023-05-21] MEDS: ACETAMINOPHEN IV 1,000 MG/100 ML VIAL 400 MG IV (09:00)
[2023-05-21] MEDS: TRANEXAMIC ACID 1,000 MG in SODIUM CHLORIDE 0.9% 100 ML 200 MG IV (09:24)
[2023-05-21] MEDS: BUPIVACAINE 0.25% (PF) 30 ML, EPINEPHrine 0.15 MG INJ (10:07)
--- NOTE | 2023-05-21 11:00 | PM.OP.1 ---
Operative Date/Time/Diagnoses Date of procedure: 05/21/23 Time of procedure: 08:00 Pre-op diagnosis: Right distal femur fracture Post-op diagnosis: same Procedure & Clinicians Procedure: Open reduction internal fixation of a right distal femur fracture Same procedure as scheduled: Yes Indications: Right distal femur fracture Surgeon: Tony Feliz Click Yes if Unassisted: Yes Anesthesia Type: General Operative Notes Findings: Displaced extra-articular distal femur fracture Closure Type: primary Applied: implant(s) ([employer]hew distal femur plate) Estimated Blood Loss (mL): 250 Procedure in detail: On date of service, patient was met in the holding area where his operative site was signed and witnessed by the OR staff. Surgery was once again discussed with the patient and in remaining questions and concerns he had were answered fully. Patient was taken to the operating theater placed on the operating table in a supine position. Great care was taken to ensure that all bony prominences were appropriately padded. A bump was placed underneath the hip to internally rotate the leg. Due to the location of the fracture and the surgical incision no tourniquet was used. Time-out was performed verifying patient's name, procedure, and operative site. Patient's right leg was prepped and draped in the normal sterile fashion. Lateral incision was made to expose the distal femur. Ten blade was used to incise through skin and fascial tissue. Deep knife was then used to split the IT band and then the lateral muscle was bluntly dissected allowing us visualization of the distal femur and the fracture site. The fracture was about 2-week-old so a combination of rongeur and curette was used to remove any soft tissue or soft callus formation in between the fracture sites inhibiting good reduction. Once the fracture site was debrided and irrigated reduction forceps were used to reduce the fracture. Once we were satisfied with the reduction a lateral distal femur plate was placed into position. Using the targeting guide screws were placed both distally and proximally allowing a secure fixation of the fracture. Throughout this process C-arm was used with both AP and lateral views to verify reduction plate positioning as well as screw length. Plate provided a secure fixation of the fracture and final x-rays were obtained. The wound was copiously irrigated and then closed with a layered fashion. The leg was cleaned, dried, and dressed and patient was taken to the PACU in stable condition. Complications: none Post-operative Condition: stable Disposition: Acute Care Plan for aftercare: Patient will be partial weight-bearing to the right leg. Can weightbear for transfers. No restrictions to range of motion of the knee. Okay for him to wear his prosthesis.
[2023-05-21 11:09] LABS: Hemoglobin 8.4 g/dL (13.5-17.5); Mean Corpuscular HGB Conc 33.6 % (30-36); Mean Corpuscular Hemoglobin 28.4 PG (26-34); Mean Corpuscular Volume 84.6 fL (80-100); Platelet Count 288 X10^3/uL (150-400); Red Blood Cell Count 2.96 X10^6/uL (4.5-5.9); Red Cell Distribution Width 13.3 % (11.6-14.8); White Blood Cell Count 8.6 X10^3/uL (4.5-11.0)
--- NOTE | 2023-05-21 11:56 | SUR.PHASEI ---
Pt transferred to room 204 by this RN. VSS. SBAR report to Marianne Mccurdy. Bed in low position, call light in hand. A/Ox3. Side rails up.
--- NOTE | 2023-05-21 13:23 | CM.DPC ---
DCP Cont: Per Ortho MD, pt was taken to the OR for surgery this morning Sun 12 and pt seemed to tolerate well and can be partial weight bearing and pt can bear weight for transfers and can use his prosthesis. PT ordered and pending. Pt still not up to the floor from post op yet. SW waiting for confirmation from AD Counselors on pt's active insurance and to confirm if pt still has straight Medicaid for insurance. Per pt's prior admission in Apr 2022 last year, pt had a hx of SNF at [facility] and using [facility]. But at his admission last year, pt still had straight Medicaid and [facility], [facility], [facility], [facility] declined as pt's Medicaid had no rehab benefit to utilize. [facility] also declined accepting pt last year due to his insurance. Pt discharged to ex-'s home at discharge. In August 2020 pt had toes amputated and then needed hospital transfer to [facility] for Vascular Surgeon and ended up with BKA and prosthetic. Pt was at SNF near [place] for a month before discharging home with [facility], unclear what insurance pt had at that admission. Patient's medical care is established through the [facility]; patient [place] so [place]. Plan: SW to follow closely tomorrow Mon 05/22 to contact [employer] to determine if pt has an assigned Senior Ssis Developer towards alerting them to pt's interest in LTC placement in the future. SW to follow for PT eval and recommendations towards determining discharge planning needs for further discussion with pt regarding possible d/c to ex-'s house? SW to also confirm with AD Counselors if pt has straight Medicaid or managed plan as this would determine if pt would have access to HH or even SNF. MIGUEL Huston
[2023-05-21] MEDS: GABAPENTIN 600 MG TABLET 1200 MG PO ×2 (13:39→20:03)
--- NOTE | 2023-05-21 15:08 | PT.IIE ---
Current Diagnoses Unspecified fracture of lower end of right femur, initial encounter for closed fracture (05/19/23) Surgery Performed Operation Date: 05/21/23 08:00 Actual Procedures p ORIF Femur Fracture - Tony Feliz MD Surgical History (Last Reviewed 05/20/23 @ 18:26 by Henry Abarca MD) History of cholecystectomy Medical History (Last Reviewed 05/20/23 @ 18:26 by Henry Abarca MD) Diabetes Hyperlipidemia Hypertension Physical Therapy Inpatient Evaluation/Re-Eval M1 PT/OT-IP Prior Functional Status Start: 05/21/23 15:48 Freq: NEEDED Status: Active Protocol: Document 05/21/23 15:08 DLM (Rec: 05/21/23 16:14 DLM [id number]) Medical Review Prior Functional Status Medical History Reviewed Yes Diet/Fluid Consistency Regular Communication WFL, hard of hearing Mobility and Gait He can ambulate with right LE prosthesis and no device or cane. He uses his wheelchair when not in his prosthesis. He has a history of falls. He underwent right hip hemiarthroplasty 05/08/22 after a fall. Activities of Daily Living and IADL's Independent with equipment. He uses seat for shower. He has seats set up around the toilet to assist getting on/off toilet since his wheelchair will not fit into the bathroom at the mobile home. Social History Household Members spouse,children Living Arrangements Mobile home Number of Floors (Floors) One Floor Number of Stairs To Enter/Railing? ramp Home Environment Standard Height Toilet,Tub/ Shower,Ramp Home Equipment Front Wheel Walker,Straight Cane,Manual Wheelchair,Shower Seat with Backrest,Hand Held Shower,Eviscerator Additional Social History Comment He sometimes sleeps in a bed at the mobile home, other times he sleeps in a car or on a friends couch. He has been able to stay at the mobile home after prior surgeries. His Wheelchair is in his hospital room. He reports his right LE prosthesis is at home . M2 PT-IP Current Condition Start: 05/21/23 15:48 Freq: NEEDED Status: Active Protocol: Document 05/21/23 15:08 DLM (Rec: 05/21/23 16:14 DLM [id number]) Physical Therapy Current Condition Current Condition Evaluation Date 05/21/23 Treatment Diagnosis right femur fx, ORIF 05/20 Onset Date 05/19/23 M3 PT-IP Subjective Start: 05/21/23 15:48 Freq: NEEDED Status: Active Protocol: Document 05/21/23 15:08 DLM (Rec: 05/21/23 16:14 DLM [id number]) Subjective Physical Therapy Visit Type Type Initial Evaluation Visit Start Time 14:30 Visit Stop Time 15:08 Total Visit Minutes 38 Number of FIELD RESEARCH ASSOCIATE Visits 0 Physical Therapy Visit Comments Patient Comments He believes he will be able to discharge to the mobile home with his and son. Patient Goals Be able to walk again with his prosthesis. He thinks home health PT would help at discharge. Therapy Pain Assessment Pain When Pain Assessed During Mobility Pain Present Pain Present Pain Reported Location Right leg Intensity 5 Scale Used Numeric (0 - 10) Description Aching,Tender,With Movement Pain Behaviors Facial Grimacing,Guarding Pain Management Techniques Apply Cold,Re-positioning M4 PT-IP Mobility and Gait Start: 05/21/23 15:48 Freq: NEEDED Status: Active Protocol: Document 05/21/23 15:08 DLM (Rec: 05/21/23 16:14 DLM [id number]) PT-Bed Mobility Assessment Rolling Level of Assist Independent Supine to Sit Supine to Sit Independent Sit to Supine Sit to Supine Independent Scooting Scooting to Edge of Bed Independent PT-Transfer Assessment Comments Mobility Comments Pt sat edge of bed but declined to stand or do transfers. Pt has drop arm bedside commode to use in his hospital room as needed. He can use UE's to unweight for scooting and shifting in sitting on bed. PT-Balance Assessment Sitting Balance and Reactions Static Sitting Balance Ability Normal Dynamic Sitting Balance Ability Normal M5 PT-IP Objective Assessments Start: 05/21/23 15:48 Freq: NEEDED Status: Active Protocol: Document 05/21/23 15:08 DLM (Rec: 05/21/23 16:14 DLM [id number]) Orientation Orientation/Cognition Level of Alertness Alert Orientation Name,Age,Birthday,Month,Date, Year,Day of Week,Place, Situation Language Function Ability Hard of Hearing Safety Awareness Understands Safety Issues Memory Description No Deficits Noted Gross Range of Motion Upper Extremity ROM Assessment Within Functional Limits Lower Extremity ROM Assessment Right Impaired Impairments pain in right knee with flexion, tolerating 10-20 degrees of motion at this time Pt resting with knee in full extension in bed Strength Upper Extremity Strength Assessment Within Functional Limits Lower Extremity Strength Assessment Right Impaired Hip flex 3-/5 with pain Knee pain limits functional movement and strength Ankle not applicable due to amputation Comments Strength Comments right below knee amputation since 2020 Coordination Assessment Gross Coordination Gross Coordination WNL Sensation Assessment Sensation Gross Sensation Right UE Impaired,Left UE Impaired,Left LE Impaired Light Touch Impaired Sensation Description Numbness Comments Sensation Comments hx neuropathy in hands and feet with severe numbness in left foot Muscle Tone Muscle Tone WNL Yes M6 PT-IP Treatment Start: 05/21/23 15:48 Freq: NEEDED Status: Active Protocol: Document 05/21/23 15:08 DLM (Rec: 05/21/23 16:14 DL [id number]) Physical Therapy Treatment Exercises Exercises Ankle Pumps,Gluteal Sets,Quad Sets,Heel Slides,Supine Hip Abduction Education Education Provided Precautions,Weight Bearing Status,Safety Other Treatments Other Treatment Performed educated pt in post-op precautions as ordered by surgeon M7 PT-IP Assessment and Plan Start: 05/21/23 15:48 Freq: NEEDED Status: Active Protocol: Document 05/21/23 15:08 DLM (Rec: 05/21/23 16:14 DL [id number]) PT Summary Assessment and Plan Potential Rehabilitation Potential Good Status of Condition at Evaluation Evolving Summary Impairments Pain,ROM,Strength,Balance, Transfers,Gait,Activity Tolerance Assessment Summary Cyrus is alert and resting in bed after right femur ORIF today. He agreed to sit up on edge of bed this visit. He declined to do transfers or stand. Educated pt in his post -op precautions and safety to decrease fall risks. He is motivated to discharge home ( to the mobile home where his lives) at discharge. If he can safely progress to transfers I anticipate he will be able to discharge home with home health PT. Will continue to assess for discharge planning as he progressses in therapy. Goals Transfer Goal Independent Other Goals Independent scoot transfer bed -chair with drop arm. SBA standing with FWW and prosthesis on right LE SBA stand pivot transfer bed- chair with FWW and prosthesis right LE, partial weight bearing Days to Meet Goals 5 Frequency of Treatment Frequency Of Treatment Twice a Day Treatment Plan Physical Therapy Treatment Plan Transfer Training,Gait Training,Therapeutic Exercise, Balance Retraining,Post Op Education,Discharge Planning, Hot or Cold Pack,Neuromuscular Re-ed Other Recommendations and Next Treatment focus on safe transfers for Focus discharge Precautions Other Precautions Per Surgeon: okay to wear prosthesis, to weight bear for transfers right LE no restrictions right knee ROM Weight Bearing Status Weight Bearing Status Partial Weight Bearing Allowed Weight Bearing Amount (enter % right LE s/p ORIF or #) (%) Recommendations To Nursing Amount of Assist Needed 1 Person Assist Discharge Recommendations PT Discharge Recommendations Home with Assistance,Home Health Other Discharge Recommendations if pt able to progress to transfers in/out of chair Transportation Needs at Discharge Wheelchair/Cabulance
[2023-05-21] MEDS: INSULIN LISPRO 100 UNIT/ML 3ML VIAL SUBCUT ×2 (16:53→20:05)
[2023-05-21] MEDS: ATORVASTATIN 20 MG TABLET 10 MG PO (20:03)
[2023-05-21] MEDS: INSULIN GLARGINE 100 UNIT/ML 3ML PEN 20 UNIT SUBCUT (20:05)
[2023-05-21] MEDS: OXYCODONE IR 10 MG TABLET PO (21:52)
[2023-05-21] MEDS: ACETAMINOPHEN 325 MG TABLET 650 MG PO (21:53)
[2023-05-22] VITALS (11 sets, daily range): BP systolic 103–126; BP diastolic 53–64; PULSE 97–124; RESP 16–18; TEMP 36.9–39.1; O2SAT 91–99
[2023-05-22] MEDS: CEFAZOLIN 2 GM/100 ML PREMIX 100 ML IV
[2023-05-22] MEDS: IBUPROFEN 400 MG TABLET PO ×3 (02:31→20:57)
[2023-05-22] MEDS: ACETAMINOPHEN 325 MG TABLET 650 MG PO ×2 (02:31→19:41)
--- NOTE | 2023-05-22 03:42 | PC.NURSE ---
workflow developer: Patient is AxOx4, forgetful at times. Pain adequately controlled w/ PO pain medications although increases w/ movement. Right femur incision covered w/ aquacel drsg & CHERYL wrap, CDI. PIV in right forearm infusing LR @ 100, IV abx infused. Patient spiked fever overnight (102.4 F), BP: 103/53 (MAP 66), HR 115, O2 89% on RA. Placed patient on 1L NC, O2 up to 94%, resp 18. MD Feliz notified, Ibuprofen ordered & given. Tylenol given Q6hrs. Ice packs placed. Educated patient on use of incentive spirometer & observed patient performing 15 repetitions (2000 mL, tolerated well). Patient states that he feels fine, denies nausea, chest pain, SOB. Will continue to monitor. 399 update: temp 100.7, HR & BP improving (106/55, HR 106), Patient continues to state that he feels fine. Will continue to monitor.
[2023-05-22] MEDS: OXYCODONE IR 5 MG TABLET PO ×4 (04:54→19:41)
[2023-05-22 06:28] LABS: Hematocrit 21.7 % (41-53); Hemoglobin 7.4 g/dL (13.5-17.5); Mean Corpuscular HGB Conc 34.2 % (30-36); Platelet Count 257 X10^3/uL (150-400); Red Blood Cell Count 2.56 X10^6/uL (4.5-5.9); Red Cell Distribution Width 13.4 % (11.6-14.8); White Blood Cell Count 10.4 X10^3/uL (4.5-11.0)
[2023-05-22 06:37] LABS: BUN Creatinine Ratio 22.1 (6-22); Blood Urea Nitrogen 15 mg/dL (9-20); Calcium 8.2 mg/dL (8.4-10.2); Carbon Dioxide 28 mmol/L (22-32); Chloride 97 mmol/L (98-107); Estimated Glomerular Filt Rate > 60 mL/min (>60); Glucose 205 mg/dL (70-100); HEMOLYSIS < 15 (0-50); Potassium 3.7 mmol/L (3.4-5.1); Sodium 129 mmol/L (137-145)
--- NOTE | 2023-05-22 07:16 | PM.PNPO.1 ---
Subjective Subjective Date Patient Seen: 05/22/23 Time Patient Seen: 07:15 Interval history: Patient has found sleeping. Easily woken. States he had postoperative pain yesterday, but has improved today. Did inquire if fluid was removed from his knee since that was his initial reason for going to his primary care provider before discovering the fracture. Denies any numbness or tingling from the surgery site and no discharge. Exam Vital Signs (past 8 hours): - 05/22/23 00:00 05/22/23 02:09 05/22/23 02:31 Temperature 98.8 F 102.4 F H 102.4 F H Pulse Rate 118 H 115 H Respiratory Rate 18 18 Blood Pressure 109/63 103/53 L Pulse Oximetry 93 94 Oxygen Flow Rate 0 1 05/22/23 02:31 05/22/23 03:03 05/22/23 03:03 Temperature 102.4 F H 101.9 F H 101.9 F H Pulse Rate Respiratory Rate Blood Pressure Pulse Oximetry Oxygen Flow Rate 05/22/23 04:39 05/22/23 05:01 Temperature 100.7 F H 99.3 F Pulse Rate 106 H Respiratory Rate 16 Blood Pressure 106/55 L Pulse Oximetry 91 Oxygen Flow Rate 0 Oxygen Delivery Method Room Air Oxygen Flow Rate 0 Narrative Exam Narrative: Operation was performed on my in the right leg which had [id number] amputation. Wound is wrapped with Jaime bandage. No discharge coming through the bandage. Sensation is grossly intact through the bandage. Able to abduct and adduct at the hip with no complications. Resp Effort & Inspection: normal respiratory effort and able to speak in complete sentences Objective Labs 05/22/23 06:15 05/22/23 06:15 Labs: Laboratory Results - last 24 hr 05/21/23 05/22/23 11:05 06:15 WBC 8.6 10.4 RBC 2.96 L 2.56 L Hgb 8.4 L 7.4 L Hct 25.0 L 21.7 L MCV 84.6 85.0 MCH 28.4 29.0 MCHC 33.6 34.2 RDW 13.3 13.4 Plt Count 288 257 Sodium 129 L Potassium 3.7 Chloride 97 L Carbon Dioxide 28 BUN 15 Creatinine 0.68 Estimated GFR > 60 BUN/Creatinine Ratio 22.1 H Glucose 205 H Calcium 8.2 L PFSH Medical History Hyperlipidemia Hypertension Diabetes Surgical History History of cholecystectomy Family History Father Diabetes mellitus Cancer Mother Cancer Social History marital status: household members: spouse and children pets and animals: Yes Smoking Status: Never smoker alcohol intake: current Assessment & Plan Post-op Postoperative Procedures: Procedures Operation Date: 05/21/23 08:00 Actual Procedure Side Surgeon p ORIF Femur Fracture Tony Feliz MD Postoperative day: 1 Postoperative status: doing well Postoperative plan: routine post-op care Postoperative plan narrative: Discussed decreased Hgb and Hct with Dr. Feliz. since patient is asymptomatic, we will continue to monitor. Multimodal pain control. Evaluate for discharge tomorrow with PT clearance. Time Spent With Patient Time with patient: less than 15 minutes Quality VTE Deep Vein Thrombosis/Pulmonary Embolism Present on Admission: No
[2023-05-22] MEDS: INSULIN LISPRO 100 UNIT/ML 3ML VIAL SUBCUT ×4 (08:16→20:30)
[2023-05-22] MEDS: INSULIN GLARGINE 100 UNIT/ML 3ML PEN 20 UNIT SUBCUT (08:16)
--- NOTE | 2023-05-22 09:16 | PT.IPTN ---
Current Diagnoses Unspecified fracture of lower end of right femur, initial encounter for closed fracture (05/19/23) Surgery Performed Operation Date: 05/21/23 08:00 Actual Procedures p ORIF Femur Fracture - Tony Feliz MD Physical Therapy Treatment Note M2 PT-IP Current Condition Start: 05/21/23 15:48 Freq: NEEDED Status: Active Protocol: Document 05/21/23 15:08 DLM (Rec: 05/21/23 16:14 DLM [id number]) Physical Therapy Current Condition Current Condition Evaluation Date 05/21/23 Treatment Diagnosis right femur fx, ORIF 05/20 Onset Date 05/19/23 M3 PT-IP Subjective Start: 05/21/23 15:48 Freq: NEEDED Status: Active Protocol: Document 05/21/23 15:08 DLM (Rec: 05/21/23 16:14 DLM [id number]) Subjective Physical Therapy Visit Type Type Initial Evaluation Visit Start Time 14:30 Visit Stop Time 15:08 Total Visit Minutes 38 Number of PROFESSOR OF PHYSICS Visits 0 Physical Therapy Visit Comments Patient Comments He believes he will be able to discharge to the mobile home with his and son. Patient Goals Be able to walk again with his prosthesis. He thinks home health PT would help at discharge. Therapy Pain Assessment Pain When Pain Assessed During Mobility Pain Present Pain Present Pain Reported Location Right leg Intensity 5 Scale Used Numeric (0 - 10) Description Aching,Tender,With Movement Pain Behaviors Facial Grimacing,Guarding Pain Management Techniques Apply Cold,Re-positioning M4 PT-IP Mobility and Gait Start: 05/21/23 15:48 Freq: NEEDED Status: Active Protocol: Document 05/22/23 10:06 AVE (Rec: 05/22/23 10:23 AVE [id number]) PT-Bed Mobility Assessment Supine to Sit Supine to Sit Independent Scooting Scooting to Edge of Bed Independent PT-Transfer Assessment Sit to and From Stand Sit to and from Stand Moderate Assistance,1 Person Assistance,Use of Upper Extremities Equipment Transfer Assistive Device Gait Belt,Front Wheeled Walker Transfers Transfer Destination Chair Comments Mobility Comments Pt resting in bed when approached for therapy. present, but leaves at beginning of session. Supine> Sitting EOB w/HOB raised, Ind. Pt reports R LE pain w/ movement. Pt refuses park services specialist sock , electing to go barefooted. Squat pivot from EOB>personal WC requires SBA. Pt agreeable to attempt single leg (L) stand. Requires ModA, Pt using WC armrests to push off. Pt reaches nearly full hip ext, remains w/forward trunk flexion, and then abruptly sits, stating that R LE is too painful. Pt educated on improtance of movement of LLE for healing and to avoid contracture development, pt agreeable to minimal seated AROM to include hip abd/add, hip flexion. Tolerates < 20degrees knee flexion. Pt requests getting back in bed, Pt educated on importance of spending time OOB, pt agreeable. Set up w/call light and table within reach. PT-Balance Assessment Sitting Balance and Reactions Static Sitting Balance Ability Normal Dynamic Sitting Balance Ability Normal Standing Balance and Reactions Static Standing Balance Ability Poor Device Used Front Wheel Walker M5 PT-IP Objective Assessments Start: 05/21/23 15:48 Freq: NEEDED Status: Active Protocol: Document 05/22/23 10:06 AVE (Rec: 05/22/23 10:23 AVE [id number]) Orientation Orientation/Cognition Level of Alertness Alert Language Function Ability Hard of Hearing Safety Awareness Understands Safety Issues Memory Description No Deficits Noted Gross Range of Motion Lower Extremity ROM Assessment Right Impaired Impairments pain in right knee with flexion, tolerating<20 degrees of motion at this time Pt resting with knee in full extension in bed M6 PT-IP Treatment Start: 05/21/23 15:48 Freq: NEEDED Status: Active Protocol: Document 05/21/23 15:08 DLAngelo (Rec: 05/21/23 16:14 DL [id number]) Physical Therapy Treatment Exercises Exercises Ankle Pumps,Gluteal Sets,Quad Sets,Heel Slides,Supine Hip Abduction Education Education Provided Precautions,Weight Bearing Status,Safety Other Treatments Other Treatment Performed educated pt in post-op precautions as ordered by surgeon M7 PT-IP Assessment and Plan Start: 05/21/23 15:48 Freq: NEEDED Status: Active Protocol: Document 05/22/23 10:06 AVE (Rec: 05/22/23 10:23 AVE [id number]) PT Summary Assessment and Plan Summary Assessment Summary Pt able to transfer from EOB> personal WC w/SBA today. Pt attempts SLS LLE as he does not have his R prosthesis and reports that he wouldn't wear it anyway because of R LE swelling and pain, unable to achieve full stand due to R LE pain. Recommending [place] home w/ assist and home health. Goals Transfer Goal Independent Other Goals Independent scoot transfer bed -chair with drop arm. SBA standing with FWW and prosthesis on right LE SBA stand pivot transfer bed- chair with FWW and prosthesis right LE, partial weight bearing Days to Meet Goals 5 Frequency of Treatment Frequency Of Treatment Twice a Day Treatment Plan Physical Therapy Treatment Plan Transfer Training,Gait Training,Therapeutic Exercise, Balance Retraining,Post Op Education,Discharge Planning, Hot or Cold Pack,Neuromuscular Re-ed Other Recommendations and Next Treatment focus on safe transfers for Focus discharge Precautions Other Precautions Per Surgeon: okay to wear prosthesis, to weight bear for transfers right LE no restrictions right knee ROM Weight Bearing Status Weight Bearing Status Partial Weight Bearing Allowed Weight Bearing Amount (enter % right LE s/p ORIF or #) (%) Recommendations To Nursing Amount of Assist Needed 1 Person Assist,2 Person Assist Discharge Recommendations PT Discharge Recommendations Home with Assistance,Home Health Other Discharge Recommendations if pt able to progress to transfers in/out of chair Transportation Needs at Discharge Wheelchair/Cabulance
--- NOTE | 2023-05-22 09:47 | PC.NURSE ---
Patient can be confused at times, seems to get this way more in the evening and night. He has a dressing to his r.hip that is cdi with aquacel. He is now up in his wheel chair after transferring and working with physical therapy. Will give patient some po oxycodone for discomfort. He is sitting up in his wheel chair.
[2023-05-22] MEDS: GABAPENTIN 600 MG TABLET 1200 MG PO ×3 (09:53→20:29)
[2023-05-22] MEDS: DOCUSATE 100 MG CAPSULE PO (09:53)
[2023-05-22] MEDS: ENOXAPARIN 40 MG/0.4 ML SYRINGE SUBCUT (09:54)
[2023-05-22] MEDS: LACTATED RINGERS 1,000 ML 100 ML IV ×2 (09:59→19:44)
--- NOTE | 2023-05-22 10:06 | PT.IPTN ---
Current Diagnoses Unspecified fracture of lower end of right femur, initial encounter for closed fracture (05/19/23) Surgery Performed Operation Date: 05/21/23 08:00 Actual Procedures p ORIF Femur Fracture - Tony Feliz MD Physical Therapy Treatment Note M2 PT-IP Current Condition Start: 05/21/23 15:48 Freq: NEEDED Status: Active Protocol: Document 05/21/23 15:08 DLM (Rec: 05/21/23 16:14 DLM [id number]) Physical Therapy Current Condition Current Condition Evaluation Date 05/21/23 Treatment Diagnosis right femur fx, ORIF 05/20 Onset Date 05/19/23 M3 PT-IP Subjective Start: 05/21/23 15:48 Freq: NEEDED Status: Active Protocol: Document 05/22/23 10:06 ZF (Rec: 05/22/23 12:06 ZF [id number]) Subjective Physical Therapy Visit Type Type Treatment Note Visit Start Time 09:16 Visit Stop Time 09:45 Total Visit Minutes 29 Number of ACCOUNTS CLERK Visits 1 M4 PT-IP Mobility and Gait Start: 05/21/23 15:48 Freq: NEEDED Status: Active Protocol: Document 05/22/23 10:06 ZF (Rec: 05/22/23 10:23 ZF [id number]) PT-Bed Mobility Assessment Supine to Sit Supine to Sit Independent Scooting Scooting to Edge of Bed Independent PT-Transfer Assessment Sit to and From Stand Sit to and from Stand Moderate Assistance,1 Person Assistance,Use of Upper Extremities Equipment Transfer Assistive Device Gait Belt,Front Wheeled Walker Transfers Transfer Destination Chair Comments Mobility Comments Pt resting in bed when approached for therapy. present, but leaves at beginning of session. Supine> Sitting EOB w/HOB raised, Ind. Pt reports R LE pain w/ movement. Pt refuses public relations associate sock , electing to go barefooted. Squat pivot from EOB>personal WC requires SBA. Pt agreeable to attempt single leg (L) stand. Requires ModA, Pt using WC armrests to push off. Pt reaches nearly full hip ext, remains w/forward trunk flexion, and then abruptly sits, stating that R LE is too painful. Pt educated on improtance of movement of LLE for healing and to avoid contracture development, pt agreeable to minimal seated AROM to include hip abd/add, hip flexion. Tolerates < 20degrees knee flexion. Pt requests getting back in bed, Pt educated on importance of spending time OOB, pt agreeable. Set up w/call light and table within reach. PT-Balance Assessment Sitting Balance and Reactions Static Sitting Balance Ability Normal Dynamic Sitting Balance Ability Normal Standing Balance and Reactions Static Standing Balance Ability Poor Device Used Front Wheel Walker M5 PT-IP Objective Assessments Start: 05/21/23 15:48 Freq: NEEDED Status: Active Protocol: Document 05/22/23 10:06 AVE (Rec: 05/22/23 10:23 AVE [id number]) Orientation Orientation/Cognition Level of Alertness Alert Language Function Ability Hard of Hearing Safety Awareness Understands Safety Issues Memory Description No Deficits Noted Gross Range of Motion Lower Extremity ROM Assessment Right Impaired Impairments pain in right knee with flexion, tolerating<20 degrees of motion at this time Pt resting with knee in full extension in bed M6 PT-IP Treatment Start: 05/21/23 15:48 Freq: NEEDED Status: Active Protocol: Document 05/21/23 15:08 DLAngelo (Rec: 05/21/23 16:14 DLM [id number]) Physical Therapy Treatment Exercises Exercises Ankle Pumps,Gluteal Sets,Quad Sets,Heel Slides,Supine Hip Abduction Education Education Provided Precautions,Weight Bearing Status,Safety Other Treatments Other Treatment Performed educated pt in post-op precautions as ordered by surgeon M7 PT-IP Assessment and Plan Start: 05/21/23 15:48 Freq: NEEDED Status: Active Protocol: Document 05/22/23 10:06 AVE (Rec: 05/22/23 10:23 AVE [id number]) PT Summary Assessment and Plan Summary Assessment Summary Pt able to transfer from EOB> personal WC w/SBA today. Pt attempts SLS LLE as he does not have his R prosthesis and reports that he wouldn't wear it anyway because of R LE swelling and pain, unable to achieve full stand due to R LE pain. Recommending [place] home w/ assist and home health. Goals Transfer Goal Independent Other Goals Independent scoot transfer bed -chair with drop arm. SBA standing with FWW and prosthesis on right LE SBA stand pivot transfer bed- chair with FWW and prosthesis right LE, partial weight bearing Days to Meet Goals 5 Frequency of Treatment Frequency Of Treatment Twice a Day Treatment Plan Physical Therapy Treatment Plan Transfer Training,Gait Training,Therapeutic Exercise, Balance Retraining,Post Op Education,Discharge Planning, Hot or Cold Pack,Neuromuscular Re-ed Other Recommendations and Next Treatment focus on safe transfers for Focus discharge Precautions Other Precautions Per Surgeon: okay to wear prosthesis, to weight bear for transfers right LE no restrictions right knee ROM Weight Bearing Status Weight Bearing Status Partial Weight Bearing Allowed Weight Bearing Amount (enter % right LE s/p ORIF or #) (%) Recommendations To Nursing Amount of Assist Needed 1 Person Assist,2 Person Assist Discharge Recommendations PT Discharge Recommendations Home with Assistance,Home Health Other Discharge Recommendations if pt able to progress to transfers in/out of chair Transportation Needs at Discharge Wheelchair/Cabulance
--- NOTE | 2023-05-22 11:01 | CM.DPC ---
Addendum entered by MIGUEL Huston 05/22/23 14:24: ADD: Return call from Mary at [facility] and she confirms they can accept the pt and his insurance and since pt needs RN and PT they can start within 2 days of him discharging the hospital. SW completed F2F and HH orders but have not faxed to [facility] yet. BF Original Note: DCP Home with HH planning Per MD, pt is making progress and had a fever yesterday and continues to receive IV-Abx and fluids today and to work more with PT/OT. Not yet medically stable to d/c yet today. Per PT, pt does not have prosthesis bedside and also does not want to attempt prosthesis yet as he feels it remains swollen but was able to practice transfers today and required min assist. PT feels pt likely safe for d/c home to ex/'s mobile home where their son also lives and recommending HH. MISTY confirmed with AD Counselors that pt only has straight Medicaid (not managed) for insurance. MISTY called 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 [facility] staff can just contact pt by phone (they will call him this morning) and initiate a Request for Service for either [facility] or [facility]. MISTY met bedside with pt and explained role and he confirms his exwife is agreeable with him discharging to their mobile home at d/c and can likely provide transport at d/c (remains the [address] [place] [address] address and his cell phone number is current). Pt states his preference is [facility] again as he used them last year a couple times. SW explained the need to confirm they will still accept his insurance and pt acknowledges understanding. Pt confirms he received a call from [facility] to submit a Request for Service and MISTY explained what Adult Family [facility] and Assisted Living Facilities provide and their size and pt interested for future needs and will follow up with [facility] regarding this. Pt does not have any further concerns regarding discharge at this time. MISTY faxed new referral to [facility] and called Mary with update on pt status and request to confirm if they can accept his insurance and she will have her team review and call MISTY back. Plan: SW to follow for plan of home with family and awaiting call back from [facility] to confirm if they can accept pt's insurance. If HH can accept, F2F and orders still needed. MIGUEL Huston
--- NOTE | 2023-05-22 12:35 | OT.IP.EVAL ---
Current Diagnoses Unspecified fracture of lower end of right femur, initial encounter for closed fracture (05/19/23) Surgery Performed Operation Date: 05/21/23 08:00 Actual Procedures p ORIF Femur Fracture - Tony Feliz MD Past Medical History (Last Reviewed 05/20/23 @ 18:26 by Henry Abarca MD) Diabetes Hyperlipidemia Hypertension Surgical History (Last Reviewed 05/20/23 @ 18:26 by Henry Abarca MD) History of cholecystectomy Occupational Therapy Inpatient Evaluation/Re-Eval M1 PT/OT-IP Prior Functional Status Start: 05/21/23 15:48 Freq: NEEDED Status: Active Protocol: Document 05/22/23 14:08 CGR (Rec: 05/22/23 14:32 CGR [id number]) Medical Review Prior Functional Status Medical History Reviewed Yes Diet/Fluid Consistency Regular Communication WFL, hard of hearing Mobility and Gait He can ambulate with right LE prosthesis and no device or cane. He uses his wheelchair when not in his prosthesis. He has a history of falls. He underwent right hip hemiarthroplasty 05/08/22 after a fall. Activities of Daily Living and IADL's Independent with equipment. He uses seat for shower. He has a tub transfer bench across from the door of the bathroom. He is able to bring his w/c to the doorway of the bathroom where the toilet is to his right (with him in his w/c) and the tub transfer bench is straight across. He then places his RLE o the tub transfer bench to support the leg while he stands/scoots from his w/c to the toilet. Social History Household Members spouse,children Living Arrangements Mobile home Number of Floors (Floors) One Floor Number of Stairs To Enter/Railing? ramp Home Environment Standard Height Toilet,Tub/ Shower,Ramp Home Equipment Front Wheel Walker,Straight Cane,Manual Wheelchair,Shower Seat with Backrest,Hand Held Shower,College Counselor Additional Social History Comment He sometimes sleeps in a bed at the mobile home, other times he sleeps in a car or on a friends couch. He has been able to stay at the mobile home after prior surgeries. His Wheelchair is in his hospital room. He reports his right LE prosthesis is at home . M2 OT-IP Current Condition Start: 05/22/23 14:08 Freq: Status: Active Protocol: Document 05/22/23 14:08 CGR (Rec: 05/22/23 14:32 CGR [id number]) Occupational Therapy Current Condition Current Condition Evaluation Date 05/22/23 Treatment Diagnosis R hip fx, s/p ORIF to the RLE with partial WB. Hx of BKA RLE Diagnosis Onset Date 05/19/23 Weight Bearing Status Weight Bearing Status Partial Weight Bearing Allowed Weight Bearing Amount (enter % Call placed by P.T. for or #) (%) clairification on partial wb status M3 OT- IP Subjective and Pain Start: 05/22/23 14:08 Freq: Status: Active Protocol: Document 05/22/23 14:08 CGR (Rec: 05/22/23 14:32 CGR [id number]) OT- Subjective Occupational Therapy Visit Type Type Initial Evaluation Visit Start Time 12:22 Visit Stop Time 12:35 Total Visit Minutes 13 Notes Pt is up in the chair and request to stay in his w/c. OT Pain Assessment Pain When Pain Assessed At Rest Pain Present Pain Present Pain Reported Location Right leg Intensity 1 Scale Used Numeric (0 - 10) Management Techniques Modification of Treatment,Re- positioning M4 OT- IP ADL's Start: 05/22/23 14:08 Freq: Status: Active Protocol: Document 05/22/23 14:08 CGR (Rec: 05/22/23 14:32 CGR [id number]) OT LSI-Tsab-Ihmyktz General Evaluation Self-Feeding Ability Independent Comments OT Self-Feeding Comments Pt finishing lunch when OT entered. OT ADL-Grooming Comments OT Grooming Comments pt declined to perform at this time OT ADL-Oral Care Comments Oral Care Comments pt declined to perform at this time OT ADL-Dressing General Eval Lower Body Dressing Ability Standby Assistance Areas Needing Assistance Socks Comments OT Dressing Comments sock donned to the LLE. OT ADL-Toileting Comments OT Toileting Comments not performed, pt states they his w/c doesn't work with the bathroom in the hospital and they have been using the BSC OT ADL-Bathing Comments OT Bathing Comments not performed M5 OT- IP IADL's Start: 05/22/23 14:08 Freq: Status: Active Protocol: Document 05/22/23 14:08 CGR (Rec: 05/22/23 14:32 CGR [id number]) OT-Instrumental Activities of Daily Living Deficits IADL Deficits Identified No Deficits Home Safety Awareness Awareness of Need for Assistance at Home Good Awareness Ability to Problem Solve Emergency Able to Problem Solve Situations Medication Management Medication Management No Deficits Identified Money Management Money Management No Deficits Identified Meal Preparation Meal Preparation Caregiver Provides Assist Stand Up Forklift Operator Stand Up Forklift Operator Caregiver Provides Assist M6 OT- IP Functional Cognition Start: 05/22/23 14:08 Freq: Status: Active Protocol: Document 05/22/23 14:08 CGR (Rec: 05/22/23 14:32 CGR [id number]) Cognitive Factors Limiting Selfcare Function Cognitive Ability Level of Alertness Alert Patient Orientation Name,Age,Birthday,Month,Date, Year,Day of Week,Place, Situation Attention Span Ability Capable of Focused Attention, Capable of Sustained Attention Ability to Follow Commands Able to Follow One Step Commands,Able to Follow Multi- Step Commands OT- Vision and Hearing OT- Hearing Assessment OT- Hearing Assessment Hearing Impaired,Use of Hearing Aids M7 OT- IP Mobility and Balance Start: 05/22/23 14:08 Freq: Status: Active Protocol: Document 05/22/23 14:08 CGR (Rec: 05/22/23 14:32 CGR [id number]) OT- Balance Assessment Sitting Balance and Reactions Static Sitting Balance Ability Normal Dynamic Sitting Balance Ability Normal M8 OT- IP Objective Assessments Start: 05/22/23 14:08 Freq: Status: Active Protocol: Document 05/22/23 14:08 CGR (Rec: 05/22/23 14:32 CGR [id number]) OT Gross Range of Motion Upper Extremity Range of Motion Assessment Bilaterally Impaired ROM Impairments b impaired in the hands d/t arthritic changes, R hand more impacted than L. OT Strength Upper Extremity Strength Assessment Within Functional Limits Comments Strength Comments 5/5 to arms and shoulders, 4/5 to hands likely d/t arthritic changes OT- Coordination Assessment Upper Extremity Finger to Nose Test Within Functional Limits Finger Tapping Test Within Functional Limits OT-Muscle Tone Assessment Muscle Tone WNL Yes OT Sensation Assessment Edema Edema Absent M9 OT- IP Assessment and Plan Start: 05/22/23 14:08 Freq: Status: Active Protocol: Document 05/22/23 14:08 CGR (Rec: 05/22/23 14:32 CGR [id number]) OT Summary Assessment and Plan Potential Rehabilitation Potential Good Analytic Complexity at Evaluation Moderate Summary OT Impairments Pain,Functional Mobility, Toileting,Bathing,Toilet Transfers,Shower Transfers, Activity Tolerance Progress Towards Goals Progressing Toward Goals Assessment Summary Pt presents s/p R hip fx and underwent R ORIF and is now PWB. Pt has a R BKA and sometimes uses a RLE prosthesis. 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 Pt was able to don a sock to the LLE but declined further ADLs. Pt would benefit from further OT assessment as to his abilities to shower and mobilize for a transfer to [facility]. Recommend d/c home per pt's request as long as he is able to transfer safely. Goals Grooming Goal Independent Dressing Goal Independent Toileting Goal Independent Bathing Goal Independent Toilet Transfer Goal Independent,ADA High Toilet Shower Transfer Goal Independent,Tub/Shower Combination,Tub Transfer Bench Days to Meet Goals 5 Frequency of Treatment Frequency Of Treatment Once a Day Treatment Plan OT Treatment Plan ADL Training,Functional Mobility,Patient/Family Education,Discharge Planning Discharge Recommendations OT Discharge Recommendations Home with Assistance Transportation Needs at Discharge Private Vehicle
--- NOTE | 2023-05-22 13:28 | PT.IPTN ---
Current Diagnoses Unspecified fracture of lower end of right femur, initial encounter for closed fracture (05/19/23) Surgery Performed Operation Date: 05/21/23 08:00 Actual Procedures p ORIF Femur Fracture - Tony Feliz MD Physical Therapy Treatment Note M2 PT-IP Current Condition Start: 05/21/23 15:48 Freq: NEEDED Status: Active Protocol: Document 05/21/23 15:08 DLM (Rec: 05/21/23 16:14 DLM [id number]) Physical Therapy Current Condition Current Condition Evaluation Date 05/21/23 Treatment Diagnosis right femur fx, ORIF 05/20 Onset Date 05/19/23 M3 PT-IP Subjective Start: 05/21/23 15:48 Freq: NEEDED Status: Active Protocol: Document 05/22/23 13:48 ZF (Rec: 05/22/23 14:02 ZF [id number]) Subjective Physical Therapy Visit Type Type Treatment Note Visit Start Time 13:28 Visit Stop Time 13:44 Total Visit Minutes 16 Number of REGIONAL PROPERTY MANAGER Visits 2 Therapy Pain Assessment Pain When Pain Assessed During Mobility Pain Present Pain Present Pain Reported Location Right leg Scale Used Numeric (0 - 10) Description Aching,Tender,With Movement Pain Behaviors Facial Grimacing,Guarding, Holding Area Pain Management Techniques Modification of Treatment,Re- positioning,Timing of Activity with Medications M4 PT-IP Mobility and Gait Start: 05/21/23 15:48 Freq: NEEDED Status: Active Protocol: Document 05/22/23 13:48 ZF (Rec: 05/22/23 14:02 ZF [id number]) PT-Bed Mobility Assessment Sit to Supine Sit to Supine Independent Scooting Scooting to Edge of Bed Independent PT-Transfer Assessment Sit to and From Stand Sit to and from Stand Moderate Assistance,1 Person Assistance,Use of Upper Extremities Equipment Transfer Assistive Device Gait Belt,Front Wheeled Walker Transfers Transfer Destination Bed Comments Mobility Comments Pt tolerates ~4 hrs up in personal WC. Requests getting back in bed when approached for therapy. Pt agreeable to attempting STS before transfering to bed. STS from w/2ww using L LE only as pt does not have prosthesis here , requires ModA to achieve full hip ext, pt uses BL arm rests to push up. Again pt does not extend trunk but brings L hand to AD and then reports that he needs to sit. Pt declines further standing. Squat pivot from WC>EOB requires SBA. Once in sitting pt performs hip abd/add, and hip flexion x8-10 reps. Pt refuses knee flexion. Sitting EOB>Supine pt is Ind. Pt provided w/call light and all needs met at end of treatment. PT-Balance Assessment Sitting Balance and Reactions Static Sitting Balance Ability Normal Dynamic Sitting Balance Ability Normal Standing Balance and Reactions Static Standing Balance Ability Poor Device Used Front Wheel Walker M5 PT-IP Objective Assessments Start: 05/21/23 15:48 Freq: NEEDED Status: Active Protocol: Document 05/22/23 10:06 AVE (Rec: 05/22/23 10:23 [id number]) Orientation Orientation/Cognition Level of Alertness Alert Language Function Ability Hard of Hearing Safety Awareness Understands Safety Issues Memory Description No Deficits Noted Gross Range of Motion Lower Extremity ROM Assessment Right Impaired Impairments pain in right knee with flexion, tolerating<20 degrees of motion at this time Pt resting with knee in full extension in bed M6 PT-IP Treatment Start: 05/21/23 15:48 Freq: NEEDED Status: Active Protocol: Document 05/21/23 15:08 DLM (Rec: 05/21/23 16:14 DLM [id number]) Physical Therapy Treatment Exercises Exercises Ankle Pumps,Gluteal Sets,Quad Sets,Heel Slides,Supine Hip Abduction Education Education Provided Precautions,Weight Bearing Status,Safety Other Treatments Other Treatment Performed educated pt in post-op precautions as ordered by surgeon M7 PT-IP Assessment and Plan Start: 05/21/23 15:48 Freq: NEEDED Status: Active Protocol: Document 05/22/23 13:48 AVE (Rec: 05/22/23 14:02 [id number]) PT Summary Assessment and Plan Potential Rehabilitation Potential Good Summary Assessment Summary Pt transfers from EOB<>WC w/ SBA for safety. Pt is Ind for bed mobility. Pt reports this afternoon that his will bring in prosthesis tomorrow, but he doesn't believe it will fit. Pt continues to be unable to stand using only L LE. Recommending DC home w/24 hr assist and home health. Goals Transfer Goal Independent Other Goals Independent scoot transfer bed -chair with drop arm. SBA standing with FWW and prosthesis on right LE SBA stand pivot transfer bed- chair with FWW and prosthesis right LE, partial weight bearing Days to Meet Goals 5 Frequency of Treatment Frequency Of Treatment Twice a Day Treatment Plan Physical Therapy Treatment Plan Transfer Training,Gait Training,Therapeutic Exercise, Balance Retraining,Post Op Education,Discharge Planning, Hot or Cold Pack,Neuromuscular Re-ed Other Recommendations and Next Treatment focus on safe transfers for Focus discharge Precautions Other Precautions Per Surgeon: okay to wear prosthesis, to weight bear for transfers right LE no restrictions right knee ROM Weight Bearing Status Weight Bearing Status Partial Weight Bearing Allowed Weight Bearing Amount (enter % right LE s/p ORIF or #) (%) Recommendations To Nursing Amount of Assist Needed 1 Person Assist Discharge Recommendations PT Discharge Recommendations Home with Assistance,Home Health Transportation Needs at Discharge Wheelchair/Cabulance
--- NOTE | 2023-05-22 15:17 | PM.PN.1 ---
Subjective Subjective Date Patient Seen: 05/22/23 Time Patient Seen: 07:15 Interval history: Patient being followed for DM management. He has no complaints, but his sugars are a bit higher than usual he says. Exam Vital Signs (past 8 hours): Oxygen Delivery Method Room Air Oxygen Flow Rate 0 Narrative Exam Narrative: GEN: no acute distress CV: regular rate and rhythm PULM: clear bilaterally ABD: soft, nontender EXT: right BKA Objective Labs 05/22/23 06:15 05/22/23 06:15 Labs: Laboratory Results - last 24 hr 05/22/23 06:15 WBC 10.4 RBC 2.56 L Hgb 7.4 L Hct 21.7 L MCV 85.0 MCH 29.0 MCHC 34.2 RDW 13.4 Plt Count 257 Sodium 129 L Potassium 3.7 Chloride 97 L Carbon Dioxide 28 BUN 15 Creatinine 0.68 Estimated GFR > 60 BUN/Creatinine Ratio 22.1 H Glucose 205 H Calcium 8.2 L PFSH Medical History Hyperlipidemia Hypertension Diabetes Surgical History History of cholecystectomy Family History Father Diabetes mellitus Cancer Mother Cancer Social History marital status: household members: spouse and children pets and animals: Yes Smoking Status: Never smoker alcohol intake: current Assessment & Plan Assessment & Plan narrative: 1. Type 2 Diabetes on insulin -Glucose generally aroun 200 today, increase lantus slightly to 23 U BID for now. -continue insulin sliding scale - will continue to adjust insulin therapy. 2. R Femur fracture -pain controlled currently -continue PT/OT 3. Acute blood loss anemia due to surgery - repeat h/h tomorrow, continue to trend for now. Goal Hg >7. Hg down to 7.4 today. No current anemic symptoms. CODE: Full Proxy: Bernadette Sierra, Dispo: per primary team Quality VTE Deep Vein Thrombosis/Pulmonary Embolism Present on Admission: No
[2023-05-22] MEDS: ATORVASTATIN 20 MG TABLET 10 MG PO (20:30)
[2023-05-22] MEDS: INSULIN GLARGINE 100 UNIT/ML 3ML PEN 23 UNIT SUBCUT (20:31)
[2023-05-22 23:33] LABS: Appearance Urine UA CLEAR; Bilirubin Urine UA NEGATIVE (NEGATIVE); Color Urine UA YELLOW; Glucose Urine UA NEGATIVE (Negative); Ketones Urine UA 1+ (NEGATIVE); Leukocyte Esterase Urine UA NEGATIVE (NEGATIVE); Nitrite Urine UA NEGATIVE (Negative); Occult Blood Urine UA NEGATIVE (Negative); Protein Urine UA NEGATIVE (Negative); Specific Gravity Urine UA <=1.005 (1.000-1.035); Urobilinogen Urine UA 0.2 E.U./dL (0.2)
[2023-05-22 23:34] LABS: Bacteria Urine None Seen; Culture Indicated Urine Cult Not Indicated; RBC Urine None Seen (0-5/HPF); Squamous Epithelial Cell Urine None Seen (0-5/HPF); WBC Urine None Seen (0-5/HPF)
[2023-05-23] VITALS (7 sets, daily range): BP systolic 90–132; BP diastolic 48–89; PULSE 94–114; RESP 16–20; TEMP 36.7–37.7; O2SAT 94–98
[2023-05-23] MEDS: ACETAMINOPHEN 325 MG TABLET 650 MG PO (03:49)
--- NOTE | 2023-05-23 04:12 | PC.NURSE ---
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 Right femur incision covered w/ aquacel drsg & CHERYL wrap is CDI. Spiked a fever overnight (102.2 F), patient is tachycardic, Tylenol & Ibuprofen given, ice packs placed. Educated patient on use of IS. Denies nausea, chest pain, SOB. MD Mackenzie notified, obtained orders for UA & blood cultures. LR infusing @ 100 ml/hr. Patient states pain is improving and is well controlled w/ ordered pain medication. Received bed bath per DIRECTOR WRITING. Call light within reach, fall precautions in place. 299 update: Temp down to 99.0 F. Resting comfortably in bed. Will continue to monitor.
[2023-05-23 04:29] LABS: Add Manual Diff / Slide Review NO; Basophils Absolute Auto 0 /uL (0-100); Basophils Percent Auto 0.2 % (0-2); Eosinophils Absolute Auto 200 /uL (0-450); Eosinophils Percent Auto 2.2 % (2-4); Hemoglobin 7.2 g/dL (13.5-17.5); Lymphocytes Absolute Auto 1500 /uL (1100-4500); Lymphocytes Percent Auto 17.5 % (25-40); Mean Corpuscular HGB Conc 34.1 % (30-36); Mean Corpuscular Hemoglobin 28.6 PG (26-34); Mean Corpuscular Volume 84.1 fL (80-100); Monocytes Absolute Auto 1100 /uL (0-900); Monocytes Percent Auto 13.1 % (3-14); Neutrophils Absolute Auto 5500 /uL (1500-7000); Platelet Count 255 X10^3/uL (150-400); Red Cell Distribution Width 13.6 % (11.6-14.8); White Blood Cell Count 8.3 X10^3/uL (4.5-11.0)
[2023-05-23 04:34] LABS: BUN Creatinine Ratio 15.9 (6-22); Blood Urea Nitrogen 10 mg/dL (9-20); Calcium 8.4 mg/dL (8.4-10.2); Carbon Dioxide 28 mmol/L (22-32); Chloride 100 mmol/L (98-107); Estimated Glomerular Filt Rate > 60 mL/min (>60); Glucose 156 mg/dL (70-100); HEMOLYSIS < 15 (0-50); Magnesium 1.8 mg/dL (1.6-2.3); Potassium 3.9 mmol/L (3.4-5.1); Sodium 132 mmol/L (137-145)
[2023-05-23] MEDS: LACTATED RINGERS 1,000 ML 100 ML IV (04:49)
[2023-05-23] MEDS: IBUPROFEN 400 MG TABLET PO (06:30)
[2023-05-23] MEDS: OXYCODONE IR 5 MG TABLET PO ×3 (06:31→20:38)
[2023-05-23] MEDS: INSULIN GLARGINE 100 UNIT/ML 3ML PEN 23 UNIT SUBCUT ×2 (08:57→20:25)
[2023-05-23] MEDS: GABAPENTIN 600 MG TABLET 1200 MG PO ×3 (08:57→20:33)
[2023-05-23] MEDS: INSULIN LISPRO 100 UNIT/ML 3ML VIAL SUBCUT ×3 (09:00→17:42)
--- NOTE | 2023-05-23 09:01 | PT-IP ANOTE ---
Per nursing pt to receive blood transfusion sometime this morning. PT will check back in with pt later today.
--- NOTE | 2023-05-23 10:37 | P.PN_ITS ---
Subjective Subjective Date Patient Seen: 05/23/23 Time Patient Seen: 10:37 Interval history: Patient states his pain is [id number]. Denies fever or chills. No nausea or vomiting. No shortness of breath or chest pain. Exam Vital Signs (past 8 hours): - 05/23/23 06:00 05/23/23 08:00 Temperature 99.0 F 99.6 F Pulse Rate 102 H 98 H Respiratory Rate 16 16 Blood Pressure 110/60 90/48 L Pulse Oximetry 94 97 Oxygen Flow Rate 0 Oxygen Delivery Method Room Air Oxygen Flow Rate 0 Narrative Exam Narrative: 58-year-old male resting comfortably in bed in no apparent distress. Dressing on the right leg is clean, dry and intact. Const General: cooperative and comfortable Nutritional Appearance: average body habitus Orientation: alert Resp Effort & Inspection: normal respiratory effort and able to speak in complete sentences Objective Labs 05/23/23 03:55 05/23/23 03:55 Labs: Laboratory Results - last 24 hr 05/22/23 05/23/23 05/23/23 22:50 03:55 08:35 WBC 8.3 RBC 2.50 L Hgb 7.2 L Hct 21.0 L MCV 84.1 MCH 28.6 MCHC 34.1 RDW 13.6 Plt Count 255 Neut % (Auto) 67.0 Lymph % (Auto) 17.5 L [place] % (Auto) 13.1 Eos % (Auto) 2.2 Baso % (Auto) 0.2 Neut # (Auto) 5500 Lymph # (Auto) 1500 [place] # (Auto) 1100 H Eos # (Auto) 200 Baso # (Auto) 0 Sodium 132 L Potassium 3.9 Chloride 100 Carbon Dioxide 28 BUN 10 Creatinine 0.63 L Estimated GFR > 60 BUN/Creatinine Ratio 15.9 Glucose 156 H Calcium 8.4 Magnesium 1.8 Urine Color Yellow Urine Appearance Clear Urine pH 6.0 Ur Specific [place] <=1.005 Urine Protein Negative Urine Glucose (UA) Negative Urine Ketones 1+ H Urine Occult Blood Negative Urine Nitrate Negative Urine Bilirubin Negative Urine Urobilinogen 0.2 Ur Leukocyte Esterase Negative Urine RBC None seen Urine WBC None seen Ur Squamous Epith Cells None seen Urine Bacteria None seen Ur Culture Indicated? Cult not indicated Blood Type O Positive Antibody Screen Negative Crossmatch See Detail [facility] Medical History Hyperlipidemia Hypertension Diabetes Surgical History History of cholecystectomy Family History Father Diabetes mellitus Cancer Mother Cancer Social History marital status: household members: spouse and children pets and animals: Yes Smoking Status: Never smoker alcohol intake: current Assessment & Plan Post-op Postoperative Procedures: Procedures Operation Date: 05/21/23 08:00 Actual Procedure Side Surgeon p ORIF Femur Fracture Tony Feliz MD Postoperative day: 2 Postoperative status narrative: Status post open reduction internal fixation right distal femur fracture May 21, 2023 Postop anemia likely due to acute blood loss during surgery Postoperative plan narrative: Patient will be weight-bearing to the right leg, can weightbear for transfers, no restrictions to range of motion of knee, okay for him to wear his prosthesis Multimodal pain management Appreciate hospitalist assistance in managing patient. Talked with hospitalist about his H and H this morning and hospitalist ordered 1 unit packed red blood cells to be transfused today. Disposition to be determined Quality VTE Deep Vein Thrombosis/Pulmonary Embolism Present on Admission: No
--- NOTE | 2023-05-23 12:17 | PC.NURSE ---
Pt conversant [place], able to express needs. offers no overt complaint, PRBC's transfusing.
--- NOTE | 2023-05-23 12:59 | PM.PN.1 ---
Subjective Subjective Date Patient Seen: 05/22/23 Time Patient Seen: 07:15 Interval history: Patient being followed for DM management after complex ORIF of his R femur. Overnight continued to be febrile. UA negative. He has a chronic productive cough that is unchanged today. He does feel a bit generally weak and fatigued. He continues to have similar R leg pain after surgery. Hg was 7.2. Discussed with orthopedics and will transfuse 1 U PRBC today. 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 Objective Labs 05/23/23 03:55 05/23/23 03:55 Labs: Laboratory Results - last 24 hr 05/22/23 05/23/23 05/23/23 22:50 03:55 08:35 WBC 8.3 RBC 2.50 L Hgb 7.2 L Hct 21.0 L MCV 84.1 MCH 28.6 MCHC 34.1 RDW 13.6 Plt Count 255 Neut % (Auto) 67.0 Lymph % (Auto) 17.5 L [place] % (Auto) 13.1 Eos % (Auto) 2.2 Baso % (Auto) 0.2 Neut # (Auto) 5500 Lymph # (Auto) 1500 [place] # (Auto) 1100 H Eos # (Auto) 200 Baso # (Auto) 0 Sodium 132 L Potassium 3.9 Chloride 100 Carbon Dioxide 28 BUN 10 Creatinine 0.63 L Estimated GFR > 60 BUN/Creatinine Ratio 15.9 Glucose 156 H Calcium 8.4 Magnesium 1.8 Urine Color Yellow Urine Appearance Clear Urine pH 6.0 Ur Specific [place] <=1.005 Urine Protein Negative Urine Glucose (UA) Negative Urine Ketones 1+ H Urine Occult Blood Negative Urine Nitrate Negative Urine Bilirubin Negative Urine Urobilinogen 0.2 Ur Leukocyte Esterase Negative Urine RBC None seen Urine WBC None seen Ur Squamous Epith Cells None seen Urine Bacteria None seen Ur Culture Indicated? Cult not indicated Blood Type O Positive Antibody Screen Negative Crossmatch See Detail [facility] Medical History Hyperlipidemia Hypertension Diabetes Surgical History History of cholecystectomy Family History Father Diabetes mellitus Cancer Mother Cancer Social History marital status: household members: spouse and children pets and animals: Yes Smoking Status: Never smoker alcohol intake: current Assessment & Plan Assessment & Plan narrative: 1. Type 2 Diabetes on insulin -Glucose generally improved since increase lantus slightly to 23 U BID. Will continue for now. -continue insulin sliding scale - will continue to adjust insulin therapy as needed 2. R Femur fracture -pain controlled currently -continue PT/OT 3. Acute blood loss anemia due to surgery - Hg 7.2 today, ordered 1 U PRBC after discussion with orthopedics team today for symptomatic anemia - check h/h tomorrow after transfusion. - suspect blood loss due to surgery. 4. Post operative fever - unclear etiology, no obvious LE swelling to suggest clot, no dyspnea, and has no change to chronic cough. UA negative. - will start augmentin for possible respiratory source, though no WBC. - continue IS for possible atelectasis - follow up blood cultures and sputum culture sent today. CODE: Full Proxy: Bernadette Sierra, Dispo: per primary team Quality VTE Deep Vein Thrombosis/Pulmonary Embolism Present on Admission: No
--- NOTE | 2023-05-23 14:12 | CM.DPC ---
DCP Cont. Reviewed EMR and team rounds for status updates. Cultures are still pending. Pt to cont. to work with PT/OT, he was started on IV ABO's for post-operative infection today. They will also recheck his H/H tomorrow due to probable blood loss from surgery. ANALYTICAL RESEARCH PROGRAM MANAGER did not discuss Home Health options today with him due to continued medical instability. Cont. to monitor and discuss again closer to d/c date, once known.
--- NOTE | 2023-05-23 14:51 | PT-IP ANOTE ---
Pt refused to work with PT this afternoon, states he is not feeling up to it today and would like to rest. Pt had blood transfusion earlier this morning.
--- NOTE | 2023-05-23 14:51 | OT.IPNOTE ---
Pt received blood today and too tired to get up at this time, to check on the pt tomorrow.
[2023-05-23] MEDS: AMOXICILLIN/CLAV 875/125 MG 1 TAB PO ×2 (16:51→20:33)
[2023-05-23] MEDS: SENNOSIDES 8.6 MG TABLET 17.2 MG PO (20:31)
[2023-05-23] MEDS: ATORVASTATIN 20 MG TABLET 10 MG PO (20:33)
[2023-05-23] MEDS: DOCUSATE 100 MG CAPSULE PO (20:34)
[2023-05-24] MEDS: ACETAMINOPHEN 325 MG TABLET 650 MG PO ×3 (00:02→23:00)
[2023-05-24] MEDS: OXYCODONE IR 5 MG TABLET PO ×2 (00:02→08:16)
[2023-05-24 02:37] VITALS: BP 100/49; PULSE 100; RESP 16; TEMP 37.1; O2SAT 94
[2023-05-24] MEDS: IBUPROFEN 400 MG TABLET PO ×2 (04:40→23:00)
[2023-05-24 04:53] LABS: Add Manual Diff / Slide Review NO; Basophils Absolute Auto 0 /uL (0-100); Basophils Percent Auto 0.5 % (0-2); Eosinophils Absolute Auto 100 /uL (0-450); Eosinophils Percent Auto 1.7 % (2-4); Hematocrit 23.1 % (41-53); Lymphocytes Absolute Auto 1200 /uL (1100-4500); Lymphocytes Percent Auto 17.5 % (25-40); Mean Corpuscular HGB Conc 34.4 % (30-36); Mean Corpuscular Hemoglobin 29.5 PG (26-34); Mean Corpuscular Volume 85.9 fL (80-100); Monocytes Absolute Auto 800 /uL (0-900); Monocytes Percent Auto 11.9 % (3-14); Neutrophils Absolute Auto 4700 /uL (1500-7000); Neutrophils Percent Auto 68.4 % (50-75); Platelet Count 288 X10^3/uL (150-400); Red Cell Distribution Width 13.6 % (11.6-14.8); White Blood Cell Count 6.9 X10^3/uL (4.5-11.0)
[2023-05-24 05:03] LABS: BUN Creatinine Ratio 18.6 (6-22); Blood Urea Nitrogen 11 mg/dL (9-20); Calcium 8.5 mg/dL (8.4-10.2); Carbon Dioxide 26 mmol/L (22-32); Chloride 99 mmol/L (98-107); Estimated Glomerular Filt Rate > 60 mL/min (>60); Glucose 162 mg/dL (70-100); HEMOLYSIS < 15 (0-50); Magnesium 1.8 mg/dL (1.6-2.3); Potassium 3.6 mmol/L (3.4-5.1); Sodium 132 mmol/L (137-145)
[2023-05-24 05:16] LABS: Procalcitonin 0.95 ng/mL (<0.5)
[2023-05-24 06:00] VITALS: BP 107/60; PULSE 85; RESP 19; TEMP 35.8; O2SAT 96
--- NOTE | 2023-05-24 08:05 | P.PN_ITS ---
Subjective Subjective Date Patient Seen: 05/24/23 Time Patient Seen: 08:05 Interval history: Mr Sierra is sitting up in bed, having very little pain in leg. Has not ambulated w/ prosthesis since surgery. Did not work w/ PT yesterday d/t blood transfusion and fatigue. Exam Vital Signs (past 8 hours): - 05/24/23 02:37 05/24/23 06:00 Temperature 98.7 F 96.4 F L Pulse Rate 100 H 85 Respiratory Rate 16 19 Blood Pressure 100/49 L 107/60 Pulse Oximetry 94 96 Oxygen Flow Rate 0 0 Oxygen Delivery Method Room Air Oxygen Flow Rate 0 Narrative Exam Narrative: Pt tx'd 1 unit PRBCs yesterday, H/H has responded appropriately. Aquacel dressing CDI. Pt able to bend at knee, sensation to light touch intact throughout RLE. Objective Labs 05/24/23 04:18 05/24/23 04:18 Labs: Laboratory Results - last 24 hr 05/23/23 05/24/23 08:35 04:18 WBC 6.9 RBC 2.70 L Hgb 8.0 L Hct 23.1 L MCV 85.9 MCH 29.5 MCHC 34.4 RDW 13.6 Plt Count 288 Neut % (Auto) 68.4 Lymph % (Auto) 17.5 L [place] % (Auto) 11.9 Eos % (Auto) 1.7 L Baso % (Auto) 0.5 Neut # (Auto) 4700 Lymph # (Auto) 1200 [place] # (Auto) 800 Eos # (Auto) 100 Baso # (Auto) 0 Sodium 132 L Potassium 3.6 Chloride 99 Carbon Dioxide 26 BUN 11 Creatinine 0.59 L Estimated GFR > 60 BUN/Creatinine Ratio 18.6 Glucose 162 H Calcium 8.5 Magnesium 1.8 Procalcitonin 0.95 H Blood Type O Positive Antibody Screen Negative Crossmatch See Detail [facility] Medical History Hyperlipidemia Hypertension Diabetes Surgical History History of cholecystectomy Family History Father Diabetes mellitus Cancer Mother Cancer Social History marital status: household members: spouse and children pets and animals: Yes Smoking Status: Never smoker alcohol intake: current Assessment & Plan Post-op Assessment and plan (1) Femur fracture, right: Assessment and Plan narrative: Work w/ PT, disposition based on their recommendations. (2) Acute on chronic blood loss anemia: Assessment and Plan narrative: H/H responded appropriately to transfusion yesterday, will continue to monitor. (3) Diabetes: Assessment and Plan narrative: Appreciate hospitalist help w/ DM, anemia, FUO (blood cultures negative). Postoperative Procedures: Procedures Operation Date: 05/21/23 08:00 Actual Procedure Side Surgeon p ORIF Femur Fracture Tony Feliz MD Postoperative day: 3 Quality VTE Deep Vein Thrombosis/Pulmonary Embolism Present on Admission: No
[2023-05-24] MEDS: AMOXICILLIN/CLAV 875/125 MG 1 TAB PO ×2 (08:15→20:24)
[2023-05-24] MEDS: ENOXAPARIN 40 MG/0.4 ML SYRINGE SUBCUT (08:15)
[2023-05-24] MEDS: GABAPENTIN 600 MG TABLET 1200 MG PO ×3 (08:16→20:24)
[2023-05-24] MEDS: INSULIN GLARGINE 100 UNIT/ML 3ML PEN 23 UNIT SUBCUT ×2 (08:16→20:28)
[2023-05-24] MEDS: INSULIN LISPRO 100 UNIT/ML 3ML VIAL SUBCUT ×3 (08:17→17:11)
--- NOTE | 2023-05-24 10:47 | PT.IPTN ---
Current Diagnoses Acute posthemorrhagic anemia (05/19/23) Type 2 diabetes mellitus without complications (05/19/23) Unspecified fracture of lower end of right femur, initial encounter for closed fracture (05/19/23) Unspecified fracture of right femur, initial encounter for closed fracture (05/19/23) Surgery Performed Operation Date: 05/21/23 08:00 Actual Procedures p ORIF Femur Fracture - Tony Feliz MD Physical Therapy Treatment Note M2 PT-IP Current Condition Start: 05/21/23 15:48 Freq: NEEDED Status: Active Protocol: Document 05/21/23 15:08 DLM (Rec: 05/21/23 16:14 DLM [id number]) Physical Therapy Current Condition Current Condition Evaluation Date 05/21/23 Treatment Diagnosis right femur fx, ORIF 05/20 Onset Date 05/19/23 M3 PT-IP Subjective Start: 05/21/23 15:48 Freq: NEEDED Status: Active Protocol: Document 05/24/23 12:07 TS (Rec: 05/24/23 12:24 TS [id number]) Subjective Physical Therapy Visit Type Type Treatment Note Visit Start Time 10:47 Visit Stop Time 11:14 Total Visit Minutes 27 Number of INDUSTRIAL ENGINEERING MANAGER Visits 3 Physical Therapy Visit Comments Patient Comments Pt found resting in bed, reports feeling better this morning, is agreeable to PT. Therapy Pain Assessment Pain When Pain Assessed During Mobility Pain Present Pain Present Pain Reported M4 PT-IP Mobility and Gait Start: 05/21/23 15:48 Freq: NEEDED Status: Active Protocol: Document 05/24/23 12:07 TS (Rec: 05/24/23 12:24 TS [id number]) PT-Bed Mobility Assessment Supine to Sit Supine to Sit Independent Scooting Scooting to Edge of Bed Independent PT-Transfer Assessment Sit to and From Stand Sit to and from Stand Standby Assistance,Use of Upper Extremities Equipment Transfer Assistive Device Gait Belt,Front Wheeled Walker Transfers Transfer Destination Wheelchair Transfer Technique Squat Pivot Transfer Ability Level of Assist Standby Assistance Comments Mobility Comments Pt performed supine to sit Ind with bed flat. Sit to stand with FWW SBA with use of bed rail and pushing from bed, prosthesis not donned. Pt sat back on EOB, transferred to w/ c squat pivot SBA. Pt propelled in w/c ~300' SBA, demonstrates good safety awareness of surroundings in hallway. Pt was left back in room in w/c, all needs met. Gait Assessment Comments Gait Comments See mobility comments PT-Balance Assessment Sitting Balance and Reactions Static Sitting Balance Ability Normal Dynamic Sitting Balance Ability Normal Standing Balance and Reactions Static Standing Balance Ability Fair Device Used Front Wheel Walker M5 PT-IP Objective Assessments Start: 05/21/23 15:48 Freq: NEEDED Status: Active Protocol: Document 05/22/23 10:06 ZF (Rec: 05/22/23 10:23 ZF [id number]) Orientation Orientation/Cognition Level of Alertness Alert Language Function Ability Hard of Hearing Safety Awareness Understands Safety Issues Memory Description No Deficits Noted Gross Range of Motion Lower Extremity ROM Assessment Right Impaired Impairments pain in right knee with flexion, tolerating<20 degrees of motion at this time Pt resting with knee in full extension in bed M6 PT-IP Treatment Start: 05/21/23 15:48 Freq: NEEDED Status: Active Protocol: Document 05/24/23 12:07 TS (Rec: 05/24/23 12:24 TS [id number]) Physical Therapy Treatment Education Education Provided Precautions,Weight Bearing Status,Safety M7 PT-IP Assessment and Plan Start: 05/21/23 15:48 Freq: NEEDED Status: Active Protocol: Document 05/24/23 12:07 TS (Rec: 05/24/23 12:24 TS [id number]) PT Summary Assessment and Plan Potential Rehabilitation Potential Good Summary Progress Towards Goals Progressing Toward Goals Assessment Summary Cyrus is making good progress with his mobility this session. He performed bed Ind from flat bed. He performed sit to stand with heavy UE support on bed rails SBA and use of FWW. He performed squat pivot to w/c SBA, pt managed brakes and arms of chair with no assist. He propelled in w/c ~300'SBA with no cues. Pt performed mobility with no prothesis due to one in the room is not correct and would not fit at this time. PT is recommending pt return home with assist and HHPT. Goals Transfer Goal Independent Other Goals Independent scoot transfer bed -chair with drop arm. SBA standing with FWW and prosthesis on right LE SBA stand pivot transfer bed- chair with FWW and prosthesis right LE, partial weight bearing Frequency of Treatment Frequency Of Treatment Twice a Day Treatment Plan Physical Therapy Treatment Plan Transfer Training,Gait Training,Therapeutic Exercise, Balance Retraining,Post Op Education,Discharge Planning, Hot or Cold Pack,Neuromuscular Re-ed Other Recommendations and Next Treatment focus on safe transfers for Focus discharge Precautions Other Precautions Per Surgeon: okay to wear prosthesis, to weight bear for transfers right LE no restrictions right knee ROM Weight Bearing Status Weight Bearing Status Partial Weight Bearing Allowed Weight Bearing Amount (enter % Call placed by P.T. for or #) (%) clairification on partial wb status Recommendations To Nursing Amount of Assist Needed 1 Person Assist Discharge Recommendations PT Discharge Recommendations Home with Assistance,Home Health Transportation Needs at Discharge Private Vehicle,Wheelchair/ Cabulance
--- NOTE | 2023-05-24 11:24 | P.PN_ITS ---
Subjective Subjective Interval history: Patient being followed for DM management after complex ORIF of his R femur. Feels improved today. No fevers overnight. Started on augmentin but source not entirely known. 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 aquacel dressing visualized without surrounding erythema or tenderness. Objective Labs 05/24/23 04:18 05/24/23 04:18 Labs: Laboratory Results - last 24 hr 05/23/23 05/24/23 08:35 04:18 WBC 6.9 RBC 2.70 L Hgb 8.0 L Hct 23.1 L MCV 85.9 MCH 29.5 MCHC 34.4 RDW 13.6 Plt Count 288 Neut % (Auto) 68.4 Lymph % (Auto) 17.5 L [place] % (Auto) 11.9 Eos % (Auto) 1.7 L Baso % (Auto) 0.5 Neut # (Auto) 4700 Lymph # (Auto) 1200 [place] # (Auto) 800 Eos # (Auto) 100 Baso # (Auto) 0 Sodium 132 L Potassium 3.6 Chloride 99 Carbon Dioxide 26 BUN 11 Creatinine 0.59 L Estimated GFR > 60 BUN/Creatinine Ratio 18.6 Glucose 162 H Calcium 8.5 Magnesium 1.8 Procalcitonin 0.95 H Crossmatch See Detail [facility] Medical History Hyperlipidemia Hypertension Diabetes Surgical History History of cholecystectomy Family History Father Diabetes mellitus Cancer Mother Cancer Social History marital status: household members: spouse and children pets and animals: Yes Smoking Status: Never smoker alcohol intake: current Assessment & Plan Assessment & Plan narrative: 1. Type 2 Diabetes on insulin -Glucose generally improved since increase lantus slightly to 23 U BID. Can discharge on previous home dosing and medications. 2. R Femur fracture -pain controlled currently -continue PT/OT 3. Acute blood loss anemia due to surgery - Hg 8 after 1U PRBC, responded appropriate and no signs or symptoms of bleeding. - suspect blood loss due to surgery. 4. Post operative fever - unclear etiology, no obvious LE swelling to suggest clot, no dyspnea, and has no change to chronic cough. UA negative. - started augmentin for possible respiratory source, though no leukocytosis. - continue IS for possible atelectasis - cultures thus far without growth. CODE: Full Proxy: Bernadette Sierra, Dispo: per primary team, he can be discharged from medicine perspective with 5 additional days of augmentin 875/125 BID at discharge Quality VTE Deep Vein Thrombosis/Pulmonary Embolism Present on Admission: No
[2023-05-24 14:00] VITALS: BP 101/56; PULSE 86; RESP 19; TEMP 36.1; O2SAT 98
--- NOTE | 2023-05-24 14:30 | OT.IP.TRT ---
Current Diagnoses Acute posthemorrhagic anemia (05/19/23) Type 2 diabetes mellitus without complications (05/19/23) Unspecified fracture of lower end of right femur, initial encounter for closed fracture (05/19/23) Unspecified fracture of right femur, initial encounter for closed fracture (05/19/23) Surgery Performed Operation Date: 05/21/23 08:00 Actual Procedures p ORIF Femur Fracture - Tony Feliz MD Occupational Therapy Treatment Note M2 OT-IP Current Condition Start: 05/22/23 14:08 Freq: Status: Active Protocol: Document 05/22/23 14:08 CGR (Rec: 05/22/23 14:32 CGR [id number]) Occupational Therapy Current Condition Current Condition Evaluation Date 05/22/23 Treatment Diagnosis R hip fx, s/p ORIF to the RLE with partial WB. Hx of BKA RLE Diagnosis Onset Date 05/19/23 Weight Bearing Status Weight Bearing Status Partial Weight Bearing Allowed Weight Bearing Amount (enter % Call placed by P.T. for or #) (%) clairification on partial wb status M3 OT- IP Subjective and Pain Start: 05/22/23 14:08 Freq: Status: Active Protocol: Document 05/24/23 14:46 CCC (Rec: 05/24/23 14:53 [facility] [id number]) OT- Subjective Occupational Therapy Visit Type Type Treatment Note Visit Start Time 14:30 Visit Stop Time 14:40 Total Visit Minutes 10 Occupational Therapy Visit Comments Patient Comments Pt wanting to get back to bed and put a brief on. Patient/Caregiver Goals TO go home. OT Pain Assessment Pain When Pain Assessed At Rest Pain Present Pain Present Pain Reported Location Right leg Pain Behaviors Facial Grimacing,Guarding, Holding Area,Wincing M4 OT- IP ADL's Start: 05/22/23 14:08 Freq: Status: Active Protocol: Document 05/24/23 14:46 CCC (Rec: 05/24/23 14:53 [facility] [id number]) OT ADL-Grooming Comments OT Grooming Comments pt declined to perform at this time OT ADL-Oral Care Comments Oral Care Comments pt declined to perform at this time OT ADL-Dressing General Eval Lower Body Dressing Ability Standby Assistance Areas Needing Assistance Underpants/Brief Comments OT Dressing Comments Pt able to kavita brief over his hips whiel in supine. OT ADL-Toileting Comments OT Toileting Comments Pt not having to go. OT ADL-Bathing Comments OT Bathing Comments Pt not wanting to do at this time. M5 OT- IP IADL's Start: 05/22/23 14:08 Freq: Status: Active Protocol: Document 05/22/23 14:08 CGR (Rec: 05/22/23 14:32 CGR [id number]) OT-Instrumental Activities of Daily Living Deficits IADL Deficits Identified No Deficits Home Safety Awareness Awareness of Need for Assistance at Home Good Awareness Ability to Problem Solve Emergency Able to Problem Solve Situations Medication Management Medication Management No Deficits Identified Money Management Money Management No Deficits Identified Meal Preparation Meal Preparation Caregiver Provides Assist Lead Relay Tester Lead Relay Tester Caregiver Provides Assist M6 OT- IP Functional Cognition Start: 05/22/23 14:08 Freq: Status: Active Protocol: Document 05/24/23 14:46 [facility] (Rec: 05/24/23 14:53 [facility] [id number]) Cognitive Factors Limiting Selfcare Function Cognitive Comments Cognitive Assessment Comments Pt is a little forgetful but appears at baseline for needs. M7 OT- IP Mobility and Balance Start: 05/22/23 14:08 Freq: Status: Active Protocol: Document 05/24/23 14:46 [facility] (Rec: 05/24/23 14:53 [facility] [id number]) OT- Bed Mobility Assessment Sit to Supine Sit to Supine Assist Standby Assistance Scooting Scooting to Edge of Bed Independent OT-Transfer Assessment Transfers Transfer Ability Standby Assistance Technique Transfer Destination Bed,Wheelchair Transfer Technique Lateral Scoot Devices Transfer Assistive Devices None Comments Mobility Comments Pt able to appropriately set- up his wc for transfer back to bed with distal SBA. Pt states his RLE is too swollen to wear his prosthesis and in addition that his brought in the wrong one. Pt states plans on not wearing his prosthesis for now do to his swelling. OT- Balance Assessment Sitting Balance and Reactions Static Sitting Balance Ability Normal Dynamic Sitting Balance Ability Normal M8 OT- IP Objective Assessments Start: 05/22/23 14:08 Freq: Status: Active Protocol: Document 05/22/23 14:08 CGR (Rec: 05/22/23 14:32 CGR [id number]) OT Gross Range of Motion Upper Extremity Range of Motion Assessment Bilaterally Impaired ROM Impairments b impaired in the hands d/t arthritic changes, R hand more impacted than L. OT Strength Upper Extremity Strength Assessment Within Functional Limits Comments Strength Comments 5/5 to arms and shoulders, 4/5 to hands likely d/t arthritic changes OT- Coordination Assessment Upper Extremity Finger to Nose Test Within Functional Limits Finger Tapping Test Within Functional Limits OT-Muscle Tone Assessment Muscle Tone WNL Yes OT Sensation Assessment Edema Edema Absent M9 OT- IP Assessment and Plan Start: 05/22/23 14:08 Freq: Status: Active Protocol: Document 05/24/23 14:46 [facility] (Rec: 05/24/23 14:53 [facility] [id number]) OT Summary Assessment and Plan Potential Rehabilitation Potential Good Analytic Complexity at Evaluation Moderate Summary OT Impairments Pain,Functional Mobility, Toileting,Bathing,Toilet Transfers,Shower Transfers, Activity Tolerance Progress Towards Goals Progressing Toward Goals Assessment Summary Pt able to transfer to and from the to bed on his own at this time and states earlier today able to stand on his LLE and pivot for transfers. Pt wanting to go home and states his can assist if needed, but feel that he will be independent from his level. Goals Grooming Goal Independent Dressing Goal Independent Toileting Goal Independent Bathing Goal Independent Toilet Transfer Goal Independent,ADA High Toilet Shower Transfer Goal Independent,Tub/Shower Combination,Tub Transfer Bench Days to Meet Goals 3 Frequency of Treatment Frequency Of Treatment Once a Day Treatment Plan OT Treatment Plan ADL Training,Functional Mobility,Patient/Family Education,Discharge Planning Discharge Recommendations OT Discharge Recommendations Home with Assistance Transportation Needs at Discharge Private Vehicle
--- NOTE | 2023-05-24 14:58 | PT-IP ANOTE ---
Pt refused to work with PT this afternoon due to pain. PT will check on pt tomorrow morning if still in hospital.
[2023-05-24] MEDS: OXYCODONE IR 10 MG TABLET PO ×2 (15:02→20:23)
[2023-05-24] MEDS: SENNOSIDES 8.6 MG TABLET 17.2 MG PO (20:23)
[2023-05-24] MEDS: ATORVASTATIN 20 MG TABLET 10 MG PO (20:23)
[2023-05-24] MEDS: DOCUSATE 100 MG CAPSULE PO (20:24)
[2023-05-24 20:49] VITALS: BP 99/51; PULSE 93; RESP 16; TEMP 37; O2SAT 94
[2023-05-25] VITALS: BP 116/55; PULSE 95; RESP 17; TEMP 36.8; O2SAT 92
[2023-05-25 05:18] LABS: Add Manual Diff / Slide Review NO; Basophils Absolute Auto 0 /uL (0-100); Basophils Percent Auto 0.7 % (0-2); Eosinophils Absolute Auto 200 /uL (0-450); Eosinophils Percent Auto 4.4 % (2-4); Hematocrit 23.7 % (41-53); Lymphocytes Absolute Auto 1100 /uL (1100-4500); Lymphocytes Percent Auto 22.8 % (25-40); Mean Corpuscular HGB Conc 33.9 % (30-36); Mean Corpuscular Hemoglobin 28.7 PG (26-34); Mean Corpuscular Volume 84.5 fL (80-100); Monocytes Absolute Auto 500 /uL (0-900); Monocytes Percent Auto 11.7 % (3-14); Neutrophils Absolute Auto 2800 /uL (1500-7000); Neutrophils Percent Auto 60.4 % (50-75); Platelet Count 317 X10^3/uL (150-400); Red Cell Distribution Width 13.5 % (11.6-14.8); White Blood Cell Count 4.7 X10^3/uL (4.5-11.0)
[2023-05-25 05:33] LABS: BUN Creatinine Ratio 21.9 (6-22); Blood Urea Nitrogen 14 mg/dL (9-20); Calcium 8.5 mg/dL (8.4-10.2); Carbon Dioxide 27 mmol/L (22-32); Chloride 101 mmol/L (98-107); Estimated Glomerular Filt Rate > 60 mL/min (>60); Glucose 115 mg/dL (70-100); HEMOLYSIS < 15 (0-50); Magnesium 1.9 mg/dL (1.6-2.3); Potassium 3.6 mmol/L (3.4-5.1); Sodium 134 mmol/L (137-145)
[2023-05-25 06:00] VITALS: BP 98/55; PULSE 78; RESP 15; TEMP 36.3; O2SAT 95
--- NOTE | 2023-05-25 07:26 | DI.RAD.S_ITS ---
PROCEDURE: XR CHEST 1V INDICATIONS: fevers TECHNIQUE: One view of the chest was acquired. COMPARISON: [facility], CR, XR CHEST 1V, 05/07/2022, 17:35. FINDINGS: Surgical changes and devices: None. Lungs and pleura: Lungs are clear. No pleural effusions or pneumothorax. Mediastinum: Mediastinal contours appear normal. Heart size is normal. Bones and chest wall: No suspicious bony lesions. Overlying soft tissues appear unremarkable. IMPRESSION: No acute cardiopulmonary abnormality is seen. Dictated by: Seth Lorezno M.D. on 05/25/2023 at 8:17 Approved by: Seth Lorenzo M.D. on 05/25/2023 at 8:18
--- NOTE | 2023-05-25 07:31 | PM.PNPO.1 ---
Subjective Subjective Date Patient Seen: 05/25/23 Time Patient Seen: 07:31 Interval history: Mr Sierra is sitting up in bed, no complaints at this time. Worked w/ PT yesterday, but unable to get his prosthesis on d/t CHERYL wrap as well as swelling of his stump d/t trauma and surgery. He has his spouse to help him at home during the day and is alone at night while she works. Exam Vital Signs (past 8 hours): - 05/25/23 00:00 05/25/23 06:00 Temperature 98.3 F 97.4 F L Pulse Rate 95 H 78 Respiratory Rate 17 15 Blood Pressure 116/55 L 98/55 L Pulse Oximetry 92 95 Oxygen Flow Rate 0 0 Oxygen Delivery Method Room Air Oxygen Flow Rate 0 Narrative Exam Narrative: Sensation to touch intact throughout RLE, pt able to bend at hip and knee without problem. Aquacel dressing CDI. CHERLY wrap removed; there are two areas of very superficial abrasion to the anterior stump, each about 1cm round. Objective Labs 05/25/23 05:03 05/25/23 05:03 Labs: Laboratory Results - last 24 hr 05/25/23 05:03 WBC 4.7 RBC 2.80 L Hgb 8.0 L Hct 23.7 L MCV 84.5 MCH 28.7 MCHC 33.9 RDW 13.5 Plt Count 317 Neut % (Auto) 60.4 Lymph % (Auto) 22.8 L [place] % (Auto) 11.7 Eos % (Auto) 4.4 H Baso % (Auto) 0.7 Neut # (Auto) 2800 Lymph # (Auto) 1100 [place] # (Auto) 500 Eos # (Auto) 200 Baso # (Auto) 0 Sodium 134 L Potassium 3.6 Chloride 101 Carbon Dioxide 27 BUN 14 Creatinine 0.64 L Estimated GFR > 60 BUN/Creatinine Ratio 21.9 Glucose 115 H Calcium 8.5 Magnesium 1.9 PFSH Medical History Hyperlipidemia Hypertension Diabetes Surgical History History of cholecystectomy Family History Father Diabetes mellitus Cancer Mother Cancer Social History marital status: household members: spouse and children pets and animals: Yes Smoking Status: Never smoker alcohol intake: current Assessment & Plan Post-op Assessment and plan (1) Femur fracture, right: Assessment and Plan narrative: Pt wants additional work w/ PT prior to discharge, which I feel is reasonable d/t his baseline. We unwrapped his CHERYL today and he is going to replace it with his normal compression sock in the hopes of getting his prosthetic back on sooner, but he is able to get around his house without it, if necessary. He can be WBAT on the right and use the right leg for transfers. (2) Diabetes: Assessment and Plan narrative: Stable. Appreciate hospitalist help. (3) Acute on chronic blood loss anemia: Assessment and Plan narrative: Stable. Pt required transfusion of 1 unit PRBCs during his hospitalization; H/H responded appropriately and he has not required more. (4) Fever of unknown origin (FUO): Assessment and Plan narrative: Afebrile > 36 hrs. Cultures negative. Started on Augmentin on 05/23 for suspected respiratory source. Hospitalist service recommends continuing for another 5 days on discharge. Postoperative Procedures: Procedures Operation Date: 05/21/23 08:00 Actual Procedure Side Surgeon p ORIF Femur Fracture Tony Feliz MD Postoperative day: 4 Quality VTE Deep Vein Thrombosis/Pulmonary Embolism Present on Admission: No
[2023-05-25 08:24] VITALS: BP 115/64; PULSE 88; RESP 19; TEMP 36.3; O2SAT 97
[2023-05-25] MEDS: INSULIN GLARGINE 100 UNIT/ML 3ML PEN 23 UNIT SUBCUT ×2 (08:44→20:28)
[2023-05-25] MEDS: AMOXICILLIN/CLAV 875/125 MG 1 TAB PO ×2 (08:44→20:26)
[2023-05-25] MEDS: FAMOTIDINE 20 MG TABLET PO (08:44)
[2023-05-25] MEDS: GABAPENTIN 600 MG TABLET 1200 MG PO ×3 (08:44→20:26)
[2023-05-25] MEDS: ENOXAPARIN 40 MG/0.4 ML SYRINGE SUBCUT (08:44)
--- NOTE | 2023-05-25 09:00 | PT.IPTN ---
Current Diagnoses Acute posthemorrhagic anemia (05/19/23) Type 2 diabetes mellitus without complications (05/19/23) Unspecified fracture of lower end of right femur, initial encounter for closed fracture (05/19/23) Unspecified fracture of right femur, initial encounter for closed fracture (05/19/23) Surgery Performed Operation Date: 05/21/23 08:00 Actual Procedures p ORIF Femur Fracture - Tony Feliz MD Physical Therapy Treatment Note M2 PT-IP Current Condition Start: 05/21/23 15:48 Freq: NEEDED Status: Active Protocol: Document 05/21/23 15:08 DLM (Rec: 05/21/23 16:14 DLM [id number]) Physical Therapy Current Condition Current Condition Evaluation Date 05/21/23 Treatment Diagnosis right femur fx, ORIF 05/20 Onset Date 05/19/23 M3 PT-IP Subjective Start: 05/21/23 15:48 Freq: NEEDED Status: Active Protocol: Document 05/25/23 09:25 TS (Rec: 05/25/23 09:42 TS [id number]) Subjective Physical Therapy Visit Type Type Treatment Note Visit Start Time 09:00 Visit Stop Time 09:23 Total Visit Minutes 23 Notes Wbering status updated to WBAT . Number of SERVICE ORDER DISPATCHER Visits 4 Physical Therapy Visit Comments Patient Comments Pt found resting in bed, he spoke with PA this morning and he reports the plan is for him to go home tomorrow. Pt agreeable to attempt to put on prosthesis this morning, does not believe it will fit due to swelling in knee. Therapy Pain Assessment Pain When Pain Assessed During Mobility Pain Present Pain Present Pain Reported M4 PT-IP Mobility and Gait Start: 05/21/23 15:48 Freq: NEEDED Status: Active Protocol: Document 05/25/23 09:25 TS (Rec: 05/25/23 09:42 TS [id number]) PT-Bed Mobility Assessment Supine to Sit Supine to Sit Independent Scooting Scooting to Edge of Bed Independent Scooting Up and Down in Bed Moderate Assistance,Maximum Assistance PT-Transfer Assessment Transfers Transfer Destination Wheelchair Transfer Technique Squat Pivot Transfer Ability Level of Assist Independent Comments Mobility Comments Pt donned sleeve on RLE Ind prior to mobility. He performed supine to sit Ind with HOB elevated and BUE support. He performed squat pivot to w/c Ind with use of BUE support pushing from bed, demonstrates good safety awareness with locking of brakes. He attempted to don prosthesis on RLE in w/c, currently is too tight of a fit due to swelling in knee. Pt was left in w/c in room, all needs met, RN notified. PT-Balance Assessment Sitting Balance and Reactions Static Sitting Balance Ability Normal Dynamic Sitting Balance Ability Normal Standing Balance and Reactions Static Standing Balance Ability Fair M5 PT-IP Objective Assessments Start: 05/21/23 15:48 Freq: NEEDED Status: Active Protocol: Document 05/22/23 10:06 ZF (Rec: 05/22/23 10:23 ZF [id number]) Orientation Orientation/Cognition Level of Alertness Alert Language Function Ability Hard of Hearing Safety Awareness Understands Safety Issues Memory Description No Deficits Noted Gross Range of Motion Lower Extremity ROM Assessment Right Impaired Impairments pain in right knee with flexion, tolerating<20 degrees of motion at this time Pt resting with knee in full extension in bed M6 PT-IP Treatment Start: 05/21/23 15:48 Freq: NEEDED Status: Active Protocol: Document 05/25/23 09:25 TS (Rec: 05/25/23 09:42 TS [id number]) Physical Therapy Treatment Education Education Provided Precautions,Weight Bearing Status,Safety M7 PT-IP Assessment and Plan Start: 05/21/23 15:48 Freq: NEEDED Status: Active Protocol: Document 05/25/23 09:25 TS (Rec: 05/25/23 09:42 TS [id number]) PT Summary Assessment and Plan Potential Rehabilitation Potential Good Summary Progress Towards Goals Progressing Toward Goals Assessment Summary Cyrus continues to progress well with his mobility. He continues to perform bed mobility Ind with use of BUE support. He performed squat pivot transfer Ind to w/c from bed with good safety awarenesss of locking brakes and w/c positioning. He attempted to don prosthesis but was too tight of a fit due to swelling in knee. Pt reports not needing use at the prosthesis at this time until the swelling is down. PT at this time is recommending pt return home with assist and HHPT. Goals Transfer Goal Independent Other Goals Independent scoot transfer bed -chair with drop arm. SBA standing with FWW and prosthesis on right LE SBA stand pivot transfer bed- chair with FWW and prosthesis right LE, partial weight bearing Frequency of Treatment Frequency Of Treatment Twice a Day Treatment Plan Physical Therapy Treatment Plan Transfer Training,Gait Training,Therapeutic Exercise, Balance Retraining,Post Op Education,Discharge Planning, Hot or Cold Pack,Neuromuscular Re-ed Other Recommendations and Next Treatment focus on safe transfers for Focus discharge Precautions Other Precautions WBAT on RLE with prothesis Weight Bearing Status Weight Bearing Status Weight Bear as Tolerated Recommendations To Nursing Amount of Assist Needed Standby Assistance Discharge Recommendations PT Discharge Recommendations Home with Assistance,Home Health Transportation Needs at Discharge Private Vehicle
--- NOTE | 2023-05-25 10:54 | P.PN_ITS ---
Subjective Subjective Interval history: Patient doing well today. PT had a hard time getting his prosthetic on today. No fevers overnight. CXR negative for PNA. 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 aquacel dressing visualized without surrounding erythema or tenderness. Objective Labs 05/25/23 05:03 05/25/23 05:03 Labs: Laboratory Results - last 24 hr 05/25/23 05:03 WBC 4.7 RBC 2.80 L Hgb 8.0 L Hct 23.7 L MCV 84.5 MCH 28.7 MCHC 33.9 RDW 13.5 Plt Count 317 Neut % (Auto) 60.4 Lymph % (Auto) 22.8 L [place] % (Auto) 11.7 Eos % (Auto) 4.4 H Baso % (Auto) 0.7 Neut # (Auto) 2800 Lymph # (Auto) 1100 [place] # (Auto) 500 Eos # (Auto) 200 Baso # (Auto) 0 Sodium 134 L Potassium 3.6 Chloride 101 Carbon Dioxide 27 BUN 14 Creatinine 0.64 L Estimated GFR > 60 BUN/Creatinine Ratio 21.9 Glucose 115 H Calcium 8.5 Magnesium 1.9 PFSH Medical History Hyperlipidemia Hypertension Diabetes Surgical History History of cholecystectomy Family History Father Diabetes mellitus Cancer Mother Cancer Social History marital status: household members: spouse and children pets and animals: Yes Smoking Status: Never smoker alcohol intake: current Assessment & Plan Assessment & Plan narrative: 1. Type 2 Diabetes on insulin -Glucose generally improved since increase lantus slightly to 23 U BID. Can discharge on previous home dosing and medications. 2. R Femur fracture -pain controlled currently -continue PT/OT 3. Acute blood loss anemia due to surgery - Hg 8 after 1U PRBC, responded appropriate and no signs or symptoms of bleeding. - suspect blood loss due to surgery. - stable at 8 4. Post operative fever - unclear etiology, no obvious LE swelling to suggest clot, no dyspnea, and has no change to chronic cough. UA negative. - started augmentin for possible respiratory source, though no leukocytosis. - continue IS for possible atelectasis - cultures thus far without growth. - complete 5 day course of po augmentin 875/125mg BID on discharge CODE: Full Proxy: Bernadette Sierra, Medicine will sign off today. Thank you for allowing us to participate in the care of this patient. Should you have any further questions, do not hesitate to speak with us directly or call us. Quality VTE Deep Vein Thrombosis/Pulmonary Embolism Present on Admission: No
[2023-05-25] MEDS: INSULIN LISPRO 100 UNIT/ML 3ML VIAL SUBCUT (12:38)
[2023-05-25] MEDS: ACETAMINOPHEN 325 MG TABLET 650 MG PO (12:41)
--- NOTE | 2023-05-25 13:25 | PT.IPTN ---
Current Diagnoses Acute posthemorrhagic anemia (05/19/23) Type 2 diabetes mellitus without complications (05/19/23) Fever, unspecified (05/19/23) Unspecified fracture of lower end of right femur, initial encounter for closed fracture (05/19/23) Unspecified fracture of right femur, initial encounter for closed fracture (05/19/23) Surgery Performed Operation Date: 05/21/23 08:00 Actual Procedures p ORIF Femur Fracture - Tony Feliz MD Physical Therapy Treatment Note M2 PT-IP Current Condition Start: 05/21/23 15:48 Freq: NEEDED Status: Active Protocol: Document 05/21/23 15:08 DLM (Rec: 05/21/23 16:14 DLM [id number]) Physical Therapy Current Condition Current Condition Evaluation Date 05/21/23 Treatment Diagnosis right femur fx, ORIF 05/20 Onset Date 05/19/23 M3 PT-IP Subjective Start: 05/21/23 15:48 Freq: NEEDED Status: Active Protocol: Document 05/25/23 13:58 TS (Rec: 05/25/23 14:08 TS [id number]) Subjective Physical Therapy Visit Type Type Treatment Note Visit Start Time 13:25 Visit Stop Time 13:50 Total Visit Minutes 25 Notes Wbering status updated to WBAT . Number of MACHINE HOOP MAKER Visits 5 Physical Therapy Visit Comments Patient Comments Pt found resting in bed, is agreeable to PT. Therapy Pain Assessment Pain When Pain Assessed During Mobility Pain Present Pain Present Pain Reported M4 PT-IP Mobility and Gait Start: 05/21/23 15:48 Freq: NEEDED Status: Active Protocol: Document 05/25/23 13:58 TS (Rec: 05/25/23 14:08 TS [id number]) PT-Bed Mobility Assessment Supine to Sit Supine to Sit Independent Scooting Scooting to Edge of Bed Independent PT-Transfer Assessment Transfers Transfer Destination Wheelchair Transfer Technique Squat Pivot Transfer Ability Level of Assist Independent Comments Mobility Comments Pt performed supine to sit Ind with HOB elevated 40D. He performed squat pivot to w/c Ind with BUE support, pt c/o increasing pain. He propelled w/c in hallway ~300' Ind. Pt left back in room, all needs met, RN notified. Gait Assessment Comments Gait Comments See mobility comments PT-Balance Assessment Sitting Balance and Reactions Static Sitting Balance Ability Normal Dynamic Sitting Balance Ability Normal M5 PT-IP Objective Assessments Start: 05/21/23 15:48 Freq: NEEDED Status: Active Protocol: Document 05/22/23 10:06 ZF (Rec: 05/22/23 10:23 ZF [id number]) Orientation Orientation/Cognition Level of Alertness Alert Language Function Ability Hard of Hearing Safety Awareness Understands Safety Issues Memory Description No Deficits Noted Gross Range of Motion Lower Extremity ROM Assessment Right Impaired Impairments pain in right knee with flexion, tolerating<20 degrees of motion at this time Pt resting with knee in full extension in bed M6 PT-IP Treatment Start: 05/21/23 15:48 Freq: NEEDED Status: Active Protocol: Document 05/25/23 13:58 TS (Rec: 05/25/23 14:08 TS [id number]) Physical Therapy Treatment Education Education Provided Precautions,Weight Bearing Status,Safety M7 PT-IP Assessment and Plan Start: 05/21/23 15:48 Freq: NEEDED Status: Active Protocol: Document 05/25/23 13:58 TS (Rec: 05/25/23 14:08 TS [id number]) PT Summary Assessment and Plan Potential Rehabilitation Potential Good Summary Progress Towards Goals Progressing Toward Goals Assessment Summary Cyrus continues to do well with his mobility. He is Ind for all bed mobility and for squat pivot transfer to w/c. He continues to propell chair ~300' Ind with good safety awareness. PT is recommending home with assist and HHPT at this time. Goals Transfer Goal Independent Other Goals Independent scoot transfer bed -chair with drop arm. SBA standing with FWW and prosthesis on right LE SBA stand pivot transfer bed- chair with FWW and prosthesis right LE, partial weight bearing Frequency of Treatment Frequency Of Treatment Twice a Day Treatment Plan Physical Therapy Treatment Plan Transfer Training,Gait Training,Therapeutic Exercise, Balance Retraining,Post Op Education,Discharge Planning, Hot or Cold Pack,Neuromuscular Re-ed Other Recommendations and Next Treatment focus on safe transfers for Focus discharge Precautions Other Precautions WBAT on RLE with prothesis Weight Bearing Status Weight Bearing Status Weight Bear as Tolerated Recommendations To Nursing Amount of Assist Needed Standby Assistance Discharge Recommendations PT Discharge Recommendations Home with Assistance,Home Health Transportation Needs at Discharge Private Vehicle
[2023-05-25] MEDS: OXYCODONE IR 10 MG TABLET PO (13:53)
[2023-05-25 14:00] VITALS: BP 106/69; PULSE 92; O2SAT 96
--- NOTE | 2023-05-25 14:57 | OT.IP.TRT ---
Current Diagnoses Acute posthemorrhagic anemia (05/19/23) Type 2 diabetes mellitus without complications (05/19/23) Fever, unspecified (05/19/23) Unspecified fracture of lower end of right femur, initial encounter for closed fracture (05/19/23) Unspecified fracture of right femur, initial encounter for closed fracture (05/19/23) Surgery Performed Operation Date: 05/21/23 08:00 Actual Procedures p ORIF Femur Fracture - Tony Feliz MD Occupational Therapy Treatment Note M2 OT-IP Current Condition Start: 05/22/23 14:08 Freq: Status: Active Protocol: Document 05/22/23 14:08 CGR (Rec: 05/22/23 14:32 CGR [id number]) Occupational Therapy Current Condition Current Condition Evaluation Date 05/22/23 Treatment Diagnosis R hip fx, s/p ORIF to the RLE with partial WB. Hx of BKA RLE Diagnosis Onset Date 05/19/23 Weight Bearing Status Weight Bearing Status Partial Weight Bearing Allowed Weight Bearing Amount (enter % Call placed by P.T. for or #) (%) clairification on partial wb status M3 OT- IP Subjective and Pain Start: 05/22/23 14:08 Freq: Status: Active Protocol: Document 05/25/23 14:51 [facility] (Rec: 05/25/23 14:57 [facility] [id number]) OT- Subjective Occupational Therapy Visit Type Type Treatment Note Visit Start Time 14:35 Visit Stop Time 14:52 Total Visit Minutes 17 Occupational Therapy Visit Comments Patient Comments Pt agreed to work with OT. Patient/Caregiver Goals To go home. OT Pain Assessment Pain When Pain Assessed At Rest Pain Present Pain Present Pain Reported M4 OT- IP ADL's Start: 05/22/23 14:08 Freq: Status: Active Protocol: Document 05/25/23 14:51 [facility] (Rec: 05/25/23 14:57 [facility] [id number]) OT VYP-[place] General Evaluation Self-Feeding Ability Independent OT ADL-Bathing Comments OT Bathing Comments Pt states the gap between his toilet and tub bench is very wide and at times has trouble to negotiate the gap via just scooting over with his arms. Suggested use of a sliding transfer board and able to show pt the set-up and how it can be used . Pt states too tired and not wanting to physically try it but agreed may be helpful to get a sliding transfer board to use at home. M5 OT- IP IADL's Start: 05/22/23 14:08 Freq: Status: Active Protocol: Document 05/22/23 14:08 CGR (Rec: 05/22/23 14:32 CGR [id number]) OT-Instrumental Activities of Daily Living Deficits IADL Deficits Identified No Deficits Home Safety Awareness Awareness of Need for Assistance at Home Good Awareness Ability to Problem Solve Emergency Able to Problem Solve Situations Medication Management Medication Management No Deficits Identified Money Management Money Management No Deficits Identified Meal Preparation Meal Preparation Caregiver Provides Assist [employer] Superintendent [employer] Superintendent Caregiver Provides Assist M6 OT- IP Functional Cognition Start: 05/22/23 14:08 Freq: Status: Active Protocol: Document 05/25/23 14:51 [facility] (Rec: 05/25/23 14:57 [facility] [id number]) Cognitive Factors Limiting Selfcare Function Cognitive Comments Cognitive Assessment Comments Intact OT- Balance Assessment Sitting Balance and Reactions Static Sitting Balance Ability Normal Dynamic Sitting Balance Ability Normal M8 OT- IP Objective Assessments Start: 05/22/23 14:08 Freq: Status: Active Protocol: Document 05/22/23 14:08 CGR (Rec: 05/22/23 14:32 CGR [id number]) OT Gross Range of Motion Upper Extremity Range of Motion Assessment Bilaterally Impaired ROM Impairments b impaired in the hands d/t arthritic changes, R hand more impacted than L. OT Strength Upper Extremity Strength Assessment Within Functional Limits Comments Strength Comments 5/5 to arms and shoulders, 4/5 to hands likely d/t arthritic changes OT- Coordination Assessment Upper Extremity Finger to Nose Test Within Functional Limits Finger Tapping Test Within Functional Limits OT-Muscle Tone Assessment Muscle Tone WNL Yes OT Sensation Assessment Edema Edema Absent M9 OT- IP Assessment and Plan Start: 05/22/23 14:08 Freq: Status: Active Protocol: Document 05/25/23 14:51 [facility] (Rec: 05/25/23 14:57 [facility] [id number]) OT Summary Assessment and Plan Potential Rehabilitation Potential Good Analytic Complexity at Evaluation Moderate Summary OT Impairments Pain,Functional Mobility, Toileting,Bathing,Toilet Transfers,Shower Transfers, Activity Tolerance Progress Towards Goals Progressing Toward Goals Assessment Summary Able to go over option of use of a sliding board to help negotiate the wide gap from his toilet to tub bench at home. Pt too tired to try but states would definitely be helpful especially for the days he is feeling weak. Pt looking to go home tomorrow. Goals Grooming Goal Independent Dressing Goal Independent Toileting Goal Independent Bathing Goal Independent Toilet Transfer Goal Independent,ADA High Toilet Shower Transfer Goal Independent,Tub/Shower Combination,Tub Transfer Bench Days to Meet Goals 2 Frequency of Treatment Frequency Of Treatment Once a Day Treatment Plan OT Treatment Plan ADL Training,Functional Mobility,Patient/Family Education,Discharge Planning Discharge Recommendations OT Discharge Recommendations Home with Assistance and home health Transportation Needs at Discharge Private Vehicle
[2023-05-25] MEDS: IBUPROFEN 400 MG TABLET PO (17:41)
[2023-05-25] MEDS: DOCUSATE 100 MG CAPSULE PO (20:25)
[2023-05-25] MEDS: ATORVASTATIN 20 MG TABLET 10 MG PO (20:25)
[2023-05-25] MEDS: MAGNESIUM HYDROXIDE 30 ML UDC PO (20:25)
[2023-05-25] MEDS: SENNOSIDES 8.6 MG TABLET 17.2 MG PO (20:26)
[2023-05-25] MEDS: OXYCODONE IR 5 MG TABLET PO (20:34)
[2023-05-26 06:00] VITALS: BP 104/55; PULSE 80; RESP 12; TEMP 36.1; O2SAT 95
--- NOTE | 2023-05-26 07:11 | P.DS_ITS ---
History of Present Illness History of Present Illness Date Patient Seen: 05/26/23 Time Patient Seen: 07:11 Chief complaint: Leg pain right Narrative: Operative Date/Time/Diagnoses Date of procedure: 05/21/23 Time of procedure: 08:00 Pre-op diagnosis: Right distal femur fracture Post-op diagnosis: same Procedure & Clinicians Procedure: Open reduction internal fixation of a right distal femur fracture Same procedure as scheduled: Yes Indications: Right distal femur fracture Surgeon: Tony Feliz Click Yes if Unassisted: Yes Anesthesia Type: General Operative Notes Findings: Displaced extra-articular distal femur fracture Closure Type: primary Applied: implant(s) ([employer] distal femur plate) Estimated Blood Loss (mL): 250 Discharge Providers Provider Date of admission: 05/19/23 18:52 Discharge Date: 05/26/23 Primary care physician: Adalberto Mireles MD Consults: 05/19/23 20:59 Consult to Physician Routine Comment: Consulting Provider: Henry Abarca Reason for consultation: Poorly controlled diabetic Has provider been notified: Yes 05/21/23 10:53 Consult to Discharge Planning Routine Comment: Consult to Physical Therapy Evaluate & Treat Comment: Physician Instructions: Evaluate and Treat 05/22/23 10:58 Consult to Occupational Therapy Evaluate & Treat Comment: Physician Instructions: Evaluate and treat 05/22/23 14:21 Consult to Home Health Routine Comment: BKA, Distal femur fx with fixation/plate Reason For Exam: Set up RN/PT for plan of d/c to home Discharge provider: Patience Whitney PA-C Summary Hospital Course Discharge Diagnosis: Right distal femur fracture, s/p open reduction and internal fixation of right femur fracture Hospital Course: Mr Sierra hospital course was complicated by poor blood sugar control, fever of unknown origin, acute on chronic anemia, and slow progress w/ PT d/t h/o right BKA. On the morning of POD# 5, he was feeling well and wanted to go home. His blood sugars were well-controlled during his stay, going slightly over 200 only twice. He had been afebrile for > 60 hours and blood cultures were negative; he was started on Augmentin for presumptive respiratory source and the hospitalist service recommended continuing this for 5 days after discharge. He did require a transfusion of 1 unit PRBCs following surgery, but his H/H stabilized after this. Exam Vital Signs (past 8 hours): - 05/26/23 06:00 Temperature 97 F L Pulse Rate 80 Respiratory Rate 12 Blood Pressure 104/55 L Pulse Oximetry 95 Oxygen Flow Rate 0 Oxygen Delivery Method Room Air Oxygen Flow Rate 0 Narrative Exam Narrative: Pt able to flex and extend at hip and knee on right. Sensation to light touch intact throughout RLE. Aquacel dressing CDI. 2 small abrasions to anterior stump were not full-thickness wounds. Objective Labs 05/25/23 05:03 05/25/23 05:03 PFS Medical History Hyperlipidemia Hypertension Diabetes Surgical History History of cholecystectomy Family History Father Diabetes mellitus Cancer Mother Cancer Social History marital status: household members: spouse and children pets and animals: Yes Smoking Status: Never smoker alcohol intake: current Discharge Assessment & Plan Assessment and Plan Assessment: Right distal femur fracture, s/p open reduction and internal fixation of right femur fracture Plan of Treatment: Discharge home w/ HH, f/u in office in 10-12 days for wound check. Augmentin x 5 more days for suspected URI. Discharge Plan Discharge Plan Patient Disposition: Home Health Service Discharge orders & Medications Prescriptions: New acetaminophen 325 mg Tablet 650 mg PO Q6H PRN (Reason: Fever/Mild Pain (1-3)) Qty: 240 0RF amoxicillin-pot clavulanate 875-125 mg Tablet 1 tab PO BID Qty: 10 0RF docusate sodium 100 mg Capsule 100 mg PO BID PRN (Reason: constipation) Qty: 60 1RF oxycodone 5 mg Tablet 5 mg PO Q4-6H PRN (Reason: Pain, Moderate (4-6)) Qty: 60 0RF Continued gabapentin 600 mg Tablet 1,200 mg PO TID famotidine 20 mg Tablet 20 mg PO DAILY insulin lispro 100 unit/mL Insulin Pen 1 sliding scale dose SUBCUT USEASDIRECTD Patient Comments: taken 05/18 insulin glargine 100 unit/mL Cartridge 20 unit SUBCUT BID Follow up/Referrals: Adalberto Mireles MD [Primary Care Provider] - Tony Feliz MD [Physician] - 1 Week (Follow up w/ PA in ortho clinic in 10- 12 days for wound check. Follow up w/ Dr Feliz in 6 weeks for reimaging and symptom check.) Diet/Activity/Treatments Diet: Diet as Tolerated Activity: WBAT to RLE. Prosthesis can be replaced when swelling decreases sufficiently. Cold/Heat Therapy: Ice to leg as needed for pain. Visit Report/Discharge Packet Instructions: DI for Open Reduction Internal Fixation Surgery, DI for Prescription Opioid Use Stand Alone Forms: Patient Portal/API, Stroke Signs & Symptoms, Surgery Discharge Discharge Data Primary Care Provider: Adalberto Mireles Quality VTE Deep Vein Thrombosis/Pulmonary Embolism Present on Admission: No
[2023-05-26 08:00] VITALS: BP 98/53; PULSE 86; RESP 20; TEMP 36; O2SAT 97
--- NOTE | 2023-05-26 08:45 | PT.IPTN ---
Current Diagnoses Acute posthemorrhagic anemia (05/19/23) Type 2 diabetes mellitus without complications (05/19/23) Fever, unspecified (05/19/23) Unspecified fracture of lower end of right femur, initial encounter for closed fracture (05/19/23) Unspecified fracture of right femur, initial encounter for closed fracture (05/19/23) Surgery Performed Operation Date: 05/21/23 08:00 Actual Procedures p ORIF Femur Fracture - Tony Feliz MD Physical Therapy Treatment Note M2 PT-IP Current Condition Start: 05/21/23 15:48 Freq: NEEDED Status: Active Protocol: Document 05/21/23 15:08 DLM (Rec: 05/21/23 16:14 DLM [id number]) Physical Therapy Current Condition Current Condition Evaluation Date 05/21/23 Treatment Diagnosis right femur fx, ORIF 05/20 Onset Date 05/19/23 M3 PT-IP Subjective Start: 05/21/23 15:48 Freq: NEEDED Status: Active Protocol: Document 05/26/23 09:23 TS (Rec: 05/26/23 09:35 TS [id number]) Subjective Physical Therapy Visit Type Type Treatment Note Visit Start Time 08:45 Visit Stop Time 09:00 Total Visit Minutes 15 Notes Wbering status updated to WBAT . Number of SHOW GIRL Visits 6 Physical Therapy Visit Comments Patient Comments Pt found resting in bed, not having much pain, requested to stand and increase wbering on RLE, is agreeable to PT. Therapy Pain Assessment Pain When Pain Assessed During Mobility Pain Present Pain Present Pain Reported M4 PT-IP Mobility and Gait Start: 05/21/23 15:48 Freq: NEEDED Status: Active Protocol: Document 05/26/23 09:23 TS (Rec: 05/26/23 09:35 TS [id number]) PT-Bed Mobility Assessment Supine to Sit Supine to Sit Independent Sit to Supine Sit to Supine Independent Scooting Scooting to Edge of Bed Independent PT-Transfer Assessment Sit to and From Stand Sit to and from Stand Standby Assistance,Use of Upper Extremities Comments Mobility Comments Supine to sit Ind from flat bed with use of BUE support and handrail assist. He performed sit to stand with no AD SBA with use of handrails. He performed weight shifts on B lateral LEs, RLE shifting weight onto w/c. Pt was left back in bed, all needs met. PT-Balance Assessment Sitting Balance and Reactions Static Sitting Balance Ability Normal Dynamic Sitting Balance Ability Normal Standing Balance and Reactions Static Standing Balance Ability Fair Dynamic Standing Balance Ability Fair M5 PT-IP Objective Assessments Start: 05/21/23 15:48 Freq: NEEDED Status: Active Protocol: Document 05/22/23 10:06 ZF (Rec: 05/22/23 10:23 ZF [id number]) Orientation Orientation/Cognition Level of Alertness Alert Language Function Ability Hard of Hearing Safety Awareness Understands Safety Issues Memory Description No Deficits Noted Gross Range of Motion Lower Extremity ROM Assessment Right Impaired Impairments pain in right knee with flexion, tolerating<20 degrees of motion at this time Pt resting with knee in full extension in bed M6 PT-IP Treatment Start: 05/21/23 15:48 Freq: NEEDED Status: Active Protocol: Document 05/26/23 09:23 TS (Rec: 05/26/23 09:35 TS [id number]) Physical Therapy Treatment Education Education Provided Precautions,Weight Bearing Status,Safety M7 PT-IP Assessment and Plan Start: 05/21/23 15:48 Freq: NEEDED Status: Active Protocol: Document 05/26/23 09:23 TS (Rec: 05/26/23 09:35 TS [id number]) PT Summary Assessment and Plan Potential Rehabilitation Potential Good Summary Progress Towards Goals Progressing Toward Goals Assessment Summary Domenico continues to make good progress with his mobility. He continues to perform bed mobility Ind from a flat bed. He performed sit to stand with no AD and use of bed handrails. He tolerated weight shifting well with little discomfort on RLE. PT continues to recommend home with assist and HHPT. Goals Transfer Goal Independent Other Goals Independent scoot transfer bed -chair with drop arm. SBA standing with FWW and prosthesis on right LE SBA stand pivot transfer bed- chair with FWW and prosthesis right LE, partial weight bearing Frequency of Treatment Frequency Of Treatment Twice a Day Treatment Plan Physical Therapy Treatment Plan Transfer Training,Gait Training,Therapeutic Exercise, Balance Retraining,Post Op Education,Discharge Planning, Hot or Cold Pack,Neuromuscular Re-ed Other Recommendations and Next Treatment focus on safe transfers for Focus discharge Precautions Other Precautions WBAT on RLE with prothesis Weight Bearing Status Weight Bearing Status Weight Bear as Tolerated Recommendations To Nursing Amount of Assist Needed Standby Assistance Discharge Recommendations PT Discharge Recommendations Home with Assistance,Home Health Transportation Needs at Discharge Private Vehicle
[2023-05-26] MEDS: GABAPENTIN 600 MG TABLET 1200 MG PO (09:10)
[2023-05-26] MEDS: DOCUSATE 100 MG CAPSULE PO (09:11)
[2023-05-26] MEDS: ENOXAPARIN 40 MG/0.4 ML SYRINGE SUBCUT (09:11)
[2023-05-26] MEDS: AMOXICILLIN/CLAV 875/125 MG 1 TAB PO (09:11)
[2023-05-26] MEDS: INSULIN GLARGINE 100 UNIT/ML 3ML PEN 23 UNIT SUBCUT (09:11)
--- NOTE | 2023-05-26 10:00 | OT.IP.TRT ---
Current Diagnoses Acute posthemorrhagic anemia (05/19/23) Type 2 diabetes mellitus without complications (05/19/23) Fever, unspecified (05/19/23) Unspecified fracture of lower end of right femur, initial encounter for closed fracture (05/19/23) Unspecified fracture of right femur, initial encounter for closed fracture (05/19/23) Surgery Performed Operation Date: 05/21/23 08:00 Actual Procedures p ORIF Femur Fracture - Tony Feliz MD Occupational Therapy Treatment Note M2 OT-IP Current Condition Start: 05/22/23 14:08 Freq: Status: Active Protocol: Document 05/22/23 14:08 CGR (Rec: 05/22/23 14:32 CGR [id number]) Occupational Therapy Current Condition Current Condition Evaluation Date 05/22/23 Treatment Diagnosis R hip fx, s/p ORIF to the RLE with partial WB. Hx of BKA RLE Diagnosis Onset Date 05/19/23 Weight Bearing Status Weight Bearing Status Partial Weight Bearing Allowed Weight Bearing Amount (enter % Call placed by P.T. for or #) (%) clairification on partial wb status M3 OT- IP Subjective and Pain Start: 05/22/23 14:08 Freq: Status: Active Protocol: Document 05/26/23 10:03 [facility] (Rec: 05/26/23 10:12 [facility] [id number]) OT- Subjective Occupational Therapy Visit Type Type Treatment Note Visit Start Time 09:14 Visit Stop Time 10:00 Total Visit Minutes 46 Occupational Therapy Visit Comments Patient Comments Pt not wanting to shower but agreed to sponge off while having a bowel movement on the BSC. Patient/Caregiver Goals TO go home. OT Pain Assessment Pain When Pain Assessed At Rest Pain Present Pain Present Denied Pain M4 OT- IP ADL's Start: 05/22/23 14:08 Freq: Status: Active Protocol: Document 05/26/23 10:03 [facility] (Rec: 05/26/23 10:12 [facility] [id number]) OT FRE-Jkzk-Dutayay General Evaluation Self-Feeding Ability Independent OT ADL-Dressing General Eval Upper Body Dressing Ability Independent Lower Body Dressing Ability Standby Assistance Comments OT Dressing Comments Pt able to kavita underwear and pants over his legs while on the BSC by leaning side to side. Pt having to go back to bed to completely get his pants up over his hips while in supine. OT ADL-Toileting General Evaluation Toileting Ability Independent Comments OT Toileting Comments Pt just needing set-up for supplies to help wipe after a bowel movement. Pt would greatly benefit from a grab bar at home to help stabilize his while standing in order for pericare completeness needs. OT ADL-Bathing Bathing Type Bathing Type Sponge Bath General Evaluation Bathing Ability Minimal Assistance Areas Needing Assistance Wash/Dry Back Comments OT Bathing Comments Pt not wanting to take a shower but agreed to sponge off. Pt needing assist for his back. Pt states has jock itch and nursing notified. Pt will benefit from assist for showering needs. Pt states only shower when someone is home. M5 OT- IP IADL's Start: 05/22/23 14:08 Freq: Status: Active Protocol: Document 05/22/23 14:08 CGR (Rec: 05/22/23 14:32 CGR [id number]) OT-Instrumental Activities of Daily Living Deficits IADL Deficits Identified No Deficits Home Safety Awareness Awareness of Need for Assistance at Home Good Awareness Ability to Problem Solve Emergency Able to Problem Solve Situations Medication Management Medication Management No Deficits Identified Money Management Money Management No Deficits Identified Meal Preparation Meal Preparation Caregiver Provides Assist Electronic Field Service Engineer Electronic Field Service Engineer Caregiver Provides Assist M6 OT- IP Functional Cognition Start: 05/22/23 14:08 Freq: Status: Active Protocol: Document 05/26/23 10:03 [facility] (Rec: 05/26/23 10:12 [facility] [id number]) Cognitive Factors Limiting Selfcare Function Cognitive Comments Cognitive Assessment Comments Pt at times need some safety cues, overall intact. Cues to place his wc a little closer prior to transferring. M7 OT- IP Mobility and Balance Start: 05/22/23 14:08 Freq: Status: Active Protocol: Document 05/26/23 10:03 [facility] (Rec: 05/26/23 10:12 [facility] [id number]) OT-Transfer Assessment Sit to and From Stand Sit to and from Stand Standby Assistance Transfers Transfer Ability Independent,Standby Assistance Technique Transfer Destination Bed,Bedside Commode,Wheelchair Transfer Technique Lateral Scoot Devices Transfer Assistive Devices None Comments Mobility Comments Pt stood up and use of right stump to help stabilize on his wc during the transfer. Transfer to BSC lateral scoot. SBA. OT- Balance Assessment Sitting Balance and Reactions Static Sitting Balance Ability Normal Dynamic Sitting Balance Ability Normal Standing Balance and Reactions Static Standing Balance Ability Fair M8 OT- IP Objective Assessments Start: 05/22/23 14:08 Freq: Status: Active Protocol: Document 05/22/23 14:08 CGR (Rec: 05/22/23 14:32 CGR [id number]) OT Gross Range of Motion Upper Extremity Range of Motion Assessment Bilaterally Impaired ROM Impairments b impaired in the hands d/t arthritic changes, R hand more impacted than L. OT Strength Upper Extremity Strength Assessment Within Functional Limits Comments Strength Comments 5/5 to arms and shoulders, 4/5 to hands likely d/t arthritic changes OT- Coordination Assessment Upper Extremity Finger to Nose Test Within Functional Limits Finger Tapping Test Within Functional Limits OT-Muscle Tone Assessment Muscle Tone WNL Yes OT Sensation Assessment Edema Edema Absent M9 OT- IP Assessment and Plan Start: 05/22/23 14:08 Freq: Status: Active Protocol: Document 05/26/23 10:03 [facility] (Rec: 05/26/23 10:12 [facility] [id number]) OT Summary Assessment and Plan Potential Rehabilitation Potential Good Analytic Complexity at Evaluation Moderate Summary OT Impairments Pain,Functional Mobility, Toileting,Bathing,Toilet Transfers,Shower Transfers, Activity Tolerance Progress Towards Goals Progressing Toward Goals Assessment Summary Pt did not want to shower or try to practice use of the sliding board at this time. Pt needing cues to get closer to the surfaces in order to decrease the distance to scoot over. Pt to go home today and benefit from home health therapy. Goals Grooming Goal Independent Dressing Goal Independent Toileting Goal Independent Bathing Goal Independent Toilet Transfer Goal Independent,ADA High Toilet Shower Transfer Goal Independent,Tub/Shower Combination,Tub Transfer Bench Days to Meet Goals 1 Frequency of Treatment Frequency Of Treatment Once a Day Treatment Plan OT Treatment Plan ADL Training,Functional Mobility,Patient/Family Education,Discharge Planning Discharge Recommendations OT Discharge Recommendations Home with Assistance Transportation Needs at Discharge Wheelchair/Cabulance
--- NOTE | 2023-05-26 10:21 | PC.NURSE ---
Patient will be discharging to home today. Discharge planning is getting a ride for the patient as his does not drive.
[2023-05-26] MEDS: OXYCODONE IR 5 MG TABLET PO (12:23)
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
== END 2023-05-26 14:54 | disposition home health service (06) | DRG 481 ==
LOC: ED 18:47 → AC 18:52
PROVIDERS: Internal Medicine; Student in an Organized Health Care Education/Training Program; Admitting Provider Orthopaedic Surgery; Emergency Provider Emergency Medicine; Family Provider Family Medicine; PCP Family Medicine; Referring Provider Emergency Medicine; Visit Provider Orthopaedic Surgery
PROC: 0QSB04Z Reposition Right Lower Femur with Internal Fixation Device, Open Approach (ICD-10-PCS; principal; 2023-05-21 08:00)
DX: S72.491A Other fracture of lower end of right femur, initial encounter for closed fracture (principal); D62 Acute posthemorrhagic anemia; E87.1 Hypo-osmolality and hyponatremia; M25.561 Pain in right knee; M25.461 Effusion, right knee; R50.82 Postprocedural fever; E11.65 Type 2 diabetes mellitus with hyperglycemia; W19.XXXA Unspecified fall, initial encounter; Z79.4 Long term (current) use of insulin; Z89.511 Acquired absence of right leg below knee; E11.628 Type 2 diabetes mellitus with other skin complications; Z86.31 Personal history of diabetic foot ulcer; E11.40 Type 2 diabetes mellitus with diabetic neuropathy, unspecified; R60.0 Localized edema
CPT/HCPCS: 36415; 36430; 71045; 73502; 73552; 73560; 73700; 76000; 80048; 81001; 82962; 83735; 84145; 85025; 85027; 86850; 86900; 86901; 87040; 94760; 97110; 97162; 97166; 97530; 97535; 99213; 99284; 99285; P9016; A9270; J0131; J0171; J0330; J0690; J1650; J1815; J2250; J2405; J2704; J3010

== ENCOUNTER → 2023-06-02 11:28 | Outpatient (CLI) | payer MEDICAID, SELFPAY ==
[2023-05-19 19:32] VITALS: BMI 25.7
== END ==
PROVIDERS: Family Provider Family Medicine; PCP Family Medicine; Referring Provider Family Medicine; Visit Provider Physician Assistant
DX: I73.9 Peripheral vascular disease, unspecified (principal)
CPT/HCPCS: 99212

== ENCOUNTER 2023-10-10 11:15 | Outpatient (RCR) | payer MEDICAID, SELFPAY ==
[2022-05-07 20:47] VITALS: BMI 24.4
--- NOTE | 2023-08-14 17:04 | PT.OIE ---
Current Diagnoses Pain in joints of right hand (08/14/23) Pain in joints of left hand (08/14/23) Past Medical History (Last Reviewed 05/23/23 @ 10:39 by Edy Crow PA-C) Diabetes Hyperlipidemia Hypertension Past Surgical History (Last Reviewed 05/23/23 @ 10:39 by Edy Crow PA-C) History of cholecystectomy Visit Care Team Role Provider Type Irasema Frias MD Family Provider Non-Staff Specialty: [facility] Address: [address] [place] [address], [place], [address] Email: Adalberto Mireles MD Attending Provider Non-Staff Primary Care Provider Referring Provider Specialty: [facility] Address: [address] [facility], [place], [address] Email: Physical Therapy Initial Evaluation PT-OP-A Visit Information Start: 08/10/23 17:37 Freq: Status: Active Protocol: Document 08/14/23 11:24 LRN (Rec: 08/14/23 12:55 LRN [id number]) Out-Patient Physical Therapy Visit Information Visit Information Visit Type Initial Evaluation Visit Start Time 11:24 Visit Stop Time 12:20 Visit Number 06/30 Evaluation Information Evaluation Date 08/14/23 Precautions Precautions Osteoporosis, Neuropathy of hands/L foot, 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 Diabetes II, Depression, Arthritis, neck/back pain. PT-OP-B Current Condition Start: 08/10/23 17:37 Freq: Status: Active Protocol: Document 08/14/23 11:24 LRN (Rec: 08/14/23 12:55 LRN [id number]) Current Condition History of Current Condition Onset Date 5 yrs ago. Current Complaints Hands won't go straight. History of Current Condition Worsening of hand positioning and neuropathy of hands. R hand digits 4th & 5th from wrist distally, loss of sensation with hot/cold and sharp/dull. Pt reports arthritis and carpel tunnel has been ruled out. L hand, loss of sensation of tips of 2nd and 4th digit finger tips, otherwise, hot/cold, pressure , sharp/dull is normal. 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 Hyper ext of MCP's and flex of PIP jts. 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 Prior Treatments and Tests Test for arthritis, office check for carpel tunnel - states both were found negative. Treatment Goals Patient/Caregiver Goals Pt goal: Get fingers to straighten and pick a dime up off the floor. Write better with R hand. 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. Neuropathy of hands with loss of sensation in L hand fingertips and R hand digits 4 & 5. Wheelchair bound. PT-OP-C Subjective Start: 08/10/23 17:37 Freq: Status: Active Protocol: Document 08/14/23 11:24 LRN (Rec: 08/14/23 12:55 LRN [id number]) OP-PT Pain Assessment Pain Assessment Grid Paper Pain Assessment Grid Completed Yes Location R hand Pain Location Details R thumb: MCP to CMC jt Intensity 6 Scale Used Numeric (0 - 10) Description Aching Description- Other Neuropathy ache, cold Frequency Constant Pain Aggravating Factors Activity L hand Pain Location Details Thumb from MCP jt to CMC jt Intensity 5 Scale Used Numeric (0 - 10) Description Aching Description- Other Neuropathy ache, cold Frequency Constant PT-OP-H Neuro Start: 08/10/23 17:37 Freq: Status: Active Protocol: Document 08/14/23 11:24 LRN (Rec: 08/14/23 12:55 LRN [id number]) Sensation Evaluation Gross Sensation Gross Sensation Right UE Impaired,Left LE Impaired Sensation Description Numbness Comments Summary Comments Decreased sensation of R hand in Ulnar nerve sensory distribution (digits 4th & 5th from wrist distally, loss of sensation with hot/cold and sharp/dull), can feel pressure . PT-OP-J Posture/Palpation/Skin Start: 08/10/23 17:37 Freq: Status: Active Protocol: Document 08/14/23 11:24 LRN (Rec: 08/14/23 12:55 LRN [id number]) Posture Evaluation Position Sitting Head/C-Spine Posture Forward Head Shoulder Posture (R) Rounded,(L) Forward Comments Posture Comments Atrophy of intrinsics and hypothenar eminence. Palpation Assessment Location R hand Palpation Location Entire hand Palpation Details Tingling with palpation. L hand Palpation Location Entire hand Palpation Details Tingling with palpation. PT-OP-K Range of Motion Start: 08/10/23 17:37 Freq: Status: Active Protocol: Document 08/14/23 11:24 LRN (Rec: 08/14/23 12:55 LRN [id number]) Finger Goniometric Range of Motion Finger Right Fifth Comments PIP Exension: lacks 45 deg's Right Fourth Comments PIP Exension: lacks 44 deg's Right Third Comments PIP Exension: lacks 27 deg's Right Second Comments PIP Exension: lacks 27 deg's DIP Extension: lacks 12 deg's Left Fifth Comments PIP Exension: lacks 44 deg's Left Fourth Comments PIP Exension: lacks 37 deg's Left Third Comments PIP Extension: lacks 33 deg's Left Second Comments PIP Exension: lacks 18 deg's DIP Extension: lacks 5 deg's Thumb Goniometric Range of Motion Thumb Right Opposition to 5th Digit Base (cm) 2 Left Opposition to 5th Digit Base (cm) 0 PT-OP-M Strength Start: 08/10/23 17:37 Freq: Status: Active Protocol: Document 08/14/23 11:24 LRN (Rec: 08/14/23 12:55 LRN [id number]) Hand Cognos Lead/Pinch Strength Hand Strength Right Tip Pinch (lbs) 3 Comments Oppoisition: 5/5, but pt not able to maintain flex at jts. Pinch: 3, 3.5, 3 lbs Left Tip Pinch (lbs) 2 Comments Opposition: little finger - 3 /5, otherwise strength is 5/5, but pt not able to maintain flex at jts. Pinch: 2, 2.5, 2 lbs PT-OP-Q Treatments Start: 08/10/23 17:37 Freq: Status: Active Protocol: Document 08/14/23 11:24 LRN (Rec: 08/14/23 12:55 LRN [id number]) Self-Care/Home Management Treatment Education Other Education Discussed results of evaluation, goals, attendance, and plan of care (POC). Pt agreeable to goals, to attendance and POC. PT-OP-T Assessment and Plan Start: 08/10/23 17:37 Freq: Status: Active Protocol: Document 02/26/24 11:24 LRN (Rec: 02/26/24 12:55 LRN [id number]) Physical Therapy Assessment Rehab Potential Rehabilitation Potential Fair Evaluation Complexity Number of Personal Factors/Comorbidities 1-2 Number of Body Systems Impaired 4 or More Clinical Presentation at Evaluation Evolving Impairments Impairments Functional Activities,ROM, Sensation,Soft Tissue Mobility ,Strength Goals Three Impairment Decreased functional ability Impairment Difficulty writing and picking up flat objects (dime) from a hard surface. Short Term Goal (STG) Pt educated in modification of objects to improve business dean and and writing ability. STG Duration 08/18/23 Technical Education Teacher Goal (LTG) Pt will be able to bean picker machine operator a coin from a hard surface with greater ease. LTG Duration 10/09/23 Two Impairment Pt not able to lay fingers straight. Technical Education Teacher Goal (LTG) Pt will be educated in stretch to PIP jts to promote straightening of fingers (at PIP joints). LTG Duration 10/09/23 One Impairment Pt lacks appropriate self care HEP. Technical Education Teacher Goal (LTG) Pt will be independent in an effective self care HEP of finger mobility (PIP extension ) and hand ex's (intrinsics, opposition). 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 Treatment recommendation for Boutonniere deformity is splinting, which we are not able to do here at [facility]. The pt will benefit from skilled physical therapy for hand strengthening to promote ability to bean picker machine operator objects like a coin from a hard surface and HEP/education for minimizing onset of Boutennaire deformity and modification to objects to promote gripping/handwriting skills. Physical Therapy Plan Frequency and Duration Frequency of Treatment 2x/Week Duration of treatment (weeks) 8 Plan of Care Start Date 08/14/23 Plan of Care End Date 10/09/23 Therapeutic Interventions Therapeutic Interventions Home Exercise Program,Joint Mobilizations,Manual Therapy, Patient/Caregiver Education, Self-Care/Home Management, Taping,Therapeutic Exercises Other Referrals/Consults Referrals/Consults Recommended Treatment for Boutonniere deformity of hands: Splint of hands if pt chooses to have done at [facility] if insurance will allow evaluation for splints. Next Visit Focus/Plan Next Note Type Treatment Note Next Visit Plan Jr Finger/thumb strengthening (assess strength): Intrinsic & opposition strengthening, ROM: PIP jt stretching, Ther Ex: picking up small objects with index/thumb and coin from hard surface.
--- NOTE | 2023-08-14 17:04 | PT.OPPOC ---
Physical, Occupational & Speech Therapy At [facility] Current Diagnoses Pain in joints of right hand (08/14/23) Pain in joints of left hand (08/14/23) Visit Care Team Role Provider Type Irasema Frias MD Family Provider Non-Staff Specialty: [facility] Address: [address] [place] [address], [id number] Email: Adalberto Mireles MD Attending Provider Non-Staff Primary Care Provider Referring Provider Specialty: [facility] Address: [place] [address], [place], [address] Email: Plan Of Care PT-OP-T Assessment and Plan Start: 08/10/23 17:37 Freq: Status: Active Protocol: Document 08/14/23 11:24 LRN (Rec: 08/14/23 12:55 LRN [id number]) Physical Therapy Assessment Rehab Potential Rehabilitation Potential Fair Evaluation Complexity Number of Personal Factors/Comorbidities 1-2 Number of Body Systems Impaired 4 or More Clinical Presentation at Evaluation Evolving Impairments Impairments Functional Activities,ROM, Sensation,Soft Tissue Mobility ,Strength Goals Three Impairment Decreased functional ability Impairment Difficulty writing and picking up flat objects (dime) from a hard surface. Short Term Goal (STG) Pt educated in modification of objects to improve retail administrative assistant and and writing ability. STG Duration 08/18/23 Correction Goal (LTG) Pt will be able to metal pickling equipment operator a coin from a hard surface with greater ease. LTG Duration 10/09/23 Two Impairment Pt not able to lay fingers straight. Correction Goal (LTG) Pt will be educated in stretch to PIP jts to promote straightening of fingers (at PIP joints). LTG Duration 10/09/23 One Impairment Pt lacks appropriate self care HEP. Telecommunications Line Mechanic Goal (LTG) Pt will be independent in an effective self care HEP of finger mobility (PIP extension ) and hand ex's (intrinsics, opposition). 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 Treatment recommendation for Boutonniere deformity is splinting, which we are not able to do here at [facility]. The pt will benefit from skilled physical therapy for hand strengthening to promote ability to metal pickling equipment operator objects like a coin from a hard surface and HEP/education for minimizing onset of Boutennaire deformity and modification to objects to promote gripping/handwriting skills. Physical Therapy Plan Frequency and Duration Frequency of Treatment 2x/Week Duration of treatment (weeks) 8 Plan of Care Start Date 08/14/23 Plan of Care End Date 10/09/23 Therapeutic Interventions Therapeutic Interventions Home Exercise Program,Joint Mobilizations,Manual Therapy, Patient/Caregiver Education, Self-Care/Home Management, Taping,Therapeutic Exercises Other Referrals/Consults Referrals/Consults Recommended Treatment for Boutonniere deformity of hands: Splint of hands if pt chooses to have done at [facility] if insurance will allow evaluation for splints. Next Visit Focus/Plan Next Note Type Treatment Note Next Visit Plan Jr Finger/thumb strengthening (assess strength): Intrinsic & opposition strengthening, ROM: PIP jt stretching, Ther Ex: picking up small objects with index/thumb and coin from hard surface. Plan of Care Dates Plan of Care Start Date 08/14/23 Plan of Care End Date 10/09/23 Electronically Signed by: Gillian Zabala, PT 08/14/23 2421 If you are in agreement with this Plan of Care, please return a signed and dated copy. I have reviewed this Plan of Care and certify that the skilled therapy services above are required to meet the patient?s needs. Physician Signature Date Printed Name and Credentials Clinical Instructor Signature Printed Name and Credentials
--- NOTE | 2023-08-17 12:28 | PT.OTN ---
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 Diabetes II, Depression, Arthritis, neck/back pain. PT-OP-B Current Condition Start: 08/10/23 17:37 Freq: Status: Active Protocol: Document 08/14/23 11:24 LRN (Rec: 08/14/23 12:55 LRN [id number]) Current Condition History of Current Condition Onset Date 5 yrs ago. Current Complaints Hands won't go straight. History of Current Condition Worsening of hand positioning and neuropathy of hands. R hand digits 4th & 5th from wrist distally, loss of sensation with hot/cold and sharp/dull. Pt reports arthritis and carpel tunnel has been ruled out. L hand, loss of sensation of tips of 2nd and 4th digit finger tips, otherwise, hot/cold, pressure , sharp/dull is normal. 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 Hyper ext of MCP's and flex of PIP jts. 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 Prior Treatments and Tests Test for arthritis, office check for carpel tunnel - states both were found negative. Treatment Goals Patient/Caregiver Goals Pt goal: Get fingers to straighten and pick a dime up off the floor. Write better with R hand. 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 Neuropathy of hands with loss of sensation in L hand fingertips and R hand digits 4 & 5. Wheelchair bound. PT-OP-C Subjective Start: 08/10/23 17:37 Freq: Status: Active Protocol: Document 08/17/23 11:22 LRN (Rec: 08/17/23 12:03 LRN [id number]) OP-PT Subjective Patient Comments Patient Comments Doing okay. States he wakes with his hands burning, then when sensation goes away his hands are cold. Patient Questionnaires Quick Dash- Upper Extremity Quick Dash UE Score 56 Quick Dash UE Impairment 40 to 59% Impaired (Score 40- 59) PT-OP-H Neuro Start: 08/10/23 17:37 Freq: Status: Active Protocol: Document 08/14/23 11:24 LRN (Rec: 08/14/23 12:55 LRN [id number]) Sensation Evaluation Gross Sensation Gross Sensation Right UE Impaired,Left LE Impaired Sensation Description Numbness Comments Summary Comments Decreased sensation of R hand in Ulnar nerve sensory distribution (digits 4th & 5th from wrist distally, loss of sensation with hot/cold and sharp/dull), can feel pressure . PT-OP-J Posture/Palpation/Skin Start: 08/10/23 17:37 Freq: Status: Active Protocol: Document 08/14/23 11:24 LRN (Rec: 08/14/23 12:55 LRN [id number]) Posture Evaluation Position Sitting Head/C-Spine Posture Forward Head Shoulder Posture (R) Rounded,(L) Forward Comments Posture Comments Atrophy of intrinsics and hypothenar eminence. Palpation Assessment Location R hand Palpation Location Entire hand Palpation Details Tingling with palpation. L hand Palpation Location Entire hand Palpation Details Tingling with palpation. PT-OP-K Range of Motion Start: 08/10/23 17:37 Freq: Status: Active Protocol: Document 08/14/23 11:24 LRN (Rec: 08/14/23 12:55 LRN [id number]) Finger Goniometric Range of Motion Finger Right Fifth Comments PIP Exension: lacks 45 deg's Right Fourth Comments PIP Exension: lacks 44 deg's Right Third Comments PIP Exension: lacks 27 deg's Right Second Comments PIP Exension: lacks 27 deg's DIP Extension: lacks 12 deg's Left Fifth Comments PIP Exension: lacks 44 deg's Left Fourth Comments PIP Exension: lacks 37 deg's Left Third Comments PIP Extension: lacks 33 deg's Left Second Comments PIP Exension: lacks 18 deg's DIP Extension: lacks 5 deg's Thumb Goniometric Range of Motion Thumb Right Opposition to 5th Digit Base (cm) 2 Left Opposition to 5th Digit Base (cm) 0 PT-OP-M Strength Start: 08/10/23 17:37 Freq: Status: Active Protocol: Document 08/14/23 11:24 LRN (Rec: 08/14/23 12:55 LRN [id number]) Hand Engineering Supplies Sales/Pinch Strength Hand Strength Right Tip Pinch (lbs) 3 Comments Oppoisition: 5/5, but pt not able to maintain flex at jts. Pinch: 3, 3.5, 3 lbs Left Tip Pinch (lbs) 2 Comments Opposition: little finger - 3 /5, otherwise strength is 5/5, but pt not able to maintain flex at jts. Pinch: 2, 2.5, 2 lbs PT-OP-Q Treatments Start: 08/10/23 17:37 Freq: Status: Active Protocol: Document 08/17/23 11:22 LRN (Rec: 08/17/23 12:03 LRN [id number]) Therapeutic Exercises Sitting Exercises Opposition Sitting Exercise Name Finger opposition Side bilateral Reps/Minutes 6' Comments Stability given to MCP jt to prevent hyper ext. Fingers/thumb AB/AD Sitting Exercise Name Digits 1-5: AB/AD Side bilateral Reps/Minutes 10 Comments Assist to keep MCP jt from hyperextending PIP jt stretch Sitting Exercise Name PIP jt stretch to neutral all digits (2-5) - HEP Side bilateral Reps/Minutes 11' Manual Therapy Treatment Soft Tissue Mobilization Finger flexors Body Location Jr finger flexors Mobilization Type Strumming,Sustained Pressure Intensity/Depth Moderate Body Position Sitting MCP jts Body Location rodríguez surface of MCP jts Mobilization Type Trigger Point Release Intensity/Depth Moderate Body Position Sitting PT-OP-T Assessment and Plan Start: 08/10/23 17:37 Freq: Status: Active Protocol: Document 08/17/23 11:22 LRN (Rec: 08/17/23 12:03 LRN [id number]) Physical Therapy Assessment Goals Three Impairment Decreased functional ability Impairment Difficulty writing and picking up flat objects (dime) from a hard surface. Short Term Goal (STG) Pt educated in modification of objects to improve reinforcer and and writing ability. STG Duration 08/18/23 Music Executive Goal (LTG) Pt will be able to tile picker a coin from a hard surface with greater ease. LTG Duration 10/09/23 Two Impairment Pt not able to lay fingers straight. Intermediate Goal (LTG) Pt will be educated in stretch to PIP jts to promote straightening of fingers (at PIP joints). LTG Duration 10/09/23 (08/17/23: MET GOAL) One Impairment Pt lacks appropriate self care HEP. Intermediate Goal (LTG) Pt will be independent in an effective self care HEP of finger mobility (PIP extension ) and hand ex's (intrinsics, opposition). 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 His finger PIP jt ext mobility is improved, passively is able to almost reach full ext at PIP jt. Finger flexor muscles become sore with finger AB/AD ex's. Physical Therapy Plan Frequency and Duration Frequency of Treatment 2x/Week Duration of treatment (weeks) 8 Plan of Care Start Date 08/14/23 Plan of Care End Date 10/09/23 Next Visit Focus/Plan Next Note Type Treatment Note Next Visit Plan Assess strength: Jr Finger/ thumb strengthening: Intrinsic & opposition strengthening, ROM: PIP jt stretching Ther Ex: picking up small objects with index/thumb and coin from hard surface. Manual: STM of finger flexors and extensors.
--- NOTE | 2023-08-17 12:28 | PT.OTN ---
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 Diabetes II, Depression, Arthritis, neck/back pain. PT-OP-B Current Condition Start: 08/10/23 17:37 Freq: Status: Active Protocol: Document 08/14/23 11:24 LRN (Rec: 08/14/23 12:55 LRN [id number]) Current Condition History of Current Condition Onset Date 5 yrs ago. Current Complaints Hands won't go straight. History of Current Condition Worsening of hand positioning and neuropathy of hands. R hand digits 4th & 5th from wrist distally, loss of sensation with hot/cold and sharp/dull. Pt reports arthritis and carpel tunnel has been ruled out. L hand, loss of sensation of tips of 2nd and 4th digit finger tips, otherwise, hot/cold, pressure , sharp/dull is normal. 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 Hyper ext of MCP's and flex of PIP jts. 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 Prior Treatments and Tests Test for arthritis, office check for carpel tunnel - states both were found negative. Treatment Goals Patient/Caregiver Goals Pt goal: Get fingers to straighten and pick a dime up off the floor. Write better with R hand. 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 Neuropathy of hands with loss of sensation in L hand fingertips and R hand digits 4 & 5. Wheelchair bound. PT-OP-C Subjective Start: 08/10/23 17:37 Freq: Status: Active Protocol: Document 08/17/23 11:22 LRN (Rec: 08/17/23 12:03 LRN [id number]) OP-PT Subjective Patient Comments Patient Comments Doing okay. States he wakes with his hands burning, then when sensation goes away his hands are cold. Patient Questionnaires Quick Dash- Upper Extremity Quick Dash UE Score 56 Quick Dash UE Impairment 40 to 59% Impaired (Score 40- 59) PT-OP-H Neuro Start: 08/10/23 17:37 Freq: Status: Active Protocol: Document 08/14/23 11:24 LRN (Rec: 08/14/23 12:55 LRN [id number]) Sensation Evaluation Gross Sensation Gross Sensation Right UE Impaired,Left LE Impaired Sensation Description Numbness Comments Summary Comments Decreased sensation of R hand in Ulnar nerve sensory distribution (digits 4th & 5th from wrist distally, loss of sensation with hot/cold and sharp/dull), can feel pressure . PT-OP-J Posture/Palpation/Skin Start: 08/10/23 17:37 Freq: Status: Active Protocol: Document 08/14/23 11:24 LRN (Rec: 08/14/23 12:55 LRN [id number]) Posture Evaluation Position Sitting Head/C-Spine Posture Forward Head Shoulder Posture (R) Rounded,(L) Forward Comments Posture Comments Atrophy of intrinsics and hypothenar eminence. Palpation Assessment Location R hand Palpation Location Entire hand Palpation Details Tingling with palpation. L hand Palpation Location Entire hand Palpation Details Tingling with palpation. PT-OP-K Range of Motion Start: 08/10/23 17:37 Freq: Status: Active Protocol: Document 08/14/23 11:24 LRN (Rec: 08/14/23 12:55 LRN [id number]) Finger Goniometric Range of Motion Finger Right Fifth Comments PIP Exension: lacks 45 deg's Right Fourth Comments PIP Exension: lacks 44 deg's Right Third Comments PIP Exension: lacks 27 deg's Right Second Comments PIP Exension: lacks 27 deg's DIP Extension: lacks 12 deg's Left Fifth Comments PIP Exension: lacks 44 deg's Left Fourth Comments PIP Exension: lacks 37 deg's Left Third Comments PIP Extension: lacks 33 deg's Left Second Comments PIP Exension: lacks 18 deg's DIP Extension: lacks 5 deg's Thumb Goniometric Range of Motion Thumb Right Opposition to 5th Digit Base (cm) 2 Left Opposition to 5th Digit Base (cm) 0 PT-OP-M Strength Start: 08/10/23 17:37 Freq: Status: Active Protocol: Document 08/14/23 11:24 LRN (Rec: 08/14/23 12:55 LRN [id number]) Hand Pipe Line Gauger/Pinch Strength Hand Strength Right Tip Pinch (lbs) 3 Comments Oppoisition: 5/5, but pt not able to maintain flex at jts. Pinch: 3, 3.5, 3 lbs Left Tip Pinch (lbs) 2 Comments Opposition: little finger - 3 /5, otherwise strength is 5/5, but pt not able to maintain flex at jts. Pinch: 2, 2.5, 2 lbs PT-OP-Q Treatments Start: 08/10/23 17:37 Freq: Status: Active Protocol: Document 08/17/23 11:22 LRN (Rec: 08/17/23 12:03 LRN [id number]) Therapeutic Exercises Sitting Exercises Opposition Sitting Exercise Name Finger opposition Side bilateral Reps/Minutes 6' Comments Stability given to MCP jt to prevent hyper ext. Fingers/thumb AB/AD Sitting Exercise Name Digits 1-5: AB/AD Side bilateral Reps/Minutes 10 Comments Assist to keep MCP jt from hyperextending PIP jt stretch Sitting Exercise Name PIP jt stretch to neutral all digits (2-5) - HEP Side bilateral Reps/Minutes 11' Manual Therapy Treatment Soft Tissue Mobilization Finger flexors Body Location Jr finger flexors Mobilization Type Strumming,Sustained Pressure Intensity/Depth Moderate Body Position Sitting MCP jts Body Location rodríguez surface of MCP jts Mobilization Type Trigger Point Release Intensity/Depth Moderate Body Position Sitting PT-OP-T Assessment and Plan Start: 08/10/23 17:37 Freq: Status: Active Protocol: Document 08/17/23 11:22 LRN (Rec: 08/17/23 12:03 LRN [id number]) Physical Therapy Assessment Goals Three Impairment Decreased functional ability Impairment Difficulty writing and picking up flat objects (dime) from a hard surface. Short Term Goal (STG) Pt educated in modification of objects to improve electrical instrument maker and and writing ability. STG Duration 08/18/23 Assembly Worker Goal (LTG) Pt will be able to leaf size picker a coin from a hard surface with greater ease. LTG Duration 10/09/23 Two Impairment Pt not able to lay fingers straight. Assisted Goal (LTG) Pt will be educated in stretch to PIP jts to promote straightening of fingers (at PIP joints). LTG Duration 10/09/23 (08/17/23: MET GOAL) One Impairment Pt lacks appropriate self care HEP. Assisted Goal (LTG) Pt will be independent in an effective self care HEP of finger mobility (PIP extension ) and hand ex's (intrinsics, opposition). LTG Duration 10/09/23 Assessment Summary Assessment Pt is a 58 yo male who presents with Boutonniere deformity of hands, atrophy of intrinsic muscles and hypothenar muscles and therefore functionally limited with ability to straighten the fingers, leaf size picker flat objects (coin) from hard surfaces, and writing his name . His finger PIP jt ext mobility is improved, passively is able to almost reach full ext at PIP jt. Finger flexor muscles become sore with finger AB/AD ex's. Physical Therapy Plan Frequency and Duration Frequency of Treatment 2x/Week Duration of treatment (weeks) 8 Plan of Care Start Date 08/14/23 Plan of Care End Date 10/09/23 Next Visit Focus/Plan Next Note Type Treatment Note Next Visit Plan Assess strength: Jr Finger/ thumb strengthening: Intrinsic & opposition strengthening, ROM: PIP jt stretching Ther Ex: picking up small objects with index/thumb and coin from hard surface. Manual: STM of finger flexors and extensors.
--- NOTE | 2023-08-22 14:07 | PT.OTN ---
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 Diabetes II, Depression, Arthritis, neck/back pain. PT-OP-B Current Condition Start: 08/10/23 17:37 Freq: Status: Active Protocol: Document 08/14/23 11:24 LRN (Rec: 08/14/23 12:55 LRN [id number]) Current Condition History of Current Condition Onset Date 5 yrs ago. Current Complaints Hands won't go straight. History of Current Condition Worsening of hand positioning and neuropathy of hands. R hand digits 4th & 5th from wrist distally, loss of sensation with hot/cold and sharp/dull. Pt reports arthritis and carpel tunnel has been ruled out. L hand, loss of sensation of tips of 2nd and 4th digit finger tips, otherwise, hot/cold, pressure , sharp/dull is normal. 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 Hyper ext of MCP's and flex of PIP jts. 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 Prior Treatments and Tests Test for arthritis, office check for carpel tunnel - states both were found negative. Treatment Goals Patient/Caregiver Goals Pt goal: Get fingers to straighten and pick a dime up off the floor. Write better with R hand. 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 Neuropathy of hands with loss of sensation in L hand fingertips and R hand digits 4 & 5. Wheelchair bound. PT-OP-C Subjective Start: 08/10/23 17:37 Freq: Status: Active Protocol: Document 08/22/23 10:52 AB (Rec: 08/22/23 14:07 AB [id number]) OP-PT Subjective Patient Comments Patient Comments Patient reports the hands have been better, left index finger abduction has improved, but unable to get 5th fingers to lie flat without overpressure. PT-OP-H Neuro Start: 08/10/23 17:37 Freq: Status: Active Protocol: Document 08/14/23 11:24 LRN (Rec: 08/14/23 12:55 LRN [id number]) Sensation Evaluation Gross Sensation Gross Sensation Right UE Impaired,Left LE Impaired Sensation Description Numbness Comments Summary Comments Decreased sensation of R hand in Ulnar nerve sensory distribution (digits 4th & 5th from wrist distally, loss of sensation with hot/cold and sharp/dull), can feel pressure . PT-OP-J Posture/Palpation/Skin Start: 08/10/23 17:37 Freq: Status: Active Protocol: Document 08/14/23 11:24 LRN (Rec: 08/14/23 12:55 LRN [id number]) Posture Evaluation Position Sitting Head/C-Spine Posture Forward Head Shoulder Posture (R) Rounded,(L) Forward Comments Posture Comments Atrophy of intrinsics and hypothenar eminence. Palpation Assessment Location R hand Palpation Location Entire hand Palpation Details Tingling with palpation. L hand Palpation Location Entire hand Palpation Details Tingling with palpation. PT-OP-K Range of Motion Start: 08/10/23 17:37 Freq: Status: Active Protocol: Document 08/14/23 11:24 LRN (Rec: 08/14/23 12:55 LRN [id number]) Finger Goniometric Range of Motion Finger Right Fifth Comments PIP Exension: lacks 45 deg's Right Fourth Comments PIP Exension: lacks 44 deg's Right Third Comments PIP Exension: lacks 27 deg's Right Second Comments PIP Exension: lacks 27 deg's DIP Extension: lacks 12 deg's Left Fifth Comments PIP Exension: lacks 44 deg's Left Fourth Comments PIP Exension: lacks 37 deg's Left Third Comments PIP Extension: lacks 33 deg's Left Second Comments PIP Exension: lacks 18 deg's DIP Extension: lacks 5 deg's Thumb Goniometric Range of Motion Thumb Right Opposition to 5th Digit Base (cm) 2 Left Opposition to 5th Digit Base (cm) 0 PT-OP-M Strength Start: 08/10/23 17:37 Freq: Status: Active Protocol: Document 08/22/23 10:52 AB (Rec: 08/22/23 14:07 AB [id number]) Finger/Thumb Strength Finger Manual Muscle Testing pinky 5 right Comments MCP 4-/5 PIP 5/5 DIP 4/5 pinky 5 left Comments MCP 2-/5 PIP 4-/5 DIP 4-/5 Ring finger 4 right Comments MCP 4-/5, PIP 5/5 DIP 4/5 Ring finger 4 left Comments MCP 4/5 PIP 4+/5 DIP 4-/5 middle finger 3 right Comments MCP 4-/5 PIP 5/5 DIP 4+/5 middle finger 3 left Comments MCP 4/5 PIP 4+/5 DIP 4-/5 Index finger (2) right Comments MCP 4-/5 PIP 5/5 DIP 4+/5 Index finger 2 left Comments MCP 4/5 PIP 4+/5 DIP 4/5 right thumb Comments right MCP 4/5 PIP 2-/5 DIP 4+/ 5 left thumb Comments Left MCP 2-/5 PIP 4+/5 DIP 4/5 PT-OP-Q Treatments Start: 08/10/23 17:37 Freq: Status: Active Protocol: Document 08/22/23 10:52 AB (Rec: 08/22/23 14:07 AB [id number]) Therapeutic Exercises Sitting Exercises Finger extension or EDC glides Sitting Exercise Name pen roll with marker Side bilateral Equipment Used marker Reps/Minutes X6 Comments Visual cues yellow clothspin Side bilateral Reps/Minutes X5 repetitions each finger wrist extension Side bilateral Reps/Minutes X10 X 3 Comments X10 fingers relaxed, X10 fingers flexed X 10 fingers extension digiflex 1.5 Side bilateral Resistance yellow Reps/Minutes X10 Comments Verbal cues Opposition Sitting Exercise Name Finger opposition Side bilateral Reps/Minutes X10 Comments each UE Manual Therapy Treatment Soft Tissue Mobilization anterior ( palms ) bilateral hands Body Location increased focus on thenar and hypothenar eminance Mobilization Type Cross-Friction,Rolling Intensity/Depth Moderate Body Position Sitting Comments Monitored for pain STM bilateral anterior posterior forearms Mobilization Type Cross-Friction,Rolling Intensity/Depth Moderate Body Position Sitting Comments Moderate to superficial to areas tender to palpation and pressure, performed prior to exercise Manual Techniques PROM Type bilateral fingers Reps/Duration X3 Comments to neutral, fingers straight Self-Care/Home Management Treatment Activities Self-Care/Home Management Activities Opposite, finder extension/pen roll, wrist extension with fingers flexed and extended added to HEP PT-OP-T Assessment and Plan Start: 08/10/23 17:37 Freq: Status: Active Protocol: Document 08/22/23 10:52 AB (Rec: 08/22/23 14:07 AB [id number]) Physical Therapy Assessment Goals Three Impairment Decreased functional ability Impairment Difficulty writing and picking up flat objects (dime) from a hard surface. Short Term Goal (STG) Pt educated in modification of objects to improve floor worker well service and and writing ability. 08/22/2023 Cyrus wrote his name on the HEP paper end of session, commenting he is able to write better, and that he could not write this well before, also noted the pen had a soft floor worker well service. STG Duration 08/18/23 Sock And Stocking Ironer Goal (LTG) Pt will be able to picker box operator a coin from a hard surface with greater ease. LTG Duration 10/09/23 Two Impairment Pt not able to lay fingers straight. Alf Goal (LTG) Pt will be educated in stretch to PIP jts to promote straightening of fingers (at PIP joints). 08/22/2023 Cyrus demonstrated stretching fingers straight with overpressure commenting he can get the straight, but they don't stay straight. ( when he discontinues the overpressure ) LTG Duration 10/09/23 (08/17/23: MET GOAL) One Impairment Pt lacks appropriate self care HEP. Sock And Stocking Ironer Goal (LTG) Pt will be independent in an effective self care HEP of finger mobility (PIP extension ) and hand ex's (intrinsics, opposition). LTG Duration 10/09/23 Assessment Summary Assessment Patient reports his fingers feel better end of session, writes his name with a pen with a floor worker well service, commenting he could not write like that before. ( Before starting physical therapy ) Physical Therapy Plan Frequency and Duration Frequency of Treatment 2x/Week Duration of treatment (weeks) 8 Plan of Care Start Date 08/14/23 Plan of Care End Date 10/09/23 Next Visit Focus/Plan Next Visit Plan Review HEP post manual therapy . Jr Finger/thumb strengthening : Intrinsic & opposition strengthening, possibly rubber band vs manual resistance for finger extension/?contract relax? ROM: PIP jt stretching Ther Ex: picking up small objects with index/thumb and coin from hard surface. Manual: STM of finger flexors and extensors. [ End ]
--- NOTE | 2023-08-22 14:10 | PT.OTN ---
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 Diabetes II, Depression, Arthritis, neck/back pain. PT-OP-B Current Condition Start: 08/10/23 17:37 Freq: Status: Active Protocol: Document 08/14/23 11:24 LRN (Rec: 08/14/23 12:55 LRN [id number]) Current Condition History of Current Condition Onset Date 5 yrs ago. Current Complaints Hands won't go straight. History of Current Condition Worsening of hand positioning and neuropathy of hands. R hand digits 4th & 5th from wrist distally, loss of sensation with hot/cold and sharp/dull. Pt reports arthritis and carpel tunnel has been ruled out. L hand, loss of sensation of tips of 2nd and 4th digit finger tips, otherwise, hot/cold, pressure , sharp/dull is normal. 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 Hyper ext of MCP's and flex of PIP jts. 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 Prior Treatments and Tests Test for arthritis, office check for carpel tunnel - states both were found negative. Treatment Goals Patient/Caregiver Goals Pt goal: Get fingers to straighten and pick a dime up off the floor. Write better with R hand. 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 Neuropathy of hands with loss of sensation in L hand fingertips and R hand digits 4 & 5. Wheelchair bound. PT-OP-C Subjective Start: 08/10/23 17:37 Freq: Status: Active Protocol: Document 08/22/23 10:52 AB (Rec: 08/22/23 14:07 AB [id number]) OP-PT Subjective Patient Comments Patient Comments Patient reports the hands have been better, left index finger abduction has improved, but unable to get 5th fingers to lie flat without overpressure. PT-OP-H Neuro Start: 08/10/23 17:37 Freq: Status: Active Protocol: Document 08/14/23 11:24 LRN (Rec: 08/14/23 12:55 LRN [id number]) Sensation Evaluation Gross Sensation Gross Sensation Right UE Impaired,Left LE Impaired Sensation Description Numbness Comments Summary Comments Decreased sensation of R hand in Ulnar nerve sensory distribution (digits 4th & 5th from wrist distally, loss of sensation with hot/cold and sharp/dull), can feel pressure . PT-OP-J Posture/Palpation/Skin Start: 08/10/23 17:37 Freq: Status: Active Protocol: Document 08/14/23 11:24 LRN (Rec: 08/14/23 12:55 LRN [id number]) Posture Evaluation Position Sitting Head/C-Spine Posture Forward Head Shoulder Posture (R) Rounded,(L) Forward Comments Posture Comments Atrophy of intrinsics and hypothenar eminence. Palpation Assessment Location R hand Palpation Location Entire hand Palpation Details Tingling with palpation. L hand Palpation Location Entire hand Palpation Details Tingling with palpation. PT-OP-K Range of Motion Start: 08/10/23 17:37 Freq: Status: Active Protocol: Document 08/14/23 11:24 LRN (Rec: 08/14/23 12:55 LRN [id number]) Finger Goniometric Range of Motion Finger Right Fifth Comments PIP Exension: lacks 45 deg's Right Fourth Comments PIP Exension: lacks 44 deg's Right Third Comments PIP Exension: lacks 27 deg's Right Second Comments PIP Exension: lacks 27 deg's DIP Extension: lacks 12 deg's Left Fifth Comments PIP Exension: lacks 44 deg's Left Fourth Comments PIP Exension: lacks 37 deg's Left Third Comments PIP Extension: lacks 33 deg's Left Second Comments PIP Exension: lacks 18 deg's DIP Extension: lacks 5 deg's Thumb Goniometric Range of Motion Thumb Right Opposition to 5th Digit Base (cm) 2 Left Opposition to 5th Digit Base (cm) 0 PT-OP-M Strength Start: 08/10/23 17:37 Freq: Status: Active Protocol: Document 08/22/23 10:52 AB (Rec: 08/22/23 14:07 AB [id number]) Finger/Thumb Strength Finger Manual Muscle Testing pinky 5 right Comments MCP 4-/5 PIP 5/5 DIP 4/5 pinky 5 left Comments MCP 2-/5 PIP 4-/5 DIP 4-/5 Ring finger 4 right Comments MCP 4-/5, PIP 5/5 DIP 4/5 Ring finger 4 left Comments MCP 4/5 PIP 4+/5 DIP 4-/5 middle finger 3 right Comments MCP 4-/5 PIP 5/5 DIP 4+/5 middle finger 3 left Comments MCP 4/5 PIP 4+/5 DIP 4-/5 Index finger (2) right Comments MCP 4-/5 PIP 5/5 DIP 4+/5 Index finger 2 left Comments MCP 4/5 PIP 4+/5 DIP 4/5 right thumb Comments right MCP 4/5 PIP 2-/5 DIP 4+/ 5 left thumb Comments Left MCP 2-/5 PIP 4+/5 DIP 4/5 PT-OP-Q Treatments Start: 08/10/23 17:37 Freq: Status: Active Protocol: Document 08/22/23 10:52 AB (Rec: 08/22/23 14:07 AB [id number]) Therapeutic Exercises Sitting Exercises Finger extension or EDC glides Sitting Exercise Name pen roll with marker Side bilateral Equipment Used marker Reps/Minutes X6 Comments Visual cues yellow clothspin Side bilateral Reps/Minutes X5 repetitions each finger wrist extension Side bilateral Reps/Minutes X10 X 3 Comments X10 fingers relaxed, X10 fingers flexed X 10 fingers extension digiflex 1.5 Side bilateral Resistance yellow Reps/Minutes X10 Comments Verbal cues Opposition Sitting Exercise Name Finger opposition Side bilateral Reps/Minutes X10 Comments each UE Manual Therapy Treatment Soft Tissue Mobilization anterior ( palms ) bilateral hands Body Location increased focus on thenar and hypothenar eminance Mobilization Type Cross-Friction,Rolling Intensity/Depth Moderate Body Position Sitting Comments Monitored for pain STM bilateral anterior posterior forearms Mobilization Type Cross-Friction,Rolling Intensity/Depth Moderate Body Position Sitting Comments Moderate to superficial to areas tender to palpation and pressure, performed prior to exercise Manual Techniques PROM Type bilateral fingers Reps/Duration X3 Comments to neutral, fingers straight Self-Care/Home Management Treatment Activities Self-Care/Home Management Activities Opposite, finder extension/pen roll, wrist extension with fingers flexed and extended added to HEP PT-OP-T Assessment and Plan Start: 08/10/23 17:37 Freq: Status: Active Protocol: Document 08/22/23 10:52 AB (Rec: 08/22/23 14:07 AB [id number]) Physical Therapy Assessment Goals Three Impairment Decreased functional ability Impairment Difficulty writing and picking up flat objects (dime) from a hard surface. Short Term Goal (STG) Pt educated in modification of objects to improve cleaner and and writing ability. 08/22/2023 Cyrus wrote his name on the HEP paper end of session, commenting he is able to write better, and that he could not write this well before, also noted the pen had a soft cleaner. STG Duration 08/18/23 Business Office Specialist Goal (LTG) Pt will be able to nut picker a coin from a hard surface with greater ease. LTG Duration 10/09/23 Two Impairment Pt not able to lay fingers straight. [facility] Goal (LTG) Pt will be educated in stretch to PIP jts to promote straightening of fingers (at PIP joints). 08/22/2023 Cyrus demonstrated stretching fingers straight with overpressure commenting he can get the straight, but they don't stay straight. ( when he discontinues the overpressure ) LTG Duration 10/09/23 (08/17/23: MET GOAL) One Impairment Pt lacks appropriate self care HEP. Business Office Specialist Goal (LTG) Pt will be independent in an effective self care HEP of finger mobility (PIP extension ) and hand ex's (intrinsics, opposition). LTG Duration 10/09/23 Assessment Summary Assessment Patient reports his fingers feel better end of session, writes his name with a pen with a cleaner, commenting he could not write like that before. ( Before starting physical therapy ) Physical Therapy Plan Frequency and Duration Frequency of Treatment 2x/Week Duration of treatment (weeks) 8 Plan of Care Start Date 08/14/23 Plan of Care End Date 10/09/23 Next Visit Focus/Plan Next Visit Plan Review HEP post manual therapy . Jr Finger/thumb strengthening : Intrinsic & opposition strengthening, possibly rubber band vs manual resistance for finger extension/?contract relax? ROM: PIP jt stretching Ther Ex: picking up small objects with index/thumb and coin from hard surface. Manual: STM of finger flexors and extensors. [ End ]
--- NOTE | 2023-08-24 12:28 | PT.OTN ---
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 Diabetes II, Depression, Arthritis, neck/back pain. PT-OP-B Current Condition Start: 08/10/23 17:37 Freq: Status: Active Protocol: Document 08/14/23 11:24 LRN (Rec: 08/14/23 12:55 LRN [id number]) Current Condition History of Current Condition Onset Date 5 yrs ago. Current Complaints Hands won't go straight. History of Current Condition Worsening of hand positioning and neuropathy of hands. R hand digits 4th & 5th from wrist distally, loss of sensation with hot/cold and sharp/dull. Pt reports arthritis and carpel tunnel has been ruled out. L hand, loss of sensation of tips of 2nd and 4th digit finger tips, otherwise, hot/cold, pressure , sharp/dull is normal. 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 Hyper ext of MCP's and flex of PIP jts. 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 Prior Treatments and Tests Test for arthritis, office check for carpel tunnel - states both were found negative. Treatment Goals Patient/Caregiver Goals Pt goal: Get fingers to straighten and pick a dime up off the floor. Write better with R hand. 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 Neuropathy of hands with loss of sensation in L hand fingertips and R hand digits 4 & 5. Wheelchair bound. PT-OP-C Subjective Start: 08/10/23 17:37 Freq: Status: Active Protocol: Document 08/24/23 11:03 SW (Rec: 08/24/23 12:27 SW [id number]) OP-PT Subjective Patient Comments Patient Comments Pt reports things have been about the same, reports doing exercises. Pt has been working on putting a piece of furniture together, working on exercises between. PT-OP-H Neuro Start: 08/10/23 17:37 Freq: Status: Active Protocol: Document 08/14/23 11:24 LRN (Rec: 08/14/23 12:55 LRN [id number]) Sensation Evaluation Gross Sensation Gross Sensation Right UE Impaired,Left LE Impaired Sensation Description Numbness Comments Summary Comments Decreased sensation of R hand in Ulnar nerve sensory distribution (digits 4th & 5th from wrist distally, loss of sensation with hot/cold and sharp/dull), can feel pressure . PT-OP-J Posture/Palpation/Skin Start: 08/10/23 17:37 Freq: Status: Active Protocol: Document 08/14/23 11:24 LRN (Rec: 08/14/23 12:55 LRN [id number]) Posture Evaluation Position Sitting Head/C-Spine Posture Forward Head Shoulder Posture (R) Rounded,(L) Forward Comments Posture Comments Atrophy of intrinsics and hypothenar eminence. Palpation Assessment Location R hand Palpation Location Entire hand Palpation Details Tingling with palpation. L hand Palpation Location Entire hand Palpation Details Tingling with palpation. PT-OP-K Range of Motion Start: 08/10/23 17:37 Freq: Status: Active Protocol: Document 08/14/23 11:24 LRN (Rec: 08/14/23 12:55 LRN [id number]) Finger Goniometric Range of Motion Finger Right Fifth Comments PIP Exension: lacks 45 deg's Right Fourth Comments PIP Exension: lacks 44 deg's Right Third Comments PIP Exension: lacks 27 deg's Right Second Comments PIP Exension: lacks 27 deg's DIP Extension: lacks 12 deg's Left Fifth Comments PIP Exension: lacks 44 deg's Left Fourth Comments PIP Exension: lacks 37 deg's Left Third Comments PIP Extension: lacks 33 deg's Left Second Comments PIP Exension: lacks 18 deg's DIP Extension: lacks 5 deg's Thumb Goniometric Range of Motion Thumb Right Opposition to 5th Digit Base (cm) 2 Left Opposition to 5th Digit Base (cm) 0 PT-OP-M Strength Start: 08/10/23 17:37 Freq: Status: Active Protocol: Document 08/22/23 10:52 AB (Rec: 08/22/23 14:07 AB [id number]) Finger/Thumb Strength Finger Manual Muscle Testing pinky 5 right Comments MCP 4-/5 PIP 5/5 DIP 4/5 pinky 5 left Comments MCP 2-/5 PIP 4-/5 DIP 4-/5 Ring finger 4 right Comments MCP 4-/5, PIP 5/5 DIP 4/5 Ring finger 4 left Comments MCP 4/5 PIP 4+/5 DIP 4-/5 middle finger 3 right Comments MCP 4-/5 PIP 5/5 DIP 4+/5 middle finger 3 left Comments MCP 4/5 PIP 4+/5 DIP 4-/5 Index finger (2) right Comments MCP 4-/5 PIP 5/5 DIP 4+/5 Index finger 2 left Comments MCP 4/5 PIP 4+/5 DIP 4/5 right thumb Comments right MCP 4/5 PIP 2-/5 DIP 4+/ 5 left thumb Comments Left MCP 2-/5 PIP 4+/5 DIP 4/5 PT-OP-Q Treatments Start: 08/10/23 17:37 Freq: Status: Active Protocol: Document 08/24/23 11:03 (Rec: 08/24/23 12:27 [id number]) Therapeutic Exercises Sitting Exercises Pincer Grasp Sitting Exercise Name Thumb/index finger object retrieval (paper, paperclip, coin-next session) Side bilateral Equipment Used hard table Comments cues to use both digits to retrieve, no scooping with one Rubberband Sitting Exercise Name Digit 1-5 PIP extension- Trialed Side bilateral Reps/Minutes 5 Comments Therapist assist Finger extension or EDC glides Sitting Exercise Name pen roll with marker Side bilateral Equipment Used marker Reps/Minutes X6 Comments Visual cues yellow clothspin Side bilateral Reps/Minutes X5 repetitions each finger wrist extension Side bilateral Reps/Minutes X10 X 3 Comments X10 fingers relaxed, X10 fingers flexed X 10 fingers extension digiflex 1.5 Side bilateral Resistance yellow Reps/Minutes X10 Comments Verbal cues Opposition Sitting Exercise Name Finger opposition Side bilateral Reps/Minutes X10 Comments each UE Fingers/thumb AB/AD Sitting Exercise Name Digits 1-5: AB/AD Side bilateral Reps/Minutes 10 Comments Assist to keep MCP jt from hyperextending PIP jt stretch Sitting Exercise Name PIP jt stretch to neutral all digits (2-5) - HEP Side bilateral Reps/Minutes 11' Manual Therapy Treatment Soft Tissue Mobilization anterior ( palms ) bilateral hands Body Location increased focus on thenar and hypothenar eminance Mobilization Type Cross-Friction,Rolling Intensity/Depth Moderate Body Position Sitting Comments Monitored for pain Finger flexors Body Location Jr finger flexors Mobilization Type Strumming,Sustained Pressure Intensity/Depth Moderate Body Position Sitting MCP jts Body Location rodríguez surface of MCP jts Mobilization Type Trigger Point Release Intensity/Depth Moderate Body Position Sitting Manual Techniques PROM Type bilateral fingers Reps/Duration X3 Comments to neutral, fingers straight PT-OP-T Assessment and Plan Start: 08/10/23 17:37 Freq: Status: Active Protocol: Document 08/24/23 11:03 (Rec: 08/24/23 12:27 [id number]) Physical Therapy Assessment Goals Three Impairment Decreased functional ability Impairment Difficulty writing and picking up flat objects (dime) from a hard surface. Short Term Goal (STG) Pt educated in modification of objects to improve dog races manager and and writing ability. 08/22/2023 Cyrus wrote his name on the HEP paper end of session, commenting he is able to write better, and that he could not write this well before, also noted the pen had a soft dog races manager. STG Duration 08/18/23 Senior Care Goal (LTG) Pt will be able to picking table worker a coin from a hard surface with greater ease. LTG Duration 10/09/23 Two Impairment Pt not able to lay fingers straight. Senior Care Goal (LTG) Pt will be educated in stretch to PIP jts to promote straightening of fingers (at PIP joints). 08/22/2023 Cyrus demonstrated stretching fingers straight with overpressure commenting he can get the straight, but they don't stay straight. ( when he discontinues the overpressure ) LTG Duration 10/09/23 (08/17/23: MET GOAL) One Impairment Pt lacks appropriate self care HEP. Peanut Separator Goal (LTG) Pt will be independent in an effective self care HEP of finger mobility (PIP extension ) and hand ex's (intrinsics, opposition). LTG Duration 10/09/23 Assessment Summary Assessment Continued strengthening and mobility in bilat hands. Patient challenged with abd/ add of digits 2-5, AAROM, therapist assist for metacarpal/PIP joint alignment . Initiated object retrieval on hard surface this session, pt challenged, cues required to use both index/thumb and not compensate by trying to scoop with one to retrieve item from table, challenged with paper plan to try coin next session as able. 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 Next Visit Focus/Plan Next Visit Plan Review HEP post manual therapy . Jr Finger/thumb strengthening : Intrinsic & opposition strengthening, possibly rubber band vs manual resistance for finger extension/?contract relax? ROM: PIP jt stretching Ther Ex: picking up small objects with index/thumb and coin from hard surface. Manual: STM of finger flexors and extensors. [ End ]
--- NOTE | 2023-08-28 13:13 | PT.OTN ---
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 Diabetes II, Depression, Arthritis, neck/back pain. PT-OP-B Current Condition Start: 08/10/23 17:37 Freq: Status: Active Protocol: Document 08/14/23 11:24 LRN (Rec: 08/14/23 12:55 LRN [id number]) Current Condition History of Current Condition Onset Date 5 yrs ago. Current Complaints Hands won't go straight. History of Current Condition Worsening of hand positioning and neuropathy of hands. R hand digits 4th & 5th from wrist distally, loss of sensation with hot/cold and sharp/dull. Pt reports arthritis and carpel tunnel has been ruled out. L hand, loss of sensation of tips of 2nd and 4th digit finger tips, otherwise, hot/cold, pressure , sharp/dull is normal. 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 Hyper ext of MCP's and flex of PIP jts. 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 Prior Treatments and Tests Test for arthritis, office check for carpel tunnel - states both were found negative. Treatment Goals Patient/Caregiver Goals Pt goal: Get fingers to straighten and pick a dime up off the floor. Write better with R hand. 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 Neuropathy of hands with loss of sensation in L hand fingertips and R hand digits 4 & 5. Wheelchair bound. PT-OP-C Subjective Start: 08/10/23 17:37 Freq: Status: Active Protocol: Document 08/28/23 11:24 LRN (Rec: 08/28/23 12:12 LRN [id number]) OP-PT Subjective Patient Comments Patient Comments Can straighten fingers better. Can print better. This weekend put together shelving units and a table with screwdriver. Pt wants to be able to move a bolt on a vehicle. PT-OP-H Neuro Start: 08/10/23 17:37 Freq: Status: Active Protocol: Document 08/14/23 11:24 LRN (Rec: 08/14/23 12:55 LRN [id number]) Sensation Evaluation Gross Sensation Gross Sensation Right UE Impaired,Left LE Impaired Sensation Description Numbness Comments Summary Comments Decreased sensation of R hand in Ulnar nerve sensory distribution (digits 4th & 5th from wrist distally, loss of sensation with hot/cold and sharp/dull), can feel pressure . PT-OP-J Posture/Palpation/Skin Start: 08/10/23 17:37 Freq: Status: Active Protocol: Document 08/14/23 11:24 LRN (Rec: 08/14/23 12:55 LRN [id number]) Posture Evaluation Position Sitting Head/C-Spine Posture Forward Head Shoulder Posture (R) Rounded,(L) Forward Comments Posture Comments Atrophy of intrinsics and hypothenar eminence. Palpation Assessment Location R hand Palpation Location Entire hand Palpation Details Tingling with palpation. L hand Palpation Location Entire hand Palpation Details Tingling with palpation. PT-OP-K Range of Motion Start: 08/10/23 17:37 Freq: Status: Active Protocol: Document 08/14/23 11:24 LRN (Rec: 08/14/23 12:55 LRN [id number]) Finger Goniometric Range of Motion Finger Right Fifth Comments PIP Exension: lacks 45 deg's Right Fourth Comments PIP Exension: lacks 44 deg's Right Third Comments PIP Exension: lacks 27 deg's Right Second Comments PIP Exension: lacks 27 deg's DIP Extension: lacks 12 deg's Left Fifth Comments PIP Exension: lacks 44 deg's Left Fourth Comments PIP Exension: lacks 37 deg's Left Third Comments PIP Extension: lacks 33 deg's Left Second Comments PIP Exension: lacks 18 deg's DIP Extension: lacks 5 deg's Thumb Goniometric Range of Motion Thumb Right Opposition to 5th Digit Base (cm) 2 Left Opposition to 5th Digit Base (cm) 0 PT-OP-M Strength Start: 08/10/23 17:37 Freq: Status: Active Protocol: Document 08/28/23 12:41 LRN (Rec: 08/28/23 13:01 LRN [id number]) Finger/Thumb Strength Finger Manual Muscle Testing pinky 5 right Adduction 0 Zero Abduction (fingers T1) 1 Trace pinky 5 left Adduction 1 Trace Abduction (fingers T1) 0 Zero Ring finger 4 right Adduction 1 Trace Abduction (fingers T1) 1 Trace Ring finger 4 left Adduction 1 Trace Abduction (fingers T1) 0 Zero middle finger 3 right Adduction 3 Fair Abduction (fingers T1) 1 Trace middle finger 3 left Adduction 2 Poor Abduction (fingers T1) 0 Zero Index finger (2) right Adduction 3 Fair Abduction (fingers T1) 0 Zero Index finger 2 left Adduction 3 Fair Abduction (fingers T1) 0 Zero right thumb Adduction 5 Normal Abduction (fingers T1) 5 Normal left thumb Adduction 5 Normal Abduction (fingers T1) 5 Normal PT-OP-Q Treatments Start: 08/10/23 17:37 Freq: Status: Active Protocol: Document 08/28/23 11:24 LRN (Rec: 08/28/23 12:12 LRN [id number]) Therapeutic Exercises Sitting Exercises Pincer Grasp Sitting Exercise Name Picking up lg plastic coins & real coins from edges Side bilateral Reps/Minutes 5' Finger extension or EDC glides Sitting Exercise Name Opening tongs Side bilateral Reps/Minutes 5' Fingers/thumb AB/AD Sitting Exercise Name Digits 1-5: AB/AD Side bilateral Reps/Minutes 10x 4 Comments Assist to keep MCP jt from hyperextending PT-OP-T Assessment and Plan Start: 08/10/23 17:37 Freq: Status: Active Protocol: Document 08/28/23 11:24 LRN (Rec: 08/28/23 12:12 LRN [id number]) Physical Therapy Assessment Goals Three Impairment Decreased functional ability Impairment Difficulty writing and picking up flat objects (dime) from a hard surface. Short Term Goal (STG) Pt educated in modification of objects to improve blow machine tender starch spraying and and writing ability. 08/22/2023 Cyrus wrote his name on the HEP paper end of session, commenting he is able to write better, and that he could not write this well before, also noted the pen had a soft blow machine tender starch spraying. STG Duration 08/18/23 Skilled Nursing Goal (LTG) Pt will be able to last picker a coin from a hard surface with greater ease. 08/28/23: Pt reports he is able to last picker coins easier. Demonstrated ~40-50% of time able to last picker dime and quarter size coins in 1 attempt. LTG Duration 10/09/23 progressing Two Impairment Pt not able to lay fingers straight. Skilled Nursing Goal (LTG) Pt will be educated in stretch to PIP jts to promote straightening of fingers (at PIP joints). 08/22/2023 Cyrus demonstrated stretching fingers straight with overpressure commenting he can get the straight, but they don't stay straight. ( when he discontinues the overpressure ) LTG Duration 10/09/23 (08/17/23: MET GOAL) One Impairment Pt lacks appropriate self care HEP. Care Information Associate Goal (LTG) Pt will be independent in an effective self care HEP of finger mobility (PIP extension ) and hand ex's (intrinsics, opposition). 08/28/23: Previously issued HEP: PIP jt stretch to neutral all digits (2-5). Other previously issued HEP: Opposite, finder extension/pen roll, wrist extension with fingers flexed and extended. 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 Today he demonstrated ability to write his name with reported more ease, and is able to last picker a dime & quarter sized coin 40-50% of time in one attempt. Pt wants to cont working towards his goals along with being able to move a bolt on a vehicle w/o hands slipping. Physical Therapy Plan Frequency and Duration Frequency of Treatment 2x/Week Duration of treatment (weeks) 8 Plan of Care Start Date 08/14/23 Plan of Care End Date 10/09/23 Next Visit Focus/Plan Next Note Type Treatment Note Next Visit Plan Review HEP post manual therapy . Jr Finger/thumb strengthening : Intrinsic & opposition strengthening, try rubber band vs manual resistance for finger extension/AB. ROM: PIP jt stretching Ther Ex: picking up small flat objects with index/thumb and coin from hard surface. Gripping exercises. Manual: STM of finger flexors and extensors. [ End ]
--- NOTE | 2023-08-31 12:32 | PT.OTN ---
Current Diagnoses Pain in joints of right hand (08/31/23) Pain in joints of left hand (08/31/23) Physical Therapy Treatment Note PT-OP-A Visit Information Start: 08/10/23 17:37 Freq: Status: Active Protocol: Document 08/31/23 11:18 SW (Rec: 08/31/23 12:32 [id number]) Out-Patient Physical Therapy Visit Information Visit Information Visit Type Treatment Note Visit Start Time 11:16 Visit Stop Time 11:55 Visit Number 11/28 Number of [facility] Visits 1 PT-OP-B Current Condition Start: 08/10/23 17:37 Freq: Status: Active Protocol: Document 08/14/23 11:24 LRN (Rec: 08/14/23 12:55 LRN [id number]) Current Condition History of Current Condition Onset Date 5 yrs ago. Current Complaints Hands won't go straight. History of Current Condition Worsening of hand positioning and neuropathy of hands. R hand digits 4th & 5th from wrist distally, loss of sensation with hot/cold and sharp/dull. Pt reports arthritis and carpel tunnel has been ruled out. L hand, loss of sensation of tips of 2nd and 4th digit finger tips, otherwise, hot/cold, pressure , sharp/dull is normal. 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 Hyper ext of MCP's and flex of PIP jts. 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 Prior Treatments and Tests Test for arthritis, office check for carpel tunnel - states both were found negative. Treatment Goals Patient/Caregiver Goals Pt goal: Get fingers to straighten and pick a dime up off the floor. Write better with R hand. 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 Neuropathy of hands with loss of sensation in L hand fingertips and R hand digits 4 & 5. Wheelchair bound. PT-OP-C Subjective Start: 08/10/23 17:37 Freq: Status: Active Protocol: Document 08/31/23 11:18 SW (Rec: 08/31/23 12:32 [id number]) OP-PT Subjective Patient Comments Patient Comments Pt reports hands cold and painful prior to taking tylenol. PT-OP-H Neuro Start: 08/10/23 17:37 Freq: Status: Active Protocol: Document 08/14/23 11:24 LRN (Rec: 08/14/23 12:55 LRN [id number]) Sensation Evaluation Gross Sensation Gross Sensation Right UE Impaired,Left LE Impaired Sensation Description Numbness Comments Summary Comments Decreased sensation of R hand in Ulnar nerve sensory distribution (digits 4th & 5th from wrist distally, loss of sensation with hot/cold and sharp/dull), can feel pressure . PT-OP-J Posture/Palpation/Skin Start: 08/10/23 17:37 Freq: Status: Active Protocol: Document 08/14/23 11:24 LRN (Rec: 08/14/23 12:55 LRN [id number]) Posture Evaluation Position Sitting Head/C-Spine Posture Forward Head Shoulder Posture (R) Rounded,(L) Forward Comments Posture Comments Atrophy of intrinsics and hypothenar eminence. Palpation Assessment Location R hand Palpation Location Entire hand Palpation Details Tingling with palpation. L hand Palpation Location Entire hand Palpation Details Tingling with palpation. PT-OP-K Range of Motion Start: 08/10/23 17:37 Freq: Status: Active Protocol: Document 08/14/23 11:24 LRN (Rec: 08/14/23 12:55 LRN [id number]) Finger Goniometric Range of Motion Finger Right Fifth Comments PIP Exension: lacks 45 deg's Right Fourth Comments PIP Exension: lacks 44 deg's Right Third Comments PIP Exension: lacks 27 deg's Right Second Comments PIP Exension: lacks 27 deg's DIP Extension: lacks 12 deg's Left Fifth Comments PIP Exension: lacks 44 deg's Left Fourth Comments PIP Exension: lacks 37 deg's Left Third Comments PIP Extension: lacks 33 deg's Left Second Comments PIP Exension: lacks 18 deg's DIP Extension: lacks 5 deg's Thumb Goniometric Range of Motion Thumb Right Opposition to 5th Digit Base (cm) 2 Left Opposition to 5th Digit Base (cm) 0 PT-OP-M Strength Start: 08/10/23 17:37 Freq: Status: Active Protocol: Document 08/28/23 12:41 LRN (Rec: 08/28/23 13:01 LRN [id number]) Finger/Thumb Strength Finger Manual Muscle Testing pinky 5 right Adduction 0 Zero Abduction (fingers T1) 1 Trace pinky 5 left Adduction 1 Trace Abduction (fingers T1) 0 Zero Ring finger 4 right Adduction 1 Trace Abduction (fingers T1) 1 Trace Ring finger 4 left Adduction 1 Trace Abduction (fingers T1) 0 Zero middle finger 3 right Adduction 3 Fair Abduction (fingers T1) 1 Trace middle finger 3 left Adduction 2 Poor Abduction (fingers T1) 0 Zero Index finger (2) right Adduction 3 Fair Abduction (fingers T1) 0 Zero Index finger 2 left Adduction 3 Fair Abduction (fingers T1) 0 Zero right thumb Adduction 5 Normal Abduction (fingers T1) 5 Normal left thumb Adduction 5 Normal Abduction (fingers T1) 5 Normal PT-OP-Q Treatments Start: 08/10/23 17:37 Freq: Status: Active Protocol: Document 08/31/23 11:18 (Rec: 08/31/23 12:32 [id number]) Therapeutic Exercises Sitting Exercises Bolts Sitting Exercise Name strength and coordination Side bilateral Comments 13' Pincer Grasp Sitting Exercise Name Picking up real coins from edges Side bilateral Reps/Minutes 5' Finger extension or EDC glides Sitting Exercise Name rubberband Side bilateral Reps/Minutes x10 Comments verbal cues for extension wrist extension Side bilateral Reps/Minutes x10 Comments X10 fingers flexed X 10 fingers extension Opposition Sitting Exercise Name Finger opposition Side bilateral Reps/Minutes 2X10 Fingers/thumb AB/AD Sitting Exercise Name Digits 1-5: AB/AD Side bilateral Reps/Minutes 7' Comments Assist to keep MCP jt from hyperextending PIP jt stretch Sitting Exercise Name PIP jt stretch to neutral all digits (2-5) - HEP Side bilateral Reps/Minutes 7' PT-OP-T Assessment and Plan Start: 08/10/23 17:37 Freq: Status: Active Protocol: Document 08/31/23 11:18 (Rec: 08/31/23 12:32 [id number]) Physical Therapy Assessment Goals Three Impairment Decreased functional ability Impairment Difficulty writing and picking up flat objects (dime) from a hard surface. Short Term Goal (STG) Pt educated in modification of objects to improve accounting generalist and and writing ability. 08/22/2023 Cyrus wrote his name on the [facility] paper end of session, commenting he is able to write better, and that he could not write this well before, also noted the pen had a soft accounting generalist. STG Duration 08/18/23 Care Home Goal (LTG) Pt will be able to case picker a coin from a hard surface with greater ease. 08/28/23: Pt reports he is able to case picker coins easier. Demonstrated ~40-50% of time able to case picker dime and quarter size coins in 1 attempt. LTG Duration 10/09/23 progressing Two Impairment Pt not able to lay fingers straight. Care Home Goal (LTG) Pt will be educated in stretch to PIP jts to promote straightening of fingers (at PIP joints). 08/22/2023 Cyrus demonstrated stretching fingers straight with overpressure commenting he can get the straight, but they don't stay straight. ( when he discontinues the overpressure ) LTG Duration 10/09/23 (08/17/23: MET GOAL) One Impairment Pt lacks appropriate self care HEP. Field Evidence Technician Goal (LTG) Pt will be independent in an effective self care HEP of finger mobility (PIP extension ) and hand ex's (intrinsics, opposition). 08/28/23: Previously issued HEP: PIP jt stretch to neutral all digits (2-5). Other previously issued HEP: Opposite, finder extension/pen roll, wrist extension with fingers flexed and extended. 08/31/23- bolt/nut moving LTG Duration 10/09/23 progressing Assessment Summary Assessment Improved with coin pickups today, able to pickup ~60% of the time in one attempt with pincer grasp. Initiated fine motor and coordination with bolts today, frequent cues for compensation rolling along side of phalange vs gripping. Instructed pt with new HEP exercise, tripod grasp with one hand on bolt while moving the nut with contralateral hand digits 1-2, then repeat on other side, pt challenged required verbal cues improved self correction with repetition. Physical Therapy Plan Frequency and Duration Frequency of Treatment 2x/Week Duration of treatment (weeks) 8 Plan of Care Start Date 08/14/23 Plan of Care End Date 10/09/23 Therapeutic Interventions Therapeutic Interventions Home Exercise Program,Joint Mobilizations,Manual Therapy, Patient/Caregiver Education, Self-Care/Home Management, Taping,Therapeutic Exercises Other Referrals/Consults Referrals/Consults Recommended Treatment for Boutonniere deformity of hands: Splint of hands if pt chooses to have done at [facility] if insurance will allow evaluation for splints. Next Visit Focus/Plan Next Note Type Treatment Note Next Visit Plan Review HEP post manual therapy . Jr Finger/thumb strengthening : Intrinsic & opposition strengthening, try rubber band vs manual resistance for finger extension/AB. ROM: PIP jt stretching Ther Ex: picking up small flat objects with index/thumb and coin from hard surface. Gripping exercises. Manual: STM of finger flexors and extensors. [ End ]
--- NOTE | 2023-09-11 12:21 | PT.OTN ---
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 Diabetes II, Depression, Arthritis, neck/back pain. PT-OP-B Current Condition Start: 08/10/23 17:37 Freq: Status: Active Protocol: Document 08/14/23 11:24 LRN (Rec: 08/14/23 12:55 LRN [id number]) Current Condition History of Current Condition Onset Date 5 yrs ago. Current Complaints Hands won't go straight. History of Current Condition Worsening of hand positioning and neuropathy of hands. R hand digits 4th & 5th from wrist distally, loss of sensation with hot/cold and sharp/dull. Pt reports arthritis and carpel tunnel has been ruled out. L hand, loss of sensation of tips of 2nd and 4th digit finger tips, otherwise, hot/cold, pressure , sharp/dull is normal. 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 Hyper ext of MCP's and flex of PIP jts. 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 Prior Treatments and Tests Test for arthritis, office check for carpel tunnel - states both were found negative. Treatment Goals Patient/Caregiver Goals Pt goal: Get fingers to straighten and pick a dime up off the floor. Write better with R hand. 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 Neuropathy of hands with loss of sensation in L hand fingertips and R hand digits 4 & 5. Wheelchair bound. PT-OP-C Subjective Start: 08/10/23 17:37 Freq: Status: Active Protocol: Document 09/11/23 11:19 LRN (Rec: 09/11/23 12:21 LRN [id number]) OP-PT Subjective Patient Comments Patient Comments States he has shingles but is no longer contagious. States his hands hurt and feel cold. States he only scratches at night. PT-OP-H Neuro Start: 08/10/23 17:37 Freq: Status: Active Protocol: Document 08/14/23 11:24 LRN (Rec: 08/14/23 12:55 LRN [id number]) Sensation Evaluation Gross Sensation Gross Sensation Right UE Impaired,Left LE Impaired Sensation Description Numbness Comments Summary Comments Decreased sensation of R hand in Ulnar nerve sensory distribution (digits 4th & 5th from wrist distally, loss of sensation with hot/cold and sharp/dull), can feel pressure . PT-OP-J Posture/Palpation/Skin Start: 08/10/23 17:37 Freq: Status: Active Protocol: Document 08/14/23 11:24 LRN (Rec: 08/14/23 12:55 LRN [id number]) Posture Evaluation Position Sitting Head/C-Spine Posture Forward Head Shoulder Posture (R) Rounded,(L) Forward Comments Posture Comments Atrophy of intrinsics and hypothenar eminence. Palpation Assessment Location R hand Palpation Location Entire hand Palpation Details Tingling with palpation. L hand Palpation Location Entire hand Palpation Details Tingling with palpation. PT-OP-K Range of Motion Start: 08/10/23 17:37 Freq: Status: Active Protocol: Document 08/14/23 11:24 LRN (Rec: 08/14/23 12:55 LRN [id number]) Finger Goniometric Range of Motion Finger Right Fifth Comments PIP Exension: lacks 45 deg's Right Fourth Comments PIP Exension: lacks 44 deg's Right Third Comments PIP Exension: lacks 27 deg's Right Second Comments PIP Exension: lacks 27 deg's DIP Extension: lacks 12 deg's Left Fifth Comments PIP Exension: lacks 44 deg's Left Fourth Comments PIP Exension: lacks 37 deg's Left Third Comments PIP Extension: lacks 33 deg's Left Second Comments PIP Exension: lacks 18 deg's DIP Extension: lacks 5 deg's Thumb Goniometric Range of Motion Thumb Right Opposition to 5th Digit Base (cm) 2 Left Opposition to 5th Digit Base (cm) 0 PT-OP-M Strength Start: 08/10/23 17:37 Freq: Status: Active Protocol: Document 08/28/23 12:41 LRN (Rec: 08/28/23 13:01 LRN [id number]) Finger/Thumb Strength Finger Manual Muscle Testing pinky 5 right Adduction 0 Zero Abduction (fingers T1) 1 Trace pinky 5 left Adduction 1 Trace Abduction (fingers T1) 0 Zero Ring finger 4 right Adduction 1 Trace Abduction (fingers T1) 1 Trace Ring finger 4 left Adduction 1 Trace Abduction (fingers T1) 0 Zero middle finger 3 right Adduction 3 Fair Abduction (fingers T1) 1 Trace middle finger 3 left Adduction 2 Poor Abduction (fingers T1) 0 Zero Index finger (2) right Adduction 3 Fair Abduction (fingers T1) 0 Zero Index finger 2 left Adduction 3 Fair Abduction (fingers T1) 0 Zero right thumb Adduction 5 Normal Abduction (fingers T1) 5 Normal left thumb Adduction 5 Normal Abduction (fingers T1) 5 Normal PT-OP-Q Treatments Start: 08/10/23 17:37 Freq: Status: Active Protocol: Document 09/11/23 11:19 LRN (Rec: 09/11/23 12:21 LRN [id number]) Therapeutic Exercises Sitting Exercises Finger AB/AD Sitting Exercise Name Fingers 2-5 AB/AD Side bilateral Equipment Used Rubber band medium Reps/Minutes 5x each Pincer Grasp Sitting Exercise Name Picking up poker chips & real coins from edges & each finger w/thumb Side bilateral Reps/Minutes 4x with each finger/thumb Rubberband Sitting Exercise Name Digit 1-5 PIP/MCP extension Side bilateral Reps/Minutes 5x 2 each finger w/thumb Comments Therapist assist yellow clothspin Sitting Exercise Name Small clothes piins moving from support to support Side bilateral Reps/Minutes 4x each PT-OP-T Assessment and Plan Start: 08/10/23 17:37 Freq: Status: Active Protocol: Document 09/11/23 11:19 LRN (Rec: 09/11/23 12:21 LRN [id number]) Physical Therapy Assessment Goals Three Impairment Decreased functional ability Impairment Difficulty writing and picking up flat objects (dime) from a hard surface. Short Term Goal (STG) Pt educated in modification of objects to improve underwriting specialist and and writing ability. 08/22/2023 Cyrus wrote his name on the HEP paper end of session, commenting he is able to write better, and that he could not write this well before, also noted the pen had a soft underwriting specialist. STG Duration 08/18/23 Logging Equipment Operator Goal (LTG) Pt will be able to fern picker a coin from a hard surface with greater ease. 08/28/23: Pt reports he is able to fern picker coins easier. Demonstrated ~40-50% of time able to fern picker dime and quarter size coins in 1 attempt. 09/11/23: Pt able to fern picker a dime and miky (with gloves on) 100% of time from rolling table. LTG Duration 10/09/23 (09/11/23: MET GOAL) Two Impairment Pt not able to lay fingers straight. Skilled Nursing Goal (LTG) Pt will be educated in stretch to PIP jts to promote straightening of fingers (at PIP joints). 08/22/2023 Cyrus demonstrated stretching fingers straight with overpressure commenting he can get the straight, but they don't stay straight. ( when he discontinues the overpressure ) LTG Duration 10/09/23 (08/17/23: MET GOAL) One Impairment Pt lacks appropriate self care HEP. Logging Equipment Operator Goal (LTG) Pt will be independent in an effective self care HEP of finger mobility (PIP extension ) and hand ex's (intrinsics, opposition). 08/28/23: Previously issued HEP: PIP jt stretch to neutral all digits (2-5). Other previously issued HEP: Opposite, finder extension/pen roll, wrist extension with fingers flexed and extended. 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 Pt has improved in his ability 100% to fern picker coins from a had surface with gloves on, deferred use of hands w/o glove to fern picker coins due to shingles that he was told is not contagious. Physical Therapy Plan Frequency and Duration Frequency of Treatment 2x/Week Duration of treatment (weeks) 8 Plan of Care Start Date 08/14/23 Plan of Care End Date 10/09/23 Next Visit Focus/Plan Next Note Type Treatment Note Next Visit Plan DC in 1-2 visits. Assess progress to goals. Review previously issued HEP, post manual therapy. Senior Courtroom Clerk and and writing ability addressed with modification to pen/pencil as needed.. Jr Finger/thumb strengthening : Intrinsic & opposition strengthening, rubber band resistance for AB/AD Ther Ex: picking up small flat objects with index/thumb and coin from hard surface. Gripping exercises. Manual: STM of finger flexors and extensors. [ End ]
--- NOTE | 2023-09-26 14:38 | PT.OTN ---
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 Diabetes II, Depression, Arthritis, neck/back pain. PT-OP-B Current Condition Start: 08/10/23 17:37 Freq: Status: Active Protocol: Document 08/14/23 11:24 LRN (Rec: 08/14/23 12:55 LRN [id number]) Current Condition History of Current Condition Onset Date 5 yrs ago. Current Complaints Hands won't go straight. History of Current Condition Worsening of hand positioning and neuropathy of hands. R hand digits 4th & 5th from wrist distally, loss of sensation with hot/cold and sharp/dull. Pt reports arthritis and carpel tunnel has been ruled out. L hand, loss of sensation of tips of 2nd and 4th digit finger tips, otherwise, hot/cold, pressure , sharp/dull is normal. 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 Hyper ext of MCP's and flex of PIP jts. 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 Prior Treatments and Tests Test for arthritis, office check for carpel tunnel - states both were found negative. Treatment Goals Patient/Caregiver Goals Pt goal: Get fingers to straighten and pick a dime up off the floor. Write better with R hand. 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 Neuropathy of hands with loss of sensation in L hand fingertips and R hand digits 4 & 5. Wheelchair bound. PT-OP-C Subjective Start: 08/10/23 17:37 Freq: Status: Active Protocol: Document 09/26/23 13:52 LRN (Rec: 09/26/23 14:36 LRN [id number]) OP-PT Subjective Patient Comments Patient Comments c/o cold hands. PT-OP-H Neuro Start: 08/10/23 17:37 Freq: Status: Active Protocol: Document 08/14/23 11:24 LRN (Rec: 08/14/23 12:55 LRN [id number]) Sensation Evaluation Gross Sensation Gross Sensation Right UE Impaired,Left LE Impaired Sensation Description Numbness Comments Summary Comments Decreased sensation of R hand in Ulnar nerve sensory distribution (digits 4th & 5th from wrist distally, loss of sensation with hot/cold and sharp/dull), can feel pressure . PT-OP-J Posture/Palpation/Skin Start: 08/10/23 17:37 Freq: Status: Active Protocol: Document 08/14/23 11:24 LRN (Rec: 08/14/23 12:55 LRN [id number]) Posture Evaluation Position Sitting Head/C-Spine Posture Forward Head Shoulder Posture (R) Rounded,(L) Forward Comments Posture Comments Atrophy of intrinsics and hypothenar eminence. Palpation Assessment Location R hand Palpation Location Entire hand Palpation Details Tingling with palpation. L hand Palpation Location Entire hand Palpation Details Tingling with palpation. PT-OP-K Range of Motion Start: 08/10/23 17:37 Freq: Status: Active Protocol: Document 08/14/23 11:24 LRN (Rec: 08/14/23 12:55 LRN [id number]) Finger Goniometric Range of Motion Finger Right Fifth Comments PIP Exension: lacks 45 deg's Right Fourth Comments PIP Exension: lacks 44 deg's Right Third Comments PIP Exension: lacks 27 deg's Right Second Comments PIP Exension: lacks 27 deg's DIP Extension: lacks 12 deg's Left Fifth Comments PIP Exension: lacks 44 deg's Left Fourth Comments PIP Exension: lacks 37 deg's Left Third Comments PIP Extension: lacks 33 deg's Left Second Comments PIP Exension: lacks 18 deg's DIP Extension: lacks 5 deg's Thumb Goniometric Range of Motion Thumb Right Opposition to 5th Digit Base (cm) 2 Left Opposition to 5th Digit Base (cm) 0 PT-OP-M Strength Start: 08/10/23 17:37 Freq: Status: Active Protocol: Document 08/28/23 12:41 LRN (Rec: 08/28/23 13:01 N [id number]) Finger/Thumb Strength Finger Manual Muscle Testing pinky 5 right Adduction 0 Zero Abduction (fingers T1) 1 Trace pinky 5 left Adduction 1 Trace Abduction (fingers T1) 0 Zero Ring finger 4 right Adduction 1 Trace Abduction (fingers T1) 1 Trace Ring finger 4 left Adduction 1 Trace Abduction (fingers T1) 0 Zero middle finger 3 right Adduction 3 Fair Abduction (fingers T1) 1 Trace middle finger 3 left Adduction 2 Poor Abduction (fingers T1) 0 Zero Index finger (2) right Adduction 3 Fair Abduction (fingers T1) 0 Zero Index finger 2 left Adduction 3 Fair Abduction (fingers T1) 0 Zero right thumb Adduction 5 Normal Abduction (fingers T1) 5 Normal left thumb Adduction 5 Normal Abduction (fingers T1) 5 Normal PT-OP-Q Treatments Start: 08/10/23 17:37 Freq: Status: Active Protocol: Document 09/26/23 13:52 LRN (Rec: 09/26/23 14:36 [facility] [id number]) Cardio Equipment Upper Body Ergometer (UBE) Duration (Minutes) 5 Seat Position 12 Height hgt 3.5 x 2'> hgt 2.5 x 3' Other RPM 70 x 2', > RPM 80 x 3' Therapeutic Exercises Sitting Exercises Handwriting practice Sitting Exercise Name 3 different modified stunt person pens Side right Reps/Minutes 11' wrist extension Side bilateral Reps/Minutes 10 fingers extension Fingers/thumb AB/AD Sitting Exercise Name Digits 1-5: AB/AD Side bilateral Reps/Minutes 5' Comments Assist to keep MCP jt from hyperextending PIP jt stretch Sitting Exercise Name PIP jt stretch to neutral all digits (2-5) - HEP Side bilateral Reps/Minutes 7' PT-OP-T Assessment and Plan Start: 08/10/23 17:37 Freq: Status: Active Protocol: Document 09/26/23 13:52 LRN (Rec: 09/26/23 14:36 [facility] [id number]) Physical Therapy Assessment Goals Three Impairment Decreased functional ability Impairment Difficulty writing and picking up flat objects (dime) from a hard surface. Short Term Goal (STG) Pt educated in modification of objects to improve stunt person and and writing ability. 08/22/2023 Cyrus wrote his name on the HEP paper end of session, commenting he is able to write better, and that he could not write this well before, also noted the pen had a soft stunt person. STG Duration 08/18/23 partiall met : MET For writing improved. Skilled Nursing Goal (LTG) Pt will be able to cone picker a coin from a hard surface with greater ease. 08/28/23: Pt reports he is able to cone picker coins easier. Demonstrated ~40-50% of time able to cone picker dime and quarter size coins in 1 attempt. 09/11/23: Pt able to cone picker a dime and miky (with gloves on) 100% of time from rolling table. LTG Duration 10/09/23 (09/11/23: MET GOAL) Two Impairment Pt not able to lay fingers straight. Skilled Nursing Goal (LTG) Pt will be educated in stretch to PIP jts to promote straightening of fingers (at PIP joints). 08/22/2023 Cyrus demonstrated stretching fingers straight with overpressure commenting he can get the straight, but they don't stay straight. ( when he discontinues the overpressure ) LTG Duration 10/09/23 (08/17/23: MET GOAL) One Impairment Pt lacks appropriate self care HEP. Pipelines Laborer Goal (LTG) Pt will be independent in an effective self care HEP of finger mobility (PIP extension ) and hand ex's (intrinsics, opposition). 08/28/23: Previously issued HEP: PIP jt stretch to neutral all digits (2-5). Other previously issued HEP: Opposite, finder extension/pen roll, wrist extension with fingers flexed and extended. 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 Today the pt demonstrated ability to print his name in legible manner, writing is harder to visualize. Use of hand towel around pen was too thick. 1 diameter around pen appeared to be best width for writing. Pt shows good understanding of ex's he can do to strengthen the hand. Complete self care program for goal to be met. Physical Therapy Plan Frequency and Duration Frequency of Treatment 2x/Week Duration of treatment (weeks) 8 Plan of Care Start Date 08/14/23 Plan of Care End Date 10/09/23 Next Visit Focus/Plan Next Note Type Discharge Summary Next Visit Plan DC next visit. Review HEP. Check ex's for Jr Finger/ thumb strengthening: Intrinsic & opposition strengthening, rubber band resistance for AB/AD Ther Ex: picking up small flat objects with index/thumb and coin from hard surface. Check Gripping strength. Manual: STM of finger flexors and extensors. [ End ]
--- NOTE | 2023-10-10 12:39 | PT.OTN ---
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 Diabetes II, Depression, Arthritis, neck/back pain. PT-OP-B Current Condition Start: 08/10/23 17:37 Freq: Status: Active Protocol: Document 08/14/23 11:24 LRN (Rec: 08/14/23 12:55 LRN [id number]) Current Condition History of Current Condition Onset Date 5 yrs ago. Current Complaints Hands won't go straight. History of Current Condition Worsening of hand positioning and neuropathy of hands. R hand digits 4th & 5th from wrist distally, loss of sensation with hot/cold and sharp/dull. Pt reports arthritis and carpel tunnel has been ruled out. L hand, loss of sensation of tips of 2nd and 4th digit finger tips, otherwise, hot/cold, pressure , sharp/dull is normal. 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 Hyper ext of MCP's and flex of PIP jts. 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 Prior Treatments and Tests Test for arthritis, office check for carpel tunnel - states both were found negative. Treatment Goals Patient/Caregiver Goals Pt goal: Get fingers to straighten and pick a dime up off the floor. Write better with R hand. Personal Factors Other Personal Factors That May Effect Pt reports being technically Therapy/Recovery homeless and catches a ride to PT through [facility]. Neuropathy of hands with loss of sensation in L hand fingertips and R hand digits 4 & 5. Wheelchair bound. PT-OP-C Subjective Start: 08/10/23 17:37 Freq: Status: Active Protocol: Document 10/10/23 11:26 LRN (Rec: 10/10/23 12:35 LRN [id number]) OP-PT Subjective Patient Comments Patient Comments Natural Developer and writing ability comes and goes, possibly due to feeling of coldness in hands. When the head thinks his hands feel cold (to touch it is warm), his fingers are more stiff and immobile. States he has no pain in hands, only fatigues with use. Also has hand numbness. Pt choosing discharge from therapy due to financial reasons. Pt is able to picker and packer coins and thin washers from a hard surface with help of fingernails. Pt hand fatigued at end of therapy; therefore did not complete forms completely. OP-PT Pain Assessment Location R hand Pain Location Details R thumb: MCP to CMC jt Intensity 0 Scale Used Numeric (0 - 10) Description- Other Only aches with use L hand Pain Location Details Thumb from MCP jt to CMC jt Intensity 0 Scale Used Numeric (0 - 10) Description- Other Only aches with use PT-OP-H Neuro Start: 08/10/23 17:37 Freq: Status: Active Protocol: Document 08/14/23 11:24 LRN (Rec: 08/14/23 12:55 LRN [id number]) Sensation Evaluation Gross Sensation Gross Sensation Right UE Impaired,Left LE Impaired Sensation Description Numbness Comments Summary Comments Decreased sensation of R hand in Ulnar nerve sensory distribution (digits 4th & 5th from wrist distally, loss of sensation with hot/cold and sharp/dull), can feel pressure . PT-OP-J Posture/Palpation/Skin Start: 08/10/23 17:37 Freq: Status: Active Protocol: Document 08/14/23 11:24 LRN (Rec: 08/14/23 12:55 LRN [id number]) Posture Evaluation Position Sitting Head/C-Spine Posture Forward Head Shoulder Posture (R) Rounded,(L) Forward Comments Posture Comments Atrophy of intrinsics and hypothenar eminence. Palpation Assessment Location R hand Palpation Location Entire hand Palpation Details Tingling with palpation. L hand Palpation Location Entire hand Palpation Details Tingling with palpation. PT-OP-K Range of Motion Start: 08/10/23 17:37 Freq: Status: Active Protocol: Document 08/14/23 11:24 LRN (Rec: 08/14/23 12:55 LRN [id number]) Finger Goniometric Range of Motion Finger Right Fifth Comments PIP Exension: lacks 45 deg's Right Fourth Comments PIP Exension: lacks 44 deg's Right Third Comments PIP Exension: lacks 27 deg's Right Second Comments PIP Exension: lacks 27 deg's DIP Extension: lacks 12 deg's Left Fifth Comments PIP Exension: lacks 44 deg's Left Fourth Comments PIP Exension: lacks 37 deg's Left Third Comments PIP Extension: lacks 33 deg's Left Second Comments PIP Exension: lacks 18 deg's DIP Extension: lacks 5 deg's Thumb Goniometric Range of Motion Thumb Right Opposition to 5th Digit Base (cm) 2 Left Opposition to 5th Digit Base (cm) 0 PT-OP-M Strength Start: 08/10/23 17:37 Freq: Status: Active Protocol: Document 10/10/23 11:26 LRN (Rec: 10/10/23 12:35 [facility] [id number]) Hand Natural Developer/Pinch Strength Hand Dominance Hand Dominance Right Hand Strength Right Tip Pinch (lbs) 3 Comments Oppoisition: 5/5, but pt not able to maintain flex at jts. Pinch: 3, 3.5, 3 lbs Left Tip Pinch (lbs) 2 Comments Opposition: little finger - 3 /5, otherwise strength is 5/5, but pt not able to maintain flex at jts. Pinch: 2, 2.5, 2 lbs PT-OP-Q Treatments Start: 08/10/23 17:37 Freq: Status: Active Protocol: Document 10/10/23 11:26 LRN (Rec: 10/10/23 12:35 [facility] [id number]) Therapeutic Exercises Sitting Exercises Writing w/thin pen Sitting Exercise Name Writing w/thin pen Side bilateral Reps/Minutes 10' Comments Pt filling out pain diagram Handwriting practice Sitting Exercise Name Natural Developer and use of pen - printing & writing. Side right Reps/Minutes 11' Finger AB/AD Sitting Exercise Name Active Fingers 2-5 AB/AD Side bilateral Reps/Minutes 5x each Finger extension or EDC glides Sitting Exercise Name Active finger extension Side bilateral Reps/Minutes x10 Comments I/S not for 5th digit due to bouteniere deformity with extension. Self-Care/Home Management Treatment Education Patient Education Home Exercise Program Other Education Discussed plan of care, pt coverage for therapy and DC due to max limit of insurance coverage and pt not able to financially continue. 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 Activities Self-Care/Home Management Activities Issued HEP: Thumb opposition with all digits, AB, & finger ext except for little finger. PT-OP-T Assessment and Plan Start: 08/10/23 17:37 Freq: Status: Active Protocol: Document 10/10/23 11:26 LRN (Rec: 10/10/23 12:35 LRN [id number]) Physical Therapy Assessment Goals Three Impairment Decreased functional ability Impairment Difficulty writing and picking up flat objects (dime) from a hard surface. 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 08/22/2023 Cyrus wrote his name on the HEP paper end of session, commenting he is able to write better, and that he could not write this well before, also noted the pen had a soft brine plant operator. STG Duration 08/18/23 10/10/23: MET GOAL For writing improved. Snf Goal (LTG) Pt will be able to picker and packer a coin from a hard surface with greater ease. 08/28/23: Pt reports he is able to picker and packer coins easier. Demonstrated ~40-50% of time able to picker and packer dime and quarter size coins in 1 attempt. 09/11/23: Pt able to picker and packer a dime and miky (with gloves on) 100% of time from rolling table. LTG Duration 10/09/23 (09/11/23: MET GOAL) Two Impairment Pt not able to lay fingers straight. Snf Goal (LTG) Pt will be educated in stretch to PIP jts to promote straightening of fingers (at PIP joints). 08/22/2023 Cyrus demonstrated stretching fingers straight with overpressure commenting he can get the straight, but they don't stay straight. ( when he discontinues the overpressure ) LTG Duration 10/09/23 (08/17/23: MET GOAL) One Impairment Pt lacks appropriate self care HEP. Inserter Operator Goal (LTG) Pt will be independent in an effective self care HEP of finger mobility (PIP extension ) and hand ex's (intrinsics, opposition). 08/28/23: Previously issued HEP: PIP jt stretch to neutral all digits (2-5). Other previously issued HEP: Opposite, finder extension/pen roll, wrist extension with fingers flexed and extended. 08/31/23- bolt/nut moving 10/10/23: HEP: Thumb opposition with all digits, AB , & finger ext except for little finger. 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 The pt demonstrated ability to print his name in legible manner but writing is harder to visualize. He conts to have atrophy of intrinsic and hypothenar ms He is now able to straighten his fingers except for the little finger ( still shows obvious sign of Bouttonniere deformity). He reportedly is able to picker and packer coins and thin washers from a hard surface if he has use of fingernails. Todaym writing at the end of therapy was difficult to read but pt was able to perform quickly. Physical Therapy Plan Discharge Physical Therapy Discharge Reasons Goals Met Discharge Comments The pt met his initial goals, but still shows signs of hand weakness and Boutonniere deformity of his little fingers that might improve if splinted. We do not do splinting in this facility at this time; therefore if needed , a referral to a hand specialist would be recommended. Thank you for your referral. Next Visit Focus/Plan Next Visit Plan [ End ]
== END 2023-10-19 12:03 ==
LOC: PHYS 11:15
PROVIDERS: Family Provider Family Medicine; PCP Family Medicine; Referring Provider Family Medicine; Visit Provider Family Medicine
DX: M25.541 Pain in joints of right hand (principal); M25.542 Pain in joints of left hand
CPT/HCPCS: 97110; 97140; 97162; 97535

== ENCOUNTER → 2023-10-31 08:12 | Outpatient (CLI) | payer MEDICAID, SELFPAY | PROVIDERS: Family Provider Family Medicine; PCP Family Medicine; Referring Provider Family Medicine; Visit Provider Surgery | DX: E11.622 Type 2 diabetes mellitus with other skin ulcer (principal); L97.822 Non-pressure chronic ulcer of other part of left lower leg with fat layer exposed; I73.9 Peripheral vascular disease, unspecified; D64.9 Anemia, unspecified; R21 Rash and other nonspecific skin eruption; R23.4 Changes in skin texture; R60.0 Localized edema; I10 Essential (primary) hypertension; Z87.891 Personal history of nicotine dependence | CPT/HCPCS: 11042; 87070; 87075; 87077; 87147; 87186; 87205; 99214 ==

== ENCOUNTER → 2023-11-09 11:04 | Outpatient (CLI) | payer MEDICAID, SELFPAY | PROVIDERS: Family Provider Family Medicine; PCP Family Medicine; Referring Provider Family Medicine; Visit Provider Surgery | DX: E11.622 Type 2 diabetes mellitus with other skin ulcer (principal); L97.822 Non-pressure chronic ulcer of other part of left lower leg with fat layer exposed; L98.498 Non-pressure chronic ulcer of skin of other sites with other specified severity; I73.9 Peripheral vascular disease, unspecified; D64.9 Anemia, unspecified; I10 Essential (primary) hypertension | CPT/HCPCS: 11042 ==

== ENCOUNTER → 2023-11-23 10:58 | Outpatient (CLI) | payer MEDICAID, SELFPAY | LOC: WC 10:59 | PROVIDERS: Family Provider Family Medicine; PCP Family Medicine; Referring Provider Family Medicine; Visit Provider Surgery | DX: E11.622 Type 2 diabetes mellitus with other skin ulcer (principal); L97.822 Non-pressure chronic ulcer of other part of left lower leg with fat layer exposed; I73.9 Peripheral vascular disease, unspecified; D64.9 Anemia, unspecified; I10 Essential (primary) hypertension; E11.42 Type 2 diabetes mellitus with diabetic polyneuropathy | CPT/HCPCS: 11042 ==

== ENCOUNTER → 2023-11-30 13:17 | Outpatient (CLI) | payer MEDICAID, SELFPAY | PROVIDERS: Family Provider Family Medicine; PCP Family Medicine; Referring Provider Family Medicine; Visit Provider Physician Assistant | DX: E11.622 Type 2 diabetes mellitus with other skin ulcer (principal); E11.42 Type 2 diabetes mellitus with diabetic polyneuropathy; L97.822 Non-pressure chronic ulcer of other part of left lower leg with fat layer exposed; I73.9 Peripheral vascular disease, unspecified; Z91.199 Patient's noncompliance with other medical treatment and regimen due to unspecified reason | CPT/HCPCS: 11042; 99213 ==

== ENCOUNTER → 2023-12-08 11:13 | Outpatient (CLI) | payer MEDICAID, SELFPAY | PROVIDERS: Family Provider Family Medicine; PCP Family Medicine; Referring Provider Family Medicine; Visit Provider Physician Assistant | DX: E11.622 Type 2 diabetes mellitus with other skin ulcer (principal); L97.822 Non-pressure chronic ulcer of other part of left lower leg with fat layer exposed; I73.9 Peripheral vascular disease, unspecified; E11.42 Type 2 diabetes mellitus with diabetic polyneuropathy; I10 Essential (primary) hypertension; Z89.511 Acquired absence of right leg below knee | CPT/HCPCS: 11042; 99213 ==

== ENCOUNTER → 2023-12-15 13:44 | Outpatient (CLI) | payer MEDICAID, SELFPAY | LOC: WC 13:44 | PROVIDERS: Family Provider Family Medicine; PCP Family Medicine; Referring Provider Family Medicine; Visit Provider Physician Assistant | DX: Z09 Encounter for follow-up examination after completed treatment for conditions other than malignant neoplasm (principal); Z86.31 Personal history of diabetic foot ulcer | CPT/HCPCS: 99212 ==

== ENCOUNTER 2025-01-09 11:38 | Emergency (ER) | payer MEDICAID, SELFPAY ==
[2025-01-09] VITALS (18 sets, daily range): BP systolic 117–160; BP diastolic 65–86; PULSE 76–99; RESP 8–23; TEMP 36.5; O2SAT 91–98; BMI 28.5
--- NOTE | 2025-01-09 12:26 | ED.GENADULT ---
HPI - General Adult General Chief complaint: Abdominal Pain Stated complaint: abdominal pain right side Time Seen by Provider: 01/09/25 12:12 Source: patient Mode of arrival: Ambulatory History of Present Illness HPI narrative: 59-year-old gentleman with complex medical history including diabetes with right-sided above-knee amputation, history of gallbladder removal, significant diabetic neuropathy comes in complaining of right-sided abdominal pain started mid right abdomen. Has been increasing over the last 24 hours he took Tylenol and tramadol prior to arrival. States he had a normal bowel movement this morning that did not influence his pain. Of note he had cervical spine surgery on December 18 of this year that seems to be healing well and he does not have any issues concerning recent surgery. No chest pain or palpitations Related Data Home Medications ?Medication ?Instructions ?Recorded ?Confirmed gabapentin 600 mg tablet 1,200 mg PO TID 09/09/20 05/19/23 famotidine 20 mg tablet 20 mg PO DAILY 09/10/20 05/19/23 insulin glargine 100 unit/mL 20 unit SUBCUT BID 05/07/22 05/19/23 subcutaneous cartridge insulin lispro 100 unit/mL 1 sliding scale dose SUBCUT 05/07/22 05/19/23 subcutaneous pen USEASDIRECTD Previous Rx's ?Medication ?Instructions ?Recorded acetaminophen 325 mg tablet 650 mg (2 x 325 mg) PO Q6H PRN 05/26/23 Fever/Mild Pain (1-3) #240 tabs amoxicillin 875 mg-potassium 1 tab PO BID #10 tabs 05/26/23 clavulanate 125 mg tablet docusate sodium 100 mg capsule 100 mg PO BID PRN constipation #60 05/26/23 caps oxycodone 5 mg tablet 5 mg PO Q4-6H PRN Pain, Moderate 05/26/23 (4-6) #60 tabs Allergies Allergy/AdvReac Type Severity Reaction Status Date / Time diphenhydramine (From Allergy Verified 05/19/23 14:15 Benadryl) morphine Allergy Verified 05/19/23 14:15 Sulfa (Sulfonamide Allergy Verified 05/19/23 14:15 Antibiotics) Review of Systems Review of Systems Narrative: Pertinent positive and negative findings as per HPI Patient History Medical History Hyperlipidemia Hypertension Diabetes Surgical History History of cholecystectomy Family History Father Diabetes mellitus Cancer Mother Cancer Social History marital status: household members: spouse and children pets and animals: Yes Smoking Status: Never smoker alcohol intake: current Smoking Status: Never smoker alcohol intake frequency: holidays/special occasions only Exam Initial Vital Signs Initial Vital Signs: Vital Signs Temperature 97.7 F 01/09/25 11:45 Pulse Rate 90 01/09/25 11:45 Respiratory Rate 18 01/09/25 11:45 Blood Pressure 133/71 01/09/25 11:45 Pulse Oximetry 98 01/09/25 11:45 Oxygen Delivery Method Room Air 01/09/25 11:45 General: Chronically ill-appearing, cooperative able to speak in complete sentences HEENT: Moist mucous membranes, normal sclera with reactive pupils, Neck: No JVD, supple Respiratory: Lungs are clear to auscultation, no wheezing no rales no rhonchi. Full and symmetrical air movement Cardiac: Regular rate and rhythm no murmurs no bruits Abdomen: Soft, tender right side of his umbilicus. He does have multiple surgical umbilical scars I do not appreciate an obvious hernia. There was no rebound or guarding Skin: Warm and dry, no rashes Neurologic: Thenar wasting to the hands bilaterally, no localizing neurologic complaints Extremities: Right above-knee amputation, left without swelling Psych: Cooperative, appropriate insight and affect Course Orders Ordered: ED Orders 01/09/25 12:18 Complete Blood Count AUTO DIFF Stat Comprehensive Metabolic Panel Stat Lactate (Lactic Acid) Stat 01/09/25 12:29 CT abdomen pelvis w con Stat 01/09/25 16:00 Urinalysis and Microscopic Stat Hydromorphone HCl (Hydromorphone Hcl 0.5 Mg/0.5 Ml Syringe) 0.5 mg IV Q15MIN PRN PRN Reason: Pain, Last Admin: 01/09/25 16:21 Dose: 0.5 mg Documented By: Admin: 01/09/25 13:53 Dose: 0.5 mg Documented By: ES Sodium Chloride (Normal Saline 0.9%) 1,000 mls @ 150 mls/hr IV CONT DULCE Last Admin: 01/09/25 12:35 Dose: 150 mls/hr Documented By: IVETTE Ondansetron HCl (Ondansetron 4 Mg/2 Ml Inj) 4 mg IV NOW PRN PRN Reason: nausea Vital Signs Vital signs: Vital Signs - 8 hr 01/09/25 11:45 01/09/25 12:03 01/09/25 12:04 Temperature 97.7 F Pulse Rate 90 99 H 92 H Respiratory Rate 18 Blood Pressure 133/71 Pulse Oximetry 98 96 97 Oxygen Delivery Method Room Air 01/09/25 12:04 01/09/25 12:30 01/09/25 12:30 Temperature Pulse Rate 81 Respiratory Rate 20 Blood Pressure 135/65 136/71 Pulse Oximetry 95 Oxygen Delivery Method 01/09/25 13:08 01/09/25 13:09 01/09/25 13:09 Temperature Pulse Rate 86 86 Respiratory Rate 17 18 Blood Pressure 160/86 H Pulse Oximetry 97 97 Oxygen Delivery Method 01/09/25 13:30 01/09/25 13:30 01/09/25 14:00 Temperature Pulse Rate 80 Respiratory Rate Blood Pressure 125/73 130/72 Pulse Oximetry 96 Oxygen Delivery Method 01/09/25 14:00 01/09/25 14:30 01/09/25 14:30 Temperature Pulse Rate 80 83 Respiratory Rate 16 Blood Pressure 120/73 Pulse Oximetry 97 91 Oxygen Delivery Method 01/09/25 15:00 01/09/25 15:00 01/09/25 15:30 Temperature Pulse Rate 79 Respiratory Rate 14 Blood Pressure 117/66 133/68 Pulse Oximetry 94 Oxygen Delivery Method 01/09/25 15:30 01/09/25 16:00 01/09/25 16:19 Temperature Pulse Rate 76 85 Respiratory Rate 12 Blood Pressure 124/86 Pulse Oximetry 95 Oxygen Delivery Method 01/09/25 16:19 01/09/25 16:30 01/09/25 16:30 Temperature Pulse Rate 81 80 Respiratory Rate 21 23 Blood Pressure 131/69 Pulse Oximetry 94 93 Oxygen Delivery Method 01/09/25 17:00 01/09/25 17:00 01/09/25 17:30 Temperature Pulse Rate 76 Respiratory Rate 8 L Blood Pressure 121/66 128/70 Pulse Oximetry 94 Oxygen Delivery Method 01/09/25 17:30 Temperature Pulse Rate 81 Respiratory Rate 16 Blood Pressure Pulse Oximetry 95 Oxygen Delivery Method Medical Decision Making Lab Data 01/09/25 12:18 01/09/25 12:18 Labs: Lab Results 01/09/25 01/09/25 Range/Units 12:18 16:00 WBC 8.4 (4.5-11.0) X10^3/uL RBC 4.75 (4.5-5.9) X10^6/uL Hgb 13.7 (13.5-17.5) g/dL Hct 40.3 L (41-53) % MCV 84.8 (80-100) fL MCH 28.9 (26-34) PG MCHC 34.1 (30-36) % RDW 12.7 (11.6-14.8) % Plt Count 285 (150-400) X10^3/uL Neut % (Auto) 66.1 (50-75) % Lymph % (Auto) 27.0 (25-40) % [place] % (Auto) 5.0 (3-14) % Eos % (Auto) 1.4 L (2-4) % Baso % (Auto) 0.5 (0-2) % Neut # (Auto) 5500 (9341-2603) /uL Lymph # (Auto) 2300 (1509-7856) /uL [place] # (Auto) 400 (0-900) /uL Eos # (Auto) 100 (0-450) /uL Baso # (Auto) 0 (0-100) /uL Sodium 137 (137-145) mmol/L Potassium 4.7 (3.4-5.1) mmol/L Chloride 101 (98-107) mmol/L Carbon Dioxide 25 (22-32) mmol/L BUN 19 (9-20) mg/dL Creatinine 0.73 (0.66-1.25) mg/dL Estimated GFR > 60 (>60) mL/min BUN/Creatinine Ratio 26.0 H (6-22) Glucose 146 H (70-99) mg/dL Lactate 1.6 (0.7-2.1) mmol/L Calcium 9.8 (8.4-10.2) mg/dL Total Bilirubin 1.3 (0.2-1.3) mg/dL AST 52 (17-59) IU/L ALT 45 (<50) IU/L Alkaline Phosphatase 66 (38-126) U/L Total Protein 8.0 (6.3-8.2) g/dL Albumin 4.6 (3.5-5.0) g/dL Globulin 3.4 (1.7-4.1) g/dL Albumin/Globulin Ratio 1.4 (1.0-2.8) Urine Color Yellow Urine Appearance Clear Urine pH 5.5 (4.5-8.0) Ur Specific [place] <=1.005 (1.000-1.035) Urine Protein Negative (Negative) Urine Glucose (UA) Negative (Negative) g/dL Urine Ketones Negative (NEGATIVE) Urine Occult Blood Negative (Negative) Urine Nitrate Negative (Negative) Urine Bilirubin Negative (NEGATIVE) Urine Urobilinogen 0.2 (0.2) E.U./dL Ur Leukocyte Esterase Negative (NEGATIVE) Urine RBC None seen (0-5/HPF) Urine WBC None seen (0-5/HPF) Ur Squamous Epith Cells None seen (0-5/HPF) Urine Bacteria None seen (None) Ur Culture Indicated? Cult not indicated Vol Urine Centrifuged 10ml (spun) Imaging Data CT scan - abdomen/pelvis: Radiologist's Impression: PROCEDURE: CT ABDOMEN PELVIS W CON INDICATIONS: right side abd pain TECHNIQUE: After the administration of intravenous contrast, axial sections acquired from the lung bases to the pubic symphysis. Coronal and sagittal reformats were performed. For radiation dose reduction, the following was used: automated exposure control, adjustment of mA and/or kV according to patient size. COMPARISON: None. FINDINGS: Image quality: There is artifact associated with the metallic hardware. Artifact from the metallic hardware is reduced by metal reconstruction algorithm. Lower Chest: A small hiatal hernia is incidentally noted. ABDOMEN: Liver: No solid mass. Diffuse fatty liver infiltration is noted. Gallbladder: Removed. Biliary ducts: No biliary dilation. Pancreas: No ductal dilation. Spleen: Size is within normal limits. Adrenal Glands: No adrenal nodules. Kidneys and Ureters: No hydronephrosis. No solid mass. No complex renal cystic lesion which requires follow up. Stomach and Bowel: In this patient with this given history, scrutiny is given to the appendix. A normal appendix is partially seen. No focal right lower quadrant inflammatory change can be seen. Normal colonic caliber, without significant wall thickening. No dilated loops of small bowel are seen. Peritoneum: No abnormal intraperitoneal fluid. No free air. Ventral Wall: No significant ventral hernia. Abdominal Nodes: No retroperitoneal or mesenteric adenopathy by size criteria. Vessels: Aorta and inferior vena cava are normal in size. Atherosclerotic calcification is noted. PELVIS: Pelvic Organs: Unremarkable. Bladder: No bladder wall thickening, accounting for underdistention. Pelvic Nodes: No enlarged lymph nodes. Miscellaneous: No inguinal hernias are seen. Bones: No aggressive osseous abnormality. Mild dextroconvex scoliotic curvature is seen. Focal degenerative change can be seen at L3-L4 and L5-S1 Right hip arthroplasty hardware is seen, with associated streak artifact. IMPRESSION: Normal appendix, without focal right lower quadrant inflammatory change. No right ureteral stone right sided hydronephrosis. Additional findings: Fatty liver infiltration Cholecystectomy Dextroconvex scoliotic curvature Focal L3-L4 and L5-S1 degenerative change Right hip arthroplasty hardware Dictated by: Johny Rick M.D. on 01/09/2025 at 12:34 Approved by: Johny Rick M.D. on 01/09/2025 at 12:37 MDM Narrative Medical decision making narrative: CC: Right-sided abdominal pain Complicating co-morbidities: Diabetes, cervical spine surgery on December 18, post cholecystectomy Data collected from: patient Differential considered: Liver abnormality, constipation, appendicitis, hydronephrosis, constipation Exam documented above, pertinent findings include: Right-sided abdominal pain diffuse, no flank pain, no right lower quadrant pain. No rebound or guarding Lab Test results independently reviewed as above. Pertinent findings: CBC is unremarkable Chemistries are reassuring with normal renal function, normal liver function Lactic acid is not Urinalysis is unremarkable Imaging studies independently reviewed: CT scan of the abdomen shows no acute pathology to explain his right-sided abdominal pain. He has a moderate amount of stool but does not appear particularly constipated particularly right side. Certainly no surgical findings that would require further evaluation Treatments: Fluid, Dilaudid, Zofran Discussion: 59-year-old gentleman with history of diabetes presents with right-sided abdominal pain nonspecific. He is concerned that he has something wrong with his cystic duct as he has had gallbladder issues before. CT scan does not suggest liver abnormalities, obstructing kidney stone, hydronephrosis, no evidence of bladder infection or pyelonephritis. No appendicitis, colitis, bowel obstruction or significant constipation. There were no skin changes to suggest zoster. At this point I do not have an explanation for the pain that he is experiencing on his right side. He has Percocet, oxycodone and tramadol all available at home and did not feel that he needed more. He has suggested that would be okay to use pain medication for the next 24-48 hours as we do have normal labs in his CT scan. If he has new symptoms or pain continues beyond that he needs to be re-evaluated. I also suggested that he watch closely for any type of rash developing in that area as a pre herpetic syndrome can hurt in the distribution he is noting. He is safe for discharge Discharge Plan Departure Patient Disposition: Home Clinical Impression: Abdominal pain Qualifiers: Abdominal location: unspecified location Qualified Code(s): R10.9 - Unspecified abdominal pain Instructions: DI for Abdominal Pain-Adult Activity Restrictions/Additional Instructions: Thank you for coming in today You had a very normal CT scan of your abdomen. There was no sign of liver problems, kidney problems, colitis, constipation, infections otherwise in your bowels, no obstruction and no evidence of appendicitis. While it isn't common to have shingles in 2 different locations, knowing that you did have it on your forehead, it is possible. Sometimes you can have severe abdominal pain before shingles rash breaks out in the same area. Please watch your skin closely to see if you are developing any redness or blisters. In the meantime, having done the workup done in the emergency department today, it is okay to cover up the pain with pain medication of choice. You stated that you had oxycodone, Percocet, tramadol and Tylenol all of those are safe to use at this time If you find that you are getting worse or develop new symptoms please feel free to return to the ER Prescriptions: No Action gabapentin 600 mg Tablet 1,200 mg PO TID famotidine 20 mg Tablet 20 mg PO DAILY insulin lispro 100 unit/mL Insulin Pen 1 sliding scale dose SUBCUT USEASDIRECTD Patient Comments: taken 05/18 insulin glargine 100 unit/mL Cartridge 20 unit SUBCUT BID acetaminophen 325 mg Tablet 650 mg PO Q6H PRN (Reason: Fever/Mild Pain (1-3)) Qty: 240 0RF amoxicillin-pot clavulanate 875-125 mg Tablet 1 tab PO BID Qty: 10 0RF docusate sodium 100 mg Capsule 100 mg PO BID PRN (Reason: constipation) Qty: 60 1RF oxycodone 5 mg Tablet 5 mg PO Q4-6H PRN (Reason: Pain, Moderate (4-6)) Qty: 60 0RF Referrals: Adalberto Mireles MD [Primary Care Provider, Family Practice] Stand Alone Forms: Patient Portal/API
--- NOTE | 2025-01-09 12:29 | DI.CT.S_ITS ---
PROCEDURE: CT ABDOMEN PELVIS W CON INDICATIONS: right side abd pain TECHNIQUE: After the administration of intravenous contrast, axial sections acquired from the lung bases to the pubic symphysis. Coronal and sagittal reformats were performed. For radiation dose reduction, the following was used: automated exposure control, adjustment of mA and/or kV according to patient size. COMPARISON: None. FINDINGS: Image quality: There is artifact associated with the metallic hardware. Artifact from the metallic hardware is reduced by metal reconstruction algorithm. Lower Chest: A small hiatal hernia is incidentally noted. ABDOMEN: Liver: No solid mass. Diffuse fatty liver infiltration is noted. Gallbladder: Removed. Biliary ducts: No biliary dilation. Pancreas: No ductal dilation. Spleen: Size is within normal limits. Adrenal Glands: No adrenal nodules. Kidneys and Ureters: No hydronephrosis. No solid mass. No complex renal cystic lesion which requires follow up. Stomach and Bowel: In this patient with this given history, scrutiny is given to the appendix. A normal appendix is partially seen. No focal right lower quadrant inflammatory change can be seen. Normal colonic caliber, without significant wall thickening. No dilated loops of small bowel are seen. Peritoneum: No abnormal intraperitoneal fluid. No free air. Ventral Wall: No significant ventral hernia. Abdominal Nodes: No retroperitoneal or mesenteric adenopathy by size criteria. Vessels: Aorta and inferior vena cava are normal in size. Atherosclerotic calcification is noted. PELVIS: Pelvic Organs: Unremarkable. Bladder: No bladder wall thickening, accounting for underdistention. Pelvic Nodes: No enlarged lymph nodes. Miscellaneous: No inguinal hernias are seen. Bones: No aggressive osseous abnormality. Mild dextroconvex scoliotic curvature is seen. Focal degenerative change can be seen at L3-L4 and L5-S1 Right hip arthroplasty hardware is seen, with associated streak artifact. IMPRESSION: Normal appendix, without focal right lower quadrant inflammatory change. No right ureteral stone right sided hydronephrosis. Additional findings: Fatty liver infiltration Cholecystectomy Dextroconvex scoliotic curvature Focal L3-L4 and L5-S1 degenerative change Right hip arthroplasty hardware Dictated by: Johny Rick M.D. on 01/09/2025 at 12:34 Approved by: Johny Rick M.D. on 01/09/2025 at 12:37
[2025-01-09] MEDS: SODIUM CHLORIDE 0.9% 1,000 ML 150 ML IV (12:35)
[2025-01-09 12:41] LABS: Add Manual Diff / Slide Review NO; Hematocrit 40.3 % (41-53); Hemoglobin 13.7 g/dL (13.5-17.5); Lymphocytes Absolute Auto 2300 /uL (1100-4500); Mean Corpuscular HGB Conc 34.1 % (30-36); Mean Corpuscular Hemoglobin 28.9 PG (26-34); Mean Corpuscular Volume 84.8 fL (80-100); Platelet Count 285 X10^3/uL (150-400)
[2025-01-09 12:47] LABS: Alanine Aminotransferase 45 IU/L (<50); Albumin 4.6 g/dL (3.5-5.0); Albumin Globulin Ratio 1.4 (1.0-2.8); Alkaline Phosphatase 66 U/L (38-126); Blood Urea Nitrogen 19 mg/dL (9-20); Calcium 9.8 mg/dL (8.4-10.2); Carbon Dioxide 25 mmol/L (22-32); Chloride 101 mmol/L (98-107); Estimated Glomerular Filt Rate > 60 mL/min (>60); Globulin 3.4 g/dL (1.7-4.1); Glucose 146 mg/dL (70-99); HEMOLYSIS 37 (0-50); Lactate (Lactic Acid) 1.6 mmol/L (0.7-2.1); Potassium 4.7 mmol/L (3.4-5.1); Sodium 137 mmol/L (137-145); Total Protein 8.0 g/dL (6.3-8.2)
[2025-01-09 16:11] LABS: Appearance Urine UA CLEAR; Bilirubin Urine UA NEGATIVE (NEGATIVE); Color Urine UA YELLOW; Glucose Urine UA NEGATIVE (Negative); Ketones Urine UA NEGATIVE (NEGATIVE); Leukocyte Esterase Urine UA NEGATIVE (NEGATIVE); Nitrite Urine UA NEGATIVE (Negative); Occult Blood Urine UA NEGATIVE (Negative); Protein Urine UA NEGATIVE (Negative); Specific Gravity Urine UA <=1.005 (1.000-1.035); Urobilinogen Urine UA 0.2 E.U./dL (0.2); pH Urine UA 5.5 (4.5-8.0)
[2025-01-09 16:20] LABS: Culture Indicated Urine Cult Not Indicated
[2025-01-09] MEDS: OXYCODONE/ACETAMINOPHEN 5/325 TABLET 2 TAB PO (19:13)
== END 2025-01-09 19:04 | disposition home or self-care (01) ==
PROVIDERS: Emergency Provider Emergency Medicine; Family Provider Family Medicine; PCP Family Medicine
DX: R10.9 Unspecified abdominal pain (principal)
CPT/HCPCS: 36415; 74177; 80053; 81001; 82962; 83605; 85025; 96374; 96376; 99284; J1171; Q9967